=== PATIENT | female | born 1930 | race Caucasian/White ===

== ENCOUNTER 2017-07-15 16:56 | Inpatient (IN) | payer MEDICARE, BC ==
--- NOTE | 2017-07-15 18:04 | ED ---
Lower Extremity Injury HPI - General Chief Complaint: Extremity Injury, Lower Stated Complaint: Left Ankle Swelling Time Seen by Provider: 07/15/17 17:50 Source: patient, Caregiver Mode of arrival: wheelchair Limitations: altered mental status - History of Present Illness Initial Comments: 86 years old female lives at home her caregiver is her [id number] she said she is complaining about ankle pain of the left foot pain though there is no clear trauma or fall, she does have a history of dementia she is very pleasant but obviously forgetful. As well as any recent fall is concerned caregiver said she do not recall any event, devious system is only available from the caregiver her [id number] - Related Data Home Medications Medication Instructions Recorded Confirmed Aspirin EC [Ecotrin Low Dose] 81 mg PO DAILY 07/15/17 07/15/17 Citrical 2 tab PO DAILY 07/15/17 07/15/17 Cranberry Fruit Extract [Cranberry] 500 mg PO DAILY 07/15/17 07/15/17 Fish Oil/Dha/Epa [Fish Oil 1,200 1 cap PO BID 07/15/17 07/15/17 mg Fish Oil] Melatonin 10 mg PO HS 07/15/17 07/15/17 Memantine [Namenda] 10 mg PO BID 07/15/17 07/15/17 Multivitamins, Thera [Multivitamin 2 tab PO DAILY 07/15/17 07/15/17 (formulary)] Sennosides [Senna] 8.6 mg PO DAILY 07/15/17 07/15/17 Sertraline [Zoloft] 150 mg PO DAILY 07/15/17 07/15/17 Allergies Allergy/AdvReac Type Severity Reaction Status Date / Time No Known Allergies Allergy Verified 07/15/17 18:07 Review of Systems ROS Statement: Those systems with pertinent positive or pertinent negative responses have been documented in the HPI. ROS Other: All systems not noted in ROS Statement are negative. Past Medical History Past Medical History: Dementia History of Any Multi-Drug Resistant Organisms: None Reported Past Surgical History: Unable to Obtain Past Psychological History: No Psychological Hx Reported Smoking Status: Former smoker Past Alcohol Use History: None Reported Past Drug Use History: None Reported General Exam - General Exam Comments Initial Comments: General: The patient is awake and alert, in no distress, and does not appear acutely ill. pleasent but has dementia Skin: Skin is warm and dry and no rashes or lesions are noted. Eye: extra-ocular movements are intact; there is normal conjunctiva bilaterally. Ears, nose, mouth and throat: There are moist mucous membranes and no oral lesions. Neck: The neck is supple, there is no tenderness no neck stiffness noticed, no signs of any meningitis. Cardiovascular: There is a regular rate and rhythm. No murmur, rub or gallop is appreciated. Respiratory: To auscultation bilateral, no wheezing no rhonchi no distress respiratory haines noticed Gastrointestinal: Soft, non-distended, non-tender abdomen without masses or organomegaly noted. There is no rebound or guarding present. Bowel sounds are unremarkable. Back: There is no tenderness to palpation in the midline. There is no obvious deformity. Musculoskeletal: Noticed swelling over the medial malleolus, is tender as well she is also tender over the lateral malleolus, no neurovascular compromise noticed range of motion is decreased with the pain she is also tender over the outer lateral part of the foot as well will also tender over the calf area on the affected leg Neurological: CN II-XII intact, Cranial nerves III through XII are intact. There are no obvious motor or sensory deficits. Coordination appears grossly intact. Speech is normal. Psychiatric: Cooperative, appropriate mood & affect, normal judgment. Limitations: altered mental status Course Vital Signs 07/15/17 07/15/17 17:41 19:09 Temperature 98.4 F Pulse Rate 87 58 L Respiratory 18 16 Rate Blood Pressure 157/85 143/91 O2 Sat by Pulse 96 97 Oximetry - Reevaluation(s) Reevaluation #1: I discussed I discussed the x-ray and ultrasound findings with the family informed them that she has a mandibular fracture as well as DVT, she would need to come in for the inpatient care caregiver and daughter in law agreed with that 07/15/17 20:15 Medical Decision Making - Lab Data Result diagrams: 07/15/17 18:16 Lab Results 07/15/17 Range/Units 18:16 WBC 7.7 (3.8-10.6) k/uL RBC 3.62 L (3.80-5.40) m/uL Hgb 10.7 L (11.4-16.0) gm/dL Hct 34.0 (34.0-46.0) % MCV 93.9 (80.0-100.0) fL MCH 29.7 (25.0-35.0) pg MCHC 31.6 (31.0-37.0) g/dL RDW 14.6 (11.5-15.5) % Plt Count 227 (150-450) k/uL Hypochromasia Slight Disposition Clinical Impression: Medial malleolar fracture, Metatarsal fracture, DVT (deep venous thrombosis) Disposition: ADMITTED IP TO THIS [facility] Condition: Good Referrals: Emmanuelle Dhaliwal MD [Primary Care Provider] - 1-2 days
[2017-07-15 18:25] LABS: CHCM 31.1; HDW 2.37; HGB 10.7 gm/dL (11.4-16.0); Hypochromasia Slight; MCH 29.7 pg (25.0-35.0); MCHC 31.6 g/dL (31.0-37.0); MCV 93.9 fL (80.0-100.0); RBC 3.62 m/uL (3.80-5.40); RDW 14.6 % (11.5-15.5); WBC 7.7 k/uL (3.8-10.6)
--- NOTE | 2017-07-15 18:34 | XR ---
EXAMINATION TYPE: XR ankle complete LT, XR foot complete LT DATE OF EXAM: 07/15/2017 COMPARISON: NONE HISTORY: Pain TECHNIQUE: 3 views of the left ankle and left foot are submitted are submitted for evaluation. FINDINGS: There is medial malleolar fracture with minimal displacement noted. Ankle mortise is intact . Distal fibula is intact. There is evidence of soft tissue swelling. There is fracture noted to invo lve the neck of the fifth metatarsal however there appears to be callus formation and this is likely a nonacute fracture however clinical correlation with point tenderness recommended. No additional fra ctures seen. Degenerative changes of the midfoot. IMPRESSION: 1. Medial malleolar fracture with soft tissue swelling about the ankle. 2. Probable nonacute fracture fifth metatarsal.
--- NOTE | 2017-07-15 19:21 | US ---
EXAMINATION TYPE: US venous doppler duplex LE LT DATE OF EXAM: 07/15/2017 7:09 PM COMPARISON: NONE CLINICAL HISTORY: Pain. Left ankle edema SIDE PERFORMED: TECHNIQUE: The lower extremity deep venous system is examined utilizing real time linear array sonog andrés with graded compression, doppler sonography and color-flow sonography. VESSELS IMAGED: External Iliac Vein (EIV) Common Femoral Vein Deep Femoral Vein Greater Saphenous Vein * Femoral Vein Popliteal Vein Small Saphenous Vein * Proximal Calf Veins (* superficial vessels) There is thrombus noted within the popliteal vein with lack of compressibility and augmentation of fl ow. Remaining deep venous structures are patent at this time. IMPRESSION: Positive DVT left popliteal vein
[2017-07-15] MEDS ORDERED: NALOXONE 0.4 MG/ML 1 ML VIAL IV PRN (20:16)
[2017-07-15] MEDS ORDERED: ACETAMINOPHEN TAB 325 MG TAB PO PRN (20:16)
[2017-07-15] MEDS ORDERED: ONDANSETRON 4 MG/2 ML VIAL IVP PRN (20:16)
[2017-07-15] MEDS ORDERED: NON-FORMULARY DRUG (Fish Oil/Dha/Epa [Fish Oil 1,200 Mg Fish Oil] 1 CAP) PO SCH (21:00)
[2017-07-15 21:13] LABS: Calcium 9.4 mg/dL (8.4-10.2); Potassium 4.3 mmol/L (3.5-5.1); Total Bilirubin 0.3 mg/dL (0.2-1.3); Total Protein 7.4 g/dL (6.3-8.2)
[2017-07-15 21:18] LABS: Prothrombin Time 10.4 sec (9.0-12.0)
[2017-07-15 21:24] LABS: Partial Thromboplastin Time 21.1 sec (22.0-30.0)
[2017-07-15 21:33] VITALS: BMI 22.6
[2017-07-15] MEDS ORDERED: HEPARIN SODIUM,PORCINE 10,000 UNIT/ML 1 ML VIAL IV ONE (21:52)
[2017-07-15] MEDS ORDERED: HEPARIN SODIUM,PORCINE 5,000 UNIT/ML 1 ML VIAL IV PRN (21:52)
[2017-07-15] MEDS: MELATONIN 5 MG TABLET PO SCH (21:58)
[2017-07-15] MEDS: MEMANTINE 10 MG TAB PO SCH (21:58)
[2017-07-15] MEDS ORDERED: HEPARIN SODIUM,PORCINE/D5W PMX 25,000 UNIT in DEXTROSE/WATER 1 500ML.BAG IV SCH (22:00)
[2017-07-15 22:17] LABS: Basophils % (A) 0 %; CH 28.5; CHCM 30.2; Eosinophils # (A) 0.2 k/uL (0-0.7); Eosinophils % (A) 3 %; HCT 33.3 % (34.0-46.0); HDW 2.34; HGB 10.3 gm/dL (11.4-16.0); Hypochromasia Moderate; Luc # (Auto) 0.09; Luc % (Auto) 1; Lymphocytes # (A) 2.1 k/uL (1.0-4.8); Lymphocytes % (A) 24 %; MCH 29.2 pg (25.0-35.0); MCHC 30.8 g/dL (31.0-37.0); MCV 94.9 fL (80.0-100.0); Mean Platelet Volume 7.7; Monocytes # (A) 0.5 k/uL (0-1.0); Monocytes % (A) 5 %; Neutrophils # (A) 5.7 k/uL (1.3-7.7); Neutrophils % (A) 66 %; RBC 3.51 m/uL (3.80-5.40); RDW 14.5 % (11.5-15.5); WBC 8.6 k/uL (3.8-10.6); WBC (Perox) 9.47
[2017-07-15 22:31] LABS: INR 1.1 (<1.2); Prothrombin Time 10.7 sec (9.0-12.0)
[2017-07-15] MEDS: HEPARIN SODIUM,PORCINE/D5W PMX 25,000 UNIT in DEXTROSE/WATER 1 500ML.BAG IV SCH (22:35)
[2017-07-15 22:36] LABS: Partial Thromboplastin Time 21.4 sec (22.0-30.0)
[2017-07-15] MEDS: traMADol 50 MG TAB PO PRN (23:23)
[2017-07-16] MEDS: ACETAMINOPHEN IV (For NPO) 1,000 MG in EMPTY BAG 1 BAG IVPB PRN ×2 (03:00→12:39)
[2017-07-16 04:54] LABS: Basophils % (A) 0 %; CH 28.5; CHCM 30.8; Eosinophils # (A) 0.3 k/uL (0-0.7); Eosinophils % (A) 4 %; HCT 29.3 % (34.0-46.0); HDW 2.32; HGB 9.1 gm/dL (11.4-16.0); Hypochromasia Slight; Luc # (Auto) 0.07; Luc % (Auto) 1; Lymphocytes # (A) 1.6 k/uL (1.0-4.8); Lymphocytes % (A) 24 %; MCH 28.8 pg (25.0-35.0); MCHC 30.9 g/dL (31.0-37.0); Mean Platelet Volume 7.9; Monocytes # (A) 0.4 k/uL (0-1.0); Monocytes % (A) 6 %; Neutrophils # (A) 4.3 k/uL (1.3-7.7); Neutrophils % (A) 64 %; RBC 3.15 m/uL (3.80-5.40); RDW 14.6 % (11.5-15.5); WBC 6.7 k/uL (3.8-10.6); WBC (Perox) 7.31
[2017-07-16] MEDS: traMADol 50 MG TAB PO PRN (05:14)
[2017-07-16] MEDS: MEMANTINE 10 MG TAB PO SCH ×2 (08:28→20:40)
[2017-07-16] MEDS: MULTIVITAMINS, THERA 1 EACH TAB PO SCH (08:28)
[2017-07-16] MEDS: SERTRALINE 50 MG TAB PO SCH (08:28)
[2017-07-16] MEDS: ASPIRIN 81 MG PO SCH (08:28)
[2017-07-16] MEDS: SENNOSIDES 8.6 MG TAB PO SCH (08:28)
[2017-07-16] MEDS ORDERED: NON-FORMULARY DRUG (Cranberry Fruit Extract [Cranberry] 500 MG) PO SCH (09:00)
[2017-07-16] MEDS ORDERED: CITRICAL PO SCH (09:00)
--- NOTE | 2017-07-16 09:33 | P.CNOR ---
History of Present Illness - HPI Consult date: 07/16/17 History of present illness: This is an 86-year-old female who is admitted for DVT and left ankle fracture. Patient is poor historian and has a known history of dementia. Patient is unaware of how she hurt her left ankle. There is no family present in the room. Patient appears comfortable and denies any significant pain at rest. Patient had a fever/chills, numbness, weakness or tingling. Review of Systems See HPI. Past Medical History Past Medical History: Dementia History of Any Multi-Drug Resistant Organisms: None Reported Past Surgical History: Unable to Obtain Past Psychological History: No Psychological Hx Reported Smoking Status: Former smoker Past Alcohol Use History: None Reported Past Drug Use History: None Reported Medications and Allergies Home Medications Medication Instructions Recorded Confirmed Type Aspirin EC [Ecotrin Low Dose] 81 mg PO DAILY 07/15/17 07/15/17 History Citrical 2 tab PO DAILY 07/15/17 07/15/17 History Cranberry Fruit Extract [Cranberry] 500 mg PO DAILY 07/15/17 07/15/17 History Fish Oil/Dha/Epa [Fish Oil 1,200 1 cap PO BID 07/15/17 07/15/17 History mg Fish Oil] Melatonin 10 mg PO HS 07/15/17 07/15/17 History Memantine [Namenda] 10 mg PO BID 07/15/17 07/15/17 History Multivitamins, Thera [Multivitamin 2 tab PO DAILY 07/15/17 07/15/17 History (formulary)] Sennosides [Senna] 8.6 mg PO DAILY 07/15/17 07/15/17 History Sertraline [Zoloft] 150 mg PO DAILY 07/15/17 07/15/17 History Allergies Allergy/AdvReac Type Severity Reaction Status Date / Time No Known Allergies Allergy Verified 07/15/17 18:07 Physical Examination Patient is alert. Patient is pleasant, but confused during exam. On inspection left lower extremity is in a splint which is clean, dry and intact. There is tenderness to palpation of the left ankle. There is pain with range of motion of the left lower extremity. Neurovascular status to the left lower extremity is intact. Results X-rays of the left ankle are reviewed showing a nondisplaced fracture of the medial malleolus. X-rays of the left foot are reviewed showing evidence for an old fracture of the fifth metatarsal. - Labs Labs: Abnormal Lab Results - Last 24 Hours (Table) 07/15/17 07/15/17 07/15/17 Range/Units 18:16 20:44 20:44 RBC 3.62 L (3.80-5.40) m/uL Hgb 10.7 L (11.4-16.0) gm/dL Hct (34.0-46.0) % MCHC (31.0-37.0) g/dL APTT 21.1 L (22.0-30.0) sec Chloride 108 H (98-107) mmol/L BUN 29 H (7-17) mg/dL Creatinine 1.39 H (0.52-1.04) mg/dL 07/15/17 07/15/17 07/16/17 Range/Units 22:01 22:01 04:35 RBC 3.51 L 3.15 L (3.80-5.40) m/uL Hgb 10.3 L 9.1 L (11.4-16.0) gm/dL Hct 33.3 L 29.3 L (34.0-46.0) % MCHC 30.8 L 30.9 L (31.0-37.0) g/dL APTT 21.4 L (22.0-30.0) sec Chloride (98-107) mmol/L BUN (7-17) mg/dL Creatinine (0.52-1.04) mg/dL 07/16/17 Range/Units 04:38 RBC (3.80-5.40) m/uL Hgb (11.4-16.0) gm/dL Hct (34.0-46.0) % MCHC (31.0-37.0) g/dL APTT 78.4 H (22.0-30.0) sec Chloride (98-107) mmol/L BUN (7-17) mg/dL Creatinine (0.52-1.04) mg/dL H & H 07/15/17 07/15/17 07/16/17 Range/Units 18:16 22:01 04:35 Hgb 10.7 L 10.3 L 9.1 L (11.4-16.0) gm/dL Hct 34.0 33.3 L 29.3 L (34.0-46.0) % Coagulation 07/15/17 07/15/17 Range/Units 20:44 22:01 INR 1.0 1.1 (<1.2) Result Diagrams: 07/16/17 04:35 07/15/17 20:44 Assessment and Plan (1) DVT (deep venous thrombosis) Current Visit: Yes Status: Acute Code(s): I82.409 - ACUTE EMBOLISM AND THOMBOS UNSP DEEP VN UNSP LOWER EXTREMITY SNOMED Code(s): 604946085 (2) Medial malleolar fracture Current Visit: Yes Status: Acute Code(s): S82.53XA - DISP FX OF MEDIAL MALLEOLUS OF UNSP TIBIA, INIT FOR CLOS FX SNOMED Code(s): 815817238 Plan: #1. Patient is to be non-weightbearing to the left lower extremity with a premium equalizer boot. #2. Continue rest, ice, elevation to the left lower extremity. #3. Will continue to follow the patient closely. No surgical intervention planned at this time.
[2017-07-16 12:31] LABS: INR 1.1 (<1.2); Partial Thromboplastin Time 67.9 sec (22.0-30.0); Prothrombin Time 11.2 sec (9.0-12.0)
--- NOTE | 2017-07-16 15:58 | P.HPIM ---
History of Present Illness H&P Date: 07/16/17 Chief Complaint: Left ankle pain 86 years old female with a known history of dementia lives at home her caregiver is her [id number] she said she is complaining about ankle pain of the left foot pain though there is no clear trauma or fall, she does have a history of dementia she is very pleasant but obviously forgetful. As well as any recent fall is concerned caregiver said she do not recall any event. Review of systems is only available from the caregiver her [id number] Past Medical History Past Medical History: Dementia History of Any Multi-Drug Resistant Organisms: None Reported Past Surgical History: Unable to Obtain Past Psychological History: No Psychological Hx Reported Smoking Status: Former smoker Past Alcohol Use History: None Reported Past Drug Use History: None Reported Medications and Allergies Home Medications Medication Instructions Recorded Confirmed Type Aspirin EC [Ecotrin Low Dose] 81 mg PO DAILY 07/15/17 07/15/17 History Citrical 2 tab PO DAILY 07/15/17 07/15/17 History Cranberry Fruit Extract [Cranberry] 500 mg PO DAILY 07/15/17 07/15/17 History Fish Oil/Dha/Epa [Fish Oil 1,200 1 cap PO BID 07/15/17 07/15/17 History mg Fish Oil] Melatonin 10 mg PO HS 07/15/17 07/15/17 History Memantine [Namenda] 10 mg PO BID 07/15/17 07/15/17 History Multivitamins, Thera [Multivitamin 2 tab PO DAILY 07/15/17 07/15/17 History (formulary)] Sennosides [Senna] 8.6 mg PO DAILY 07/15/17 07/15/17 History Sertraline [Zoloft] 150 mg PO DAILY 07/15/17 07/15/17 History Allergies Allergy/AdvReac Type Severity Reaction Status Date / Time No Known Allergies Allergy Verified 07/15/17 18:07 Physical Exam Vitals: Vital Signs Temp Pulse Pulse Resp BP BP Pulse Ox 07/16/17 09:45 62 07/16/17 08:14 98.3 F 54 L 16 133/72 93 L 07/16/17 01:05 97.4 F L 53 L 16 141/80 94 L 07/15/17 21:15 99.1 F 59 L 16 165/101 96 07/15/17 20:32 59 L 18 164/77 92 L 07/15/17 19:09 58 L 16 143/91 97 07/15/17 17:41 98.4 F 87 18 157/85 96 Intake and Output 07/15/17 07/16/17 07/16/17 22:59 06:59 14:59 Intake Total 128.967 360 Output Total 40 Balance -40 128.967 360 Intake: Intake, IV Titration 128.967 Amount Heparin Sodium,Porcine/ 128.967 D5w Pmx 25,000 unit In Dextrose/Water 1 500ml. bag @ 18 UNITS/KG/HR 19. 59 mls/hr IV .Q24H [facility] Rx #:[id number] Oral 360 Output: Urine 40 Other: # Voids 1 2 Weight 54.431 kg PHYSICAL EXAMINATION: Patient is lying in the bed comfortably, no acute distress, awake alert and not oriented HEENT: Normocephalic. Neck is supple. Pupils reactive. Nostrils clear. Oral cavity is moist. Ears reveal no drainage. Neck reveals no JVD, carotid bruits, or thyromegaly. CHEST EXAMINATION: Trachea is central. Symmetrical expansion. Lung springer clear to auscultation and percussion. CARDIAC: Normal S1, S2 with no gallops. No murmurs ABDOMEN: Soft. Bowel sounds normal. No organomegaly. No abdominal bruits. Extremities: reveal no edema. No clubbing or cyanosis Neurologically awake, alert . Able to move all extremities. Skin: No rash or skin lesions. Psychiatric: Coperative. Nonsuicidal Musculoskeletal: Left ankle mild swelling and tenderness to palpation. Results CBC & Chem 7: 07/16/17 04:35 07/15/17 20:44 Labs: Abnormal Lab Results - Last 24 Hours (Table) 07/15/17 07/15/17 07/15/17 Range/Units 18:16 20:44 20:44 RBC 3.62 L (3.80-5.40) m/uL Hgb 10.7 L (11.4-16.0) gm/dL Hct (34.0-46.0) % MCHC (31.0-37.0) g/dL APTT 21.1 L (22.0-30.0) sec Chloride 108 H (98-107) mmol/L BUN 29 H (7-17) mg/dL Creatinine 1.39 H (0.52-1.04) mg/dL 07/15/17 07/15/17 07/16/17 Range/Units 22:01 22:01 04:35 RBC 3.51 L 3.15 L (3.80-5.40) m/uL Hgb 10.3 L 9.1 L (11.4-16.0) gm/dL Hct 33.3 L 29.3 L (34.0-46.0) % MCHC 30.8 L 30.9 L (31.0-37.0) g/dL APTT 21.4 L (22.0-30.0) sec Chloride (98-107) mmol/L BUN (7-17) mg/dL Creatinine (0.52-1.04) mg/dL 07/16/17 Range/Units 04:38 RBC (3.80-5.40) m/uL Hgb (11.4-16.0) gm/dL Hct (34.0-46.0) % MCHC (31.0-37.0) g/dL APTT 78.4 H (22.0-30.0) sec Chloride (98-107) mmol/L BUN (7-17) mg/dL Creatinine (0.52-1.04) mg/dL Thrombosis Risk Factor Assmnt - Choose All That Apply Each Factor Represents 1 point: Age 41-60 years, Swollen legs (current) Other Risk Factors: Yes Each Risk Factor Represents 2 Points: Age 61-74 years, Patient confined to bed Each Risk Factor Represents 3 Points: Age 75 years or older, History of DVT/PE Other congenital or acquired thrombophilia - If yes, enter type in comment: No Thrombosis Risk Factor Assessment Total Risk Factor Score: 12 Thrombosis Risk Factor Assessment Level: High Risk Assessment and Plan Assessment: Left lower extremity pain due to popliteal vein thrombosis acute Left ankle/medial mallleolar fracture Dementia Normocytic anemia Acute kidney injury Plan: Patient will be continued on IV heparin and possibly changed to oral anticoagulants. Orthopedics recommends no surgical interventions at this time. We'll continue to follow closely.. Follow-up renal function. We will discuss the family regarding further management and discharge planning. Prognosis is guarded Time with Patient: Greater than 30
[2017-07-16] MEDS: MELATONIN 5 MG TABLET PO SCH (20:40)
[2017-07-16] MEDS: HEPARIN SODIUM,PORCINE/D5W PMX 25,000 UNIT in DEXTROSE/WATER 1 500ML.BAG IV SCH (21:35)
[2017-07-17] MEDS: traMADol 50 MG TAB PO PRN ×3 (00:44→14:41)
[2017-07-17 06:56] LABS: Basophils % (A) 0 %; CHCM 30.3; Eosinophils # (A) 0.2 k/uL (0-0.7); Eosinophils % (A) 3 %; HCT 30.7 % (34.0-46.0); HDW 2.31; HGB 9.3 gm/dL (11.4-16.0); Hypochromasia Moderate; Luc # (Auto) 0.09; Luc % (Auto) 1; Lymphocytes # (A) 1.4 k/uL (1.0-4.8); Lymphocytes % (A) 19 %; MCH 29.3 pg (25.0-35.0); MCHC 30.4 g/dL (31.0-37.0); MCV 96.5 fL (80.0-100.0); Mean Platelet Volume 7.1; Monocytes # (A) 0.5 k/uL (0-1.0); Monocytes % (A) 6 %; Neutrophils # (A) 5.1 k/uL (1.3-7.7); Neutrophils % (A) 70 %; RBC 3.18 m/uL (3.80-5.40); RDW 13.4 % (11.5-15.5); WBC 7.3 k/uL (3.8-10.6); WBC (Perox) 7.14
--- NOTE | 2017-07-17 08:36 | P.PN ---
Subjective Progress Note Date: 07/17/17 This is an 86-year-old female who was admitted for DVT and left ankle fracture. Patient has a history of dementia and is a poor historian. Patient does not complain of any pain today. Patient received a premium equalizer boot for the left lower extremity. Objective - Vital Signs Vital signs: Vital Signs Temp 98.5 F 07/17/17 00:37 Pulse 63 07/17/17 00:37 Resp 18 07/17/17 00:37 BP 151/82 07/17/17 00:37 Pulse Ox 93 L 07/17/17 00:37 Intake & Output 07/16/17 07/17/17 07/17/17 18:59 06:59 18:59 Intake Total 608.834 156.98 Balance 608.834 156.98 Intake: Intake, IV Titration 128.834 156.98 Amount Heparin Sodium,Porcine/ 128.834 156.98 D5w Pmx 25,000 unit In Dextrose/Water 1 500ml. bag @ 18 UNITS/KG/HR 19. 59 mls/hr IV .Q24H [facility] Rx #:[id number] Oral 480 Other: Voiding Method Diaper # Voids 1 2 1 - Exam Patient is alert. Patient is confused during exam. On exam patient's left lower extremity is in a boot. Patient is able to wiggle the toes. Patient is sitting at the left lower extremity in flexion without pain or difficulty. Neurovascular status to the left lower extremity is intact. - Labs CBC & Chem 7: 07/17/17 06:27 07/15/17 20:44 Labs: Abnormal Lab Results - Last 24 Hours (Table) 07/16/17 07/17/17 07/17/17 Range/Units 11:38 06:27 06:27 RBC 3.18 L (3.80-5.40) m/uL Hgb 9.3 L (11.4-16.0) gm/dL Hct 30.7 L (34.0-46.0) % MCHC 30.4 L (31.0-37.0) g/dL APTT 67.9 H 52.0 H (22.0-30.0) sec Assessment and Plan (1) DVT (deep venous thrombosis) Current Visit: Yes Status: Acute Code(s): I82.409 - ACUTE EMBOLISM AND THOMBOS UNSP DEEP VN UNSP LOWER EXTREMITY SNOMED Code(s): 428309888 (2) Medial malleolar fracture Current Visit: Yes Status: Acute Code(s): S82.53XA - DISP FX OF MEDIAL MALLEOLUS OF UNSP TIBIA, INIT FOR CLOS FX SNOMED Code(s): 067919073 Plan: #1. Patient is to be non-weightbearing to the left lower extremity with a premium equalizer boot. #2. Continue rest, ice, elevation to the left lower extremity. #3. Neurosurgical intervention planned at this time. Patient may follow up as an outpatient in 1 week.
[2017-07-17] MEDS: SERTRALINE 50 MG TAB PO SCH (08:58)
[2017-07-17] MEDS: SENNOSIDES 8.6 MG TAB PO SCH (08:58)
[2017-07-17] MEDS: MEMANTINE 10 MG TAB PO SCH ×2 (08:59→21:54)
[2017-07-17] MEDS: ASPIRIN 81 MG PO SCH (08:59)
[2017-07-17] MEDS: MULTIVITAMINS, THERA 1 EACH TAB PO SCH (13:25)
[2017-07-17] MEDS ORDERED: Acetaminophen-Codeine 300-30mg TAB PO PRN (18:35)
[2017-07-17] MEDS: MELATONIN 5 MG TABLET PO SCH (21:53)
[2017-07-17] MEDS: APIXABAN 5 MG TAB PO SCH (21:54)
--- NOTE | 2017-07-18 00:13 | P.PN ---
Subjective Progress Note Date: 07/17/17 Principal diagnosis: Left popliteal DVT 86 years old female with a known history of dementia lives at home her caregiver is her [id number] she said she is complaining about ankle pain of the left foot pain though there is no clear trauma or fall, she does have a history of dementia she is very pleasant but obviously forgetful. As well as any recent fall is concerned caregiver said she do not recall any event. Review of systems is only available from the caregiver her [id number]. 07/17/2017 Patient is able to sit in the changed. Patient does have underlying dementia and could not provide any history. Denied any chest pain or short of breath. No fever or chills noted overnight. Complete review of systems could not be obtained from the patient Current medications reviewed. Objective - Vital Signs Vital signs: Vital Signs Temp 98.4 F 07/17/17 20:22 Pulse 61 07/17/17 20:22 Resp 16 07/17/17 20:22 BP 142/74 07/17/17 20:22 Pulse Ox 94 L 07/17/17 15:00 Intake & Output 07/17/17 07/17/17 07/18/17 06:59 18:59 06:59 Intake Total 156.98 Balance 156.98 Intake: Intake, IV Titration 156.98 Amount Heparin Sodium,Porcine/ 156.98 D5w Pmx 25,000 unit In Dextrose/Water 1 500ml. bag @ 18 UNITS/KG/HR 19. 59 mls/hr IV .Q24H [facility] Rx #:[id number] Other: Voiding Method Diaper Diaper Incontinent # Voids 2 2 - Exam Patient is lying in the bed comfortably, no acute distress, awake alert and not oriented HEENT: Normocephalic. Neck is supple. Pupils reactive. Nostrils clear. Oral cavity is moist. Ears reveal no drainage. Neck reveals no JVD, carotid bruits, or thyromegaly. CHEST EXAMINATION: Trachea is central. Symmetrical expansion. Lung springer clear to auscultation and percussion. CARDIAC: Normal S1, S2 with no gallops. No murmurs ABDOMEN: Soft. Bowel sounds normal. No organomegaly. No abdominal bruits. Extremities: reveal no edema. No clubbing or cyanosis Neurologically awake, alert . Able to move all extremities. Skin: No rash or skin lesions. Psychiatric: Coperative. Nonsuicidal Musculoskeletal: Left ankle mild swelling and tenderness to palpation. - Labs CBC & Chem 7: 07/17/17 06:27 07/15/17 20:44 Labs: Abnormal Lab Results - Last 24 Hours (Table) 07/17/17 07/17/17 Range/Units 06:27 06:27 RBC 3.18 L (3.80-5.40) m/uL Hgb 9.3 L (11.4-16.0) gm/dL Hct 30.7 L (34.0-46.0) % MCHC 30.4 L (31.0-37.0) g/dL APTT 52.0 H (22.0-30.0) sec Assessment and Plan Assessment: Left lower extremity pain due to popliteal vein thrombosis acute Left ankle/medial mallleolar fracture Dementia Normocytic anemia Acute kidney injury Plan: Patient as continued on IV heparin and changed to oral anticoagulants upon discussing with patient's [id number] who is the caregiver as well. Complications including bleeding and which can be worsened if the patient falls and hits her head. Caregiver understands the risk and is agreeable to start on oral anticoagulants. . Orthopedics recommends no surgical interventions at this time. We'll continue to follow closely.. Follow-up renal function. We will discuss the family regarding further management and discharge planning. Prognosis is guarded Time with Patient: Greater than 30
[2017-07-18 07:27] VITALS: RESP 16
--- NOTE | 2017-07-18 08:06 | P.PN ---
Subjective Progress Note Date: 07/18/17 This is an 86-year-old female who was admitted for DVT and left ankle fracture. Patient has a history of dementia and is a poor historian. Patient has no new complaints today. Objective - Vital Signs Vital signs: Vital Signs Temp 97.9 F 07/18/17 07:15 Pulse 67 07/18/17 07:15 Resp 16 07/18/17 07:15 BP 154/78 07/18/17 07:15 Pulse Ox 96 07/18/17 07:15 Intake & Output 07/17/17 07/18/17 07/18/17 18:59 06:59 18:59 Intake Total 560 Balance 560 Intake: IV 320 .9 Normal Saline 320 Oral 240 Other: Voiding Method Diaper Incontinent # Voids 2 3 - Exam Patient is alert and appears comfortable. Patient is confused during exam. Boot is removed for exam. Patient's left ankle with mild swelling and tenderness to palpation. Capillary refill is normal at less than 2 seconds. Neurovascular status to the left lower extremity is intact. - Labs CBC & Chem 7: 07/17/17 06:27 07/15/17 20:44 Assessment and Plan (1) DVT (deep venous thrombosis) Current Visit: Yes Status: Acute Code(s): I82.409 - ACUTE EMBOLISM AND THOMBOS UNSP DEEP VN UNSP LOWER EXTREMITY SNOMED Code(s): 298369613 (2) Medial malleolar fracture Current Visit: Yes Status: Acute Code(s): S82.53XA - DISP FX OF MEDIAL MALLEOLUS OF UNSP TIBIA, INIT FOR CLOS FX SNOMED Code(s): 838282378 Plan: #1. Patient is to be non-weightbearing to the left lower extremity with a premium equalizer boot. #2. Continue rest, ice, elevation to the left lower extremity. #3. Neurosurgical intervention planned at this time. Patient may follow up as an outpatient in 1 week.
[2017-07-18] MEDS: MEMANTINE 10 MG TAB PO SCH (08:13)
[2017-07-18] MEDS: APIXABAN 5 MG TAB PO SCH (08:13)
[2017-07-18] MEDS: ASPIRIN 81 MG PO SCH (08:13)
[2017-07-18] MEDS: SENNOSIDES 8.6 MG TAB PO SCH (08:14)
[2017-07-18] MEDS: SERTRALINE 50 MG TAB PO SCH (08:14)
[2017-07-18 08:55] LABS: Basophils % (A) 1 %; CHCM 29.8; Eosinophils # (A) 0.3 k/uL (0-0.7); Eosinophils % (A) 4 %; HCT 31.9 % (34.0-46.0); HDW 2.33; HGB 9.5 gm/dL (11.4-16.0); Hypochromasia Marked; Luc # (Auto) 0.11; Luc % (Auto) 2; Lymphocytes # (A) 1.8 k/uL (1.0-4.8); Lymphocytes % (A) 27 %; MCH 29.1 pg (25.0-35.0); MCHC 29.7 g/dL (31.0-37.0); MCV 97.9 fL (80.0-100.0); Mean Platelet Volume 7.3; Monocytes # (A) 0.5 k/uL (0-1.0); Monocytes % (A) 7 %; Neutrophils % (A) 59 %; RBC 3.26 m/uL (3.80-5.40); RDW 13.5 % (11.5-15.5); WBC 6.7 k/uL (3.8-10.6); WBC (Perox) 7.26
[2017-07-18] MEDS: MULTIVITAMINS, THERA 1 EACH TAB PO SCH (12:29)
[2017-07-18 15:17] VITALS: BP 127/70; PULSE 59; TEMP 98.5
--- NOTE | 2017-07-18 16:37 | P.DS ---
Providers Date of admission: 07/15/17 20:16 Expected date of discharge: 07/18/17 Attending physician: Csae Lima Primary care physician: Emmanuelle Dhaliwal Hospital Course: Discharge diagnosis Left lower extremity pain due to acute popliteal vein thrombosis acute Left ankle/medial mallleolar fracture. Nonweightbearing in other recommends no surgical intervention Dementia Normocytic anemia Acute kidney injury. Likely prerenal Hospital course 86 years old female with a known history of dementia lives at home her caregiver is her [id number] she said she is complaining about ankle pain of the left foot pain though there is no clear trauma or fall, she does have a history of dementia she is very pleasant but obviously forgetful. As well as any recent fall is concerned caregiver said she do not recall any event. Review of systems is only available from the caregiver her [id number]. 07/17/2017 Patient is able to sit in the chair. Patient does have underlying dementia and could not provide any history. awake and alert. Denied any chest pain or short of breath. No fever or chills noted overnight. Patient was continued on IV heparin and changed to oral anticoagulants upon discussing with patient's [id number] who is the caregiver as well. Complications including bleeding and which can be worsened if the patient falls and hits her head. Caregiver understands the risk and is agreeable to start on oral anticoagulants. . Orthopedics recommends no surgical interventions at this time. Patient is being discharged home in stable condition. Nonweightbearing to the left ankle and follow with other clinic. Complete review of systems could not be obtained from the patient Discharge physical examination was done Patient Condition at Discharge: Good Plan - Discharge Summary Discharge Rx Participant: No New Discharge Prescriptions: New Acetaminophen-Codeine 300-30mg [Tylenol w/codeine #3] 1 each PO Q6HR PRN #20 tab PRN Reason: Pain Apixaban [Eliquis] 5 mg PO BID #60 tab Continue Sennosides [Senna] 8.6 mg PO DAILY Multivitamins, Thera [Multivitamin (formulary)] 2 tab PO DAILY Fish Oil/Dha/Epa [Fish Oil 1,200 mg Fish Oil] 1 cap PO BID Cranberry Fruit Extract [Cranberry] 500 mg PO DAILY Sertraline [Zoloft] 150 mg PO DAILY Memantine [Namenda] 10 mg PO BID Melatonin 10 mg PO HS Citrical 2 tab PO DAILY Discontinued Aspirin EC [Ecotrin Low Dose] 81 mg PO DAILY Discharge Medication List Citrical 2 tab PO DAILY 07/15/17 [History] Cranberry Fruit Extract [Cranberry] 500 mg PO DAILY 07/15/17 [History] Fish Oil/Dha/Epa [Fish Oil 1,200 mg Fish Oil] 1 cap PO BID 07/15/17 [History] Melatonin 10 mg PO HS 07/15/17 [History] Memantine [Namenda] 10 mg PO BID 07/15/17 [History] Multivitamins, Thera [Multivitamin (formulary)] 2 tab PO DAILY 07/15/17 [History ] Sennosides [Senna] 8.6 mg PO DAILY 07/15/17 [History] Sertraline [Zoloft] 150 mg PO DAILY 07/15/17 [History] Acetaminophen-Codeine 300-30mg [Tylenol w/codeine #3] 1 each PO Q6HR PRN #20 tab 07/18/17 [Rx] Apixaban [Eliquis] 5 mg PO BID #60 tab 07/18/17 [Rx] Follow up Appointment(s)/Referral(s): Emmanuelle Dhaliwal MD [Primary Care Provider] - 1-2 days Naveed Mckeon DO [Doctor of Osteopathic Medicine] - 1 Week Activity/Diet/Wound Care/Special Instructions: Nonweightbearing to the left lower extremity. Maintain equalizer boot to left lower extremity at all times. Discharge Disposition: TRANSFER TO SNF/ECF
== END 2017-07-18 18:22 | DRG 300 ==
LOC: EC 16:56 → 3SUR 20:16
PROVIDERS: ADMIT Hospitalist; ATTEND Hospitalist
DX: I82.432 Acute embolism and thrombosis of left popliteal vein (principal); N17.9 Acute kidney failure, unspecified; F03.90 Unspecified dementia, unspecified severity, without behavioral disturbance, psychotic disturbance, mood disturbance, and anxiety; D64.9 Anemia, unspecified; S82.52XA Displaced fracture of medial malleolus of left tibia, initial encounter for closed fracture; S92.302A Fracture of unspecified metatarsal bone(s), left foot, initial encounter for closed fracture; Z79.82 Long term (current) use of aspirin; Z79.899 Other long term (current) drug therapy; Z87.891 Personal history of nicotine dependence
CPT/HCPCS: 29515; 36415; 80053; 82607; 84443; 85025; 85027; 85610; 85730; 99285

== ENCOUNTER 2017-11-08 11:58 | Inpatient (IN) | payer MEDICARE, BC ==
[2017-11-08] MEDS ORDERED: SODIUM CHLORIDE 0.9% 1,000 ML IV STA ×2 (12:19→14:21)
--- NOTE | 2017-11-08 12:45 | ED ---
General Adult HPI - General Chief complaint: Altered Mental Status Stated complaint: Syncope Time Seen by Provider: 11/08/17 12:14 Source: patient, RN notes reviewed, old records reviewed Mode of arrival: EMS Limitations: no limitations - History of Present Illness Initial comments: This is a 6-year-old female the ER for evaluation of altered mental status, syncope near syncope versus seizure. Patient has severe dementia unable to give history, per family patient after she woke up and her normal morning after having a normal night had an episode of shaking and unresponsiveness. Shaking was generalized, patient did arouse without loss of consciousness - Related Data Home Medications Medication Instructions Recorded Confirmed Citrical 1 tab PO BID 07/15/17 11/08/17 Cranberry Fruit Extract [Cranberry] 500 mg PO DAILY 07/15/17 11/08/17 Memantine [Namenda] 10 mg PO BID 07/15/17 11/08/17 Multivitamins, Thera [Multivitamin 2 tab PO DAILY 07/15/17 11/08/17 (formulary)] Sertraline [Zoloft] 150 mg PO DAILY 07/15/17 11/08/17 Aspirin 81 mg PO HS 11/08/17 11/08/17 Docusate [Colace] 100 mg PO DAILY 11/08/17 11/08/17 Ferrous Sulfate [Iron] 325 mg PO DAILY 11/08/17 11/08/17 Melatonin 5 mg PO HS 11/08/17 11/08/17 [place]-3 Fatty Acids/Fish Oil [Fish 1 cap PO BID 11/08/17 11/08/17 Oil 1,000 mg Softgel] Allergies Allergy/AdvReac Type Severity Reaction Status Date / Time No Known Allergies Allergy Verified 11/08/17 12:54 Review of Systems ROS Statement: Those systems with pertinent positive or pertinent negative responses have been documented in the HPI. ROS Other: All systems not noted in ROS Statement are negative. Past Medical History Past Medical History: Dementia History of Any Multi-Drug Resistant Organisms: None Reported Past Surgical History: Unable to Obtain Past Psychological History: No Psychological Hx Reported Smoking Status: Former smoker Past Alcohol Use History: None Reported Past Drug Use History: None Reported General Exam Limitations: no limitations General appearance: alert, in no apparent distress Head exam: Present: atraumatic, normocephalic, normal inspection Eye exam: Present: normal appearance, PERRL, EOMI. Absent: scleral icterus, conjunctival injection, periorbital swelling ENT exam: Present: normal exam, mucous membranes moist Neck exam: Present: normal inspection. Absent: tenderness, meningismus, lymphadenopathy Respiratory exam: Present: normal lung sounds bilaterally. Absent: respiratory distress, wheezes, rales, rhonchi, stridor Cardiovascular Exam: Present: regular rate, normal rhythm, normal heart sounds. Absent: systolic murmur, diastolic murmur, rubs, gallop, clicks GI/Abdominal exam: Present: soft, normal bowel sounds. Absent: distended, tenderness, guarding, rebound, rigid Extremities exam: Present: normal inspection, full ROM, normal capillary refill. Absent: tenderness, pedal edema, joint swelling, calf tenderness Back exam: Present: normal inspection Neurological exam: Present: alert, oriented X3, CN II-XII intact Psychiatric exam: Present: normal affect, normal mood Skin exam: Present: warm, dry, intact, normal color. Absent: rash Course Vital Signs 11/08/17 12:06 Temperature 97.8 F Pulse Rate 58 L Respiratory 16 Rate Blood Pressure 176/88 O2 Sat by Pulse 95 Oximetry EKG Findings - EKG Comments: EKG Findings:: EKG shows sinus bradycardia rate of 52, VT 182, QRS 136, QTC 533 Medical Decision Making - Medical Decision Making 86 male to the ED w syncope v seizure will admit for neuro evaluation - Lab Data Result diagrams: 11/08/17 12:22 11/08/17 12:22 Lab Results 11/08/17 11/08/17 11/08/17 Range/Units 12:22 12:22 12:22 WBC 5.0 (3.8-10.6) k/uL RBC 3.78 L (3.80-5.40) m/uL Hgb 10.3 L (11.4-16.0) gm/dL Hct 34.0 (34.0-46.0) % MCV 89.9 (80.0-100.0) fL MCH 27.3 (25.0-35.0) pg MCHC 30.4 L (31.0-37.0) g/dL RDW 16.1 H (11.5-15.5) % Plt Count 251 (150-450) k/uL Neutrophils % 61 % Lymphocytes % 27 % Monocytes % 6 % Eosinophils % 4 % Basophils % 1 % Neutrophils # 3.0 (1.3-7.7) k/uL Lymphocytes # 1.4 (1.0-4.8) k/uL Monocytes # 0.3 (0-1.0) k/uL Eosinophils # 0.2 (0-0.7) k/uL Basophils # 0.0 (0-0.2) k/uL Hypochromasia Slight Anisocytosis Slight PT (9.0-12.0) sec INR (<1.2) APTT (22.0-30.0) sec Sodium 150 H (137-145) mmol/L Potassium 4.1 (3.5-5.1) mmol/L Chloride 112 H (98-107) mmol/L Carbon Dioxide 26 (22-30) mmol/L Anion Gap 12 mmol/L BUN 33 H (7-17) mg/dL Creatinine 1.20 H (0.52-1.04) mg/dL Est GFR (MDRD) Af Amer 52 (>60 ml/min/1.73 sqM) Est GFR (MDRD) Non-Af 43 (>60 ml/min/1.73 sqM) Glucose 90 (74-99) mg/dL Calcium 9.3 (8.4-10.2) mg/dL Phosphorus 4.1 (2.5-4.5) mg/dL Magnesium 2.2 (1.6-2.3) mg/dL Total Bilirubin 0.3 (0.2-1.3) mg/dL AST 30 (14-36) U/L ALT 17 (9-52) U/L Alkaline Phosphatase 135 H (38-126) U/L Total Creatine Kinase 56 (30-135) U/L CK-MB (CK-2) 1.4 (0.0-2.4) ng/mL CK-MB (CK-2) Rel Index 2.5 Total Protein 7.8 (6.3-8.2) g/dL Albumin 4.1 (3.5-5.0) g/dL 11/08/17 Range/Units 12:22 WBC (3.8-10.6) k/uL RBC (3.80-5.40) m/uL Hgb (11.4-16.0) gm/dL Hct (34.0-46.0) % MCV (80.0-100.0) fL MCH (25.0-35.0) pg MCHC (31.0-37.0) g/dL RDW (11.5-15.5) % Plt Count (150-450) k/uL Neutrophils % % Lymphocytes % % Monocytes % % Eosinophils % % Basophils % % Neutrophils # (1.3-7.7) k/uL Lymphocytes # (1.0-4.8) k/uL Monocytes # (0-1.0) k/uL Eosinophils # (0-0.7) k/uL Basophils # (0-0.2) k/uL Hypochromasia Anisocytosis PT 9.9 (9.0-12.0) sec INR 1.0 (<1.2) APTT 20.2 L (22.0-30.0) sec Sodium (137-145) mmol/L Potassium (3.5-5.1) mmol/L Chloride (98-107) mmol/L Carbon Dioxide (22-30) mmol/L Anion Gap mmol/L BUN (7-17) mg/dL Creatinine (0.52-1.04) mg/dL Est GFR (MDRD) Af Amer (>60 ml/min/1.73 sqM) Est GFR (MDRD) Non-Af (>60 ml/min/1.73 sqM) Glucose (74-99) mg/dL Calcium (8.4-10.2) mg/dL Phosphorus (2.5-4.5) mg/dL Magnesium (1.6-2.3) mg/dL Total Bilirubin (0.2-1.3) mg/dL AST (14-36) U/L ALT (9-52) U/L Alkaline Phosphatase (38-126) U/L Total Creatine Kinase (30-135) U/L CK-MB (CK-2) (0.0-2.4) ng/mL CK-MB (CK-2) Rel Index Total Protein (6.3-8.2) g/dL Albumin (3.5-5.0) g/dL - Radiology Data Radiology results: report reviewed (CT brain negative), image reviewed Disposition Clinical Impression: Altered mental status, Dementia, Syncope, Seizure Disposition: [facility] Condition: Good Referrals: Emmanuelle Dhaliwal MD [Primary Care Provider] - 1-2 days
[2017-11-08 12:53] LABS: Prothrombin Time 9.9 sec (9.0-12.0)
[2017-11-08 12:59] LABS: Albumin 4.1 g/dL (3.5-5.0); Calcium 9.3 mg/dL (8.4-10.2); Phosphorus 4.1 mg/dL (2.5-4.5); Potassium 4.1 mmol/L (3.5-5.1); Total Bilirubin 0.3 mg/dL (0.2-1.3); Total Protein 7.8 g/dL (6.3-8.2)
[2017-11-08 13:02] LABS: Anisocytosis Slight; Basophils % (A) 1 %; Eosinophils # (A) 0.2 k/uL (0-0.7); Eosinophils % (A) 4 %; HGB 10.3 gm/dL (11.4-16.0); Hypochromasia Slight; Lymphocytes # (A) 1.4 k/uL (1.0-4.8); Lymphocytes % (A) 27 %; MCH 27.3 pg (25.0-35.0); MCHC 30.4 g/dL (31.0-37.0); MCV 89.9 fL (80.0-100.0); Mean Platelet Volume 7.3; Monocytes # (A) 0.3 k/uL (0-1.0); Monocytes % (A) 6 %; Neutrophils % (A) 61 %; Platelet Count 251 k/uL (150-450); RBC 3.78 m/uL (3.80-5.40); RDW 16.1 % (11.5-15.5)
[2017-11-08 13:08] LABS: Partial Thromboplastin Time 20.2 sec (22.0-30.0)
[2017-11-08 13:23] LABS: Creatine Kinase MB 1.4 ng/mL (0.0-2.4)
--- NOTE | 2017-11-08 13:25 | CT ---
EXAMINATION TYPE: CT brain wo con DATE OF EXAM: 11/08/2017 COMPARISON: NONE INDICATION: New onset seizure today DLP: 820.9 mGycm, Automated exposure control for dose reduction was used. CONTRAST: None CT of the brain is performed utilizing 3 mm thick sections through the posterior fossa and 3 mm thick sections through the remaining calvarium. Study is performed within 24 hours of arrival to the hosp [facility]. No abnormal hyperdensity is present to suggest an acute intracranial hemorrhage. No mass lesion is evident. No acute infarcts are evident. Periventricular white matter hypodensity is present, most likely on th e basis of chronic white matter ischemic changes. Ventricles and sulci are prominent for the patient age. Distal internal carotid artery calcification is noted. Paranasal sinuses and mastoid air cells within the [id number] are clear. IMPRESSIONS: 1. Atrophy with periventricular white matter ischemic changes.
[2017-11-08 15:28] LABS: Appearance,Urine Cloudy (Clear); Bilirubin,Urine Negative (Negative); Blood,Urine Negative (Negative); Color,Urine Colorless; Glucose,Urine (UA) Negative (Negative); Ketones,Urine Negative (Negative); Leukocyte Esterase,Urine Negative (Negative); Protein,Urine Negative (Negative); RBC,Urine <1 /hpf (0-5); Specific Gravity,Urine 1.003 (1.001-1.035); Squamous Epithelial Cell,Urine <1 /hpf (0-4); Urobilinogen,Urine <2.0 mg/dL (<2.0); WBC,Urine 1 /hpf (0-5)
--- NOTE | 2017-11-08 17:52 | P.CNNES ---
History of Present Illness Consult date: 11/08/17 Reason for Consult: Patient with altered mental status and possible seizure. History of Present Illness: This patient is a 86-year-old right-handed white female who is living at home under the care of her children. Patient has a history of severe in advanced dementia and is depending on her family to provide most of her entire care at home. According to the daughter who provided the medical history she was doing fairly well and then yesterday had an episode of what appeared to be a seizure event. Patient apparently fell to the ground and became stiff and had some shaking of her arms and leg. She was frothing at the mouth and did have evidence of urinary incontinence. She did come around following this but she was very much postictal with increased lethargy following this event. According to the daughter the shaking was involving the entire body. She has no previous history of seizures. She does have history of underlying severe dementia for which she is taking Namenda for the past year and a half. Daughter does not feel this is helped as her dementia continues to progress. The patient was brought to the emergency room for further evaluation. She was seen in the ER by Dr. Cantu who found her to be visibly confused. She was sent for a computed tomography scan of the brain which revealed atrophy with periventricular white matter ischemic changes. Ventricles and sulci are prominent for this patient's age. There is no evidence of acute stroke or hemorrhage. She was subsequent admitted to Hospital. Patient has no previous history of seizures. She is oriented to person only. The daughter who was with her at the time of the event is unclear if she may have passed out at the same time her which came first. She has no previous significant cardiac history. As mentioned she is taking Namenda 10 mg twice a day for treatment of her advanced dementia. Her EKG revealed her to be in sinus bradycardia with heart rates in the 50s. Would recommend cardiology consultation for the patient as well. We will obtain routine EEG for further assessment of possible seizure disorder for this patient. Her overall prognosis at this time remains very guarded. Review of Systems Constitutional: Denies chills, Denies fever Eyes: denies blurred vision, denies pain Ears, nose, mouth and throat: Denies headache, Denies sore throat Cardiovascular: Denies chest pain, Denies shortness of breath Respiratory: Denies cough Gastrointestinal: Denies abdominal pain, Denies diarrhea, Denies nausea, Denies vomiting Genitourinary: Denies dysuria, Denies hematuria Musculoskeletal: Denies myalgias Integumentary: Denies pruritus, Denies rash Neurological: Reports change in mentation, Reports confusion, Reports hearing difficulties, Reports memory loss, Reports seizures, Denies numbness, Denies weakness Psychiatric: Reports disorientation, Reports irritability, Reports memory loss, Denies anxiety, Denies depression Endocrine: Denies fatigue, Denies weight change Past Medical History Past Medical History: Dementia, Deep Vein Thrombosis (DVT) History of Any Multi-Drug Resistant Organisms: None Reported Past Surgical History: No Surgical Hx Reported Past Psychological History: No Psychological Hx Reported Smoking Status: Former smoker Past Alcohol Use History: None Reported Past Drug Use History: None Reported Medications and Allergies Home Medications Medication Instructions Recorded Confirmed Type Citrical 1 tab PO BID 07/15/17 11/08/17 History Cranberry Fruit Extract [Cranberry] 500 mg PO DAILY 07/15/17 11/08/17 History Memantine [Namenda] 10 mg PO BID 07/15/17 11/08/17 History Multivitamins, Thera [Multivitamin 2 tab PO DAILY 07/15/17 11/08/17 History (formulary)] Sertraline [Zoloft] 150 mg PO DAILY 07/15/17 11/08/17 History Aspirin 81 mg PO HS 11/08/17 11/08/17 History Docusate [Colace] 100 mg PO DAILY 11/08/17 11/08/17 History Ferrous Sulfate [Iron] 325 mg PO DAILY 11/08/17 11/08/17 History Melatonin 5 mg PO HS 11/08/17 11/08/17 History [place]-3 Fatty Acids/Fish Oil [Fish 1 cap PO BID 11/08/17 11/08/17 History Oil 1,000 mg Softgel] Allergies Allergy/AdvReac Type Severity Reaction Status Date / Time No Known Allergies Allergy Verified 11/08/17 12:54 Physical Examination - Vital Signs Vital Signs: Vital Signs Temp Pulse Pulse Resp BP BP Pulse Ox 11/08/17 15:05 56 L 16 154/73 94 L 11/08/17 14:47 59 L 18 135/89 96 11/08/17 12:06 97.8 F 58 L 16 176/88 95 Intake and Output 11/08/17 11/08/17 11/08/17 06:59 14:59 22:59 Output Total 0 Balance 0 Output: Urine 0 Other: Weight 58.967 kg Patient Weight 11/09/17 06:59 Weight 58.967 kg - Constitutional General appearance: average body habitus - EENT EENT: PERRL, mucous membranes moist - Respiratory Respiratory: lungs clear, normal breath sounds - Cardiovascular Cardiovascular: regular rate, normal S1, normal S2 Extremities: no peripheral edema bilaterally - Gastrointestinal Gastrointestinal: normoactive bowel sounds - Integumentary Integumentary: normal - Neurologic Cranial nerve examination: PERRL, EOMI, VFF, V1/V2/V3 grossly intact, face symmetric, tongue midline, intact gag reflex, intact corneal reflex, normal palatal elevation Speech examination: intact Sensorimotor examination: intact Motor examination - right side: 4/5: biceps, triceps, wrist flexion, wrist extension, hydraulics engineer, hip flexors, knee extensors, dorsiflexion, toe extension (EHL) , plantarflexion Motor examination - left side: 4/5: biceps, triceps, wrist flexion, wrist extension, hydraulics engineer, hip flexors, knee extensors, dorsiflexion, toe extension (EHL) , plantarflexion Detailed sensory examination: intact Reflex and gait examination: intact Reflexes: 1+: ankle, bicep, knee, tricep - Musculoskeletal Musculoskeletal: no pain - Psychiatric Psychiatric: cooperative Results - Laboratory Findings CBC and BMP: 11/08/17 12:22 11/08/17 12:22 Abnormal Lab Findings: Abnormal Labs 11/08/17 11/08/17 11/08/17 12:22 12:22 12:22 RBC 3.78 L Hgb 10.3 L MCHC 30.4 L RDW 16.1 H APTT 20.2 L Sodium 150 H Chloride 112 H BUN 33 H Creatinine 1.20 H Alkaline Phosphatase 135 H Urine Appearance 11/08/17 15:15 RBC Hgb MCHC RDW APTT Sodium Chloride BUN Creatinine Alkaline Phosphatase Urine Appearance Cloudy H Assessment and Plan (1) New onset seizure Current Visit: Yes Status: Acute Code(s): R56.9 - UNSPECIFIED CONVULSIONS SNOMED Code(s): 09354079 (2) Dementia Current Visit: Yes Status: Acute Code(s): F03.90 - UNSPECIFIED DEMENTIA WITHOUT BEHAVIORAL DISTURBANCE SNOMED Code(s): 29607643 (3) Acute encephalopathy Current Visit: Yes Status: Acute Code(s): G93.40 - ENCEPHALOPATHY, UNSPECIFIED SNOMED Code(s): 28771915 (4) Medial malleolar fracture Current Visit: No Status: Acute Code(s): S82.53XA - DISP FX OF MEDIAL MALLEOLUS OF UNSP TIBIA, INIT FOR CLOS FX SNOMED Code(s): 875198604 Plan: This patient is a 86-year-old female who was admitted to hospital after having a possible witnessed seizure at home. She has advanced and severe dementia and is living at home with her daughter. Apparently the daughter witnessed the event in which she fell to the ground and which shaking and then became incontinent of bladder. She had tonic-clonic movements of the extremities. She was postictal following the event which lasted about 2 minutes in duration. Clinical history suggests seizure disorder. She was brought into the emergency room where she was further evaluated today. She underwent a computed tomography scan of the brain results of which are noted above. CT scan revealed atrophy with periventricular white matter ischemic changes. The patient has no previous history of seizures. We will obtain routine EEG for further evaluation. At this time we will hold on any anticonvulsant medication unless she has a second seizure. Case was discussed at length with the patient' s daughter at bedside. All of her questions were answered. She is aware of our recommendations and treatment plan. We will continue close neurological follow-up of this patient during this admission. Time with Patient: Greater than 30
--- NOTE | 2017-11-08 19:18 | HP ---
HISTORY AND PHYSICAL CHIEF COMPLAINT: Syncope and change in mental status. HISTORY OF PRESENT ILLNESS: This 86-year-old woman with a past medical history of multiple medical problems, including dementia, history of DVT being followed by Dr. Emmanuelle Dhaliwal in the outpatient setting apparently had an episode of syncope yesterday. The patient had tonic-clonic type of jerking also which was witnessed by the family and the patient was confused and the patient was taken to [facility] and was admitted for further evaluation and treatment. Patient was found to be hyponatremic. There is no history of any fever, rigors, chills. Patient unable to go to give a coherent history. Most of the history taken from discussion staff and review of the chart at this time. PAST MEDICAL HISTORY: History of dementia, history of DVT. MEDICATIONS PRIOR TO ADMISSION: Include the home medications are: 1. [place]-3 fatty acids p.o. b.i.d. 2. Melatonin 5 mg q.h.s. 3. Colace 100 mg daily. 4. Aspirin 81 mg q.h.s. 5. Iron 320 mg p.o. daily. 6. Citracal 1 tablet p.o. b.i.d. 7. Zoloft 250 mg daily. 8. Multivitamins 1 p.o. daily. 9. Namenda 10 mg b.i.d. 10.Cranberry 500 mcg p.o. daily. ALLERGIES: None. FAMILY HISTORY, SOCIAL HISTORY, REVIEW OF SYSTEMS: Could not be taken because of confusion. PHYSICAL EXAM: Pulse of 59, blood pressure 135/89, respirations 18, temperature 97.8, pulse ox 96% on room air. HEENT: Conjunctivae normal. Oral mucosa dry. NECK: No jugular venous distention. No carotid bruits. No lymph node enlargement. CARDIOVASCULAR: S1, S2 muffled. RESPIRATORY: Breath sounds diminished in the bases. A few scattered rhonchi. No crackles. ABDOMEN: Soft, nontender. No mass palpable. LEGS: No edema. No swelling. NERVOUS SYSTEM: Diffusely weak. A full neurologic exam is not possible. SKIN: No ulcer, rash or bleeding. LYMPHATIC: No lymphadenopathy in neck or axillae. JOINTS: No active deforming arthropathy. LABS: WBC 5, hemoglobin is 10.3. Sodium 150 and chloride 112 and creatinine 1.20. UA noted. ASSESSMENT: 1. Syncope for evaluation of possible new onset seizures. 2. Possible transient ischemic attack. 3. Dehydration. 4. Hyponatremia. 5. Increased creatinine with acute renal failure, possibly prerenal. 6. Anemia of chronic disease. 7. Dementia. 8. History of deep vein thrombosis. 9. Remote history of nicotine dependence. RECOMMENDATIONS AND DISCUSSION: In this 86-year-old woman who presented with multiple complex medical issues, will monitor the patient closely, continue the current medical management and symptomatic treatment and IV fluids. Monitor lytes closely. Monitor potassium closely. Will supplement vitamins, antiplatelet agents. Otherwise, neurology evaluation, neurovascular workup. EEG has been ordered. Guarded prognosis because of multiple complex medical issues. Further recommendations to follow. A copy of dictation will be forwarded to Dr. Emmanuelle Dhaliwal, who is the primary physician. MMALBERTL / OPALN: [id number] /
[2017-11-08] MEDS: D5W WITH KCL 20 MEQ/L 1,000 ML IV SCH (19:27)
[2017-11-08] MEDS: CALCIUM CARB-VIT D 500MG-200UN 1 EACH TAB PO SCH (19:27)
[2017-11-08] MEDS: MEMANTINE 10 MG TAB PO SCH (20:27)
[2017-11-08] MEDS: ASPIRIN 81 MG PO SCH (20:27)
[2017-11-08] MEDS: MELATONIN 5 MG TABLET PO SCH (20:27)
[2017-11-08] MEDS ORDERED: NON-FORMULARY DRUG (Omega-3 Fatty Acids/Fish Oil [Fish Oil 1,000 Mg Softgel] 1 CAP) PO SCH (21:00)
[2017-11-09] MEDS: PANTOPRAZOLE 40 MG TABLET PO SCH (06:19)
[2017-11-09] MEDS: CALCIUM CARB-VIT D 500MG-200UN 1 EACH TAB PO SCH ×2 (06:19→16:46)
[2017-11-09 06:23] LABS: Anisocytosis Slight; Basophils % (A) 1 %; Eosinophils # (A) 0.2 k/uL (0-0.7); Eosinophils % (A) 5 %; HCT 29.9 % (34.0-46.0); Hypochromasia Moderate; Lymphocytes # (A) 1.9 k/uL (1.0-4.8); Lymphocytes % (A) 37 %; MCH 26.6 pg (25.0-35.0); MCHC 29.3 g/dL (31.0-37.0); MCV 90.9 fL (80.0-100.0); Mean Platelet Volume 7.4; Monocytes # (A) 0.4 k/uL (0-1.0); Monocytes % (A) 8 %; Neutrophils # (A) 2.4 k/uL (1.3-7.7); Neutrophils % (A) 48 %; Platelet Count 204 k/uL (150-450); RBC 3.28 m/uL (3.80-5.40); RDW 16.1 % (11.5-15.5)
[2017-11-09 06:28] LABS: HGB 8.7 gm/dL (11.4-16.0)
[2017-11-09 06:40] LABS: Calcium 9.3 mg/dL (8.4-10.2); Potassium 3.8 mmol/L (3.5-5.1)
[2017-11-09] MEDS: SERTRALINE 50 MG TAB PO SCH (08:10)
[2017-11-09] MEDS: D5W WITH KCL 20 MEQ/L 1,000 ML IV SCH ×2 (08:10→22:55)
[2017-11-09] MEDS: MEMANTINE 10 MG TAB PO SCH ×2 (08:10→20:09)
[2017-11-09] MEDS: THIAMINE 100 MG TAB PO SCH (08:10)
[2017-11-09] MEDS: FOLIC ACID 1 MG TAB PO SCH (08:10)
[2017-11-09] MEDS: DOCUSATE 100 MG CAP PO SCH (08:10)
[2017-11-09] MEDS: FERROUS SULFATE 325 MG TAB PO SCH (08:10)
[2017-11-09] MEDS ORDERED: ENOXAPARIN 40 MG/0.4 ML SYRINGE SQ SCH (09:00)
[2017-11-09] MEDS: ENOXAPARIN 30 MG/0.3 ML SYRINGE SQ SCH (09:09)
--- NOTE | 2017-11-09 10:39 | US ---
EXAMINATION TYPE: US carotid duplex BILAT DATE OF EXAM: 11/09/2017 COMPARISON: NONE CLINICAL HISTORY: stroke. Syncope EXAM MEASUREMENTS: RIGHT: Peak Systolic Velocity (PSV) cm/sec ----- Right CCA: 90.0 ----- Right ICA: 69.7 ----- Right ECA: 109.7 ICA/CCA ratio: 0.8 RIGHT: End Diastole cm/sec ----- Right CCA: 14.4 ----- Right ICA: 11.3 ----- Right ECA: 14.4 LEFT: Peak Systolic Velocity (PSV) cm/sec ----- Left CCA: 88.7 ----- Left ICA: 129.1 ----- Left ECA: 103.2 ICA/CCA ratio: 1.5 LEFT: End Diastole cm/sec ----- Left CCA: 19.2 ----- Left ICA: 24.1 ----- Left ECA: 11.1 VERTEBRALS (direction of flow): Right Vertebral: Antegrade Left Vertebral: Antegrade Extreme technical limitations - patient uncooperative and constantly moving. Mild plaque bilateral bi furcations. No evidence of increased velocities as visualized. Left carotid bulb plaquing is evident. There is filling of the acoustic windows on the left compatibl e with turbulent flow. Atheromatous plaquing is also present on the right although does not appear as significant visually has increased velocities suggesting this right side has greater stenosis than t he left. IMPRESSION: 1. 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 2. Technical limitations on this examination. Criteria for Assigning % of Stenosis / Diameter reduction (Estimation based on the indirect measurements of the internal carotid artery velocities (ICA PSV). 1. Normal (no stenosis)=ICA PSV < 125 cm/s: ratio < 2.0: ICA EDV<40 cm/s. 2. Less than 50% stenosis=ICA PSV < 125 cm/s: ratio < 2.0: ICA EDV<40 cm/s. 3. 50 to 69% stenosis=ICA PSV of 125 to 230 cm/s: ration 2.0 ? 4.0: ICA EDV 40-100 cm/s. 4. Greater than 70% stenosis to near occlusion= ICA PSV > 230 cm/s: ratio > 4.0: ICA EDV > 100 cm/s. 5. Near occlusion= ICA PSV velocities may be low or undetectable: variable ratio and ICA EDV. 6. Total occlusion=unable to detect flow.
--- NOTE | 2017-11-09 11:06 | CONS ---
CONSULTATION Mrs. Robins is an 86-year-old female who is seen for cardiac evaluation. This patient's medical records reviewed. The history is mostly obtained from the chart. The patient has a history of severe dementia and history of DVT. The patient was admitted with a history suggestive of seizure disorder. The patient also was found to be hyponatremic. This patient has a past history of stroke. The patient denied any chest pain. HOME MEDICATIONS: Include melatonin, Citracal, Zoloft, and Namenda, cranberry juice. PHYSICAL EXAMINATION: At present reveals 86-year-old female who does not appear to be in any acute distress. Blood pressure is 135/89 mmHg. Oxygen saturation is 95%. HEENT examination is negative. NECK: Supple. There is no increase in jugular venous pressure. Both the carotid pulses are felt. There is no bruit. Chest is symmetrical. Heart the PMI is not felt. First and second heart sounds are normal. Lungs are clear to auscultation and percussion. ABDOMEN: Soft. Extremities, peripheral pulses are 1+. EKG shows normal sinus rhythm with a diffuse T-wave inversions in the anterior precordial leads. An intraventricular conduction delay of left bundle branch block pattern is noted. The patient's troponins are 0.033 and 0.034 and sodium is 134. IMPRESSION: This patient is admitted with a seizure disorder. The patient's EKG shows T-wave inversions, associated with left bundle branch block. This could be secondary to associated seizure disorder. We will repeat the EKG. Cardiac enzymes. Two troponins are almost identical and is not suggestive of acute coronary syndrome. We will do echo and Doppler study. Continue to treat the patient with D5W to correct the hypernatremia. Thank you for the consultation. MMODL / IJN: [id number] /
--- NOTE | 2017-11-09 15:37 | P.PN ---
Subjective Progress Note Date: 11/09/17 This patient is a 86-year-old female being evaluated for recent episode of syncope versus seizure. Patient does have history of severe dementia and is unable to provide accurate medical history. She did have an episode that was witnessed at home via her daughter. She is living at home with 24-hour family care. She apparently collapsed and was unresponsive. She had postictal state with initial confusion and lethargy. She is awaiting EEG for further evaluation. EEG should be completed tomorrow. She was seen by cardiology today for evaluation of EKG findings of left bundle branch block. They're evaluating her elevated troponins and cardiac enzymes as well. The patient otherwise seems to be pleasantly confused. She is not agitated at this time and according to family is near baseline level of function. She does have severe dementia and is currently on Namenda for treatment. Patient is sitting up in bed and is having her meal and does seem to be comfortable. She does not appear to be agitated at this time. According to family members she is having trouble breathing some of her papers. She has not had any further seizure-like activity since admission to hospital. She is being monitored for slight elevated serum sodium level. We will continue close neurological follow-up at this patient during this admission. Objective - Vital Signs Vital signs: Vital Signs Temp 97.4 F L 11/09/17 11:49 Pulse 61 11/09/17 11:49 Resp 18 11/09/17 11:49 BP 145/75 11/09/17 11:49 Pulse Ox 95 11/09/17 08:00 Intake & Output 11/08/17 11/09/17 11/09/17 18:59 06:59 18:59 Intake Total 600 237 Output Total 0 Balance 0 600 237 Weight 58.967 kg 57.5 kg Intake: Intake, IV Titration 600 Amount D5w with KCl 20 Meq/l 1, 600 000 ml @ 75 mls/hr IV . [id number] RENA Rx#:[id number] Oral 237 Output: Urine 0 Other: Voiding Method Diaper Diaper # Voids 1 1 - Exam Physical examination: PHYSICAL EXAMINATION: Patient is resting comfortably in bed. VITAL SIGNS: Blood pressure is [145/75]. Heart rate is [61]. Respiration is [18] . Temperature is [97.4]. HEENT: Head is atraumatic, neck is supple, there were no carotid bruits. CHEST: Lungs are clear to auscultation and percussion. CARDIAC: S1, S2 normal rate and rhythm. There is no murmur. ABDOMEN: Soft and nontender. Bowel sounds are present. EXTREMITIES: There is no pedal edema. Peripheral pulses are present. Neurological examination: Patient's neurological examination is unchanged from yesterday. She has evidence of severe dementia and is oriented to person only. - Labs CBC & Chem 7: 11/09/17 05:38 11/09/17 05:38 Labs: Abnormal Lab Results - Last 24 Hours (Table) 11/08/17 11/09/17 11/09/17 Range/Units 15:15 05:38 05:38 RBC 3.28 L (3.80-5.40) m/uL Hgb 8.7 L D (11.4-16.0) gm/dL Hct 29.9 L (34.0-46.0) % MCHC 29.3 L (31.0-37.0) g/dL RDW 16.1 H (11.5-15.5) % Sodium 151 H (137-145) mmol/L Chloride 116 H (98-107) mmol/L BUN 26 H (7-17) mg/dL Creatinine 1.24 H (0.52-1.04) mg/dL Urine Appearance Cloudy H (Clear) Microbiology - Last 24 Hours (Table) 11/08/17 15:15 Urine Culture - Preliminary Urine,Voided Assessment and Plan (1) New onset seizure Current Visit: Yes Status: Acute Code(s): R56.9 - UNSPECIFIED CONVULSIONS SNOMED Code(s): 45702591 (2) Dementia Current Visit: Yes Status: Acute Code(s): F03.90 - UNSPECIFIED DEMENTIA WITHOUT BEHAVIORAL DISTURBANCE SNOMED Code(s): 10090412 (3) Acute encephalopathy Current Visit: Yes Status: Acute Code(s): G93.40 - ENCEPHALOPATHY, UNSPECIFIED SNOMED Code(s): 57347489 (4) Medial malleolar fracture Current Visit: No Status: Acute Code(s): S82.53XA - DISP FX OF MEDIAL MALLEOLUS OF UNSP TIBIA, INIT FOR CLOS FX SNOMED Code(s): 078348107 Plan: This patient is a 86-year-old female being evaluated for recent episode of syncope versus seizure. She had an event which appears to be a partial seizure. This was witnessed by her family at home. She has a history of severe dementia and is under the care of several family members. The seizure was witnessed and it is unclear as to etiology. She underwent computed tomography scan of the brain which failed to reveal any evidence of acute stroke or hemorrhage. She is scheduled to have EEG tomorrow. Carotid Doppler failed to reveal any significant carotid artery stenosis. She is being seen by cardiology today and will await their further recommendations. We will review her EEG which hopefully will be completed tomorrow. If this is not revealing any epileptiform discharges she would not require any anticonvulsant medication. We will wait to review this tomorrow and give further recommendations.
--- NOTE | 2017-11-09 17:52 | XR ---
EXAMINATION TYPE: XR chest 1V portable DATE OF EXAM: 11/09/2017 COMPARISON: 08/22/2017 HISTORY: Short of breath TECHNIQUE: Single frontal view of the chest is obtained. FINDINGS: Heart is mildly enlarged. Thoracic aorta is atheromatous. There is no gross heart failure. There is no definite pleural effusion. There are chest leads. IMPRESSION: Cardiomegaly. Atheromatous aorta. No heart failure seen. No significant change compared to old exam.
--- NOTE | 2017-11-09 19:40 | PN ---
PROGRESS NOTE DATE OF SERVICE: 11/09/2017 This 86-year-old woman was admitted with syncope and possibly seizure disorder and also hyponatremia. According to the family, the patient is taking about 7 cups of significant water every day. The patient is mildly confused. Today the sodium is improved. The sodium is still found to be elevated 1.5 despite IV fluids. The patient will be closely monitored. indeterminate. PAST MEDICAL HISTORY: Reviewed. REVIEW OF SYSTEMS: Could not be taken. The patient is mildly confused. CURRENT MEDICATIONS: Reviewed and include: 1. Aspirin 81 mg q.h.s. 2. Os-[place] with vitamin D. 3. Colace 100 mg. 4. Lovenox 30. 5. Iron sulfate. 6. Folic acid 1 mg. 7. Melatonin 5 mg daily. 8. Namenda 10 mg b.i.d. 9. Protonix 40 mg b.i.d. 10.IV fluids. 11.Thiamine 100 mg p.o. daily. PHYSICAL EXAM: The patient is alert oriented x1. Pulse 61, blood pressure 145/73, respiration 18, temperature 97.4 in the office moist neck is no jugular venous distention. HEENT: Conjunctivae normal. Oral mucosa moist. NECK: No jugular venous distention. CARDIOVASCULAR: S1, S2. RESPIRATORY: Breath sounds diminished in the bases. A few scattered rhonchi and no crackles. ABDOMEN: Soft, nontender. LEGS: No edema. NERVOUS SYSTEM: Diffusely weak. LAB STUDIES: WBC is 5, hemoglobin is 8.7, sodium is 151. Troponins are noted. Otherwise, CT scan of the brain atrophy with periventricular ischemic changes. ASSESSMENT: 1. Syncope for evaluation with possible new onset seizures. 2. Hypernatremia, rule out dehydration. 3. Possible transient ischemic attack. 4. Increased creatinine with mild acute renal failure, possibly prerenal. 5. Anemia of chronic disease. 6. Dementia. 7. History of deep vein thrombosis. 8. Remote history of nicotine dependence. RECOMMENDATIONS AND DISCUSSION: I recommend to continue current management, continue with symptomatic treatment. Continue with IV fluids at the current rate. Monitor very closely. I would also recommend Nephrology evaluation and followup with Cardiology and Neurology. Prognosis guarded because of multiple complex medical issues, which I discussed with the family at length. Further recommendations to follow. MMODL / IJN: [id number] / [facility]
[2017-11-09] MEDS: ASPIRIN 81 MG PO SCH (20:09)
[2017-11-09] MEDS: MELATONIN 5 MG TABLET PO SCH (20:09)
[2017-11-10 03:31] VITALS: RESP 16
[2017-11-10 06:09] LABS: Glucose,Whole Blood 95 mg/dL (75-99)
[2017-11-10] MEDS: PANTOPRAZOLE 40 MG TABLET PO SCH (06:13)
[2017-11-10] MEDS: CALCIUM CARB-VIT D 500MG-200UN 1 EACH TAB PO SCH ×2 (06:13→17:24)
[2017-11-10 06:29] LABS: Basophils # (A) 0.1 k/uL (0-0.2); Basophils % (A) 1 %; Eosinophils # (A) 0.3 k/uL (0-0.7); Eosinophils % (A) 5 %; HCT 29.4 % (34.0-46.0); HGB 8.6 gm/dL (11.4-16.0); Hypochromasia Moderate; Lymphocytes # (A) 2.1 k/uL (1.0-4.8); Lymphocytes % (A) 36 %; MCH 26.7 pg (25.0-35.0); MCHC 29.4 g/dL (31.0-37.0); MCV 90.9 fL (80.0-100.0); Mean Platelet Volume 7.5; Monocytes # (A) 0.4 k/uL (0-1.0); Monocytes % (A) 6 %; Neutrophils # (A) 2.9 k/uL (1.3-7.7); Neutrophils % (A) 50 %; Platelet Count 195 k/uL (150-450); RBC 3.23 m/uL (3.80-5.40); RDW 15.8 % (11.5-15.5); WBC 5.8 k/uL (3.8-10.6)
[2017-11-10 06:41] LABS: Potassium 4.3 mmol/L (3.5-5.1)
[2017-11-10] MEDS: DOCUSATE 100 MG CAP PO SCH (08:33)
[2017-11-10] MEDS: MEMANTINE 10 MG TAB PO SCH ×2 (08:33→19:46)
[2017-11-10] MEDS: ENOXAPARIN 30 MG/0.3 ML SYRINGE SQ SCH (08:33)
[2017-11-10] MEDS: SERTRALINE 50 MG TAB PO SCH (08:33)
[2017-11-10] MEDS: D5W WITH KCL 20 MEQ/L 1,000 ML IV SCH (11:13)
[2017-11-10] MEDS: FOLIC ACID 1 MG TAB PO SCH (11:52)
[2017-11-10] MEDS: FERROUS SULFATE 325 MG TAB PO SCH (11:52)
[2017-11-10] MEDS: THIAMINE 100 MG TAB PO SCH (11:52)
--- NOTE | 2017-11-10 13:28 | CDI ---
Last Revision, August 2017 Documentation Clarification Form Date: 11/10/2017 1:05:00 PM From: Hailee Rodriguez RN, CCDS Admit Date: 11/08/2017 2:27:00 PM Patient Name: Cleo Robins Visit Number: [id number] Discharge Date: ATTENTION: The Clinical Documentation Specialists (CDI) and [facility] Coding Staff appreciate your assistance in clarifying documentation. Please respond to the clarification below the line at the bottom and electronically sign. The CDI & [facility] Coding staff will review the response and follow-up if needed. Please note: Queries are made part of the Legal Health Record. If you have any questions, please contact the author of this message via ITS. Dr. Ann Gandhi Acute Encephalopathy is documented in your neurology consultation and continue in the ongoing progress notes. History/Risk factors: Advanced Dementia Clinical Indicators: Present with episode of shaking of her arms and legs. She was frothing at the mouth and did have evidence of urinary incontinence. She did come around following this but she was very much postictal with increased lethargy following this event. ER evaluation: found her visibly confused. CT Brain: atrophy with periventricular white matter ischemic changes. No evidence of acute stroke or hemorrhage. Labs: Sodium 150, CR 1.20, 1.24, 1.51 EEG: Pending Treatment: Neuro checks per protocol/orders Monitor Labs IV fluids In your professional opinion, can you please clarify the specific type and cause of the encephalopathy, if known? Acute Encephalopathy due to Seizure (Postical state) Acute Metabolic Encephalopathy Other, please specify cause Unable to determine Please continue to document in your progress notes and discharge summary in order to capture severity of illness and risk of mortality. Include clinical findings that support your diagnosis. Acute encephalopathy due to seizure. MTDD
--- NOTE | 2017-11-10 13:55 | P.PN ---
Subjective Progress Note Date: 11/10/17 Principal diagnosis: Seizures Is is an 86-year-old female who was seen in consultation yesterday by Dr. VC Perdomo. She has a history of severe dementia, history of prior DVT. Most of the history was obtained from the medical record as she is nonverbal. EKG revealed T-wave inversions associated with left bundle branch block pattern, likely secondary to seizure disorder. Troponins 0.025, 0.03, 0.34, troponins not consistent with acute coronary syndrome. An echocardiogram with Doppler study was performed but is yet pending. Patient is hemodynamically stable. Objective - Vital Signs Vital signs: Vital Signs Temp 97 F L 11/10/17 11:31 Pulse 59 L 11/10/17 11:31 Resp 16 11/10/17 11:31 BP 131/71 11/10/17 11:31 Pulse Ox 96 11/10/17 11:31 Intake & Output 11/09/17 11/10/17 11/10/17 18:59 06:59 18:59 Intake Total 693 120 150 Balance 693 120 150 Weight 61 kg Intake: Oral 693 120 150 Other: Voiding Method Diaper Diaper Diaper # Voids 1 2 1 - Exam PHYSICAL EXAMINATION: HEENT: Head is atraumatic, normocephalic. Pupils equal, round. Neck is supple. There is no elevated jugular venous pressure. HEART EXAMINATION: Heart S1, S2 normal. No murmur or gallop heard. CHEST EXAMINATION: Lungs are clear to auscultation and precussion. No chest wall tenderness is noted on palpation or with deep breathing. ABDOMEN: Soft, nontender. Bowel sounds are heard. No organomegaly noted. EXTREMITIES: 1+ peripheral pulses with no evidence of peripheral edema and no calf tenderness noted. NEUROLOGIC [patient is awake, nonverbal. - Labs CBC & Chem 7: 11/10/17 06:04 11/10/17 06:04 Labs: Abnormal Lab Results - Last 24 Hours (Table) 11/10/17 11/10/17 Range/Units 06:04 06:04 RBC 3.23 L (3.80-5.40) m/uL Hgb 8.6 L (11.4-16.0) gm/dL Hct 29.4 L (34.0-46.0) % MCHC 29.4 L (31.0-37.0) g/dL RDW 15.8 H (11.5-15.5) % BUN 28 H (7-17) mg/dL Creatinine 1.51 H (0.52-1.04) mg/dL Microbiology - Last 24 Hours (Table) 11/08/17 15:15 Urine Culture - Final Urine,Voided Assessment and Plan Plan: Assessment and plan #1 seizure disorder #2 mildly abnormal troponins, not consistent with acute coronary syndrome, likely secondary to supply and demand mismatch. EKG shows T-wave inversions associated with left bundle-branch block pattern. We will review the patient's echocardiogram with Doppler study, if normal we'll follow her with you now on an as-needed basis only. DNP note has been reviewed, I agree with a documented findings and plan of care. Patient was seen and examined.
--- NOTE | 2017-11-10 15:29 | CONS ---
CONSULTATION REASON FOR CONSULT: Renal failure. HISTORY OF PRESENT ILLNESS: The patient is an 86-year-old female who was admitted to the hospital on 11/08/2017 with a history of altered mentation. Patient does have significant underlying dementia. She was apparently not at her baseline as per family who had brought her into the ER. She also had significant shaking according to review of the chart. At this time, patient is not able to provide history. Her serum creatinine was noted to be at 1.2 mg/dL on 11/09/2017 and this morning it is at 1.5. Blood pressure has not been low, in fact, it is sometimes on the higher side. Patient has been voiding in a diaper. She is currently on IV fluids at 75 mL an hour. I do not see any nephrotoxic medications on board at this time. Home medications did not include any JEREMY inhibitors or nonsteroidal anti-inflammatory agents. The patient has not received any IV contrast on this admission. PAST MEDICAL HISTORY: Significant for dementia, previous history of DVT. PAST SURGICAL HISTORY: None noted. SOCIAL HISTORY: Patient is a former smoker. No history of drug abuse or alcohol abuse. MEDICATIONS: At home included cranberry, Namenda, multivitamin, Zoloft, Colace, iron, melatonin. ALLERGIES: None. PHYSICAL EXAMINATION: Patient is currently comfortable, awake. She is not in any acute distress. She is smiling. She is confused. Blood pressure is 131/71, heart rate 59 per minute, patient is afebrile. Examination of the heart S1, S2. Examination lungs bilateral breath sounds are heard. Abdomen is soft, nontender. Examination of lower extremities shows no evidence of edema. [employer] exam shows patient is moving all 4 extremities. She is currently confused. LABS: Show sodium 142, potassium 4.3, BUN of 28, serum creatinine 1.51, hemoglobin 8.6 g/dL. UA shows no evidence of blood or protein. Troponin is not elevated. ASSESSMENT: 1. Acute kidney injury, rule out underlying urine retention. No evidence of hypotension. There are no nephrotoxic agents on board. I will continue with the IV fluids for now and we will check an ultrasound of the kidneys. 2. Chronic kidney disease and cancer stage and 3 secondary to nephrosclerosis. Previous creatinine was around 1.3 mg/dL as of January of 2017 and July of 2017. 3. Mild hypernatremia, currently improved with current IV fluids. We will continue the same. 4. Anemia, rule out underlying iron deficiency. 5. New onset seizure, being followed by Neurology. Currently not on any anti-seizure medications. 6. History of deep venous thrombosis, maintained on Lovenox. 7. Underlying dementia, maintained on Namenda. PLAN: Continue IV fluids and check postvoidal residual. Repeat labs in a.m. and check ultrasound of the kidneys. . Thank you for this consultation. Will continue to follow the patient with you during her hospitalization. MMODL / IJN: [id number] /
[2017-11-10] MEDS: DEXTROSE 5%-0.45% NACL 1,000 ML IV SCH (16:12)
--- NOTE | 2017-11-10 19:32 | EEG ---
ELECTROENCEPHALOGRAM REPORT DATE OF EEG: Is 11/10/2017. REFERRING PHYSICIAN: Dr. Lima. CONSULTING/INTERPRETING PHYSICIAN: Dr. Ann Gandhi ELECTROENCEPHALOGRAPHIC EXAMINATION REPORT: INDICATION FOR EXAMINATION: This patient is an 86-year-old female with history of advanced dementia. Patient now admitted with possible new onset seizure. AGE: [age]. EEG FINDINGS: A routine 21 channel awake digital EEG recording was accomplished utilizing the 10-20 international system with bipolar and referential montages. The background activity in the most alert resting state consists of a low to medium amplitude, poorly developed and poorly sustained 5-6 Hz activity over the posterior head region. This posterior rhythm attenuates minimally to eye opening. There is a small amount of low amplitude 18-20 Hz beta activity seen maximally over the anterior head regions. Muscle and movement artifact was observed on a few occasions during the tracing. Hyperventilation was not performed. Photic stimulation at flash frequencies of 2-30 Hz produced a minimal occipital driving response. No epileptiform discharges were seen. IMPRESSION: This EEG gives evidence of a severe widespread diffuse disturbance in cerebral function. The EEG failed to reveal any focal, lateralized, or epileptiform abnormalities. Clinical correlation is recommended. MMODL / IJN: [id number] /
--- NOTE | 2017-11-10 19:45 | ECHOF ---
Referral Reason:cva MEASUREMENTS -------- HEIGHT: 157.5 cm WEIGHT: 60.8 kg BP: 139/77 RVIDd: 3.3 cm (< 3.3) IVSd: 1.3 cm (0.6 - 1.1) LVIDd: 4.6 cm (3.9 - 5.3) LVPWd: 1.3 cm (0.6 - 1.1) IVSs: 1.6 cm LVIDs: 3.6 cm LVPWs: 2.0 cm LA Diam: 3.5 cm (2.7 - 3.8) LAESV Index (A-L): 39.86 ml/m Ao Diam: 3.2 cm (2.0 - 3.7) AV Cusp: 1.9 cm (1.5 - 2.6) MV EXCURSION: 15.488 mm (> 18.000) MV EF SLOPE: 77 mm/s (70 - 150) EPSS: 1.7 cm MV E Jd: 0.57 m/s MV DecT: 250 ms MV A Jd: 0.99 m/s MV E/A Ratio: 0.58 RAP: 5.00 mmHg RVSP: 34.50 mmHg FINDINGS -------- Sinus rhythm. This was a technically adequate study. The left ventricular size is normal. There is mild concentric left ventricular hypertrophy. Overa ll left ventricular systolic function is mild-moderately impaired with, an EF between 40 - 45 %. Se ptal wall motion is delayed, and consistent with conduction delay/bundle branch block. The right ventricle is mildly enlarged. LA is moderately dilated 34-39 ml/m2 The right atrium is normal in size. There is mild to moderate aortic valve sclerosis. There is mild aortic regurgitation. Mild mitral annular calcification present. Mild tricuspid regurgitation present. There is mild pulmonary hypertension. The right ventricular systolic pressure, as measured by Doppler, is 34.50mmHg. Trace/mild (physiologic) pulmonic regurgitation. The aortic root size is normal. IVC Not well visulized. There is no pericardial effusion. CONCLUSIONS -------- 1. Sinus rhythm. 2. This was a technically adequate study. 3. The left ventricular size is normal. 4. There is mild concentric left ventricular hypertrophy. 5. Septal wall motion is delayed, and consistent with conduction delay/bundle branch block. 6. The right ventricle is mildly enlarged. 7. LA is moderately dilated 34-39 ml/m2 8. The right atrium is normal in size. 9. There is mild to moderate aortic valve sclerosis. 10. There is mild aortic regurgitation. 11. Mild mitral annular calcification present. 12. Mild tricuspid regurgitation present. 13. There is mild pulmonary hypertension. 14. The right ventricular systolic pressure, as measured by Doppler, is 34.50mmHg. 15. Trace/mild (physiologic) pulmonic regurgitation. 16. The aortic root size is normal. 17. IVC Not well visulized. 18. There is no pericardial effusion. PERSONNEL RESEARCH SCIENTIST: Taryn Spencer RDCS
[2017-11-10] MEDS: ASPIRIN 81 MG PO SCH (19:46)
[2017-11-10] MEDS: MELATONIN 5 MG TABLET PO SCH (19:46)
--- NOTE | 2017-11-10 19:53 | P.PN ---
Subjective Progress Note Date: 11/10/17 This patient is a 86-year-old female being evaluated for recent episode of syncope versus seizure. Patient does have history of severe dementia and is unable to provide accurate medical history. She did have an episode that was witnessed at home via her daughter. She is living at home with 24-hour family care. She apparently collapsed and was unresponsive. She had postictal state with initial confusion and lethargy. She is awaiting EEG for further evaluation. EEG should be completed today. She was seen by cardiology today for evaluation of EKG findings of left bundle branch block. They're evaluating her elevated troponins and cardiac enzymes as well. The patient otherwise seems to be pleasantly confused. She is not agitated at this time and according to family is near baseline level of function. She does have severe dementia and is currently on Namenda for treatment. Patient is sitting up in bed and is having her meal and does seem to be comfortable. She does not appear to be agitated at this time. She has not had any further seizure-like activity since admission to hospital. Patient was able to complete an EEG today which was reviewed. EEG reveals severe slowing with no evidence of any epileptiform discharges. This severe slowing is secondary to her known history of underlying dementia. She is being monitored for slight elevated serum sodium level. Patient was seen by nephrology today and she is being evaluated for acute kidney injury. She has chronic kidney disease which is stage III. Her serum sodium did come down today. Patient neurologically can be considered for discharge home without use of any anticonvulsant medication given the EEG findings. We will continue close neurological follow-up at this patient during this admission. The EEG findings was discussed today with the patient's son who is at bedside. We will continue close follow-up for the patient. Objective - Vital Signs Vital signs: Vital Signs Temp 96.7 F L 11/10/17 16:00 Pulse 56 L 11/10/17 16:00 Resp 16 11/10/17 16:00 BP 146/74 11/10/17 16:00 Pulse Ox 97 11/10/17 16:00 Intake & Output 11/10/17 11/10/17 11/11/17 06:59 18:59 06:59 Intake Total 120 1425 Balance 120 1425 Weight 61 kg Intake: IV 975 D5w with KCl 20 Meq/l 1, 675 000 ml @ 75 mls/hr IV . [id number] RENA Rx#:[id number] Dextrose 5%-0.45% NaCl 1, 300 000 ml @ 75 mls/hr IV . [id number] RENA Rx#:[id number] Oral 120 450 Other: Voiding Method Diaper Diaper # Voids 2 1 - Exam Physical examination: PHYSICAL EXAMINATION: Patient is resting comfortably in bed. VITAL SIGNS: Blood pressure is [146/74]. Heart rate is [56]. Respiration is [16] . Temperature is [97.0]. HEENT: Head is atraumatic, neck is supple, there were no carotid bruits. CHEST: Lungs are clear to auscultation and percussion. CARDIAC: S1, S2 normal rate and rhythm. There is no murmur. ABDOMEN: Soft and nontender. Bowel sounds are present. EXTREMITIES: There is no pedal edema. Peripheral pulses are present. Neurological examination: Patient's neurological examination is unchanged from yesterday. She has evidence of severe dementia and is oriented to person only. - Labs CBC & Chem 7: 11/10/17 06:04 11/10/17 06:04 Labs: Abnormal Lab Results - Last 24 Hours (Table) 11/10/17 11/10/17 Range/Units 06:04 06:04 RBC 3.23 L (3.80-5.40) m/uL Hgb 8.6 L (11.4-16.0) gm/dL Hct 29.4 L (34.0-46.0) % MCHC 29.4 L (31.0-37.0) g/dL RDW 15.8 H (11.5-15.5) % BUN 28 H (7-17) mg/dL Creatinine 1.51 H (0.52-1.04) mg/dL Microbiology - Last 24 Hours (Table) 11/08/17 15:15 Urine Culture - Final Urine,Voided Assessment and Plan (1) New onset seizure Current Visit: Yes Status: Acute Code(s): R56.9 - UNSPECIFIED CONVULSIONS SNOMED Code(s): 73097834 (2) Dementia Current Visit: Yes Status: Acute Code(s): F03.90 - UNSPECIFIED DEMENTIA WITHOUT BEHAVIORAL DISTURBANCE SNOMED Code(s): 45567900 (3) Acute encephalopathy Current Visit: Yes Status: Acute Code(s): G93.40 - ENCEPHALOPATHY, UNSPECIFIED SNOMED Code(s): 74881536 (4) Medial malleolar fracture Current Visit: No Status: Acute Code(s): S82.53XA - DISP FX OF MEDIAL MALLEOLUS OF UNSP TIBIA, INIT FOR CLOS FX SNOMED Code(s): 213073248 Plan: This patient is a 86-year-old female with a known history of severe advanced dementia. She was admitted with episode of syncope versus seizure. Patient was able to complete a routine EEG today which reveals her to have severe slowing with no epileptiform discharges. We are not recommending any anticonvulsant therapy at this time. She is being treated for acute kidney injury and her serum sodium levels have come down. We discussed the results of the EEG today with the patient and her son who is at bedside. She'll be considered for possible discharge home tomorrow. Her overall prognosis at this time remains guarded.
--- NOTE | 2017-11-11 02:50 | PN ---
PROGRESS NOTE DATE OF SERVICE: 11/10/2017 This 86-year-old woman was admitted with syncope and possible seizure disorder being closely monitored. Multiple consultants are following the patient closely. Multiple evaluations including EEG, 2D echo has been done. Neurology, cardiology following the patient closely. The 2D echo showed ejection fraction 40-45%. No chest pain. No palpitation. EXAM: Alert and oriented x3. Pulse is 58, blood pressure 100/73, respiration 18, temperature 97.7, pulse ox 94% room air. HEENT: Conjunctivae normal. Oral mucosa moist. Cardiovascular systems: S1, S2. Respiration: Breath sounds diminished in the bases. A few scattered rhonchi and crackles. Abdomen is soft, nontender. Legs are no edema, no swelling. Central nervous system: No focal deficits. LAB STUDIES: WBC 5.9, hemoglobin is 8.6, creatinine is 1.5. ASSESSMENT: 1. Syncope possibly new onset seizures. 2. Hypernatremia, possibly dehydration. 3. Possible TIA. 4. Congestive heart failure with chronic systolic dysfunction ejection fraction 40- 45%. 5. Increased creatinine with mild acute renal failure possibly prerenal. 6. Anemia of chronic disease. 7. Dementia. 8. History of deep vein thrombosis. 9. Remote history of nicotine dependence. RECOMMENDATIONS AND DISCUSSION: Recommend to continue current medications, continue symptomatic treatment, management. Sodium is improving. Closely follow with Neurology. EEG is unremarkable. Otherwise, guarded prognosis because of multiple complex medical issues. Further recommendations to follow. Discussed with the family at length. MMODL / IJN: [id number] /
[2017-11-11 06:00] LABS: Basophils % (A) 0 %; Eosinophils # (A) 0.3 k/uL (0-0.7); Eosinophils % (A) 5 %; HCT 26.9 % (34.0-46.0); HGB 8.6 gm/dL (11.4-16.0); Lymphocytes # (A) 1.5 k/uL (1.0-4.8); Lymphocytes % (A) 26 %; MCH 27.8 pg (25.0-35.0); Mean Platelet Volume 7.5; Monocytes # (A) 0.4 k/uL (0-1.0); Monocytes % (A) 7 %; Neutrophils # (A) 3.4 k/uL (1.3-7.7); Neutrophils % (A) 60 %; Platelet Count 194 k/uL (150-450); RDW 15.8 % (11.5-15.5); WBC 5.7 k/uL (3.8-10.6)
[2017-11-11] MEDS: DEXTROSE 5%-0.45% NACL 1,000 ML IV SCH (06:14)
[2017-11-11] MEDS: PANTOPRAZOLE 40 MG TABLET PO SCH (06:15)
[2017-11-11] MEDS: CALCIUM CARB-VIT D 500MG-200UN 1 EACH TAB PO SCH (06:15)
[2017-11-11 06:18] LABS: Calcium 8.7 mg/dL (8.4-10.2); Potassium 4.1 mmol/L (3.5-5.1)
[2017-11-11] MEDS: DOCUSATE 100 MG CAP PO SCH (08:09)
[2017-11-11] MEDS: SERTRALINE 50 MG TAB PO SCH (08:09)
[2017-11-11] MEDS: MEMANTINE 10 MG TAB PO SCH (08:09)
[2017-11-11] MEDS: ENOXAPARIN 30 MG/0.3 ML SYRINGE SQ SCH (08:09)
--- NOTE | 2017-11-11 10:52 | P.PN ---
Subjective Progress Note Date: 11/11/17 Principal diagnosis: Seizures Is is an 86-year-old female who was seen in consultation yesterday by Dr. VC Perdomo. She has a history of severe dementia, history of prior DVT. Most of the history was obtained from the medical record as she is nonverbal. EKG revealed T-wave inversions associated with left bundle branch block pattern, likely secondary to seizure disorder. Troponins 0.025, 0.03, 0.34, troponins not consistent with acute coronary syndrome. An echocardiogram with Doppler study was performed but is yet pending. Patient is hemodynamically stable. 11/11/2017 Patient was seen and examined this morning,blood pressure 176/90 heart rate in the 60s.echocardiogram with Doppler study was performed which revealed an ejection fraction of 40-45%.we'll avoid beta blockers because of the bradycardia , at losartan to the patient's medication regime. Objective - Vital Signs Vital signs: Vital Signs Temp 97.5 F L 11/11/17 08:00 Pulse 61 11/11/17 08:00 Resp 16 11/11/17 08:00 BP 176/94 11/11/17 08:00 Pulse Ox 96 11/11/17 08:00 Intake & Output 11/10/17 11/11/17 11/11/17 18:59 06:59 18:59 Intake Total 1425 360 840 Output Total 800 Balance 1425 -440 840 Weight 62 kg Intake: IV 975 600 D5w with KCl 20 Meq/l 1, 675 000 ml @ 75 mls/hr IV . [id number] RENA Rx#:[id number] Dextrose 5%-0.45% NaCl 1, 300 600 000 ml @ 75 mls/hr IV . [id number] RENA Rx#:[id number] Oral 450 360 240 Output: Urine 400 Post Void Residual 400 Other: Voiding Method Diaper Diaper Diaper Indwelling Catheter # Voids 1 3 1 - Exam PHYSICAL EXAMINATION: HEENT: Head is atraumatic, normocephalic. Pupils equal, round. Neck is supple. There is no elevated jugular venous pressure. HEART EXAMINATION: Heart S1, S2 normal. No murmur or gallop heard. CHEST EXAMINATION: Lungs are clear to auscultation and precussion. No chest wall tenderness is noted on palpation or with deep breathing. ABDOMEN: Soft, nontender. Bowel sounds are heard. No organomegaly noted. EXTREMITIES: 1+ peripheral pulses with no evidence of peripheral edema and no calf tenderness noted. NEUROLOGIC [patient is awake, nonverbal. - Labs CBC & Chem 7: 11/11/17 05:29 11/11/17 05:29 Labs: Abnormal Lab Results - Last 24 Hours (Table) 11/11/17 11/11/17 Range/Units 05:29 05:29 RBC 3.10 L (3.80-5.40) m/uL Hgb 8.6 L (11.4-16.0) gm/dL Hct 26.9 L (34.0-46.0) % RDW 15.8 H (11.5-15.5) % Chloride 109 H (98-107) mmol/L BUN 26 H (7-17) mg/dL Creatinine 1.49 H (0.52-1.04) mg/dL Assessment and Plan Plan: Assessment and plan #1 seizure disorder #2 mildly abnormal troponins, not consistent with acute coronary syndrome, likely secondary to supply and demand mismatch. EKG shows T-wave inversions associated with left bundle-branch block pattern. We will initiate losartan more optimal blood pressure control. LV function 40- 45%.We will avoid a beta margret use because of bradycardia. DNP note has been reviewed, I agree with a documented findings and plan of care. Patient was seen and examined.
[2017-11-11 11:14] VITALS: BP 148/93; PULSE 58; TEMP 97.1
[2017-11-11] MEDS: FERROUS SULFATE 325 MG TAB PO SCH (11:19)
[2017-11-11] MEDS: THIAMINE 100 MG TAB PO SCH (11:19)
[2017-11-11] MEDS: FOLIC ACID 1 MG TAB PO SCH (11:19)
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
--- NOTE | 2017-11-11 23:39 | DS ---
DISCHARGE SUMMARY FINAL DIAGNOSES: 1. Syncope, possibly new onset seizures. 2. Hypernatremia, possibly dehydration. 3. Possible transient ischemic attack. 4. Congestive heart failure with chronic systolic dysfunction ejection fraction 40% to 45%. 5. Increased creatinine with mild acute renal failure, possibly prerenal. 6. Anemia of chronic disease. 7. Dementia. 8. History of deep vein thrombosis. 9. Remote history of nicotine dependence. RECOMMENDATIONS AND DISCUSSION: This 86-year-old woman with multiple medical problems was admitted with hyponatremia. The patient was dehydrated. The patient was given IV fluids. The patient improved significantly. Neurology saw the patient. Cardiology saw the patient. Renal ultrasound showed small kidneys and bilateral renal cyst. On exam, vital signs are stable. Cardiovascular S1, S2. Abdomen is soft. Liver and spleen not enlarged. Nervous system: No focal deficits. DISCHARGE ADVICE AND MEDICATIONS: 1. Diet is cardiac. 2. Activity limited until followup. 3. Follow up with Dr. Emmanuelle Dhaliwal in 2 to 3 days. 4. Follow up with Dr. Dean Gandhi as advised. 5. Follow up with Dr. Bergeron as advised. MEDICATIONS ARE: 1. Norvasc 5 mg p.o. daily. 2. Aspirin 81 mg q.h.s. 3. calcium with d 1 p.o. b.i.d. 4. Citracal 1 p.o. b.i.d. 5. Cranberry 500 mg p.o. daily. 6. Colace 100 mg p.o. daily. 7. Iron 320 mg p.o. daily. 8. Folic acid 1 mg p.o.daily. 9. Melatonin 5 mg q.h.s. 10.Namenda 10 mg p.o. b.i.d. 11.Multivitamins 1 p.o. daily. 12.Fish oil 1 p.o. b.i.d. 13.Protonix 40 mg b.i.d. 14.Zoloft 150 mg p.o. daily. 15.Vitamin B1 100 mg p.o. daily. Once again, the patient is discharged in stable condition with guarded prognosis. MMODL / IJN: [id number] / MTDD
== END 2017-11-11 14:41 | disposition home or self-care (01) | DRG 101 ==
LOC: EC 11:58 → 6SEL 14:27
PROVIDERS: ADMIT Hospitalist; ATTEND Hospitalist
DX: G40.909 Epilepsy, unspecified, not intractable, without status epilepticus (principal); N17.9 Acute kidney failure, unspecified; I24.8 Other forms of acute ischemic heart disease; E87.0 Hyperosmolality and hypernatremia; I13.0 Hypertensive heart and chronic kidney disease with heart failure and stage 1 through stage 4 chronic kidney disease, or unspecified chronic kidney disease; I50.22 Chronic systolic (congestive) heart failure; E87.1 Hypo-osmolality and hyponatremia; G45.9 Transient cerebral ischemic attack, unspecified; D63.8 Anemia in other chronic diseases classified elsewhere; S82.53XA Displaced fracture of medial malleolus of unspecified tibia, initial encounter for closed fracture; N28.1 Cyst of kidney, acquired; E86.0 Dehydration; F03.90 Unspecified dementia, unspecified severity, without behavioral disturbance, psychotic disturbance, mood disturbance, and anxiety; I44.7 Left bundle-branch block, unspecified; N18.3 Chronic kidney disease, stage 3 (moderate); N27.1 Small kidney, bilateral; R32 Unspecified urinary incontinence; Z79.82 Long term (current) use of aspirin; Z79.899 Other long term (current) drug therapy; Z86.718 Personal history of other venous thrombosis and embolism; Z87.891 Personal history of nicotine dependence
CPT/HCPCS: 36415; 70450; 71045; 76770; 80048; 80053; 81001; 82550; 82553; 83735; 84100; 84484; 85025; 85610; 85730; 87086; 93005; 93306; 93880; 95816; 96360; 96361; 99285

== ENCOUNTER 2017-11-19 18:02 | Inpatient (IN) | payer MEDICARE, BC ==
[2017-11-19 19:31] LABS: HCT 27.6 % (34.0-46.0); HGB 8.7 gm/dL (11.4-16.0); Hypochromasia Slight; MCH 27.1 pg (25.0-35.0); MCHC 31.4 g/dL (31.0-37.0); MCV 86.3 fL (80.0-100.0); Mean Platelet Volume 8.1; Platelet Count 242 k/uL (150-450); RDW 15.8 % (11.5-15.5); WBC 13.3 k/uL (3.8-10.6)
[2017-11-19 19:40] LABS: Calcium 9.4 mg/dL (8.4-10.2); Potassium 4.2 mmol/L (3.5-5.1); Total Bilirubin 0.4 mg/dL (0.2-1.3); Total Protein 7.8 g/dL (6.3-8.2)
--- NOTE | 2017-11-19 19:40 | ED ---
Extremity Problem HPI - General Chief complaint: Extremity Problem,Nontraumatic Stated complaint: Swelling the wrist/ high blood pressure Time Seen by Provider: 11/19/17 19:00 Source: patient, family, RN notes reviewed, old records reviewed Mode of arrival: ambulatory Limitations: no limitations - History of Present Illness Initial comments: This is a 86-year-old female who was recently hospitalized with a UTI and seizure who woke up this morning with her right wrist swollen red with increased localized temperature. No trauma is reported no fevers chills or sweats no history of rheumatoid arthritis or gout. No other reported issues at this time MD Complaint: extremity pain, extremity swelling - Related Data Home Medications Medication Instructions Recorded Confirmed Citrical 1 tab PO BID 07/15/17 11/19/17 Cranberry Fruit Extract [Cranberry] 500 mg PO DAILY 07/15/17 11/19/17 Multivitamins, Thera [Multivitamin 2 tab PO DAILY 07/15/17 11/19/17 (formulary)] Sertraline [Zoloft] 150 mg PO DAILY 07/15/17 11/19/17 Aspirin 81 mg PO HS 11/08/17 11/19/17 Docusate [Colace] 100 mg PO DAILY 11/08/17 11/19/17 Ferrous Sulfate [Iron] 325 mg PO DAILY 11/08/17 11/19/17 Melatonin 5 mg PO HS 11/08/17 11/19/17 [place]-3 Fatty Acids/Fish Oil [Fish 1 cap PO BID 11/08/17 11/19/17 Oil 1,000 mg Softgel] Folic Acid 1 mg PO DAILY 11/19/17 11/19/17 Nitrofurantoin Monohyd/M-Cryst 100 mg PO Q12HR 11/19/17 11/19/17 [Macrobid] Thiamine [Vitamin B-1] 100 mg PO DAILY 11/19/17 11/19/17 amLODIPine BESYLATE [Norvasc] 5 mg PO HS 11/19/17 11/19/17 Previous Rx's Medication Instructions Recorded Pantoprazole [Protonix] 40 mg PO AC-BRKFST #30 tablet. 11/11/17 Allergies Allergy/AdvReac Type Severity Reaction Status Date / Time No Known Allergies Allergy Verified 11/19/17 18:48 Review of Systems ROS Statement: Those systems with pertinent positive or pertinent negative responses have been documented in the HPI. ROS Other: All systems not noted in ROS Statement are negative. Past Medical History Past Medical History: Dementia, Deep Vein Thrombosis (DVT) History of Any Multi-Drug Resistant Organisms: None Reported Past Surgical History: No Surgical Hx Reported Past Psychological History: No Psychological Hx Reported Smoking Status: Former smoker Past Alcohol Use History: None Reported Past Drug Use History: None Reported General Exam - General Exam Comments Initial Comments: Is a well-developed well-nourished elderly female in no acute distress Limitations: no limitations General appearance: alert, in no apparent distress Head exam: Present: atraumatic, normocephalic, normal inspection Eye exam: Present: normal appearance, PERRL, EOMI. Absent: scleral icterus, conjunctival injection, periorbital swelling ENT exam: Present: normal exam, mucous membranes moist Neck exam: Present: normal inspection. Absent: tenderness, meningismus, lymphadenopathy Respiratory exam: Present: normal lung sounds bilaterally. Absent: respiratory distress, wheezes, rales, rhonchi, stridor Cardiovascular Exam: Present: regular rate, normal rhythm, normal heart sounds. Absent: systolic murmur, diastolic murmur, rubs, gallop, clicks GI/Abdominal exam: Present: soft, normal bowel sounds. Absent: distended, tenderness, guarding, rebound, rigid Extremities exam: Present: full ROM, tenderness (This is erythema and some tenderness palpation of the right wrist increased localized temperature no step- off or crepitation.), normal capillary refill. Absent: pedal edema, joint swelling, calf tenderness Back exam: Present: normal inspection Neurological exam: Present: alert, altered, CN II-XII intact Psychiatric exam: Present: normal affect, normal mood Skin exam: Present: warm, dry, intact, normal color. Absent: rash Course Vital Signs 11/19/17 11/19/17 11/19/17 18:26 19:15 20:00 Temperature 100.0 F H 97.2 F L 97 F L Pulse Rate 84 80 Respiratory 18 16 Rate Blood Pressure 141/89 140/68 O2 Sat by Pulse 94 L 97 Oximetry 11/19/17 21:01 Temperature 97.2 F L Pulse Rate 81 Respiratory 16 Rate Blood Pressure 124/65 O2 Sat by Pulse 97 Oximetry Medical Decision Making - Medical Decision Making I did discuss findings with patient family patient does demonstrate evidence of infection is the right wrist she will be admitted place an IV antibiotics orthopedic consultation - Lab Data Result diagrams: 11/19/17 19:05 11/19/17 19:05 Lab Results 11/19/17 11/19/17 11/19/17 Range/Units 19:05 19:05 19:05 WBC 13.3 H (3.8-10.6) k/uL RBC 3.20 L (3.80-5.40) m/uL Hgb 8.7 L (11.4-16.0) gm/dL Hct 27.6 L (34.0-46.0) % MCV 86.3 (80.0-100.0) fL MCH 27.1 (25.0-35.0) pg MCHC 31.4 (31.0-37.0) g/dL RDW 15.8 H (11.5-15.5) % Plt Count 242 (150-450) k/uL Hypochromasia Slight Sodium 141 (137-145) mmol/L Potassium 4.2 (3.5-5.1) mmol/L Chloride 102 (98-107) mmol/L Carbon Dioxide 25 (22-30) mmol/L Anion Gap 14 mmol/L BUN 35 H (7-17) mg/dL Creatinine 1.30 H (0.52-1.04) mg/dL Est GFR (CKD-EPI)AfAm 43 (>60 ml/min/1.73 sqM) Est GFR (CKD-EPI)NonAf 38 (>60 ml/min/1.73 sqM) Glucose 119 H (74-99) mg/dL Plasma Lactic Acid Filipe 1.2 (0.7-2.0) mmol/L Uric Acid (3.7-7.4) mg/dL Calcium 9.4 (8.4-10.2) mg/dL Total Bilirubin 0.4 (0.2-1.3) mg/dL AST 21 (14-36) U/L ALT 14 (9-52) U/L Alkaline Phosphatase 114 (38-126) U/L Total Protein 7.8 (6.3-8.2) g/dL Albumin 4.0 (3.5-5.0) g/dL 11/19/17 Range/Units 19:05 WBC (3.8-10.6) k/uL RBC (3.80-5.40) m/uL Hgb (11.4-16.0) gm/dL Hct (34.0-46.0) % MCV (80.0-100.0) fL MCH (25.0-35.0) pg MCHC (31.0-37.0) g/dL RDW (11.5-15.5) % Plt Count (150-450) k/uL Hypochromasia Sodium (137-145) mmol/L Potassium (3.5-5.1) mmol/L Chloride (98-107) mmol/L Carbon Dioxide (22-30) mmol/L Anion Gap mmol/L BUN (7-17) mg/dL Creatinine (0.52-1.04) mg/dL Est GFR (CKD-EPI)AfAm (>60 ml/min/1.73 sqM) Est GFR (CKD-EPI)NonAf (>60 ml/min/1.73 sqM) Glucose (74-99) mg/dL Plasma Lactic Acid Filipe (0.7-2.0) mmol/L Uric Acid 6.3 (3.7-7.4) mg/dL Calcium (8.4-10.2) mg/dL Total Bilirubin (0.2-1.3) mg/dL AST (14-36) U/L ALT (9-52) U/L Alkaline Phosphatase (38-126) U/L Total Protein (6.3-8.2) g/dL Albumin (3.5-5.0) g/dL - Radiology Data Radiology results: report reviewed (X-rays were reviewed no acute findings), image reviewed Disposition Clinical Impression: Cellulitis, Wrist pain, Leukocytosis, Febrile illness, acute Disposition: ADMITTED IP TO THIS [facility] Condition: Stable Referrals: Emmanuelle Dhaliwal MD [Primary Care Provider] - 1-2 days
--- NOTE | 2017-11-19 20:10 | XR ---
EXAMINATION TYPE: XR wrist complete RT DATE OF EXAM: 11/19/2017 COMPARISON: NONE HISTORY: Altered mental status TECHNIQUE: 4 views FINDINGS: There is calcification of the triangular cartilage. There is narrowing of the scaphoid trap ezium joint space with spurring and sclerosis. There is narrowing of first carpometacarpal joint spac e with spurring. I see no fracture nor dislocation. IMPRESSION: Osteoarthritic changes. Chondrocalcinosis. No fracture seen.
[2017-11-19] MEDS ORDERED: PIPERACILLIN-TAZOBACTAM 3.375 GM in DEXTROSE/WATER 1 50ML.BAG IVPB STA (20:18)
[2017-11-19] MEDS ORDERED: KETOROLAC 30 MG/ML 1 ML VIAL IVP ONE (20:24)
[2017-11-19] MEDS ORDERED: ACETAMINOPHEN TAB 325 MG TAB PO PRN (21:57)
[2017-11-19] MEDS ORDERED: NALOXONE 0.4 MG/ML 1 ML VIAL IV PRN (21:57)
[2017-11-19] MEDS: SODIUM CHLORIDE 0.9% 1,000 ML IV SCH (23:10)
[2017-11-20] MEDS: PIPERACILLIN-TAZOBACTAM 3.375 GM in DEXTROSE/WATER 1 50ML.BAG IVPB SCH ×3 (07:37→23:17)
[2017-11-20] MEDS: SERTRALINE 50 MG TAB PO SCH (07:38)
[2017-11-20] MEDS: THIAMINE 100 MG TAB PO SCH (07:38)
[2017-11-20] MEDS: DOCUSATE 100 MG CAP PO SCH (07:38)
[2017-11-20] MEDS: PANTOPRAZOLE 40 MG TABLET PO SCH (07:38)
[2017-11-20] MEDS: MULTIVITAMINS, THERA 1 EACH TAB PO SCH (07:38)
[2017-11-20] MEDS: FOLIC ACID 1 MG TAB PO SCH (07:38)
[2017-11-20] MEDS: FERROUS SULFATE 325 MG TAB PO SCH (07:39)
[2017-11-20] MEDS: SODIUM CHLORIDE 0.9% 1,000 ML IV SCH ×2 (09:37→23:17)
[2017-11-20] MEDS ORDERED: LIDOCAINE 1% INJ 10MG/ML (20 ML MDV) SQ STA (09:52)
--- NOTE | 2017-11-20 10:36 | P.CNOR ---
History of Present Illness - HPI Consult date: 11/20/17 Consult reason: joint pain (Right wrist) History of present illness: This is an 86-year-old female admitted to [facility] on 2017 with increased redness and pain to her right wrist. She was noted to have a low-grade temp an elevated white count emergency department. She is admitted to internal medicine and we're consulted for orthopedic evaluation for septic arthritis of the wrist. Past Medical History Past Medical History: Dementia, Deep Vein Thrombosis (DVT), Seizure Disorder Additional Past Medical History / Comment(s): Seizure in November 08, UTI, Kidney disease History of Any Multi-Drug Resistant Organisms: None Reported Past Surgical History: No Surgical Hx Reported Additional Past Surgical History / Comment(s): Left ankle fracture Past Psychological History: No Psychological Hx Reported Smoking Status: Former smoker Past Alcohol Use History: None Reported Past Drug Use History: None Reported Medications and Allergies Home Medications Medication Instructions Recorded Confirmed Type Citrical 1 tab PO BID 07/15/17 11/19/17 History Cranberry Fruit Extract [Cranberry] 500 mg PO DAILY 07/15/17 11/19/17 History Multivitamins, Thera [Multivitamin 2 tab PO DAILY 07/15/17 11/19/17 History (formulary)] Sertraline [Zoloft] 150 mg PO DAILY 07/15/17 11/19/17 History Aspirin 81 mg PO HS 11/08/17 11/19/17 History Docusate [Colace] 100 mg PO DAILY 11/08/17 11/19/17 History Ferrous Sulfate [Iron] 325 mg PO DAILY 11/08/17 11/19/17 History Melatonin 5 mg PO HS 11/08/17 11/19/17 History [place]-3 Fatty Acids/Fish Oil [Fish 1 cap PO BID 11/08/17 11/19/17 History Oil 1,000 mg Softgel] Pantoprazole [Protonix] 40 mg PO ZAC-BRKFST #30 tablet. 11/11/17 11/19/17 Rx Folic Acid 1 mg PO DAILY 11/19/17 11/19/17 History Nitrofurantoin Monohyd/M-Cryst 100 mg PO Q12HR 11/19/17 11/19/17 History [Macrobid] Thiamine [Vitamin B-1] 100 mg PO DAILY 11/19/17 11/19/17 History amLODIPine BESYLATE [Norvasc] 5 mg PO HS 11/19/17 11/19/17 History Allergies Allergy/AdvReac Type Severity Reaction Status Date / Time No Known Allergies Allergy Verified 11/19/17 18:48 Physical Examination This is a pleasantly confused 86-year-old female in no acute distress. She is alert but disoriented and confused. She is a poor historian. Exam of the right wrist reveals erythema and swelling. I am able to flex and extend the wrist with pain. She has normal finger motion without difficulty. Capillary refills less than 3 seconds. The remainder of her musculoskeletal exam is unremarkable. Results X-rays of the right wrist reveal degenerative changes with no acute fracture. - Labs Labs: Abnormal Lab Results - Last 24 Hours (Table) 11/19/17 11/19/17 Range/Units 19:05 19:05 WBC 13.3 H (3.8-10.6) k/uL RBC 3.20 L (3.80-5.40) m/uL Hgb 8.7 L (11.4-16.0) gm/dL Hct 27.6 L (34.0-46.0) % RDW 15.8 H (11.5-15.5) % BUN 35 H (7-17) mg/dL Creatinine 1.30 H (0.52-1.04) mg/dL Glucose 119 H (74-99) mg/dL H & H 11/19/17 Range/Units 19:05 Hgb 8.7 L (11.4-16.0) gm/dL Hct 27.6 L (34.0-46.0) % Result Diagrams: 11/19/17 19:05 11/19/17 19:05 Assessment and Plan (1) Cellulitis Current Visit: Yes Status: Acute Code(s): L03.90 - CELLULITIS, UNSPECIFIED SNOMED Code(s): 787590652 (2) Febrile illness, acute Current Visit: Yes Status: Acute Code(s): R50.9 - FEVER, UNSPECIFIED SNOMED Code(s): 063805240 (3) Leukocytosis Current Visit: Yes Status: Acute Code(s): D72.829 - ELEVATED WHITE BLOOD CELL COUNT, UNSPECIFIED SNOMED Code(s): 917423106 (4) Wrist pain Current Visit: Yes Status: Acute Code(s): M25.539 - PAIN IN UNSPECIFIED WRIST SNOMED Code(s): 28907329 Plan: The clinical findings are discussed with the patient and nursing staff. Family has consented to wrist aspiration over the phone. The wrist is aspirated using sterile technique. I obtained only 1 mL of fairly clear joint fluid with slight blood-tinged. Fluid is sent for culture and sensitivity. There was not enough fluid to send for cell count. I recommend that she continue on antibiotics. It is also recommended that the patient be evaluated by infectious disease. We will continue to follow.
[2017-11-20 11:19] VITALS: BMI 19.2
[2017-11-20 12:51] LABS: Calcium 8.9 mg/dL (8.4-10.2); Potassium 3.9 mmol/L (3.5-5.1)
[2017-11-20 13:25] LABS: Basophils % (A) 0 %; Eosinophils # (A) 0.2 k/uL (0-0.7); Eosinophils % (A) 2 %; Hypochromasia Slight; Lymphocytes # (A) 1.4 k/uL (1.0-4.8); Lymphocytes % (A) 15 %; MCH 27.1 pg (25.0-35.0); MCHC 30.9 g/dL (31.0-37.0); MCV 87.7 fL (80.0-100.0); Monocytes # (A) 0.6 k/uL (0-1.0); Monocytes % (A) 6 %; Neutrophils # (A) 6.8 k/uL (1.3-7.7); Neutrophils % (A) 75 %; Platelet Count 205 k/uL (150-450); RBC 2.96 m/uL (3.80-5.40); RDW 15.8 % (11.5-15.5); WBC 9.1 k/uL (3.8-10.6)
[2017-11-20] MEDS: ASPIRIN 81 MG PO SCH (20:32)
[2017-11-20] MEDS: MELATONIN 5 MG TABLET PO SCH (20:32)
--- NOTE | 2017-11-20 21:53 | P.HPIM ---
History of Present Illness H&P Date: 11/20/17 Chief Complaint: Right wrist swelling Patient is a 86-year-old female with a known history of dementia, recent admission with syncope and seizures and a prior history of DVT and UTI came to the hospital with complaints of right wrist swelling. Patient is a poor historian and most the history was taken from his daughter at bedside. Patient woke up this morning with her right wrist swollen red with increased localized temperature. No trauma is reported no fevers chills or sweats no history of rheumatoid arthritis or gout. No insect bite. Patient was recently admitted with acute kidney injury and syncope and seizures on admission. Patient had easy at the time did not reveal any epileptiform waves. Neurology recommended no antiepileptic medications. Patient was also hyponatremic at that time which also improved. Patient is on iron supplements for anemia. X-ray of the right wrist showed osteoarthritis changes. Chondrocalcinosis. No fractures seen. Review of Systems Complete review of systems could not be apparent from the patient due to underlying dementia Past Medical History Past Medical History: Dementia, Deep Vein Thrombosis (DVT), Seizure Disorder Additional Past Medical History / Comment(s): Seizure in November 08, UTI, Kidney disease History of Any Multi-Drug Resistant Organisms: None Reported Past Surgical History: No Surgical Hx Reported Additional Past Surgical History / Comment(s): Left ankle fracture Past Psychological History: No Psychological Hx Reported Smoking Status: Former smoker Past Alcohol Use History: None Reported Past Drug Use History: None Reported Medications and Allergies Home Medications Medication Instructions Recorded Confirmed Type Citrical 1 tab PO BID 07/15/17 11/19/17 History Cranberry Fruit Extract [Cranberry] 500 mg PO DAILY 07/15/17 11/19/17 History Multivitamins, Thera [Multivitamin 2 tab PO DAILY 07/15/17 11/19/17 History (formulary)] Sertraline [Zoloft] 150 mg PO DAILY 07/15/17 11/19/17 History Aspirin 81 mg PO HS 11/08/17 11/19/17 History Docusate [Colace] 100 mg PO DAILY 11/08/17 11/19/17 History Ferrous Sulfate [Iron] 325 mg PO DAILY 11/08/17 11/19/17 History Melatonin 5 mg PO HS 11/08/17 11/19/17 History [place]-3 Fatty Acids/Fish Oil [Fish 1 cap PO BID 11/08/17 11/19/17 History Oil 1,000 mg Softgel] Pantoprazole [Protonix] 40 mg PO AC-BRKFST #30 tablet.dr 11/11/17 11/19/17 Rx Folic Acid 1 mg PO DAILY 11/19/17 11/19/17 History Nitrofurantoin Monohyd/M-Cryst 100 mg PO Q12HR 11/19/17 11/19/17 History [Macrobid] Thiamine [Vitamin B-1] 100 mg PO DAILY 11/19/17 11/19/17 History amLODIPine BESYLATE [Norvasc] 5 mg PO HS 11/19/17 11/19/17 History Allergies Allergy/AdvReac Type Severity Reaction Status Date / Time No Known Allergies Allergy Verified 11/19/17 18:48 Physical Exam Vitals: Vital Signs Temp Pulse Pulse Resp BP BP BP 11/20/17 07:48 62 16 11/20/17 07:00 97.4 F L 62 16 130/72 11/20/17 00:00 66 18 11/19/17 23:00 99.3 F 66 18 118/66 11/19/17 22:00 97.2 F L 77 18 121/66 11/19/17 21:01 97.2 F L 81 16 124/65 11/19/17 20:00 97 F L 80 16 140/68 11/19/17 19:15 97.2 F L 11/19/17 18:26 100.0 F H 84 18 141/89 Pulse Ox 11/20/17 07:48 11/20/17 07:00 94 L 11/20/17 00:00 11/19/17 23:00 93 L 11/19/17 22:00 95 11/19/17 21:01 97 11/19/17 20:00 97 11/19/17 19:15 11/19/17 18:26 94 L Intake and Output 11/19/17 11/20/17 11/20/17 22:59 06:59 14:59 Intake Total 50 0 Balance 50 0 Intake: Oral 50 0 Other: # Voids 0 0 Weight 53.977 kg 53.977 kg 53.977 kg PHYSICAL EXAMINATION: Patient is lying in the bed comfortably, no acute distress, awake alert but not oriented HEENT: Normocephalic. Neck is supple. Pupils reactive. Nostrils clear. Oral cavity is moist. Ears reveal no drainage. Neck reveals no JVD, carotid bruits, or thyromegaly. CHEST EXAMINATION: Trachea is central. Symmetrical expansion. Lung springer clear to auscultation and percussion. CARDIAC: Normal S1, S2 with no gallops. No murmurs ABDOMEN: Soft. Bowel sounds normal. No organomegaly. No abdominal bruits. Extremities: reveal no edema. No clubbing or cyanosis Neurologically awake, alert area did not oriented dementia. with well- coordinated movements. No focal deficits noted Skin: No rash or skin lesions. Psychiatric: Cooperative. Could not be assessed completely Musculoskeletal: Right wrist swelling and redness and warm. No other joint swelling or deformity. Normal range of motion. Results CBC & Chem 7: 11/20/17 12:25 11/20/17 12:25 Labs: Abnormal Lab Results - Last 24 Hours (Table) 11/19/17 11/19/17 Range/Units 19:05 19:05 WBC 13.3 H (3.8-10.6) k/uL RBC 3.20 L (3.80-5.40) m/uL Hgb 8.7 L (11.4-16.0) gm/dL Hct 27.6 L (34.0-46.0) % RDW 15.8 H (11.5-15.5) % BUN 35 H (7-17) mg/dL Creatinine 1.30 H (0.52-1.04) mg/dL Glucose 119 H (74-99) mg/dL Thrombosis Risk Factor Assmnt - DVT/VTE Prophylaxis DVT/VTE Prophylaxis: Pharmacologic Prophylaxis ordered - Choose All That Apply Any of the Below Risk Factors Present?: Yes Each Risk Factor Represents 3 Points: Age 75 years or older, History of DVT/PE Thrombosis Risk Factor Assessment Total Risk Factor Score: 6 Thrombosis Risk Factor Assessment Level: High Risk Assessment and Plan Assessment: Right wrist cellulitis. Unlikely septic arthritis. Status post arthrocentesis. Follow-up fluid culture reports Acute kidney injury CK D stage III Normocytic anemia Recent admission with syncope and dehydration Chronic CHF with mildly reduced systolic dysfunction EF 40-45% Dementia History of DVT Remote history of smoking Plan: Patient will be continued on antibiotics in the form of Zosyn. Patient was seen by our to and right wrist arthrocentesis was done and and a 1 mL was able to be aspirated. Fluid culture was sent. Fluid volume is not enough for Cell count and differential. We'll continue the pain medications and follow closely. Follow blood cultures. ID was consulted as well. Continue the home medications and hydration. Further recommendations based on the clinical course. Time with Patient: Greater than 30
[2017-11-21] MEDS: SERTRALINE 50 MG TAB PO SCH (08:06)
[2017-11-21] MEDS: DOCUSATE 100 MG CAP PO SCH (08:06)
[2017-11-21] MEDS: PANTOPRAZOLE 40 MG TABLET PO SCH (08:06)
[2017-11-21] MEDS: PIPERACILLIN-TAZOBACTAM 3.375 GM in DEXTROSE/WATER 1 50ML.BAG IVPB SCH ×2 (08:06→15:21)
--- NOTE | 2017-11-21 08:25 | P.PN ---
Subjective Progress Note Date: 11/21/17 Principal diagnosis: Cellulitis right wrist. This is an 86-year-old female who we are following regarding pain and swelling to her right wrist. The wrist joint was aspirated yesterday obtaining approximately 1 mL of fairly clear joint fluid. So far there is no growth on the culture. No organisms seen on Gram stain. The patient did run a slight temp last night of 100.5. Her blood cell count as of yesterday had returned to normal. She has no new complaints or concerns today. She continues to have slight confusion. Objective - Vital Signs Vital signs: Vital Signs Temp 97.7 F 11/21/17 07:00 Pulse 66 11/21/17 07:00 Resp 18 11/21/17 07:00 BP 127/68 11/21/17 07:00 Pulse Ox 94 L 11/21/17 07:00 Intake & Output 11/20/17 11/21/17 11/21/17 18:59 06:59 18:59 Intake Total 750 950 Balance 750 950 Weight 53.977 kg Intake: Oral 750 950 Other: Voiding Method Incontinent # Voids 1 2 - Exam This is a pleasantly confused 86-year-old female in no acute distress. She is alert and cooperative this morning. Exam of the right wrist reveals that her erythema has improved. Her swelling has improved as well. She has improved motion to the wrist with no obvious pain. There is minimal pain with palpation about the wrist. She has full finger motion without difficulty. Neurovascular status to the upper extremity is intact. - Labs CBC & Chem 7: 11/20/17 12:25 11/20/17 12:25 Labs: Abnormal Lab Results - Last 24 Hours (Table) 11/20/17 11/20/17 Range/Units 12:25 12:25 RBC 2.96 L (3.80-5.40) m/uL Hgb 8.0 L (11.4-16.0) gm/dL Hct 26.0 L (34.0-46.0) % MCHC 30.9 L (31.0-37.0) g/dL RDW 15.8 H (11.5-15.5) % Chloride 108 H (98-107) mmol/L BUN 39 H (7-17) mg/dL Creatinine 1.66 H (0.52-1.04) mg/dL Microbiology - Last 24 Hours (Table) 11/20/17 10:00 Gram Stain - Preliminary Synovial Fluid Body Fluid Culture - Preliminary 11/19/17 19:05 Blood Culture - Preliminary Blood No Growth after 24 hours Assessment and Plan (1) Cellulitis Current Visit: Yes Status: Acute Code(s): L03.90 - CELLULITIS, UNSPECIFIED SNOMED Code(s): 282876684 (2) Febrile illness, acute Current Visit: Yes Status: Acute Code(s): R50.9 - FEVER, UNSPECIFIED SNOMED Code(s): 969265662 (3) Leukocytosis Current Visit: Yes Status: Acute Code(s): D72.829 - ELEVATED WHITE BLOOD CELL COUNT, UNSPECIFIED SNOMED Code(s): 260838221 (4) Wrist pain Current Visit: Yes Status: Acute Code(s): M25.539 - PAIN IN UNSPECIFIED WRIST SNOMED Code(s): 99520470 Plan: The clinical findings are discussed with the patient and nursing staff. With her recent improvement, and current negative cultures of the wrist joint, it is recommended that we hold off on surgical debridement at this time. Consult with infectious diseases pending. We will continue to follow closely. Continue IV antibiotics.
[2017-11-21] MEDS ORDERED: ENOXAPARIN 30 MG/0.3 ML SYRINGE SQ SCH (09:00)
[2017-11-21 09:23] LABS: Basophils % (A) 0 %; Eosinophils # (A) 0.3 k/uL (0-0.7); Eosinophils % (A) 4 %; HCT 24.2 % (34.0-46.0); HGB 7.9 gm/dL (11.4-16.0); Lymphocytes # (A) 1.8 k/uL (1.0-4.8); Lymphocytes % (A) 23 %; MCH 27.9 pg (25.0-35.0); MCHC 32.6 g/dL (31.0-37.0); MCV 85.6 fL (80.0-100.0); Mean Platelet Volume 7.8; Monocytes # (A) 0.4 k/uL (0-1.0); Monocytes % (A) 5 %; Neutrophils # (A) 5.1 k/uL (1.3-7.7); Neutrophils % (A) 65 %; Platelet Count 210 k/uL (150-450); RBC 2.83 m/uL (3.80-5.40); RDW 15.4 % (11.5-15.5); WBC 7.7 k/uL (3.8-10.6)
--- NOTE | 2017-11-21 09:39 | P.CONS ---
History of Present Illness - Reason for Consult Consult date: 11/21/17 - History of Present Illness This is an 86-year-old female patient brought in by her family due to redness swelling to the right wrist. There is known injury. Patient apparently is bedbound at home and family takes care of her. She has significant dementia and is pleasantly confused. Patient presented with temperature max 100.5, WBC 13.3 improved to 9.1, hemoglobin 8.0. BUN 36 and creatinine 1.66. Liver function tests were within normal limits. Uric acid 6.3. Blood is showing no growth at 24 hours. Patient was darted on Zosyn and admitted to the [facility] floor. Patient's been seen by orthopedics and a bedside aspiration was done yesterday that returned 1 mL of fluid that was clear slightly blood-tinged. Culture was sent which is showing rare polymorphic. Wrist swelling and redness is much improved from yesterday. Orthopedics does not plan for more surgical intervention. Patient had a recent hospitalization in November 08 through November 11. She was treated for syncopal episode and possibly new seizure activity, dehydration, and acute kidney injury. Dr. Gandhi did not recommend any anticonvulsant therapy. Patient was not discharged home on antibiotics. Noted the patient has Macrobid on her home medication list. Review of Systems ROS unobtainable: due to mental status All systems: negative Constitutional: Denies chills, Denies fever Eyes: denies blurred vision, denies pain Ears, nose, mouth and throat: Denies headache, Denies sore throat Cardiovascular: Denies chest pain, Denies shortness of breath Respiratory: Denies cough Gastrointestinal: Denies abdominal pain, Denies diarrhea, Denies nausea, Denies vomiting Genitourinary: Denies dysuria, Denies hematuria Musculoskeletal: Denies myalgias Integumentary: Denies pruritus, Denies rash Neurological: Denies numbness, Denies weakness Psychiatric: Denies anxiety, Denies depression Endocrine: Denies fatigue, Denies weight change Past Medical History Past Medical History: Dementia, Deep Vein Thrombosis (DVT), Seizure Disorder Additional Past Medical History / Comment(s): Seizure in November 08, UTI, Kidney disease History of Any Multi-Drug Resistant Organisms: None Reported Past Surgical History: No Surgical Hx Reported Additional Past Surgical History / Comment(s): Left ankle fracture Past Psychological History: No Psychological Hx Reported Smoking Status: Former smoker Past Alcohol Use History: None Reported Past Drug Use History: None Reported Medications and Allergies Home Medications Medication Instructions Recorded Confirmed Type Citrical 1 tab PO BID 07/15/17 11/19/17 History Cranberry Fruit Extract [Cranberry] 500 mg PO DAILY 07/15/17 11/19/17 History Multivitamins, Thera [Multivitamin 2 tab PO DAILY 07/15/17 11/19/17 History (formulary)] Sertraline [Zoloft] 150 mg PO DAILY 07/15/17 11/19/17 History Aspirin 81 mg PO HS 11/08/17 11/19/17 History Docusate [Colace] 100 mg PO DAILY 11/08/17 11/19/17 History Ferrous Sulfate [Iron] 325 mg PO DAILY 11/08/17 11/19/17 History Melatonin 5 mg PO HS 11/08/17 11/19/17 History [place]-3 Fatty Acids/Fish Oil [Fish 1 cap PO BID 11/08/17 11/19/17 History Oil 1,000 mg Softgel] Pantoprazole [Protonix] 40 mg PO AC-BRKFST #30 tablet. 11/11/17 11/19/17 Rx Folic Acid 1 mg PO DAILY 11/19/17 11/19/17 History Nitrofurantoin Monohyd/M-Cryst 100 mg PO Q12HR 11/19/17 11/19/17 History [Macrobid] Thiamine [Vitamin B-1] 100 mg PO DAILY 11/19/17 11/19/17 History amLODIPine BESYLATE [Norvasc] 5 mg PO HS 11/19/17 11/19/17 History Allergies Allergy/AdvReac Type Severity Reaction Status Date / Time No Known Allergies Allergy Verified 11/19/17 18:48 Physical Exam Vitals: Vital Signs Temp Pulse Resp BP Pulse Ox 11/21/17 07:00 97.7 F 66 18 127/68 94 L 11/21/17 01:36 97.7 F 11/20/17 23:00 100.5 F H 66 18 111/63 94 L 11/20/17 15:42 16 11/20/17 15:00 96.8 F L 58 L 16 113/64 93 L Intake and Output 11/20/17 11/21/17 11/21/17 22:59 06:59 14:59 Intake Total 1100 350 Balance 1100 350 Intake: Oral 1100 350 Other: Voiding Method Incontinent Incontinent # Voids 1 2 Weight 53.977 kg Gen: This is an 86-year-old female. She is sitting up in bed and appears to be comfortable. Patient is pleasantly confused. HEENT: Head is atraumatic, normocephalic. Pupils equal, round. Sclerae is anicteric. Mucous members of the mouth are moist. No thrush noted. NECK: Supple. No JVD. No lymphadenopathy. No thyromegaly. LUNGS: Clear to auscultation. No wheezes or rhonchi. No intercostal retractions. HEART: Regular rate and rhythm. No murmur. ABDOMEN: Soft. Bowel sounds are present. No masses. No tenderness. EXTREMITIES: No pedal edema. No calf tenderness. NEUROLOGICAL: Patient is awake, alert and oriented x1. She is pleasantly confused and has difficulty following directions. Results Results: Laboratory Results WBC 7.7 k/uL (3.8-10.6) 11/21/17 09:02 RBC 2.83 m/uL (3.80-5.40) L 11/21/17 09:02 Hgb 7.9 gm/dL (11.4-16.0) L 11/21/17 09:02 Hct 24.2 % (34.0-46.0) L 11/21/17 09:02 MCV 85.6 fL (80.0-100.0) 11/21/17 09:02 MCH 27.9 pg (25.0-35.0) 11/21/17 09:02 MCHC 32.6 g/dL (31.0-37.0) 11/21/17 09:02 RDW 15.4 % (11.5-15.5) 11/21/17 09:02 Plt Count 210 k/uL (150-450) 11/21/17 09:02 Neutrophils % 65 % 11/21/17 09:02 Lymphocytes % 23 % 11/21/17 09:02 Monocytes % 5 % 11/21/17 09:02 Eosinophils % 4 % 11/21/17 09:02 Basophils % 0 % 11/21/17 09:02 Neutrophils # 5.1 k/uL (1.3-7.7) 11/21/17 09:02 Lymphocytes # 1.8 k/uL (1.0-4.8) 11/21/17 09:02 Monocytes # 0.4 k/uL (0-1.0) 11/21/17 09:02 Eosinophils # 0.3 k/uL (0-0.7) 11/21/17 09:02 Basophils # 0.0 k/uL (0-0.2) 11/21/17 09:02 Hypochromasia Slight 11/20/17 12:25 Sodium 142 mmol/L (137-145) 11/20/17 12:25 Potassium 3.9 mmol/L (3.5-5.1) 11/20/17 12:25 Chloride 108 mmol/L (98-107) H 11/20/17 12:25 Carbon Dioxide 24 mmol/L (22-30) 11/20/17 12:25 Anion Gap 10 mmol/L 11/20/17 12:25 BUN 39 mg/dL (7-17) H 11/20/17 12:25 Creatinine 1.66 mg/dL (0.52-1.04) H 11/20/17 12:25 Est GFR (CKD-EPI)AfAm 32 (>60 ml/min/1.73 sqM) 11/20/17 12:25 Est GFR (CKD-EPI)NonAf 28 (>60 ml/min/1.73 sqM) 11/20/17 12:25 Glucose 88 mg/dL (74-99) 11/20/17 12:25 Plasma Lactic Acid Filipe 1.2 mmol/L (0.7-2.0) 11/19/17 19:05 Uric Acid 6.3 mg/dL (3.7-7.4) 11/19/17 19:05 Calcium 8.9 mg/dL (8.4-10.2) 11/20/17 12:25 Total Bilirubin 0.4 mg/dL (0.2-1.3) 11/19/17 19:05 AST 21 U/L (14-36) 11/19/17 19:05 ALT 14 U/L (9-52) 11/19/17 19:05 Alkaline Phosphatase 114 U/L (38-126) 11/19/17 19:05 Total Protein 7.8 g/dL (6.3-8.2) 11/19/17 19:05 Albumin 4.0 g/dL (3.5-5.0) 11/19/17 19:05 CBC & Chem 7: 11/20/17 12:25 11/20/17 12:25 Labs: Abnormal Lab Results - Last 24 Hours (Table) 11/20/17 11/20/17 Range/Units 12:25 12:25 RBC 2.96 L (3.80-5.40) m/uL Hgb 8.0 L (11.4-16.0) gm/dL Hct 26.0 L (34.0-46.0) % MCHC 30.9 L (31.0-37.0) g/dL RDW 15.8 H (11.5-15.5) % Chloride 108 H (98-107) mmol/L BUN 39 H (7-17) mg/dL Creatinine 1.66 H (0.52-1.04) mg/dL Microbiology - Last 24 Hours (Table) 11/20/17 10:00 Gram Stain - Preliminary Synovial Fluid Body Fluid Culture - Preliminary 11/19/17 19:05 Blood Culture - Preliminary Blood No Growth after 24 hours Assessment and Plan Plan: This is an 86-year-old female patient presented with swelling and redness to the right wrist with concern for septic joint along with acute kidney injury with creatinine of 1.6. Aspiration was done and culture is pending. Patient is currently on Zosyn. Continue supportive care. Further recommendations as patient progresses. The above dictated assessment and findings were discussed with Dr. Hamilton. The impression and plan of care have been directed as dictated. Taryn Modi nurse practitioner acting as scribe for Dr. Hamilton.
[2017-11-21 09:44] LABS: Calcium 8.7 mg/dL (8.4-10.2); Potassium 4.3 mmol/L (3.5-5.1)
[2017-11-21] MEDS: FOLIC ACID 1 MG TAB PO SCH (11:36)
[2017-11-21] MEDS: MULTIVITAMINS, THERA 1 EACH TAB PO SCH (11:36)
[2017-11-21] MEDS: SODIUM CHLORIDE 0.9% 1,000 ML IV SCH (11:36)
[2017-11-21] MEDS: THIAMINE 100 MG TAB PO SCH (11:36)
[2017-11-21] MEDS: FERROUS SULFATE 325 MG TAB PO SCH (11:36)
[2017-11-21 12:35] LABS: C Reactive Protein 79.5 mg/L (<10.0); Uric Acid 5.9 mg/dL (3.7-7.4)
--- NOTE | 2017-11-21 16:54 | P.CON ---
Consult Note - . Consult date: 11/21/17 Assessment/Plan:: This is an 86-year-old female patient brought in by her family due to redness swelling to the right wrist. There is known injury. Patient apparently is bedbound at home and family takes care of her. She has significant dementia and is pleasantly confused. Patient presented with temperature max 100.5, WBC 13.3 improved to 9.1, hemoglobin 8.0. BUN 36 and creatinine 1.66. Liver function tests were within normal limits. Uric acid 6.3. Blood is showing no growth at 24 hours. Patient was darted on Zosyn and admitted to the [facility] floor. Patient's been seen by orthopedics and a bedside aspiration was done yesterday that returned 1 mL of fluid that was clear slightly blood-tinged. Culture was sent which is showing rare polymorphic. Wrist swelling and redness is much improved from yesterday. Orthopedics does not plan for more surgical intervention. Patient had a recent hospitalization in November 08 through November 11. She was treated for syncopal episode and possibly new seizure activity, dehydration, and acute kidney injury. Dr. Gandhi did not recommend any anticonvulsant therapy. Patient was not discharged home on antibiotics. Noted the patient has Macrobid on her home medication list. Please see the consult note is dictated by nurse practitioner Taryncalvin Olivasayanna. Very pleasant but highly demented 86-year-old woman under the care of her daughter and son-in-law in the home setting. She had the sudden onset of pain and swelling to her right wrist. She was brought to hospital. In her recent hospitalization at which point in time she was concerns to his seizure. He was cleared by neurology and did not discharge on new medications. She does have a history of some mild chronic renal fever that is not worsened. At this time I believe she has an acute inflammatory arthropathy of the right wrist with either gout or pseudogout. At the time of the aspiration there was not enough fluid for cell count and crystal analysis. Culture that was negative at this point in time. Patient's blood cultures are also negative. She I'm the exam has evidence of free motion of the wrist. She has some tenderness to palpation and some tenderness to some range of motion that is performed by the observer. She herself uses the hand quite freely without complaints of pain. This appears to be a major improvement in the last 24 hours. Because of the marked improvement it is not likely a joint infection which usually would take conservative longer to improve and require more than aspiration to allow its improvement. Current acute gouty flare or acute pseudogout could flare quickly and also responded quite rapidly also. She does have risk factors for gout and pseudogout that include her advanced age, recent hospitalization, and altered kidney function. A couple doses of colchicine him and requested to see for further improve this. We'll discontinue the Zosyn and ablation of some oral cefuroxime and there is some minimal erythema to the hand and the wrist and may have some mild cellulitis which will be treated orally. Does not appear to have a septic arthritis at this point in time. I agree with evaluation, assessment and plan as dictated by nurse practitioner Mrs. Taryn Modi.
[2017-11-21] MEDS: COLCHICINE 0.6 MG TAB PO SCH (17:30)
[2017-11-21] MEDS: MELATONIN 5 MG TABLET PO SCH (21:24)
[2017-11-21] MEDS: CEFUROXIME 250 MG TAB PO SCH (21:24)
[2017-11-21] MEDS: ASPIRIN 81 MG PO SCH (21:24)
[2017-11-21] MEDS ORDERED: ONDANSETRON 4 MG/2 ML VIAL IVP PRN (22:26)
[2017-11-21 23:17] VITALS: RESP 16
--- NOTE | 2017-11-21 23:39 | PN ---
PROGRESS NOTE DATE OF SERVICE: 11/21/2017 This 86-year-old woman was admitted with significant right wrist infection, cellulitis, is on IV antibiotics. After arthrocentesis was done, septic arthritis seemed to be unlikely at this time. No chest pain. No palpitations. No fever. Creatinine is 1.7, hemoglobin 7.9. PAST MEDICAL HISTORY: Reviewed. REVIEW OF SYSTEMS: Could not be taken. The patient is mildly confused. CURRENT MEDICATIONS: Reviewed, include: 1. Tylenol 650 every 6 hours. 2. Aspirin 81 mg. 3. Ceftin 500 mg p.o. b.i.d. 4. Colcrys. 5. Colace. 6. Iron sulfate. 7. Folic acid 1 mg daily. 8. Melatonin. 9. Multivitamins. 10.Narcan. 11.Protonix. 12.Zoloft. 13.Vitamin B1. PHYSICAL EXAM: Patient is alert, oriented x1. Pulse 60, blood pressure 130/81, respirations 18, temperature 97.2, pulse ox 92% on room air. HEENT: Conjunctivae normal. Oral mucosa moist. NECK: No jugular venous distention. No carotid bruits. No lymph node enlargement. CARDIOVASCULAR: S1, S2 muffled. No S3. No S4. RESPIRATORY: Breath sounds diminished in the bases. A few scattered rhonchi. No crackles. ABDOMEN: Soft, nontender. No mass palpable. LEGS: No edema. No swelling. NERVOUS SYSTEM: Higher functions as mentioned earlier. Moves all 4 limbs. No focal motor or sensory deficits. LYMPHATIC: No lymphadenopathy in neck or axillae. SKIN: As mentioned earlier, erythema on the right 5th joint. LABS: WBC 7.2, hemoglobin is 9.9. ASSESSMENT: 1. Right wrist cellulitis with septic arthritis unlikely, status post arthrocentesis. 2. Acute kidney injury. 3. Chronic kidney disease stage 3. 4. Normocytic anemia. 5. Recent admission for syncope, dehydration. 6. Chronic congestive heart failure with chronic systolic dysfunction, ejection fraction 40%-45%. 7. Dementia. 8. History of deep venous thrombosis. 9. Remote history of nicotine dependence. RECOMMENDATIONS AND DISCUSSION: In this 86-year-old woman who presented with multiple complex medical issues, will monitor the patient closely, continue the current medical management, continue symptomatic treatment. Continue the antibiotics. Closely follow with Infectious Disease. Guarded prognosis because of multiple complex medical issues and further recommendations to follow. The patient is followed by Dr. Emmanuelle Dhaliwal in the outpatient setting. MMODL / IJN: [id number] /
[2017-11-22 06:27] VITALS: BP 173/79; PULSE 66; TEMP 97.3
[2017-11-22] MEDS: SODIUM CHLORIDE 0.9% 1,000 ML IV SCH ×2 (06:31→07:43)
[2017-11-22] MEDS: PANTOPRAZOLE 40 MG TABLET PO SCH (07:41)
[2017-11-22] MEDS: DOCUSATE 100 MG CAP PO SCH (07:41)
[2017-11-22] MEDS: SERTRALINE 50 MG TAB PO SCH (07:41)
[2017-11-22] MEDS: CEFUROXIME 250 MG TAB PO SCH (07:42)
[2017-11-22] MEDS: COLCHICINE 0.6 MG TAB PO SCH (07:42)
[2017-11-22] MEDS ORDERED: HEPARIN SODIUM,PORCINE 5,000 UNIT/ML 1 ML VIAL SQ SCH (09:00)
--- NOTE | 2017-11-22 09:06 | P.PN ---
Subjective Progress Note Date: 11/22/17 This is an 86-year-old female who is being followed by orthopedics for swelling and pain in her wrist. Patient has a history of dementia and is a poor historian. Cultures are negative so far after aspiration of right wrist. Patient has a normal white count today and has been afebrile. Patient has no new complaints or concerns today. Objective - Vital Signs Vital signs: Vital Signs Temp 97.3 F L 11/22/17 06:26 Pulse 66 11/22/17 06:26 Resp 16 11/22/17 06:26 BP 173/79 11/22/17 06:26 Pulse Ox 93 L 11/22/17 06:26 Intake & Output 11/21/17 11/22/17 11/22/17 18:59 06:59 18:59 Intake Total 240 Balance 240 Intake: Oral 240 Other: Voiding Method Incontinent Incontinent Incontinent # Voids 2 3 # Bowel Movements 1 # Emeses 1 - Exam On exam patient is alert, but has a history of dementia. Patient is lying comfortably in bed in no acute distress. On exam of the right wrist there is minimal erythema. There is no fluctuance. There is mild swelling to the dorsal aspect of the right wrist. There is some pain with passive range of motion. Patient has full range of motion of the hand without difficulty. Radial pulse 2+. Neurovascular status and circulatory status are intact. - Labs CBC & Chem 7: 11/21/17 09:02 11/21/17 09:02 Labs: Abnormal Lab Results - Last 24 Hours (Table) 11/21/17 11/21/17 11/21/17 Range/Units 09:02 09:02 09:02 RBC 2.83 L (3.80-5.40) m/uL Hgb 7.9 L (11.4-16.0) gm/dL Hct 24.2 L (34.0-46.0) % ESR 94 H (0-20) mm/hr BUN 41 H (7-17) mg/dL Creatinine 1.70 H (0.52-1.04) mg/dL Glucose 101 H (74-99) mg/dL C-Reactive Protein (<10.0) mg/L 11/21/17 Range/Units 09:02 RBC (3.80-5.40) m/uL Hgb (11.4-16.0) gm/dL Hct (34.0-46.0) % ESR (0-20) mm/hr BUN (7-17) mg/dL Creatinine (0.52-1.04) mg/dL Glucose (74-99) mg/dL C-Reactive Protein 79.5 H (<10.0) mg/L Microbiology - Last 24 Hours (Table) 11/19/17 19:05 Blood Culture - Preliminary Blood No Growth after 48 hours 11/20/17 10:00 Gram Stain - Preliminary Synovial Fluid Body Fluid Culture - Preliminary Assessment and Plan (1) Cellulitis Current Visit: Yes Status: Acute Code(s): L03.90 - CELLULITIS, UNSPECIFIED SNOMED Code(s): 904036384 (2) Wrist pain Current Visit: Yes Status: Acute Code(s): M25.539 - PAIN IN UNSPECIFIED WRIST SNOMED Code(s): 54959741 Plan: #1. Continue antibiotics and colchicine per infectious disease and medicine. #2. Continue pain control. #3. No surgical intervention planned. Will continue to follow the patient closely
[2017-11-22 11:04] LABS: Albumin 2.9 g/dL (3.5-5.0); Calcium 8.9 mg/dL (8.4-10.2); Potassium 4.4 mmol/L (3.5-5.1); Total Bilirubin 0.2 mg/dL (0.2-1.3); Total Protein 6.1 g/dL (6.3-8.2)
[2017-11-22] MEDS: FOLIC ACID 1 MG TAB PO SCH (11:46)
[2017-11-22] MEDS: THIAMINE 100 MG TAB PO SCH (11:46)
[2017-11-22] MEDS: FERROUS SULFATE 325 MG TAB PO SCH (11:46)
[2017-11-22] MEDS: MULTIVITAMINS, THERA 1 EACH TAB PO SCH (11:46)
--- NOTE | 2017-11-22 15:54 | DS ---
DISCHARGE SUMMARY DATE OF SERVICE: 11/22/2017. FINAL DIAGNOSES: 1. Right wrist cellulitis with possible acute gouty arthritis, status post arthrocentesis, septic arthritis likely. 2. Acute kidney injury. 3. Chronic kidney disease stage 3. 4. Normocytic anemia. 5. Recent admission for syncope and dehydration. 6. Congestive heart failure with chronic systolic dysfunction. Ejection fraction 40% to 45%. 7. Dementia. 8. History of deep vein thrombosis. 9. Remote history of nicotine dependence. DISCHARGE CONDITION: The patient is being discharged in stable condition with guarded prognosis. TOTAL TIME: 35 minutes. HISTORY OF PRESENT ILLNESS: This 86-year-old woman with a past medical was admitted with right wrist cellulitis and swelling. The patient had an arthrocentesis. Gouty arthritis was suspected. The patient improved significantly. The patient had multiple other complex medical issues as mentioned earlier. Patient is being discharged in stable condition with guarded prognosis. Infectious Disease cleared the patient for discharge. On exam, vitals are stable. Cardiovascular S1, S2 normal. Abdomen soft. Nervous system, no focal deficits. Right wrist minimal swelling and erythema present. DISCHARGE INSTRUCTIONS: 1. Cardiac diet. 2. Activity as tolerated. 3. Follow up with Emmanuelle Dhaliwal in 1 to 2 days. 4. Follow up with Orthopedic surgery, [facility], Infectious Disease as recommended. MEDICATIONS: 1. Tylenol 650 every 6 hours p.r.n. 2. Norvasc 5 mg p.o. at bedtime. 3. Aspirin 81 mg at bedtime. 4. Ceftin 500 mg p.o. b.i.d. for 5 days. 5. Citracal as before. 6. Colchicine 0.6 mg p.o. daily. 7. Cranberry fruit extract 500 mg p.o. daily. 8. Colace 100 mg p.o. daily. 9. Iron 320 mg p.o. daily. 10.Folic acid 1 mg p.o. daily. 11.Melatonin 5 mg at bedtime. 12.Multivitamins 1 p.o. daily. 13.Preston-3 fatty acids 1 p.o. b.i.d. 14.Protonix 40 mg daily. 15.Zoloft 150 mg p.o. daily. 16.Thiamine 100 mg p.o. daily. Once again, the patient is being discharged in stable condition with guarded prognosis. MMODL / IJN: [id number] /
--- NOTE | 2017-11-27 08:01 | CDI ---
Last Revision, August 2017 Documentation Clarification Form Date: 11/27/17 From: Zabrina Mathew Nettie Braga, Mainframe Programmer Analyst between 8:30 am & 5 pm [place] Admit Date: 11/19/2017 9:59:00 PM Patient Name: Cleo Robins Visit Number: [id number] Discharge Date: 11/22/17 ATTENTION: The Clinical Documentation Specialists (CDI) and [facility] Coding Staff appreciate your assistance in clarifying documentation. Please respond to the clarification below the line at the bottom and electronically sign. The CDI & [facility] Coding staff will review the response and follow-up if needed. Please note: Queries are made part of the Legal Health Record. If you have any questions, please contact the author of this message via ITS. Dr. Case Lima Per DS, "right wrist cellulitis with possible acute gouty arthritis, status post arthrocentesis, septic arthritis likely". Per consults and progress notes "septic arthritis unlikely". Arthrocentesis of right wrist revealed "Enterococcus raffinosus - rare". WBC - 13.3, ESR - 94, CRP - 79.5 Received IV Zosyn initially, PO Colchicine. In your professional opinion, can you please clarify? Septic arthritis ruled in Septic arthritis ruled out Other, please specify Unable to determine Please continue to document in your progress notes and discharge summary in order to capture severity of illness and risk of mortality. Include clinical findings that support your diagnosis. Septic arthritis ruled out MTDD
== END 2017-11-22 14:32 | disposition home or self-care (01) | DRG 603 ==
LOC: EC 18:02 → 4MS4W 21:59
PROVIDERS: ADMIT Internal Medicine; ATTEND Internal Medicine
PROC: 0R9N3ZX Drainage of Right Wrist Joint, Percutaneous Approach, Diagnostic (ICD-10-PCS; principal; 2017-11-20)
DX: L03.113 Cellulitis of right upper limb (principal); N17.9 Acute kidney failure, unspecified; I50.22 Chronic systolic (congestive) heart failure; D64.9 Anemia, unspecified; M10.9 Gout, unspecified; N18.3 Chronic kidney disease, stage 3 (moderate); M11.231 Other chondrocalcinosis, right wrist; M19.031 Primary osteoarthritis, right wrist; G40.909 Epilepsy, unspecified, not intractable, without status epilepticus; F03.90 Unspecified dementia, unspecified severity, without behavioral disturbance, psychotic disturbance, mood disturbance, and anxiety; R32 Unspecified urinary incontinence; Z79.82 Long term (current) use of aspirin; Z79.899 Other long term (current) drug therapy; Z86.718 Personal history of other venous thrombosis and embolism; Z87.891 Personal history of nicotine dependence; Z87.440 Personal history of urinary (tract) infections; Z87.81 Personal history of (healed) traumatic fracture; Z74.01 Bed confinement status
CPT/HCPCS: 36415; 80048; 80053; 83605; 84550; 85025; 85027; 85652; 86140; 87040; 87070; 87077; 87186; 87205; 96365; 96366; 96375; 99285

== ENCOUNTER 2017-12-09 13:46 | Inpatient (IN) | payer MEDICARE, BC ==
[2017-12-09 15:05] LABS: Basophils % (A) 0 %; Eosinophils # (A) 0.2 k/uL (0-0.7); Eosinophils % (A) 2 %; HCT 29.8 % (34.0-46.0); Hypochromasia Slight; Lymphocytes # (A) 1.2 k/uL (1.0-4.8); Lymphocytes % (A) 14 %; MCH 26.7 pg (25.0-35.0); MCHC 31.5 g/dL (31.0-37.0); MCV 84.9 fL (80.0-100.0); Mean Platelet Volume 7.2; Monocytes # (A) 0.6 k/uL (0-1.0); Monocytes % (A) 6 %; Neutrophils % (A) 76 %; Platelet Count 330 k/uL (150-450); RBC 3.51 m/uL (3.80-5.40); RDW 15.2 % (11.5-15.5); WBC 9.2 k/uL (3.8-10.6)
[2017-12-09 15:11] LABS: HGB 9.4 gm/dL (11.4-16.0)
[2017-12-09] MEDS ORDERED: ACETAMINOPHEN TAB 500 MG TAB PO STA (15:13)
[2017-12-09 15:16] LABS: Albumin 3.8 g/dL (3.5-5.0); Calcium 9.7 mg/dL (8.4-10.2); Potassium 4.2 mmol/L (3.5-5.1); Total Bilirubin 0.3 mg/dL (0.2-1.3); Total Protein 7.9 g/dL (6.3-8.2); Uric Acid 5.8 mg/dL (3.7-7.4)
--- NOTE | 2017-12-09 15:18 | ED ---
General Adult HPI - General Chief complaint: Skin/Abscess/Foreign Body Stated complaint: CELLULITIS ON RT HAND Time Seen by Provider: 12/09/17 14:11 Source: family, RN notes reviewed Mode of arrival: wheelchair Limitations: no limitations - History of Present Illness Initial comments: Patient is a 87-year-old female presenting to the emergency room today with her daughter with a chief complaint of some swelling and redness to the back of the right hand. Patient does have a history of dementia and majority of history is provided by the daughter at bedside. She states that she was recently admitted approximately a month ago for cellulitis to the back of the right hand was on IV antibiotics discharged home on antibiotic. States his symptoms improved. States that she's been off antibiotic over the last week or so. States that he noticed swelling and redness began again last night. States that she's been using his hand last. Denies any injury or trauma. Patient denies any recent fever, chills, shortness of breath, chest pain, back pain, abdominal pain, nausea or vomiting, numbness or tingling, dysuria or hematuria, constipation or diarrhea, headaches or visual changes, or any other complaints. - Related Data Home Medications Medication Instructions Recorded Confirmed Cranberry Fruit Extract [Cranberry] 500 mg PO DAILY 07/15/17 12/09/17 Multivitamins, Thera [Multivitamin 2 tab PO DAILY 07/15/17 12/09/17 (formulary)] Sertraline [Zoloft] 150 mg PO DAILY 07/15/17 12/09/17 Aspirin 81 mg PO HS 11/08/17 12/09/17 Docusate [Colace] 100 mg PO DAILY 11/08/17 12/09/17 Reagan-3 Fatty Acids/Fish Oil [Fish 1 cap PO BID 11/08/17 12/09/17 Oil 1,000 mg Softgel] Folic Acid 1 mg PO DAILY 11/19/17 12/09/17 Thiamine [Vitamin B-1] 100 mg PO DAILY 11/19/17 12/09/17 amLODIPine BESYLATE [Norvasc] 5 mg PO HS 11/19/17 12/09/17 Calcium Carb/Vitamin D3/Vit K1 1 tab PO BID 12/09/17 12/09/17 [Citracal Soft Chew] Iron 27mg 27 mg PO DAILY 12/09/17 12/09/17 Melatonin 10 mg PO HS 12/09/17 12/09/17 Allergies Allergy/AdvReac Type Severity Reaction Status Date / Time No Known Allergies Allergy Verified 12/09/17 14:12 Review of Systems ROS Statement: Those systems with pertinent positive or pertinent negative responses have been documented in the HPI. ROS Other: All systems not noted in ROS Statement are negative. Past Medical History Past Medical History: Dementia, Deep Vein Thrombosis (DVT), Seizure Disorder Additional Past Medical History / Comment(s): Seizure in November 08, UTI, Kidney disease History of Any Multi-Drug Resistant Organisms: None Reported Past Surgical History: No Surgical Hx Reported Additional Past Surgical History / Comment(s): Left ankle fracture Past Psychological History: No Psychological Hx Reported Smoking Status: Former smoker Past Alcohol Use History: None Reported Past Drug Use History: None Reported General Exam - General Exam Comments Initial Comments: General: The patient is awake and alert, in no distress, and does not appear acutely ill. Neck: The neck is supple, there is no tenderness or JVD. Cardiovascular: There is a regular rate and rhythm. No murmur, rub or gallop is appreciated. Respiratory: Lungs are clear to auscultation, respirations are non-labored, breath sounds are equal. No wheezes, stridor, rales, or rhonchi. Musculoskeletal: Patient shows good range of motion of the right elbow, right wrist, right hand. Patient's sensation is intact. Pulses are equal bilaterally 2+. Neurological: A&O x 3. CN II-XII intact, There are no obvious motor or sensory deficits. Coordination appears grossly intact. Speech is normal. Skin: Increased redness and warmth to the posterior aspect of the right hand. Moderate swelling. Area blanches. Psychiatric: Normal mood and affect. Limitations: no limitations Course Vital Signs 12/09/17 13:52 Temperature 97.4 F L Pulse Rate 87 Respiratory 20 Rate Blood Pressure 143/89 O2 Sat by Pulse 96 Oximetry Medical Decision Making - Medical Decision Making Patient's labs been reviewed. Negative lactic acid. Negative uric acid. Patient's x-ray showing evidence for arthritis. No acute fracture dislocation. Results were discussed with the patient. [facility] vancomycin. We'll have tonsils production orthopedics. - Lab Data Result diagrams: 12/09/17 14:45 12/09/17 14:45 Lab Results 12/09/17 12/09/17 12/09/17 Range/Units 14:45 14:45 14:45 WBC 9.2 (3.8-10.6) k/uL RBC 3.51 L (3.80-5.40) m/uL Hgb 9.4 L D (11.4-16.0) gm/dL Hct 29.8 L (34.0-46.0) % MCV 84.9 (80.0-100.0) fL MCH 26.7 (25.0-35.0) pg MCHC 31.5 (31.0-37.0) g/dL RDW 15.2 (11.5-15.5) % Plt Count 330 (150-450) k/uL Neutrophils % 76 % Lymphocytes % 14 % Monocytes % 6 % Eosinophils % 2 % Basophils % 0 % Neutrophils # 7.0 (1.3-7.7) k/uL Lymphocytes # 1.2 (1.0-4.8) k/uL Monocytes # 0.6 (0-1.0) k/uL Eosinophils # 0.2 (0-0.7) k/uL Basophils # 0.0 (0-0.2) k/uL Hypochromasia Slight Sodium 148 H (137-145) mmol/L Potassium 4.2 (3.5-5.1) mmol/L Chloride 107 (98-107) mmol/L Carbon Dioxide 25 (22-30) mmol/L Anion Gap 16 mmol/L BUN 30 H (7-17) mg/dL Creatinine 1.20 H (0.52-1.04) mg/dL Est GFR (CKD-EPI)AfAm 47 (>60 ml/min/1.73 sqM) Est GFR (CKD-EPI)NonAf 41 (>60 ml/min/1.73 sqM) Glucose 104 H (74-99) mg/dL Plasma Lactic Acid Filipe 1.3 (0.7-2.0) mmol/L Uric Acid 5.8 (3.7-7.4) mg/dL Calcium 9.7 (8.4-10.2) mg/dL Total Bilirubin 0.3 (0.2-1.3) mg/dL AST 25 (14-36) U/L ALT 10 (9-52) U/L Alkaline Phosphatase 103 (38-126) U/L Total Protein 7.9 (6.3-8.2) g/dL Albumin 3.8 (3.5-5.0) g/dL Disposition Clinical Impression: Cellulitis of right hand Disposition: ADMITTED IP TO THIS HOSP Condition: Good Referrals: Emmanuelle Dhaliwal MD [Primary Care Provider] - 1-2 days Time of Disposition: 16:12
--- NOTE | 2017-12-09 15:31 | XR ---
EXAMINATION TYPE: XR wrist limited RT DATE OF EXAM: 12/09/2017 CLINICAL HISTORY: Pain, redness, and swelling of the wrist TECHNIQUE: Frontal and lateral images of the right wrist are obtained. COMPARISON: 11/19/2017 FINDINGS: There is no acute fracture/dislocation evident in the right wrist. There is extensive arth ropathy of the right wrist with [id number] articulation of the first carpometacarpal joint, bony ve rtebra changes, and radial subluxation. Multiple carpal subchondral cysts are noted. Chondrocalcinosi s of the triangular fibrocartilage is seen. Sclerosis at the scaphoid trapezium joint is also again s een. There are no erosive changes. Mild soft tissue swelling is seen throughout the wrist. IMPRESSION: 1. There is no acute fracture or dislocation in the right wrist. 2. Extensive right wrist arthropathy with [id number] articulation of the first carpometacarpal join t and scaphoid trapezial joint. 3. Chondrocalcinosis of the triangular fibrocartilage.
[2017-12-09] MEDS ORDERED: VANCOMYCIN IV PER PHARMACY 1 EACH MISC MISCELLANE PRN (16:10)
[2017-12-09] MEDS ORDERED: VANCOMYCIN 1,000 MG in SODIUM CHLORIDE 0.9% 250 ML IVPB STA (16:10)
[2017-12-09] MEDS ORDERED: SODIUM CHLORIDE 0.9% 1,000 ML IV ONE (16:13)
[2017-12-09] MEDS ORDERED: ACETAMINOPHEN TAB 325 MG TAB PO PRN (16:13)
[2017-12-09] MEDS ORDERED: ONDANSETRON 4 MG/2 ML VIAL IVP PRN (16:13)
[2017-12-09] MEDS ORDERED: NALOXONE 0.4 MG/ML 1 ML VIAL IV PRN (16:13)
--- NOTE | 2017-12-09 16:44 | ED ---
Medical Decision Making - Medical Decision Making Patient 87 year old female who had recent admission to the hospital for cellulitis of the right hand. Patient was discharged home on PO medication. Daughter at bedside states that she had improvement and was doing well until last 2 days of swelling and redness to the back of the right hand returning. Patient will be admitted for failure of outpatient treatment and started on IV dose of vancomycin here in emergency room. Admitted with consult to infectious disease orthopedics. - Lab Data Result diagrams: 12/09/17 14:45 12/09/17 14:45 Lab Results 12/09/17 12/09/17 12/09/17 Range/Units 14:45 14:45 14:45 WBC 9.2 (3.8-10.6) k/uL RBC 3.51 L (3.80-5.40) m/uL Hgb 9.4 L D (11.4-16.0) gm/dL Hct 29.8 L (34.0-46.0) % MCV 84.9 (80.0-100.0) fL MCH 26.7 (25.0-35.0) pg MCHC 31.5 (31.0-37.0) g/dL RDW 15.2 (11.5-15.5) % Plt Count 330 (150-450) k/uL Neutrophils % 76 % Lymphocytes % 14 % Monocytes % 6 % Eosinophils % 2 % Basophils % 0 % Neutrophils # 7.0 (1.3-7.7) k/uL Lymphocytes # 1.2 (1.0-4.8) k/uL Monocytes # 0.6 (0-1.0) k/uL Eosinophils # 0.2 (0-0.7) k/uL Basophils # 0.0 (0-0.2) k/uL Hypochromasia Slight Sodium 148 H (137-145) mmol/L Potassium 4.2 (3.5-5.1) mmol/L Chloride 107 (98-107) mmol/L Carbon Dioxide 25 (22-30) mmol/L Anion Gap 16 mmol/L BUN 30 H (7-17) mg/dL Creatinine 1.20 H (0.52-1.04) mg/dL Est GFR (CKD-EPI)AfAm 47 (>60 ml/min/1.73 sqM) Est GFR (CKD-EPI)NonAf 41 (>60 ml/min/1.73 sqM) Glucose 104 H (74-99) mg/dL Plasma Lactic Acid Filipe 1.3 (0.7-2.0) mmol/L Uric Acid 5.8 (3.7-7.4) mg/dL Calcium 9.7 (8.4-10.2) mg/dL Total Bilirubin 0.3 (0.2-1.3) mg/dL AST 25 (14-36) U/L ALT 10 (9-52) U/L Alkaline Phosphatase 103 (38-126) U/L Total Protein 7.9 (6.3-8.2) g/dL Albumin 3.8 (3.5-5.0) g/dL Disposition Clinical Impression: Cellulitis of right hand Disposition: ADMITTED IP TO THIS HOSP Condition: Good Referrals: Emmanuelle Dhaliwal MD [Primary Care Provider] - 1-2 days
[2017-12-09] MEDS ORDERED: HEPARIN SODIUM,PORCINE 5,000 UNIT/ML 1 ML VIAL SQ SCH (17:00)
[2017-12-09] MEDS: SODIUM CHLORIDE 0.45% 1,000 ML IV SCH (17:26)
[2017-12-09] MEDS: ASPIRIN 81 MG PO SCH (20:29)
[2017-12-09] MEDS: MELATONIN 5 MG TABLET PO SCH (20:29)
[2017-12-09] MEDS: amLODIPine 5 MG TAB PO SCH (20:29)
[2017-12-09] MEDS: CALCIUM CARB-VIT D 500MG-200UN 1 EACH TAB PO SCH (20:29)
[2017-12-09] MEDS ORDERED: NON-FORMULARY DRUG (Omega-3 Fatty Acids/Fish Oil [Fish Oil 1,000 Mg Softgel] 1 CAP) PO SCH (21:00)
--- NOTE | 2017-12-09 22:11 | P.HPIM ---
History of Present Illness H&P Date: 12/09/17 Chief Complaint: Right wrist swelling Patient is a 86-year-old female with a known history of dementia, previous admission with syncope and seizures and a prior history of DVT and UTI came to the hospital with complaints of right wrist swelling worsening for the past 2 days. Patient was discharged from hospital on 11/22/2017 where he presented with similar complaints. Patient was seen by orthopedics and ID at the time. Patient underwent arthrocentesis and fluid cultures showed enterococcus at the time. Patient discharged on oral antibiotics. Patient did improve with antibiotics until 2 days ago he started developing swelling again. Patient is a poor historian and most the history was taken from his daughter at bedside. her right wrist swollen red with increased localized temperature. No trauma is reported no fevers chills or sweats no history of rheumatoid arthritis or gout. No insect bite. Patient is on iron supplements for anemia. X-ray of the right wrist showed extensive arthropathy with [id number] articulation of the metacarpocarpal joint and scaphoid to bezoar joint. Chondrocalcinosis Review of Systems Complete review of systems could not be apparent from the patient due to underlying dementia Past Medical History Past Medical History: Dementia, Deep Vein Thrombosis (DVT), Seizure Disorder Additional Past Medical History / Comment(s): Seizure in November 08, UTI, Kidney disease History of Any Multi-Drug Resistant Organisms: None Reported Past Surgical History: No Surgical Hx Reported Additional Past Surgical History / Comment(s): Left ankle fracture Past Psychological History: No Psychological Hx Reported Smoking Status: Former smoker Past Alcohol Use History: None Reported Past Drug Use History: None Reported - Past Family History Father History Unknown: Yes Family Medical History: Unable to Obtain Mother History Unknown: Yes Family Medical History: Unable to Obtain Medications and Allergies Home Medications Medication Instructions Recorded Confirmed Type Cranberry Fruit Extract [Cranberry] 500 mg PO DAILY 07/15/17 12/09/17 History Multivitamins, Thera [Multivitamin 2 tab PO DAILY 07/15/17 12/09/17 History (formulary)] Sertraline [Zoloft] 150 mg PO DAILY 07/15/17 12/09/17 History Aspirin 81 mg PO HS 11/08/17 12/09/17 History Docusate [Colace] 100 mg PO DAILY 11/08/17 12/09/17 History [place]-3 Fatty Acids/Fish Oil [Fish 1 cap PO BID 11/08/17 12/09/17 History Oil 1,000 mg Softgel] Folic Acid 1 mg PO DAILY 11/19/17 12/09/17 History Thiamine [Vitamin B-1] 100 mg PO DAILY 11/19/17 12/09/17 History amLODIPine BESYLATE [Norvasc] 5 mg PO HS 11/19/17 12/09/17 History Calcium Carb/Vitamin D3/Vit K1 1 tab PO BID 12/09/17 12/09/17 History [Citracal Soft Chew] Iron 27mg 27 mg PO DAILY 12/09/17 12/09/17 History Melatonin 10 mg PO HS 12/09/17 12/09/17 History Allergies Allergy/AdvReac Type Severity Reaction Status Date / Time No Known Allergies Allergy Verified 12/09/17 14:12 Physical Exam Vitals: Vital Signs Temp Pulse Resp BP Pulse Ox 12/09/17 13:52 97.4 F L 87 20 143/89 96 Intake and Output 12/09/17 12/09/17 12/09/17 06:59 14:59 22:59 Other: Weight 54.431 kg Patient is lying in the bed comfortably, no acute distress, awake alert but not oriented HEENT: Normocephalic. Neck is supple. Pupils reactive. Nostrils clear. Oral cavity is moist. Ears reveal no drainage. Neck reveals no JVD, carotid bruits, or thyromegaly. CHEST EXAMINATION: Trachea is central. Symmetrical expansion. Lung springer clear to auscultation and percussion. CARDIAC: Normal S1, S2 with no gallops. No murmurs ABDOMEN: Soft. Bowel sounds normal. No organomegaly. No abdominal bruits. Extremities: reveal no edema. No clubbing or cyanosis Neurologically awake, alert area did not oriented dementia. with well- coordinated movements. No focal deficits noted Skin: No rash or skin lesions. Psychiatric: Cooperative. Could not be assessed completely Musculoskeletal: Right wrist swelling and redness and warm. No other joint swelling or deformity. Decreased range of motion. Results CBC & Chem 7: 12/09/17 14:45 12/09/17 14:45 Labs: Abnormal Lab Results - Last 24 Hours (Table) 12/09/17 12/09/17 Range/Units 14:45 14:45 RBC 3.51 L (3.80-5.40) m/uL Hgb 9.4 L D (11.4-16.0) gm/dL Hct 29.8 L (34.0-46.0) % Sodium 148 H (137-145) mmol/L BUN 30 H (7-17) mg/dL Creatinine 1.20 H (0.52-1.04) mg/dL Glucose 104 H (74-99) mg/dL Thrombosis Risk Factor Assmnt - DVT/VTE Prophylaxis DVT/VTE Prophylaxis: Pharmacologic Prophylaxis ordered Assessment and Plan Assessment: Right wrist cellulitis with possible septic arthritis. Recent sinovial fluid cultures showed enterococcus saffinosus CK D stage III Mild hypernatremia 148 sodium level with dehydration Normocytic anemia History of prior admission with syncope and dehydration Seizure disorder Chronic CHF with mildly reduced systolic dysfunction EF 40-45% Dementia History of DVT Remote history of smoking Plan: Patient will be continued on antibiotics in the form of vancomycin. Orthopedics and ID will be consulted. We'll continue the pain medications and follow closely. Follow blood cultures. Continue the home medications and hydration. Further recommendations based on the clinical course. Time with Patient: Greater than 30
--- NOTE | 2017-12-09 23:19 | P.CONS ---
History of Present Illness - Reason for Consult Consult date: 12/09/17 - Chief Complaint Pain and swelling right wrist - History of Present Illness This is an 86-year-old female patient brought in by her family due to redness swelling to the right wrist. There is known injury. Patient apparently is bedbound at home and family takes care of her. She has significant dementia and is pleasantly confused. This is very similar to the problem that she had last month which point in time she had an aspiration. The original data from the aspiration reveal evidence of a Gram stain that was negative and culture was negative. There was not enough material aspirated for crystal analysis. Apparently sometime after her discharge the culture became positive for enterococcus species and was thought to be contamination. The patient did receive treatment for gout and had a rapid improvement. It is unclear she's remained on gout medication at home is any new acute change that resulted in the sudden increased swelling and erythema to the wrist. Orthopedic consult is in process. Is related the patient is confused and presents no history Review of Systems ROS unobtainable: due to mental status Past Medical History Past Medical History: Dementia, Deep Vein Thrombosis (DVT), Seizure Disorder Additional Past Medical History / Comment(s): Seizure in November 08, UTI, Kidney disease History of Any Multi-Drug Resistant Organisms: None Reported Past Surgical History: No Surgical Hx Reported Additional Past Surgical History / Comment(s): Left ankle fracture Past Anesthesia/Blood Transfusion Reactions: No Reported Reaction Past Psychological History: No Psychological Hx Reported Smoking Status: Former smoker Past Alcohol Use History: None Reported Past Drug Use History: None Reported - Past Family History Father History Unknown: Yes Family Medical History: Unable to Obtain Mother History Unknown: Yes Family Medical History: Unable to Obtain Medications and Allergies Home Medications and Allergies Comment(s): Current Medications Acetaminophen (Tylenol Tab) 650 mg PO Q6HR PRN PRN Reason: Mild Pain or Fever > 100.5 Amlodipine Besylate (Norvasc) 5 mg PO HS [facility] Last Admin: 12/09/17 20:29 Dose: 5 mg Aspirin (Aspirin) 81 mg PO HS [facility] Last Admin: 12/09/17 20:29 Dose: 81 mg Calcium Carbonate (Oscal 500+D) 1 each PO BID [facility] Last Admin: 12/09/17 20:29 Dose: 1 each Docusate Sodium (Colace) 100 mg PO DAILY [facility] Folic Acid (Folic Acid) 1 mg PO DAILY [facility] Heparin Sodium (Porcine) (Heparin) 5,000 unit SQ Q12H [facility] Last Admin: 12/09/17 20:28 Dose: 5,000 unit Sodium Chloride (Saline 0.45%) 1,000 mls @ 50 mls/hr IV .Q20H [facility] Last Admin: 12/09/17 17:26 Dose: 50 mls/hr Vancomycin HCl 1,000 mg/ (Sodium Chloride) 250 mls @ 125 mls/hr IVPB ONCE ONE Stop: 12/10/17 13:59 Melatonin (Melatonin) 10 mg PO [facility] Last Admin: 12/09/17 20:29 Dose: 10 mg Miscellaneous Information (Pharmacy To Dose Iv Vancomycin) 1 each MISCELLANE DIRECTED PRN PRN Reason: Per Protocol Multivitamins (Theragran) 2 each PO DAILY [facility] Naloxone HCl (Narcan) 0.2 mg IV Q2M PRN PRN Reason: Opioid Reversal Cranberry Extract 500 mg PO DAILY [facility] Ondansetron HCl (Zofran) 4 mg IVP Q8HR PRN PRN Reason: Nausea And Vomiting Sertraline HCl (Zoloft) 150 mg PO DAILY [facility] Thiamine HCl (Vitamin B-1) 100 mg PO DAILY [facility] Home Medications Medication Instructions Recorded Confirmed Type Cranberry Fruit Extract [Cranberry] 500 mg PO DAILY 07/15/17 12/09/17 History Multivitamins, Thera [Multivitamin 2 tab PO DAILY 07/15/17 12/09/17 History (formulary)] Sertraline [Zoloft] 150 mg PO DAILY 07/15/17 12/09/17 History Aspirin 81 mg PO HS 11/08/17 12/09/17 History Docusate [Colace] 100 mg PO DAILY 11/08/17 12/09/17 History [place]-3 Fatty Acids/Fish Oil [Fish 1 cap PO BID 11/08/17 12/09/17 History Oil 1,000 mg Softgel] Folic Acid 1 mg PO DAILY 11/19/17 12/09/17 History Thiamine [Vitamin B-1] 100 mg PO DAILY 11/19/17 12/09/17 History amLODIPine BESYLATE [Norvasc] 5 mg PO HS 11/19/17 12/09/17 History Calcium Carb/Vitamin D3/Vit K1 1 tab PO BID 12/09/17 12/09/17 History [Citracal Soft Chew] Iron 27mg 27 mg PO DAILY 12/09/17 12/09/17 History Melatonin 10 mg PO HS 12/09/17 12/09/17 History Allergies Allergy/AdvReac Type Severity Reaction Status Date / Time No Known Allergies Allergy Verified 12/09/17 14:12 Physical Exam Vitals: Vital Signs Temp Pulse Pulse Resp BP BP Pulse Ox 12/09/17 20:30 97.6 F 55 L 22 164/71 97 12/09/17 18:13 97.7 F 66 18 132/89 96 12/09/17 17:00 97.6 F 80 20 132/78 98 12/09/17 13:52 97.4 F L 87 20 143/89 96 Intake and Output 12/09/17 12/09/17 12/09/17 06:59 14:59 22:59 Other: Weight 54.431 kg Gen: This is an 86-year-old female. She is sitting up in bed and appears to be comfortable. Patient is pleasantly confused. HEENT: Head is atraumatic, normocephalic. Pupils equal, round. Sclerae is anicteric. Mucous members of the mouth are moist. No thrush noted. NECK: Supple. No JVD. No lymphadenopathy. No thyromegaly. LUNGS: Clear to auscultation. No wheezes or rhonchi. No intercostal retractions. HEART: Regular rate and rhythm. No murmur. ABDOMEN: Soft. Bowel sounds are present. No masses. No tenderness. EXTREMITIES: The left wrist is normal. The right wrist is evidence of some mild swelling. She does move around quite freely however upon manipulation of the wrist she does complain of pain especially at the thumb and wrist articulation. There are no open lesions. There is no ascending erythema. The NEUROLOGICAL: Patient is awake, alert and oriented x1. She is pleasantly confused and has difficulty following directions. Results CBC & Chem 7: 12/09/17 14:45 12/09/17 14:45 Labs: Abnormal Lab Results - Last 24 Hours (Table) 12/09/17 12/09/17 Range/Units 14:45 14:45 RBC 3.51 L (3.80-5.40) m/uL Hgb 9.4 L D (11.4-16.0) gm/dL Hct 29.8 L (34.0-46.0) % Sodium 148 H (137-145) mmol/L BUN 30 H (7-17) mg/dL Creatinine 1.20 H (0.52-1.04) mg/dL Glucose 104 H (74-99) mg/dL Laboratory Results WBC 9.2 k/uL (3.8-10.6) 12/09/17 14:45 RBC 3.51 m/uL (3.80-5.40) L 12/09/17 14:45 Hgb 9.4 gm/dL (11.4-16.0) L D 12/09/17 14:45 Hct 29.8 % (34.0-46.0) L 12/09/17 14:45 MCV 84.9 fL (80.0-100.0) 12/09/17 14:45 MCH 26.7 pg (25.0-35.0) 12/09/17 14:45 MCHC 31.5 g/dL (31.0-37.0) 12/09/17 14:45 RDW 15.2 % (11.5-15.5) 12/09/17 14:45 Plt Count 330 k/uL (150-450) 12/09/17 14:45 Neutrophils % 76 % 12/09/17 14:45 Lymphocytes % 14 % 12/09/17 14:45 Monocytes % 6 % 12/09/17 14:45 Eosinophils % 2 % 12/09/17 14:45 Basophils % 0 % 12/09/17 14:45 Neutrophils # 7.0 k/uL (1.3-7.7) 12/09/17 14:45 Lymphocytes # 1.2 k/uL (1.0-4.8) 12/09/17 14:45 Monocytes # 0.6 k/uL (0-1.0) 12/09/17 14:45 Eosinophils # 0.2 k/uL (0-0.7) 12/09/17 14:45 Basophils # 0.0 k/uL (0-0.2) 12/09/17 14:45 Hypochromasia Slight 12/09/17 14:45 Sodium 148 mmol/L (137-145) H 12/09/17 14:45 Potassium 4.2 mmol/L (3.5-5.1) 12/09/17 14:45 Chloride 107 mmol/L (98-107) 12/09/17 14:45 Carbon Dioxide 25 mmol/L (22-30) 12/09/17 14:45 Anion Gap 16 mmol/L 12/09/17 14:45 BUN 30 mg/dL (7-17) H 12/09/17 14:45 Creatinine 1.20 mg/dL (0.52-1.04) H 12/09/17 14:45 Est GFR (CKD-EPI)AfAm 47 (>60 ml/min/1.73 sqM) 12/09/17 14:45 Est GFR (CKD-EPI)NonAf 41 (>60 ml/min/1.73 sqM) 12/09/17 14:45 Glucose 104 mg/dL (74-99) H 12/09/17 14:45 Plasma Lactic Acid Filipe 1.3 mmol/L (0.7-2.0) 12/09/17 14:45 Uric Acid 5.8 mg/dL (3.7-7.4) 12/09/17 14:45 Calcium 9.7 mg/dL (8.4-10.2) 12/09/17 14:45 Total Bilirubin 0.3 mg/dL (0.2-1.3) 12/09/17 14:45 AST 25 U/L (14-36) 12/09/17 14:45 ALT 10 U/L (9-52) 12/09/17 14:45 Alkaline Phosphatase 103 U/L (38-126) 12/09/17 14:45 Total Protein 7.9 g/dL (6.3-8.2) 12/09/17 14:45 Albumin 3.8 g/dL (3.5-5.0) 12/09/17 14:45 Assessment and Plan (1) Cellulitis of right hand Narrative/Plan: 87-year-old female who has profound dementia presents to hospital with the family because of recurrence of some pain and swelling erythema to her right wrist. During her last stay the joint was aspirated. Cultures were negative however at the seventh day of cultures a contaminated enterococcus was grown. She now has recurrence of the disease process. The patient does not appear to be in any gout-related medications at the time of her admission. I remain concerned that an underlying inflammatory arthropathy such as gout or pseudogout is responsible for this process. Antibiotic therapy has been initiated with vancomycin the patient has no fever or leukocytosis. She however does have significant anemia and etiology of this is not clear at this point in time. Would limit antibiotic therapy as quickly as possible. Orthopedics has been reconsulted and blood work is requested again to ensure that this is not gout. May need aspiration to prove or disprove gout or pseudogout. Current Visit: Yes Status: Acute Code(s): L03.113 - CELLULITIS OF RIGHT UPPER LIMB SNOMED Code(s): 76823260 (2) Dementia Current Visit: No Status: Acute Code(s): F03.90 - UNSPECIFIED DEMENTIA WITHOUT BEHAVIORAL DISTURBANCE SNOMED Code(s): 00433528 (3) Inflammatory arthropathy Current Visit: Yes Status: Acute Code(s): M19.90 - UNSPECIFIED OSTEOARTHRITIS, UNSPECIFIED SITE SNOMED Code(s): 2688411
[2017-12-10 00:19] LABS: Appearance,Urine Turbid (Clear); Bacteria,Urine Moderate /hpf; Bilirubin,Urine Negative (Negative); Blood,Urine Small (Negative); Color,Urine Light Yellow; Glucose,Urine (UA) Negative (Negative); Ketones,Urine Negative (Negative); Leukocyte Esterase,Urine Large (Negative); Nitrite,Urine Negative (Negative); Protein,Urine 1+ (Negative); RBC,Urine 46 /hpf (0-5); Specific Gravity,Urine 1.013 (1.001-1.035); Urobilinogen,Urine <2.0 mg/dL (<2.0); WBC,Urine >182 /hpf (0-5)
[2017-12-10 07:57] LABS: Basophils % (A) 0 %; Eosinophils # (A) 0.3 k/uL (0-0.7); Eosinophils % (A) 5 %; HCT 26.4 % (34.0-46.0); HGB 8.1 gm/dL (11.4-16.0); Hypochromasia Slight; Lymphocytes # (A) 1.6 k/uL (1.0-4.8); Lymphocytes % (A) 30 %; MCH 26.2 pg (25.0-35.0); MCHC 30.6 g/dL (31.0-37.0); MCV 85.7 fL (80.0-100.0); Mean Platelet Volume 7.1; Monocytes # (A) 0.3 k/uL (0-1.0); Monocytes % (A) 5 %; Neutrophils # (A) 3.2 k/uL (1.3-7.7); Neutrophils % (A) 58 %; Platelet Count 254 k/uL (150-450); RBC 3.08 m/uL (3.80-5.40); WBC 5.6 k/uL (3.8-10.6)
[2017-12-10 08:11] LABS: Albumin 3.1 g/dL (3.5-5.0); Calcium 9.2 mg/dL (8.4-10.2); Potassium 3.9 mmol/L (3.5-5.1); Total Bilirubin 0.2 mg/dL (0.2-1.3); Total Protein 6.4 g/dL (6.3-8.2); Uric Acid 5.5 mg/dL (3.7-7.4)
[2017-12-10] MEDS: DOCUSATE 100 MG CAP PO SCH (09:51)
[2017-12-10] MEDS: CALCIUM CARB-VIT D 500MG-200UN 1 EACH TAB PO SCH ×2 (09:51→21:24)
[2017-12-10] MEDS: FOLIC ACID 1 MG TAB PO SCH (09:51)
[2017-12-10] MEDS: MULTIVITAMINS, THERA 1 EACH TAB PO SCH (09:52)
[2017-12-10] MEDS: HEPARIN SODIUM,PORCINE 5,000 UNIT/ML 1 ML VIAL SQ SCH ×2 (09:52→21:24)
[2017-12-10] MEDS: THIAMINE 100 MG TAB PO SCH (09:54)
[2017-12-10] MEDS: SERTRALINE 50 MG TAB PO SCH (09:54)
[2017-12-10] MEDS: CRANBERRY EXTRACT PO SCH (10:05)
--- NOTE | 2017-12-10 11:03 | P.CNOR ---
History of Present Illness - HPI Consult date: 12/10/17 History of present illness: This is an 87-year-old female admitted for swelling of the right hand. Patient was evaluated for this same problem during an admission on 11/19/2017. At previous admission the right wrist was aspirated and cultures and Gram stain were initially negative, 5 days later the culture was positive for rare enterococcus raffinosus, likely contaminant. Patient showed improvement after treatment with colchicine for suspected gout. Patient has a history of dementia and is a poor historian. There is no family present in the room during the time of exam. Patient is well-appearing and lying comfortably in bed. No known history of injury. Patient is using the right hand freely. Patient's past medical history is significant for kidney disease, seizure disorder, history of DVT and UTI. Patient denies fevers/chills , numbness, weakness, tingling Review of Systems See HPI. Past Medical History Past Medical History: Dementia, Deep Vein Thrombosis (DVT), Seizure Disorder Additional Past Medical History / Comment(s): Seizure in November 08, UTI, Kidney disease History of Any Multi-Drug Resistant Organisms: None Reported Past Surgical History: No Surgical Hx Reported Additional Past Surgical History / Comment(s): Left ankle fracture Past Anesthesia/Blood Transfusion Reactions: No Reported Reaction Past Psychological History: No Psychological Hx Reported Smoking Status: Former smoker Past Alcohol Use History: None Reported Past Drug Use History: None Reported - Past Family History Father History Unknown: Yes Family Medical History: Unable to Obtain Mother History Unknown: Yes Family Medical History: Unable to Obtain Medications and Allergies Home Medications Medication Instructions Recorded Confirmed Type Cranberry Fruit Extract [Cranberry] 500 mg PO DAILY 07/15/17 12/09/17 History Multivitamins, Thera [Multivitamin 2 tab PO DAILY 07/15/17 12/09/17 History (formulary)] Sertraline [Zoloft] 150 mg PO DAILY 07/15/17 12/09/17 History Aspirin 81 mg PO HS 11/08/17 12/09/17 History Docusate [Colace] 100 mg PO DAILY 11/08/17 12/09/17 History [place]-3 Fatty Acids/Fish Oil [Fish 1 cap PO BID 11/08/17 12/09/17 History Oil 1,000 mg Softgel] Folic Acid 1 mg PO DAILY 11/19/17 12/09/17 History Thiamine [Vitamin B-1] 100 mg PO DAILY 11/19/17 12/09/17 History amLODIPine BESYLATE [Norvasc] 5 mg PO HS 11/19/17 12/09/17 History Calcium Carb/Vitamin D3/Vit K1 1 tab PO BID 12/09/17 12/09/17 History [Citracal Soft Chew] Iron 27mg 27 mg PO DAILY 12/09/17 12/09/17 History Melatonin 10 mg PO HS 12/09/17 12/09/17 History Allergies Allergy/AdvReac Type Severity Reaction Status Date / Time No Known Allergies Allergy Verified 12/09/17 14:12 Physical Examination On exam patient is resting comfortably in bed and in no acute distress. Patient is alert but has a history of dementia. Patient uses the right hand freely and without difficulty. There is mild swelling to the dorsal aspect of the right wrist and hand. There is no fluctuance. There is no erythema or ascending lymphangitis. Patient has no pain with passive range of motion of the right wrist. There is generalized tenderness to palpation to the dorsal aspect of the right wrist. Patient has good range of motion of the right hand. Right upper extremity is warm and well-perfused. Capillary refill is normal at less than 2 seconds. Sensation intact. Radial pulse is 2+. Neurovascular status and circulatory status are intact. Results X-rays of the right wrist show severe arthritic changes. - Labs Labs: Abnormal Lab Results - Last 24 Hours (Table) 12/09/17 12/09/17 12/09/17 Range/Units 14:45 14:45 22:42 RBC 3.51 L (3.80-5.40) m/uL Hgb 9.4 L D (11.4-16.0) gm/dL Hct 29.8 L (34.0-46.0) % MCHC (31.0-37.0) g/dL Sodium 148 H (137-145) mmol/L BUN 30 H (7-17) mg/dL Creatinine 1.20 H (0.52-1.04) mg/dL Glucose 104 H (74-99) mg/dL Albumin (3.5-5.0) g/dL Urine Appearance Turbid H (Clear) Urine Protein 1+ H (Negative) Urine Blood Small H (Negative) Ur Leukocyte Esterase Large H (Negative) Urine RBC 46 H (0-5) /hpf Urine WBC >182 H (0-5) /hpf Urine WBC Clumps Few H (None) /hpf Urine Bacteria Moderate H (None) /hpf 12/10/17 12/10/17 Range/Units 07:27 07:27 RBC 3.08 L (3.80-5.40) m/uL Hgb 8.1 L (11.4-16.0) gm/dL Hct 26.4 L (34.0-46.0) % MCHC 30.6 L (31.0-37.0) g/dL Sodium (137-145) mmol/L BUN 25 H (7-17) mg/dL Creatinine 1.21 H (0.52-1.04) mg/dL Glucose (74-99) mg/dL Albumin 3.1 L (3.5-5.0) g/dL Urine Appearance (Clear) Urine Protein (Negative) Urine Blood (Negative) Ur Leukocyte Esterase (Negative) Urine RBC (0-5) /hpf Urine WBC (0-5) /hpf Urine WBC Clumps (None) /hpf Urine Bacteria (None) /hpf H & H 12/09/17 12/10/17 Range/Units 14:45 07:27 Hgb 9.4 L D 8.1 L (11.4-16.0) gm/dL Hct 29.8 L 26.4 L (34.0-46.0) % Result Diagrams: 12/10/17 07:27 12/10/17 07:27 Assessment and Plan (1) Pain in right wrist Current Visit: Yes Status: Acute Code(s): M25.531 - PAIN IN RIGHT WRIST SNOMED Code(s): 60332378 (2) Inflammatory arthropathy Current Visit: Yes Status: Acute Code(s): M19.90 - UNSPECIFIED OSTEOARTHRITIS, UNSPECIFIED SITE SNOMED Code(s): 8163910 (3) Cellulitis of right hand Current Visit: Yes Status: Acute Code(s): L03.113 - CELLULITIS OF RIGHT UPPER LIMB SNOMED Code(s): 68586080 (4) Primary osteoarthritis, right wrist Current Visit: Yes Status: Acute Code(s): M19.031 - PRIMARY OSTEOARTHRITIS, RIGHT WRIST SNOMED Code(s): 864707761 Plan: #1. Patient is afebrile and white blood cell count is within normal limits. There is no pain with passive range of motion of the right wrist. There is no fluctuance or abscess. Low suspicion for septic arthritis. #2. Wrist brace to right upper extremity. #3. Rest, ice, and elevate right upper extremity #4. Continue antibiotics per infectious disease and internal medicine. #5. No surgical intervention planned at this time. We'll continue to follow the patient closely.
[2017-12-10] MEDS ORDERED: VANCOMYCIN 1,000 MG in SODIUM CHLORIDE 0.9% 250 ML IVPB ONE (12:00)
[2017-12-10] MEDS: SODIUM CHLORIDE 0.45% 1,000 ML IV SCH (12:17)
--- NOTE | 2017-12-10 12:30 | CDI ---
Last Revision, August 2017 Documentation Clarification Form Date: 12/10/2017 From: Freda BernalSilvaNIESHA johnson, CCDS Admit Date: 12/09/2017 4:50:00 PM Patient Name: Cleo Robins Visit Number: [id number] Discharge Date: ATTENTION: The Clinical Documentation Specialists (CDI) and [facility] Coding Staff appreciate your assistance in clarifying documentation. Please respond to the clarification below the line at the bottom and electronically sign. The CDI & [facility] Coding staff will review the response and follow-up if needed. Please note: Queries are made part of the Legal Health Record. If you have any questions, please contact the author of this message via ITS. Dr. Keke Nicole: History/Risk Factors: Dementia, Seizure Disorder, DVT, Kidney disease, Former smoker. Clinical Indicators: Recent admission with right wrist swelling, discharged home on antibiotics. Returned with same signs & symptoms. Current BUN/CR/GFR: 30 - 25 / 1.20 - 1.21 / 41 Patients Baseline: BUN/CR/GFR: Unknown or not documented. Treatment: Blood cultures, urine cultures, IV Vancomycin, IV fl 20 & 50, IV Zofran Patients Home Rx: Norvasc, Vit B1, Zoloft, Melatonin, Iron, Colace, Asa In order to capture the severity of condition, please clarify the documented "kidney disease: Acute Renal Failure Acute on Chronic Renal Failure Chronic Renal Failure (with staging) o CKD Stage 1 (GFR > 90) o CKD Stage 2 (GFR 60-89) o CKD Stage 3 (GFR 30-59) o CKD Stage 4 (GFR 15-29) o CKD Stage 5 (GFR <15) Other, please specify Unable to determine Please continue to document in your progress notes and discharge summary in order to capture severity of illness and risk of mortality. Include clinical findings that support your diagnosis. CKD-3 already documented in my H&P. no PERRY Please refer to my note., MTDD
[2017-12-10] MEDS: amLODIPine 5 MG TAB PO SCH (21:24)
[2017-12-10] MEDS: ASPIRIN 81 MG PO SCH (21:24)
[2017-12-10] MEDS: MELATONIN 5 MG TABLET PO SCH (21:24)
--- NOTE | 2017-12-10 21:43 | P.PN ---
Subjective Progress Note Date: 12/10/17 Principal diagnosis: pain right wrist This is an 86-year-old female patient brought in by her family due to redness swelling to the right wrist. There is known injury. Patient apparently is bedbound at home and family takes care of her. She has significant dementia and is pleasantly confused. This is very similar to the problem that she had last month which point in time she had an aspiration. The original data from the aspiration reveal evidence of a Gram stain that was negative and culture was negative. There was not enough material aspirated for crystal analysis. Apparently sometime after her discharge the culture became positive for enterococcus species and was thought to be contamination. The patient did receive treatment for gout and had a rapid improvement. It is unclear she's remained on gout medication at home is any new acute change that resulted in the sudden increased swelling and erythema to the wrist. Orthopedic consult is in process. Is related the patient is confused and presents no history 12/10/2017 the patient remains very confused. Wrist remains tender upon manipulation but she does move around quite freely. There is no notation of any fevers or chills. Has been seen by orthopedics with no plans for intervention. Objective - Vital Signs Vital signs: Vital Signs Temp 98.2 F 12/10/17 10:29 Pulse 59 L 12/10/17 21:23 Resp 18 12/10/17 15:00 BP 121/64 12/10/17 21:23 Pulse Ox 94 L 12/10/17 15:00 Intake & Output 12/10/17 12/10/17 12/11/17 06:59 18:59 06:59 Intake Total 350 Balance 350 Weight 59 kg Intake: Intake, IV Titration 150 Amount Sodium Chloride 0.45% 1, 150 000 ml @ 50 mls/hr IV . Q20H [facility] Rx#:[id number] Oral 200 Other: Voiding Method Bedside Commode Bedside Commode Bedside Commode # Voids 1 1 - Exam Gen: This is an 86-year-old female. She is sitting up in bed and appears to be comfortable. Patient is pleasantly confused. HEENT: Head is atraumatic, normocephalic. Pupils equal, round. Sclerae is anicteric. Mucous members of the mouth are moist. No thrush noted. NECK: Supple. No JVD. No lymphadenopathy. No thyromegaly. LUNGS: Clear to auscultation. No wheezes or rhonchi. No intercostal retractions. HEART: Regular rate and rhythm. No murmur. ABDOMEN: Soft. Bowel sounds are present. No masses. No tenderness. EXTREMITIES: The left wrist is normal. The right wrist is evidence of some mild swelling. She does move around quite freely however upon manipulation of the wrist she does complain of pain especially at the thumb and wrist articulation. There are no open lesions. There is no ascending erythema. NEUROLOGICAL: Patient is awake, alert and oriented x1. She is pleasantly confused and has difficulty following directions. - Labs CBC & Chem 7: 12/10/17 07:27 12/10/17 07:27 Labs: Abnormal Lab Results - Last 24 Hours (Table) 12/09/17 12/10/17 12/10/17 Range/Units 22:42 07:27 07:27 RBC 3.08 L (3.80-5.40) m/uL Hgb 8.1 L (11.4-16.0) gm/dL Hct 26.4 L (34.0-46.0) % MCHC 30.6 L (31.0-37.0) g/dL BUN 25 H (7-17) mg/dL Creatinine 1.21 H (0.52-1.04) mg/dL Albumin 3.1 L (3.5-5.0) g/dL Urine Appearance Turbid H (Clear) Urine Protein 1+ H (Negative) Urine Blood Small H (Negative) Ur Leukocyte Esterase Large H (Negative) Urine RBC 46 H (0-5) /hpf Urine WBC >182 H (0-5) /hpf Urine WBC Clumps Few H (None) /hpf Urine Bacteria Moderate H (None) /hpf Microbiology - Last 24 Hours (Table) 12/09/17 14:45 Blood Culture - Preliminary Blood No Growth after 24 hours 12/09/17 22:42 Urine Culture - Preliminary Urine,Voided Laboratory Results WBC 5.6 k/uL (3.8-10.6) 12/10/17 07:27 RBC 3.08 m/uL (3.80-5.40) L 12/10/17 07:27 Hgb 8.1 gm/dL (11.4-16.0) L 12/10/17 07:27 Hct 26.4 % (34.0-46.0) L 12/10/17 07: MCV 85.7 fL (80.0-100.0) 12/10/17 07: MCH 26.2 pg (25.0-35.0) 12/10/17 07: MCHC 30.6 g/dL (31.0-37.0) L 12/10/17 07: RDW 15.0 % (11.5-15.5) 12/10/17 07: Plt Count 254 k/uL (150-450) 12/10/17 07: Neutrophils % 58 % 12/10/17 07: Lymphocytes % 30 % 12/10/17 07: Monocytes % 5 % 12/10/17 07: Eosinophils % 5 % 12/10/17 07: Basophils % 0 % 12/10/17 07:27 Neutrophils # 3.2 k/uL (1.3-7.7) 12/10/17 07: Lymphocytes # 1.6 k/uL (1.0-4.8) 12/10/17 07: Monocytes # 0.3 k/uL (0-1.0) 12/10/17 07: Eosinophils # 0.3 k/uL (0-0.7) 12/10/17 07:27 Basophils # 0.0 k/uL (0-0.2) 12/10/17 07:27 Hypochromasia Slight 12/10/17 07:27 Sodium 142 mmol/L (137-145) 12/10/17 07:27 Potassium 3.9 mmol/L (3.5-5.1) 12/10/17 07: Chloride 107 mmol/L (98-107) 12/10/17 07:27 Carbon Dioxide 24 mmol/L (22-30) 12/10/17 07:27 Anion Gap 11 mmol/L 12/10/17 07:27 BUN 25 mg/dL (7-17) H 12/10/17 07:27 Creatinine 1.21 mg/dL (0.52-1.04) H 12/10/17 07:27 Est GFR (CKD-EPI)AfAm 47 (>60 ml/min/1.73 sqM) 12/10/17 07:27 Est GFR (CKD-EPI)NonAf 41 (>60 ml/min/1.73 sqM) 12/10/17 07:27 Glucose 85 mg/dL (74-99) 12/10/17 07:27 Plasma Lactic Acid Filipe 1.3 mmol/L (0.7-2.0) 12/09/17 14:45 Uric Acid 5.5 mg/dL (3.7-7.4) 12/10/17 07: Calcium 9.2 mg/dL (8.4-10.2) 12/10/17 07:27 Total Bilirubin 0.2 mg/dL (0.2-1.3) 12/10/17 07:27 AST 20 U/L (14-36) 12/10/17 07:27 ALT 15 U/L (9-52) 12/10/17 07:27 Alkaline Phosphatase 89 U/L (38-126) 12/10/17 07:27 Total Protein 6.4 g/dL (6.3-8.2) 12/10/17 07:27 Albumin 3.1 g/dL (3.5-5.0) L 12/10/17 07:27 Urine Color Light Yellow 12/09/17 22:42 Urine Appearance Turbid (Clear) H 12/09/17 22:42 Urine pH 6.0 (5.0-8.0) 12/09/17 22:42 Ur Specific [place] 1.013 (1.001-1.035) 12/09/17 22:42 Urine Protein 1+ (Negative) H 12/09/17 22:42 Urine Glucose (UA) Negative (Negative) 12/09/17 22:42 Urine Ketones Negative (Negative) 12/09/17 22:42 Urine Blood Small (Negative) H 12/09/17 22:42 Urine Nitrite Negative (Negative) 12/09/17 22:42 Urine Bilirubin Negative (Negative) 12/09/17 22:42 Urine Urobilinogen <2.0 mg/dL (<2.0) 12/09/17 22:42 Ur Leukocyte Esterase Large (Negative) H 12/09/17 22:42 Urine RBC 46 /hpf (0-5) H 12/09/17 22:42 Urine WBC >182 /hpf (0-5) H 12/09/17 22:42 Urine WBC Clumps Few /hpf (None) H 12/09/17 22:42 Urine Bacteria Moderate /hpf (None) H 12/09/17 22:42 Microbiology 12/09/17 14:45 Blood Blood Culture - Preliminary No Growth after 24 hours 12/09/17 22:42 Urine,Voided Urine Culture - Preliminary Assessment and Plan (1) Cellulitis of right hand Narrative/Plan: 87-year-old female who has profound dementia presents to hospital with the family because of recurrence of some pain and swelling erythema to her right wrist. During her last stay the joint was aspirated. Cultures were negative however at the seventh day of cultures a contaminated enterococcus was grown. She now has recurrence of the disease process. The patient does not appear to be in any gout-related medications at the time of her admission. I remain concerned that an underlying inflammatory arthropathy such as gout or pseudogout is responsible for this process. Antibiotic therapy has been initiated with vancomycin the patient has no fever or leukocytosis. She however does have significant anemia and etiology of this is not clear at this point in time. Would limit antibiotic therapy as quickly as possible. Orthopedics has been reconsulted and blood work is requested again to ensure that this is not gout. May need aspiration to prove or disprove gout or pseudogout. 12/10/2017 patient is similar to yesterday however this seems to be some slight improvements to the wrist area. Cultures are negative. She's been seen by orthopedics and agreed that there is no significant deep infection at this time. The prior culture of enterococcus is likely contamination. It is more likely than not that this is an inflammatory arthropathy and responding to current treatments. I believe she would do well to maintain on therapy for gout and pseudogout, with long-term prophylaxis with allopurinol if possible. Current Visit: Yes Status: Acute Code(s): L03.113 - CELLULITIS OF RIGHT UPPER LIMB SNOMED Code(s): 64478760 (2) Dementia Current Visit: No Status: Acute Code(s): F03.90 - UNSPECIFIED DEMENTIA WITHOUT BEHAVIORAL DISTURBANCE SNOMED Code(s): 17923467 (3) Inflammatory arthropathy Current Visit: Yes Status: Acute Code(s): M19.90 - UNSPECIFIED OSTEOARTHRITIS, UNSPECIFIED SITE SNOMED Code(s): 5511427
[2017-12-10] MEDS: predniSONE 10 MG TAB PO SCH (23:49)
--- NOTE | 2017-12-11 00:50 | P.PN ---
Subjective Progress Note Date: 12/10/17 Principal diagnosis: Right wrist inflammatory arthropathy Patient is a 86-year-old female with a known history of dementia, previous admission with syncope and seizures and a prior history of DVT and UTI came to the hospital with complaints of right wrist swelling worsening for the past 2 days. Patient was discharged from hospital on 11/22/2017 where he presented with similar complaints. Patient was seen by orthopedics and ID at the time. Patient underwent arthrocentesis and fluid cultures showed enterococcus at the time. Patient discharged on oral antibiotics. Patient did improve with antibiotics until 2 days ago he started developing swelling again. Patient is a poor historian and most the history was taken from his daughter at bedside. her right wrist swollen red with increased localized temperature. No trauma is reported no fevers chills or sweats no history of rheumatoid arthritis or gout. No insect bite. Patient is on iron supplements for anemia. X-ray of the right wrist showed extensive arthropathy with [id number] articulation of the metacarpocarpal joint and scaphoid to bezoar joint. Chondrocalcinosis. 12/10/2017 Patient is still having right ear swelling but otherwise patient denied any worsening pain with passive motion. Right wrist splint was placed. No leukocytosis. No fever no chills. Patient was seen by although and does not think any septic arthritis. Appreciate ID and other medical recommendations. Patient most likely has intermittent arthropathy possibly pseudogout. We'll start the patient on prednisone 30 mg daily daily with gradual tapering in 5-7 days. Uric acid was not elevated. No need for other senses at this time as per orthopedics. Review of systems could not be obtained from the patient due to underlying dementia Active Medications Generic Name Dose Route Start Last Admin Trade Name Freq PRN Reason Stop Dose Admin Acetaminophen 650 mg 12/09/17 16:13 Tylenol Tab PO Q6HR PRN Mild Pain or Fever > 100.5 Amlodipine Besylate 5 mg 12/09/17 21:00 12/10/17 21:24 Norvasc PO 5 mg HS RENA Administration Aspirin 81 mg 12/09/17 21:00 12/10/17 21:24 Aspirin PO 81 mg HS RENA Administration Calcium Carbonate 1 each 12/09/17 21:00 12/10/17 21:24 Oscal 500+D PO 1 each BID RENA Administration Docusate Sodium 100 mg 12/10/17 09:00 12/10/17 09:51 Colace PO 100 mg DAILY RENA Administration Folic Acid 1 mg 12/10/17 09:00 12/10/17 09:51 Folic Acid PO 1 mg DAILY RENA Administration Heparin Sodium (Porcine) 5,000 unit 12/10/17 09:00 12/10/17 21:24 Heparin SQ 5,000 unit Q12HR RENA Administration Sodium Chloride 1,000 mls @ 50 mls/hr 12/09/17 17:00 12/10/17 12:17 Saline 0.45% IV 50 mls/hr .Q20H RENA Administration Melatonin 10 mg 12/09/17 21:00 12/10/17 21:24 Melatonin PO 10 mg HS RENA Administration Miscellaneous Information 1 each 12/09/17 16:10 Pharmacy To Dose Iv Vancomycin MISCELLANE DIRECTED PRN Per Protocol Multivitamins 2 each 12/10/17 09:00 12/10/17 09:52 Theragran PO 2 each DAILY RENA Administration Naloxone HCl 0.2 mg 12/09/17 16:13 Narcan IV Q2M PRN Opioid Reversal Cranberry Extract 500 mg 12/10/17 09:00 12/10/17 10:05 PO Not Given DAILY RENA Ondansetron HCl 4 mg 12/09/17 16:13 12/10/17 11:06 Zofran IVP 4 mg Q8HR PRN Administration Nausea And Vomiting Prednisone 30 mg 12/10/17 22:00 12/10/17 23:49 PO 30 mg DAILY RENA Administration Sertraline HCl 150 mg 12/10/17 09:00 12/10/17 09:54 Zoloft PO 150 mg DAILY RENA Administration Thiamine HCl 100 mg 12/10/17 09:00 12/10/17 09:54 Vitamin B-1 PO 100 mg DAILY RENA Administration Objective - Vital Signs Vital signs: Vital Signs Temp 98.2 F 12/10/17 10:29 Pulse 59 L 12/10/17 21:23 Resp 18 12/10/17 15:00 BP 121/64 12/10/17 21:23 Pulse Ox 94 L 12/10/17 15:00 Intake & Output 12/10/17 12/10/17 12/11/17 06:59 18:59 06:59 Intake Total 350 Balance 350 Weight 59 kg Intake: Intake, IV Titration 150 Amount Sodium Chloride 0.45% 1, 150 000 ml @ 50 mls/hr IV . Q20H [facility] Rx#:[id number] Oral 200 Other: Voiding Method Bedside Commode Bedside Commode Bedside Commode # Voids 1 1 - Exam Patient is lying in the bed comfortably, no acute distress, awake alert but not oriented HEENT: Normocephalic. Neck is supple. Pupils reactive. Nostrils clear. Oral cavity is moist. Ears reveal no drainage. Neck reveals no JVD, carotid bruits, or thyromegaly. CHEST EXAMINATION: Trachea is central. Symmetrical expansion. Lung springer clear to auscultation and percussion. CARDIAC: Normal S1, S2 with no gallops. No murmurs ABDOMEN: Soft. Bowel sounds normal. No organomegaly. No abdominal bruits. Extremities: reveal no edema. No clubbing or cyanosis Neurologically awake, alert area did not oriented dementia. with well- coordinated movements. No focal deficits noted Skin: No rash or skin lesions. Psychiatric: Cooperative. Could not be assessed completely Musculoskeletal: Right wrist swelling and redness and warm. No other joint swelling or deformity. Decreased range of motion. Splint in place - Labs CBC & Chem 7: 12/10/17 07:27 12/10/17 07:27 Labs: Abnormal Lab Results - Last 24 Hours (Table) 12/09/17 12/10/17 12/10/17 Range/Units 22:42 07:27 07:27 RBC 3.08 L (3.80-5.40) m/uL Hgb 8.1 L (11.4-16.0) gm/dL Hct 26.4 L (34.0-46.0) % MCHC 30.6 L (31.0-37.0) g/dL BUN 25 H (7-17) mg/dL Creatinine 1.21 H (0.52-1.04) mg/dL Albumin 3.1 L (3.5-5.0) g/dL Urine Appearance Turbid H (Clear) Urine Protein 1+ H (Negative) Urine Blood Small H (Negative) Ur Leukocyte Esterase Large H (Negative) Urine RBC 46 H (0-5) /hpf Urine WBC >182 H (0-5) /hpf Urine WBC Clumps Few H (None) /hpf Urine Bacteria Moderate H (None) /hpf Microbiology - Last 24 Hours (Table) 12/09/17 14:45 Blood Culture - Preliminary Blood No Growth after 24 hours 12/09/17 22:42 Urine Culture - Preliminary Urine,Voided Assessment and Plan Assessment: Right wrist swelling possible inflammatory arthropathy and cellulitis . Unlikely septic arthritis. Recent sinovial fluid cultures showed enterococcus saffinosus disease contaminant. CK D stage III baseline creatinine around 1.2 Mild hypernatremia 148 sodium level with dehydration Normocytic anemia History of prior admission with syncope and dehydration Seizure disorder Chronic CHF with mildly reduced systolic dysfunction EF 40-45% Dementia History of DVT Remote history of smoking Plan: Patient will be started on prednisone 30 mg daily for gout/pseudogout arthritis. Patient does have chronic kidney disease. Patient will be continued on antibiotics in the form of vancomycin. Orthopedics and ID is following. We'll continue the pain medications and follow closely. Follow blood cultures. Continue the home medications and hydration. Further recommendations based on the clinical course. Time with Patient: Greater than 30
[2017-12-11 07:34] LABS: Calcium 9.9 mg/dL (8.4-10.2); Potassium 4.9 mmol/L (3.5-5.1)
[2017-12-11 07:40] LABS: Vancomycin,Random 16.7 ug/mL
[2017-12-11] MEDS: FOLIC ACID 1 MG TAB PO SCH (08:55)
[2017-12-11] MEDS: DOCUSATE 100 MG CAP PO SCH (08:55)
[2017-12-11] MEDS: CALCIUM CARB-VIT D 500MG-200UN 1 EACH TAB PO SCH (08:55)
[2017-12-11] MEDS: HEPARIN SODIUM,PORCINE 5,000 UNIT/ML 1 ML VIAL SQ SCH (08:55)
[2017-12-11] MEDS: SERTRALINE 50 MG TAB PO SCH (08:56)
[2017-12-11] MEDS: MULTIVITAMINS, THERA 1 EACH TAB PO SCH (08:56)
[2017-12-11] MEDS: predniSONE 10 MG TAB PO SCH (08:56)
[2017-12-11] MEDS: CRANBERRY EXTRACT PO SCH (08:57)
[2017-12-11] MEDS: THIAMINE 100 MG TAB PO SCH (08:57)
[2017-12-11] MEDS: SODIUM CHLORIDE 0.45% 1,000 ML IV SCH (11:51)
[2017-12-11] MEDS ORDERED: SODIUM CHLORIDE 0.45% 1,000 ML IV SCH (13:30)
[2017-12-11 15:44] VITALS: BP 159/88; PULSE 56; RESP 18; TEMP 97.4
[2017-12-11] MEDS ORDERED: VANCOMYCIN 1,000 MG in SODIUM CHLORIDE 0.9% 250 ML IVPB ONE (16:00)
--- NOTE | 2017-12-11 16:10 | P.PN ---
Subjective Progress Note Date: 12/11/17 This is an 87-year-old female who is admitted for right hand and wrist swelling. Patient received her thumb spica brace yesterday and is tolerating the brace well. Patient is pleasantly confused and is sitting comfortably in bed this morning. Patient remains afebrile and well-appearing. There still appears to be some pain to the right wrist and hand this morning, but patient uses the right hand without difficulty. Patient denies any new complaints today. Objective - Vital Signs Vital signs: Vital Signs Temp 98.4 F 12/11/17 07:00 Pulse 61 12/11/17 07:00 Resp 20 12/11/17 07:00 BP 142/76 12/11/17 07:00 Pulse Ox 92 L 12/11/17 07:00 Intake & Output 12/10/17 12/11/17 12/11/17 18:59 06:59 18:59 Intake Total 650 Balance 650 Weight 59 kg 60 kg Intake: IV 450 Sodium Chloride 0.45% 1, 450 000 ml @ 50 mls/hr IV . Q20H [facility] Rx#:[id number] Oral 200 Other: Voiding Method Bedside Commode Bedside Commode Bedside Commode # Voids 1 2 - Exam On exam patient is alert, but confused due to a history of dementia. Patient is lying comfortably in bed in no acute distress. Thumb spica brace fits comfortably. Brace is removed for exam. There is mild swelling and minimal erythema to the dorsal aspect of the right wrist and in the area of the first CMC joint which has slightly improved from yesterday's exam. Patient has no pain with passive range of motion of the right wrist. There is tenderness to palpation to the dorsal aspect of the right wrist and hand. Sensation intact. Capillary refill is normal at less than 2 seconds. There is no fluctuance, streaking up the arm, or lymphadenopathy noted on exam. Neurovascular status and circulatory status are intact. - Labs CBC & Chem 7: 12/10/17 07:27 12/11/17 06:47 Labs: Abnormal Lab Results - Last 24 Hours (Table) 12/11/17 Range/Units 06:47 Sodium 146 H (137-145) mmol/L Chloride 109 H (98-107) mmol/L BUN 26 H (7-17) mg/dL Creatinine 1.30 H (0.52-1.04) mg/dL Glucose 112 H (74-99) mg/dL Microbiology - Last 24 Hours (Table) 12/09/17 14:45 Blood Culture - Preliminary Blood No Growth after 24 hours 12/09/17 22:42 Urine Culture - Preliminary Urine,Voided Assessment and Plan (1) Pain in right wrist Current Visit: Yes Status: Acute Code(s): M25.531 - PAIN IN RIGHT WRIST SNOMED Code(s): 25397364 (2) Inflammatory arthropathy Current Visit: Yes Status: Acute Code(s): M19.90 - UNSPECIFIED OSTEOARTHRITIS, UNSPECIFIED SITE SNOMED Code(s): 3180184 (3) Cellulitis of right hand Current Visit: Yes Status: Acute Code(s): L03.113 - CELLULITIS OF RIGHT UPPER LIMB SNOMED Code(s): 24467956 (4) Primary osteoarthritis, right wrist Current Visit: Yes Status: Acute Code(s): M19.031 - PRIMARY OSTEOARTHRITIS, RIGHT WRIST SNOMED Code(s): 639092792 Plan: #1. Patient continues to be afebrile. There is no pain with passive range of motion of the right wrist. There is no fluctuance or abscess. Low suspicion for septic arthritis. #2. Continue wrist brace to right upper extremity. #3. Rest, ice, and elevate right upper extremity #4. Continue antibiotics per infectious disease and internal medicine. #5. No surgical intervention planned at this time. We'll continue to follow the patient closely.
--- NOTE | 2017-12-11 22:55 | P.PN ---
Subjective Progress Note Date: 12/11/17 Principal diagnosis: pain right wrist This is an 86-year-old female patient brought in by her family due to redness swelling to the right wrist. There is known injury. Patient apparently is bedbound at home and family takes care of her. She has significant dementia and is pleasantly confused. This is very similar to the problem that she had last month which point in time she had an aspiration. The original data from the aspiration reveal evidence of a Gram stain that was negative and culture was negative. There was not enough material aspirated for crystal analysis. Apparently sometime after her discharge the culture became positive for enterococcus species and was thought to be contamination. The patient did receive treatment for gout and had a rapid improvement. It is unclear she's remained on gout medication at home is any new acute change that resulted in the sudden increased swelling and erythema to the wrist. Orthopedic consult is in process. Is related the patient is confused and presents no history 12/10/2017 the patient remains very confused. Wrist remains tender upon manipulation but she does move around quite freely. There is no notation of any fevers or chills. Has been seen by orthopedics with no plans for intervention. 12/11/2017 patient is more comfortable this morning and is less agitated. She has the wrist splint on and seems to be comfortable. No fever or chills are noted. Objective - Vital Signs Vital signs: Vital Signs Temp 97.4 F L 12/11/17 15:00 Pulse 56 L 12/11/17 15:00 Resp 18 12/11/17 15:00 BP 159/88 12/11/17 15:00 Pulse Ox 94 L 12/11/17 15:00 Intake & Output 12/11/17 12/11/17 12/12/17 06:59 18:59 06:59 Intake Total 650 650 Balance 650 650 Weight 60 kg Intake: IV 450 400 Sodium Chloride 0.45% 1, 450 400 000 ml @ 50 mls/hr IV . Q20H [facility] Rx#:[id number] Oral 200 250 Other: Voiding Method Bedside Commode Diaper # Voids 2 2 - Exam Gen: This is an 86-year-old female. She is sitting up in bed and appears to be comfortable. Patient is pleasantly confused. HEENT: Head is atraumatic, normocephalic. Pupils equal, round. Sclerae is anicteric. Mucous members of the mouth are moist. No thrush noted. NECK: Supple. No JVD. No lymphadenopathy. No thyromegaly. LUNGS: Clear to auscultation. No wheezes or rhonchi. No intercostal retractions. HEART: Regular rate and rhythm. No murmur. ABDOMEN: Soft. Bowel sounds are present. No masses. No tenderness. EXTREMITIES: The left wrist is normal. The right wrist is evidence of some mild swelling. Splint is in place. When removed still has some minimal discomfort to the right wrist on range of motion but no fluctuance is seen. There are no open lesions. There is no ascending erythema. NEUROLOGICAL: Patient is awake, alert and oriented x1. She is pleasantly confused and has difficulty following directions. - Labs CBC & Chem 7: 12/10/17 07:27 12/11/17 06:47 Labs: Abnormal Lab Results - Last 24 Hours (Table) 12/11/17 Range/Units 06:47 Sodium 146 H (137-145) mmol/L Chloride 109 H (98-107) mmol/L BUN 26 H (7-17) mg/dL Creatinine 1.30 H (0.52-1.04) mg/dL Glucose 112 H (74-99) mg/dL Microbiology - Last 24 Hours (Table) 12/09/17 14:45 Blood Culture - Preliminary Blood No Growth after 48 hours 12/09/17 22:42 Urine Culture - Preliminary Urine,Voided Gram Neg Bacilli Laboratory Results WBC 5.6 k/uL (3.8-10.6) 12/10/17 07:27 RBC 3.08 m/uL (3.80-5.40) L 12/10/17 07:27 Hgb 8.1 gm/dL (11.4-16.0) L 12/10/17 07:27 Hct 26.4 % (34.0-46.0) L 12/10/17 07:27 MCV 85.7 fL (80.0-100.0) 12/10/17 07:27 MCH 26.2 pg (25.0-35.0) 12/10/17 07: MCHC 30.6 g/dL (31.0-37.0) L 12/10/17 07:27 RDW 15.0 % (11.5-15.5) 12/10/17 07:27 Plt Count 254 k/uL (150-450) 12/10/17 07:27 Neutrophils % 58 % 12/10/17 07:27 Lymphocytes % 30 % 12/10/17 07:27 Monocytes % 5 % 12/10/17 07:27 Eosinophils % 5 % 12/10/17 07:27 Basophils % 0 % 12/10/17 07:27 Neutrophils # 3.2 k/uL (1.3-7.7) 12/10/17 07:27 Lymphocytes # 1.6 k/uL (1.0-4.8) 12/10/17 07:27 Monocytes # 0.3 k/uL (0-1.0) 12/10/17 07:27 Eosinophils # 0.3 k/uL (0-0.7) 12/10/17 07:27 Basophils # 0.0 k/uL (0-0.2) 12/10/17 07:27 Hypochromasia Slight 12/10/17 07:27 Sodium 146 mmol/L (137-145) H 12/11/17 06:47 Potassium 4.9 mmol/L (3.5-5.1) 12/11/17 06:47 Chloride 109 mmol/L (98-107) H 12/11/17 06:47 Carbon Dioxide 26 mmol/L (22-30) 12/11/17 06:47 Anion Gap 11 mmol/L 12/11/17 06:47 BUN 26 mg/dL (7-17) H 12/11/17 06:47 Creatinine 1.30 mg/dL (0.52-1.04) H 12/11/17 06:47 Est GFR (CKD-EPI)AfAm 43 (>60 ml/min/1.73 sqM) 12/11/17 06:47 Est GFR (CKD-EPI)NonAf 37 (>60 ml/min/1.73 sqM) 12/11/17 06:47 Glucose 112 mg/dL (74-99) H 12/11/17 06:47 Plasma Lactic Acid F[place] 1.3 mmol/L (0.7-2.0) 12/09/17 14:45 Uric Acid 5.5 mg/dL (3.7-7.4) 12/10/17 07:27 Calcium 9.9 mg/dL (8.4-10.2) 12/11/17 06:47 Total Bilirubin 0.2 mg/dL (0.2-1.3) 12/10/17 07:27 AST 20 U/L (14-36) 12/10/17 07:27 ALT 15 U/L (9-52) 12/10/17 07:27 Alkaline Phosphatase 89 U/L (38-126) 12/10/17 07:27 Total Protein 6.4 g/dL (6.3-8.2) 12/10/17 07:27 Albumin 3.1 g/dL (3.5-5.0) L 12/10/17 07:27 Urine Color Light Yellow 12/09/17 22:42 Urine Appearance Turbid (Clear) H 12/09/17 22:42 Urine pH 6.0 (5.0-8.0) 12/09/17 22:42 Ur Specific [place] 1.013 (1.001-1.035) 12/09/17 22:42 Urine Protein 1+ (Negative) H 12/09/17 22:42 Urine Glucose (UA) Negative (Negative) 12/09/17 22:42 Urine Ketones Negative (Negative) 12/09/17 22:42 Urine Blood Small (Negative) H 12/09/17 22:42 Urine Nitrite Negative (Negative) 12/09/17 22:42 Urine Bilirubin Negative (Negative) 12/09/17 22:42 Urine Urobilinogen <2.0 mg/dL (<2.0) 04 22:42 Ur Leukocyte Esterase Large (Negative) H 12/09/17 22:42 Urine RBC 46 /hpf (0-5) H 12/09/17 22:42 Urine WBC >182 /hpf (0-5) H 12/09/17 22:42 Urine WBC Clumps Few /hpf (None) H 12/09/17 22:42 Urine Bacteria Moderate /hpf (None) H 12/09/17 22:42 Random Vancomycin 16.7 ug/mL 12/11/17 06:47 Microbiology 12/09/17 14:45 Blood Blood Culture - Preliminary No Growth after 48 hours 12/09/17 22:42 Urine,Voided Urine Culture - Preliminary Gram Neg Bacilli Assessment and Plan (1) Cellulitis of right hand Narrative/Plan: 87-year-old female who has profound dementia presents to hospital with the family because of recurrence of some pain and swelling erythema to her right wrist. During her last stay the joint was aspirated. Cultures were negative however at the seventh day of cultures a contaminated enterococcus was grown. She now has recurrence of the disease process. The patient does not appear to be in any gout-related medications at the time of her admission. I remain concerned that an underlying inflammatory arthropathy such as gout or pseudogout is responsible for this process. Antibiotic therapy has been initiated with vancomycin the patient has no fever or leukocytosis. She however does have significant anemia and etiology of this is not clear at this point in time. Would limit antibiotic therapy as quickly as possible. Orthopedics has been reconsulted and blood work is requested again to ensure that this is not gout. May need aspiration to prove or disprove gout or pseudogout. 12/10/2017 patient is similar to yesterday however this seems to be some slight improvements to the wrist area. Cultures are negative. She's been seen by orthopedics and agreed that there is no significant deep infection at this time. The prior culture of enterococcus is likely contamination. It is more likely than not that this is an inflammatory arthropathy and responding to current treatments. I believe she would do well to maintain on therapy for gout and pseudogout, with long-term prophylaxis with allopurinol if possible. 12/11/2017 patient is more comfortable today. Seems to be responding well to current treatment of inflammatory arthropathy, possible gout or pseudogout. Will be discharged home today on a steroid taper and colchicine if she tolerates. It would then be well for to transition to chronic allopurinol therapy to prevent recurrence. No evidence of any infection of the wrist. Does not need antibiotic therapy at discharge. She does have evidence of a abnormal urinalysis but is asymptomatic and does not appear to need antibiotics therapy Status: Acute Code(s): L03.113 - CELLULITIS OF RIGHT UPPER LIMB SNOMED Code( s): 89777654 (2) Dementia Status: Acute Code(s): F03.90 - UNSPECIFIED DEMENTIA WITHOUT BEHAVIORAL DISTURBANCE SNOMED Code(s): 98860766 (3) Inflammatory arthropathy Status: Acute Code(s): M19.90 - UNSPECIFIED OSTEOARTHRITIS, UNSPECIFIED SITE SNOMED Code(s): 2003226
--- NOTE | 2017-12-12 01:33 | P.DS ---
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 Gout/pseudogout . Unlikely septic arthritis. Recent sinovial fluid cultures showed enterococcus saffinosus likely contaminant. CK D stage III baseline creatinine around 1.2 Mild hypernatremia 148 sodium level with dehydration Normocytic anemia History of prior admission with syncope and dehydration Seizure disorder Chronic CHF with mildly reduced systolic dysfunction EF 40-45% Dementia History of DVT Remote history of smoking Hospital course Patient is a 86-year-old female with a known history of dementia, previous admission with syncope and seizures and a prior history of DVT and UTI came to the hospital with complaints of right wrist swelling worsening for the past 2 days. Patient was discharged from hospital on 11/22/2017 where he presented with similar complaints. Patient was seen by orthopedics and ID at the time. Patient underwent arthrocentesis and fluid cultures showed enterococcus at the time. Patient discharged on oral antibiotics. Patient did improve with antibiotics until 2 days ago he started developing swelling again. Patient is a poor historian and most the history was taken from his daughter at bedside. her right wrist swollen red with increased localized temperature. No trauma is reported no fevers chills or sweats no history of rheumatoid arthritis or gout. No insect bite. Patient is on iron supplements for anemia. X-ray of the right wrist showed extensive arthropathy with [id number] articulation of the metacarpocarpal joint and scaphoid to bezoar joint. Chondrocalcinosis. 12/10/2017 Patient is still having right ear swelling but otherwise patient denied any worsening pain with passive motion. Right wrist splint was placed. No leukocytosis. No fever no chills. Patient was seen by although and does not think any septic arthritis. Appreciate ID and other medical recommendations. Patient most likely has intermittent arthropathy possibly pseudogout. We'll start the patient on prednisone 30 mg daily daily with gradual tapering in 5-7 days. Uric acid was not elevated. No need for other senses at this time as per orthopedics. 12/11/2017 Right ear swelling is much improved and responded well with prednisone. Continue with Current dose and patient was also given Colace and when necessary for early gout symptoms. No need for antibiotics as for ID recommendations. Patient is being discharged home today. Discharge physical examination Patient is lying in the bed comfortably, no acute distress, awake alert but not oriented HEENT: Normocephalic. Neck is supple. Pupils reactive. Nostrils clear. Oral cavity is moist. Ears reveal no drainage. Neck reveals no JVD, carotid bruits, or thyromegaly. CHEST EXAMINATION: Trachea is central. Symmetrical expansion. Lung springer clear to auscultation and percussion. CARDIAC: Normal S1, S2 with no gallops. No murmurs ABDOMEN: Soft. Bowel sounds normal. No organomegaly. No abdominal bruits. Extremities: reveal no edema. No clubbing or cyanosis Neurologically awake, alert area did not oriented dementia. with well- coordinated movements. No focal deficits noted Skin: No rash or skin lesions. Psychiatric: Cooperative. Could not be assessed completely Musculoskeletal: Right wrist swelling and redness resolved. No other joint swelling or deformity. Decreased range of motion. Splint in place Vital Signs - 24 hr 12/11/17 12/11/17 12/11/17 07:00 10:06 15:00 Temperature 98.4 F 97.4 F L Pulse Rate [ 61 56 L Pulse Oximetery ] Respiratory 20 20 18 Rate Blood Pressure 142/76 159/88 [Left Arm] O2 Sat by Pulse 92 L 94 L Oximetry Patient Condition at Discharge: Good Plan - Discharge Summary Discharge Rx Participant: Yes New Discharge Prescriptions: New RX: predniSONE See Taper PO DAILY #12 tab RX: Colchicine 0.6 mg PO BID PRN #20 tablet PRN Reason: Severe Pain Continue RX: Multivitamins, Thera [Multivitamin (formulary)] 2 tab PO DAILY RX: Cranberry Fruit Extract [Cranberry] 500 mg PO DAILY RX: Sertraline [Zoloft] 150 mg PO DAILY RX: [place]-3 Fatty Acids/Fish Oil [Fish Oil 1,000 mg Softgel] 1 cap PO BID RX: Docusate [Colace] 100 mg PO DAILY RX: Aspirin 81 mg PO HS RX: amLODIPine BESYLATE [Norvasc] 5 mg PO HS RX: Folic Acid 1 mg PO DAILY RX: Thiamine [Vitamin B-1] 100 mg PO DAILY RX: Calcium Carb/Vitamin D3/Vit K1 [Citracal Soft Chew] 1 tab PO BID Iron 27mg 27 mg PO DAILY RX: Melatonin 10 mg PO HS Discharge Medication List RX: Cranberry Fruit Extract [Cranberry] 500 mg PO DAILY 07/15/17 [History] RX: Multivitamins, Thera [Multivitamin (formulary)] 2 tab PO DAILY 07/15/17 [ History] RX: Sertraline [Zoloft] 150 mg PO DAILY 07/15/17 [History] RX: Aspirin 81 mg PO HS 11/08/17 [History] RX: Docusate [Colace] 100 mg PO DAILY 11/08/17 [History] RX: [place]-3 Fatty Acids/Fish Oil [Fish Oil 1,000 mg Softgel] 1 cap PO BID [History] RX: Folic Acid 1 mg PO DAILY 11/19/17 [History] RX: Thiamine [Vitamin B-1] 100 mg PO DAILY 11/19/17 [History] RX: amLODIPine BESYLATE [Norvasc] 5 mg PO HS 11/19/17 [History] Iron 27mg 27 mg PO DAILY 12/09/17 [History] RX: Calcium Carb/Vitamin D3/Vit K1 [Citracal Soft Chew] 1 tab PO BID 12/09/17 [ History] RX: Melatonin 10 mg PO HS 12/09/17 [History] RX: Colchicine 0.6 mg PO BID PRN #20 tablet 12/11/17 [Rx] RX: predniSONE See Taper PO DAILY #12 tab 12/11/17 [Rx] Follow up Appointment(s)/Referral(s): Emmanuelle Dhaliwal MD [Primary Care Provider] - 12/15/17 3:00 pm Ravin Boles MD [STAFF PHYSICIAN] - 12/19/17 9:30 am Patient Instructions/Handouts: Prednisone (By mouth), Colchicine (By mouth), Cellulitis (DC), Osteoarthritis (DC) Discharge Disposition: HOME SELF-CARE
== END 2017-12-11 18:25 | disposition home or self-care (01) | DRG 554 ==
LOC: EC 13:46 → 5MS5E 16:50
PROVIDERS: ADMIT Internal Medicine; ATTEND Internal Medicine
DX: M19.031 Primary osteoarthritis, right wrist (principal); E87.0 Hyperosmolality and hypernatremia; D64.9 Anemia, unspecified; I50.22 Chronic systolic (congestive) heart failure; L03.113 Cellulitis of right upper limb; E86.0 Dehydration; N18.3 Chronic kidney disease, stage 3 (moderate); G40.909 Epilepsy, unspecified, not intractable, without status epilepticus; M11.20 Other chondrocalcinosis, unspecified site; M10.9 Gout, unspecified; H93.8X9 Other specified disorders of ear, unspecified ear; F03.90 Unspecified dementia, unspecified severity, without behavioral disturbance, psychotic disturbance, mood disturbance, and anxiety; Z86.718 Personal history of other venous thrombosis and embolism; Z87.891 Personal history of nicotine dependence; Z79.899 Other long term (current) drug therapy; Z79.82 Long term (current) use of aspirin; Z87.440 Personal history of urinary (tract) infections; Z74.01 Bed confinement status
CPT/HCPCS: 36415; 80048; 80053; 80202; 81001; 83605; 84550; 85025; 87040; 87077; 87086; 87186; 96365; 99284

== ENCOUNTER 2017-12-21 12:24 | Inpatient (IN) | payer MEDICARE, BC ==
[2017-12-21 12:41] LABS: Glucose,Whole Blood 91 mg/dL (75-99)
[2017-12-21] MEDS ORDERED: SODIUM CHLORIDE 0.9% 1,000 ML IV STA (12:42)
--- NOTE | 2017-12-21 12:48 | ED ---
General Adult HPI - General Chief complaint: Syncope Stated complaint: SEIZURE Time Seen by Provider: 12/21/17 12:30 Source: patient, EMS, RN notes reviewed Mode of arrival: EMS Limitations: altered mental status - History of Present Illness Initial comments: Patient is a pleasant 87-year-old female presenting to the emergency department following a reported syncopal event. Patient has advanced dementia and is a very poor historian. Patient is unable to offer any significant history. Patient reportedly had a similar episode less than one year ago. Patient reportedly was on the toilet and became unresponsive for around 30 seconds. - Related Data Home Medications Medication Instructions Recorded Confirmed Cranberry Fruit Extract [Cranberry] 500 mg PO DAILY 07/15/17 12/09/17 Multivitamins, Thera [Multivitamin 2 tab PO DAILY 07/15/17 12/09/17 (formulary)] Sertraline [Zoloft] 150 mg PO DAILY 07/15/17 12/09/17 Aspirin 81 mg PO HS 11/08/17 12/09/17 Docusate [Colace] 100 mg PO DAILY 11/08/17 12/09/17 [place]-3 Fatty Acids/Fish Oil [Fish 1 cap PO BID 11/08/17 12/09/17 Oil 1,000 mg Softgel] Folic Acid 1 mg PO DAILY 11/19/17 12/09/17 Thiamine [Vitamin B-1] 100 mg PO DAILY 11/19/17 12/09/17 amLODIPine BESYLATE [Norvasc] 5 mg PO HS 11/19/17 12/09/17 Calcium Carb/Vitamin D3/Vit K1 1 tab PO BID 12/09/17 12/09/17 [Citracal Soft Chew] Iron 27mg 27 mg PO DAILY 12/09/17 12/09/17 Melatonin 10 mg PO HS 12/09/17 12/09/17 Previous Rx's Medication Instructions Recorded Colchicine 0.6 mg PO BID PRN #20 tablet 12/11/17 predniSONE See Taper PO DAILY #12 tab 12/11/17 Allergies Allergy/AdvReac Type Severity Reaction Status Date / Time No Known Allergies Allergy Verified 12/21/17 12:44 Review of Systems ROS Statement: Those systems with pertinent positive or pertinent negative responses have been documented in the HPI. ROS Other: All systems not noted in ROS Statement are negative. Limitations: ROS unobtainable due to patients medical condition Past Medical History Past Medical History: Dementia, Deep Vein Thrombosis (DVT), Seizure Disorder Additional Past Medical History / Comment(s): Seizure in November 08, UTI, Kidney disease History of Any Multi-Drug Resistant Organisms: None Reported Past Surgical History: No Surgical Hx Reported Additional Past Surgical History / Comment(s): Left ankle fracture Past Anesthesia/Blood Transfusion Reactions: No Reported Reaction Past Psychological History: No Psychological Hx Reported Smoking Status: Former smoker Past Alcohol Use History: None Reported Past Drug Use History: None Reported - Past Family History Father History Unknown: Yes Family Medical History: Unable to Obtain Mother History Unknown: Yes Family Medical History: Unable to Obtain General Exam Limitations: altered mental status (Advanced dementia, does not follow commands) General appearance: alert, in no apparent distress Head exam: Present: atraumatic Eye exam: Present: normal appearance, PERRL, EOMI ENT exam: Present: normal oropharynx Neck exam: Present: normal inspection. Absent: tenderness Respiratory exam: Present: normal lung sounds bilaterally Cardiovascular Exam: Present: regular rate, normal rhythm GI/Abdominal exam: Present: soft. Absent: tenderness Extremities exam: Present: normal inspection, full ROM. Absent: tenderness Neurological exam: Present: alert, altered, other (Limited exam. No gross deficits) Psychiatric exam: Present: normal affect, normal mood Skin exam: Present: normal color Course Vital Signs 12/21/17 12/21/17 12/21/17 12:30 12:34 14:04 Temperature 97.8 F Pulse Rate 59 L 56 L Pulse Rate [ 60 Bilateral Heel Cutter ] Respiratory 18 18 Rate Blood Pressure 177/77 O2 Sat by Pulse 96 96 Oximetry EKG Findings - EKG Comments: EKG Findings:: Normal sinus rhythm 60. WI 176. QRS 144. QT 486. QTc 46. Left axis. Left bundle branch block. Nonspecific ST-T. Medical Decision Making - Medical Decision Making Patient reevaluated and resting comfortably in bed. Family updated on results. Family does describe seizure activity lasting 20-30 seconds of generalized tonic-clonic activity followed by postictal state. Patient did have a similar episode around 1 month ago and was not started on anticonvulsants at that time. Case was discussed in detail with Dr. Nicole, who will admit for Emmanuelle Sena. - Lab Data Result diagrams: 12/21/17 12:57 12/21/17 12:57 Lab Results 12/21/17 12/21/17 12/21/17 Range/Units 12:39 12:57 12:57 WBC 9.3 (3.8-10.6) k/uL RBC 3.87 (3.80-5.40) m/uL Hgb 10.2 L (11.4-16.0) gm/dL Hct 32.7 L (34.0-46.0) % MCV 84.5 (80.0-100.0) fL MCH 26.3 (25.0-35.0) pg MCHC 31.1 (31.0-37.0) g/dL RDW 15.9 H (11.5-15.5) % Plt Count 242 (150-450) k/uL Neutrophils % 76 % Lymphocytes % 16 % Monocytes % 4 % Eosinophils % 3 % Basophils % 0 % Neutrophils # 7.1 (1.3-7.7) k/uL Lymphocytes # 1.5 (1.0-4.8) k/uL Monocytes # 0.4 (0-1.0) k/uL Eosinophils # 0.2 (0-0.7) k/uL Basophils # 0.0 (0-0.2) k/uL Hypochromasia Slight PT (9.0-12.0) sec INR (<1.2) APTT (22.0-30.0) sec Sodium (137-145) mmol/L Potassium (3.5-5.1) mmol/L Chloride (98-107) mmol/L Carbon Dioxide (22-30) mmol/L Anion Gap mmol/L BUN (7-17) mg/dL Creatinine (0.52-1.04) mg/dL Est GFR (CKD-EPI)AfAm (>60 ml/min/1.73 sqM) Est GFR (CKD-EPI)NonAf (>60 ml/min/1.73 sqM) Glucose (74-99) mg/dL POC Glucose (mg/dL) 91 (75-99) mg/dL POC Glu Digital Sales Manager ID Sharyn Jernigan Calcium (8.4-10.2) mg/dL Total Bilirubin (0.2-1.3) mg/dL AST (14-36) U/L ALT (9-52) U/L Alkaline Phosphatase (38-126) U/L Total Creatine Kinase 46 (30-135) U/L CK-MB (CK-2) 1.8 (0.0-2.4) ng/mL CK-MB (CK-2) Rel Index 3.9 Troponin I <0.012 (0.000-0.034) ng/mL Total Protein (6.3-8.2) g/dL Albumin (3.5-5.0) g/dL Urine Color Urine Appearance (Clear) Urine pH (5.0-8.0) Ur Specific [place] (1.001-1.035) Urine Protein (Negative) Urine Glucose (UA) (Negative) Urine Ketones (Negative) Urine Blood (Negative) Urine Nitrite (Negative) Urine Bilirubin (Negative) Urine Urobilinogen (<2.0) mg/dL Ur Leukocyte Esterase (Negative) Urine RBC (0-5) /hpf Urine WBC (0-5) /hpf Urine WBC Clumps (None) /hpf Urine Bacteria (None) /hpf 12/21/17 12/21/17 12/21/17 Range/Units 12:57 12:57 12:57 WBC (3.8-10.6) k/uL RBC (3.80-5.40) m/uL Hgb (11.4-16.0) gm/dL Hct (34.0-46.0) % MCV (80.0-100.0) fL MCH (25.0-35.0) pg MCHC (31.0-37.0) g/dL RDW (11.5-15.5) % Plt Count (150-450) k/uL Neutrophils % % Lymphocytes % % Monocytes % % Eosinophils % % Basophils % % Neutrophils # (1.3-7.7) k/uL Lymphocytes # (1.0-4.8) k/uL Monocytes # (0-1.0) k/uL Eosinophils # (0-0.7) k/uL Basophils # (0-0.2) k/uL Hypochromasia PT 10.1 (9.0-12.0) sec INR 1.0 (<1.2) APTT 20.1 L (22.0-30.0) sec Sodium 149 H (137-145) mmol/L Potassium 4.2 (3.5-5.1) mmol/L Chloride 110 H (98-107) mmol/L Carbon Dioxide 23 (22-30) mmol/L Anion Gap 16 mmol/L BUN 27 H (7-17) mg/dL Creatinine 1.20 H (0.52-1.04) mg/dL Est GFR (CKD-EPI)AfAm 47 (>60 ml/min/1.73 sqM) Est GFR (CKD-EPI)NonAf 41 (>60 ml/min/1.73 sqM) Glucose 87 (74-99) mg/dL POC Glucose (mg/dL) (75-99) mg/dL POC Glu Digital Sales Manager ID Calcium 9.8 (8.4-10.2) mg/dL Total Bilirubin 0.2 (0.2-1.3) mg/dL AST 27 (14-36) U/L ALT 14 (9-52) U/L Alkaline Phosphatase 97 (38-126) U/L Total Creatine Kinase (30-135) U/L CK-MB (CK-2) (0.0-2.4) ng/mL CK-MB (CK-2) Rel Index Troponin I (0.000-0.034) ng/mL Total Protein 7.7 (6.3-8.2) g/dL Albumin 4.0 (3.5-5.0) g/dL Urine Color Colorless Urine Appearance Clear (Clear) Urine pH 6.5 (5.0-8.0) Ur Specific [place] 1.005 (1.001-1.035) Urine Protein Negative (Negative) Urine Glucose (UA) Negative (Negative) Urine Ketones Negative (Negative) Urine Blood Negative (Negative) Urine Nitrite Negative (Negative) Urine Bilirubin Negative (Negative) Urine Urobilinogen <2.0 (<2.0) mg/dL Ur Leukocyte Esterase Large H (Negative) Urine RBC <1 (0-5) /hpf Urine WBC 43 H (0-5) /hpf Urine WBC Clumps Moderate H (None) /hpf Urine Bacteria Rare H (None) /hpf - Radiology Data Radiology results: report reviewed (Computed tomography scan of the brain shows no acute intercranial abnormality. Atrophy. Chronic white matter changes.), image reviewed (Chest x-ray shows cardiomegaly, tortuous aorta. Atelectasis versus infiltrate.) Disposition Clinical Impression: Seizure Disposition: ADMITTED IP TO THIS [facility] Referrals: Emmanuelle Dhaliwal MD [Primary Care Provider] - 1-2 days Decision Time: 14:44
[2017-12-21] MEDS ORDERED: ONDANSETRON 4 MG/2 ML VIAL IVP STA (13:15)
[2017-12-21 13:18] LABS: Basophils % (A) 0 %; Eosinophils # (A) 0.2 k/uL (0-0.7); Eosinophils % (A) 3 %; HCT 32.7 % (34.0-46.0); HGB 10.2 gm/dL (11.4-16.0); Hypochromasia Slight; Lymphocytes # (A) 1.5 k/uL (1.0-4.8); Lymphocytes % (A) 16 %; MCH 26.3 pg (25.0-35.0); MCHC 31.1 g/dL (31.0-37.0); MCV 84.5 fL (80.0-100.0); Mean Platelet Volume 7.4; Monocytes # (A) 0.4 k/uL (0-1.0); Monocytes % (A) 4 %; Neutrophils # (A) 7.1 k/uL (1.3-7.7); Neutrophils % (A) 76 %; Platelet Count 242 k/uL (150-450); RBC 3.87 m/uL (3.80-5.40); RDW 15.9 % (11.5-15.5); WBC 9.3 k/uL (3.8-10.6)
[2017-12-21 13:27] LABS: Appearance,Urine Clear (Clear); Bacteria,Urine Rare /hpf; Bilirubin,Urine Negative (Negative); Blood,Urine Negative (Negative); Color,Urine Colorless; Glucose,Urine (UA) Negative (Negative); Ketones,Urine Negative (Negative); Leukocyte Esterase,Urine Large (Negative); Nitrite,Urine Negative (Negative); PH, Urine 6.5 (5.0-8.0); Protein,Urine Negative (Negative); RBC,Urine <1 /hpf (0-5); Specific Gravity,Urine 1.005 (1.001-1.035); Urobilinogen,Urine <2.0 mg/dL (<2.0); WBC,Urine 43 /hpf (0-5)
[2017-12-21 13:30] LABS: Calcium 9.8 mg/dL (8.4-10.2); Potassium 4.2 mmol/L (3.5-5.1); Total Bilirubin 0.2 mg/dL (0.2-1.3); Total Protein 7.7 g/dL (6.3-8.2)
--- NOTE | 2017-12-21 13:39 | CT ---
EXAMINATION TYPE: CT brain wo con DATE OF EXAM: 12/21/2017 COMPARISON: Previous study dated 11/08/2017 HISTORY: Seizure CT DLP: 965 mGycm Automated exposure control for dose reduction was used. FINDINGS: There are moderate changes of sulcal prominence and ventriculomegaly compatible with atrophy. There i s diffuse periventricular white matter lucency compatible with white matter ischemic change. There is no acute focal lesion, mass effect or midline shift identified. I do not see evidence of intracrania l blood. Visualized portions of the paranasal sinuses and mastoids are clear. The bony calvarium is intact. IMPRESSION: 1. NO ACUTE INTRACRANIAL ABNORMALITY. 2. ATROPHIC CHANGE. 3. CHRONIC WHITE MATTER ISCHEMIC CHANGE.
[2017-12-21 13:40] LABS: Creatine Kinase 46 U/L (30-135)
[2017-12-21 13:42] LABS: Prothrombin Time 10.1 sec (9.0-12.0)
[2017-12-21 13:48] LABS: Partial Thromboplastin Time 20.1 sec (22.0-30.0)
[2017-12-21 13:53] LABS: Creatine Kinase MB 1.8 ng/mL (0.0-2.4); Troponin I <0.012 ng/mL (0.000-0.034)
--- NOTE | 2017-12-21 14:13 | XR ---
EXAMINATION TYPE: XR chest 2V DATE OF EXAM: 12/21/2017 COMPARISON: 3 views HISTORY: 87-year-old female with syncope TECHNIQUE: AP and lateral views FINDINGS: The heart is moderately enlarged. Ectatic/tortuous thoracic aorta. Diffuse interstitial prominence. P atchy posterior basilar density is present on the lateral view. No consolidation or pleural effusion. IMPRESSION: 1. Continued cardiomegaly. 2. Ectatic/tortuous thoracic aorta. 3. Patchy posterior basilar atelectasis versus infiltrate.
[2017-12-21] MEDS ORDERED: levETIRAcetam IV 500 MG in SODIUM CHLORIDE 0.9% 100 ML IVPB STA (14:44)
[2017-12-21] MEDS ORDERED: LORazepam 2 MG/ML INJ IV PRN (14:45)
[2017-12-21] MEDS ORDERED: NALOXONE 0.4 MG/ML 1 ML VIAL IV PRN (14:45)
[2017-12-21] MEDS ORDERED: SODIUM CHLORIDE 0.9% 1,000 ML IV SCH (14:45)
[2017-12-21] MEDS ORDERED: cefTRIAXone IN SWFI 1,000 MG/10 ML SYRINGE IVP STA (14:49)
[2017-12-21 15:49] VITALS: BMI 20.4
[2017-12-21] MEDS ORDERED: NON-FORMULARY DRUG (Omega-3 Fatty Acids/Fish Oil [Fish Oil 1,000 Mg Softgel] 1 CAP) PO SCH (21:00)
[2017-12-21] MEDS: MELATONIN 5 MG TABLET PO SCH (21:22)
[2017-12-21] MEDS: amLODIPine 5 MG TAB PO SCH (21:22)
[2017-12-21] MEDS: ASPIRIN 81 MG PO SCH (21:22)
[2017-12-21] MEDS: CALCIUM CARB-VIT D 250MG-125UN 1 EACH TAB PO SCH (21:22)
--- NOTE | 2017-12-21 23:55 | P.HPIM ---
History of Present Illness H&P Date: 12/21/17 Chief Complaint: Seizures Patient is a 86-year-old female with a known history of dementia, previous admission with syncope and seizures and a prior history of DVT and UTI came to the hospital with complaints of seizure activity at home as per her daughter at bedside.Patient is a poor historian and most the history was taken from his daughter. Apparently patient has been having shaking movements of the hands and stiffness noted at home. Patient was also having lipsmacking and was staring at the time with eyes wide open. Lasted for about a minute and patient slept of that. Otherwise patient does not have any fever or chills at home. No nausea vomiting or abdominal pain. Patient has been drinking plenty of water as per daughter. No complaints of chest pain or shortness of breath. Patient was discharged from hospital on 12/11/2017 where he presented with right wrist gout/pseudogout arthritis, improved with prednisone.. Patient was previously admitted to the hospital with similar complaints and was seen by neurology at the time. Patient is not on any antiepileptic drugs. Patient was found have urinary tract infection and dehydration with elevated sodium level. Previous urine cultures done on 12/09/2017 showed Pseudomonas. Review of Systems Constitutional: Patient denies any fever or chills . No generalized weakness or weight loss. Abdomen: Patient denied nausea vomiting and diarrhea and abdominal pain. Cardiovascular: Patient denies any chest pain or short of breath no palpitations. Respiratory: patient denied any cough is from production. No shortness of breath Neurologic: Patient denied any numbness or tingling headache. Musculoskeletal: Patient denies any complaints of joint swelling or deformity. Complete review of systems could not be apparent from the patient Past Medical History Past Medical History: Dementia, Deep Vein Thrombosis (DVT), Seizure Disorder Additional Past Medical History / Comment(s): Seizure in November 08, UTI, Kidney disease History of Any Multi-Drug Resistant Organisms: None Reported Past Surgical History: No Surgical Hx Reported Additional Past Surgical History / Comment(s): Left ankle fracture Past Anesthesia/Blood Transfusion Reactions: No Reported Reaction Past Psychological History: No Psychological Hx Reported Additional Psychological History / Comment(s): per daughter in law pt had dx of bipolar/anxiety in past Smoking Status: Former smoker Past Alcohol Use History: None Reported Additional Past Alcohol Use History / Comment(s): started smoking in her 20's and [id number] Past Drug Use History: None Reported - Past Family History Father History Unknown: Yes Family Medical History: Unable to Obtain Mother History Unknown: Yes Family Medical History: Unable to Obtain Medications and Allergies Home Medications Medication Instructions Recorded Confirmed Type Cranberry Fruit Extract [Cranberry] 500 mg PO DAILY 07/15/17 12/21/17 History Multivitamins, Thera [Multivitamin 2 tab PO DAILY 07/15/17 12/21/17 History (formulary)] Sertraline [Zoloft] 150 mg PO QAM 07/15/17 12/21/17 History Aspirin 81 mg PO HS 11/08/17 12/21/17 History Docusate [Colace] 100 mg PO QAM 11/08/17 12/21/17 History [place]-3 Fatty Acids/Fish Oil [Fish 1 cap PO BID 11/08/17 12/21/17 History Oil 1,000 mg Softgel] Folic Acid 1 mg PO QAM 11/19/17 12/21/17 History Thiamine [Vitamin B-1] 100 mg PO QAM 11/19/17 12/21/17 History amLODIPine BESYLATE [Norvasc] 5 mg PO HS 11/19/17 12/21/17 History Iron 27mg 27 mg PO DAILY 12/09/17 12/21/17 History Melatonin 10 mg PO 12/09/17 12/21/17 History Calcium Carb/Vitamin D3/Vit K1 1 tab PO BID 12/21/17 12/21/17 History [Citracal Soft Chew] Allergies Allergy/AdvReac Type Severity Reaction Status Date / Time No Known Allergies Allergy Verified 12/21/17 15:21 Physical Exam Vitals: Vital Signs Temp Pulse Pulse Resp BP Pulse Ox 12/21/17 15:20 98.0 F 58 L 18 146/55 96 12/21/17 14:04 56 L 18 96 12/21/17 12:34 97.8 F 59 L 18 177/77 96 12/21/17 12:30 60 Intake and Output 12/21/17 12/21/17 12/21/17 06:59 14:59 22:59 Other: Weight 54.431 kg 53.977 kg PHYSICAL EXAMINATION: Patient is lying in the bed comfortably, no acute distress, awake alert and oriented 1.. HEENT: Normocephalic. Neck is supple. Pupils reactive. Nostrils clear. Ears reveal no drainage. Neck reveals no JVD, carotid bruits, or thyromegaly. CHEST EXAMINATION: Trachea is central. Symmetrical expansion. Lung springer clear to auscultation and percussion. CARDIAC: Normal S1, S2 with no gallops. No murmurs ABDOMEN: Soft. Bowel sounds normal. No organomegaly. No abdominal bruits. Extremities: reveal no edema. No clubbing or cyanosis Neurologically awake, alert, oriented x1 with well-coordinated movements. No focal deficits noted Skin: No rash or skin lesions. Psychiatric: Coperative. Could not be assessed completely Musculoskeletal: No joint swelling or deformity. Normal range of motion. Results CBC & Chem 7: 12/21/17 12:57 12/21/17 12:57 Labs: Abnormal Lab Results - Last 24 Hours (Table) 12/21/17 12/21/17 12/21/17 Range/Units 12:57 12:57 12:57 Hgb 10.2 L (11.4-16.0) gm/dL Hct 32.7 L (34.0-46.0) % RDW 15.9 H (11.5-15.5) % APTT 20.1 L (22.0-30.0) sec Sodium 149 H (137-145) mmol/L Chloride 110 H (98-107) mmol/L BUN 27 H (7-17) mg/dL Creatinine 1.20 H (0.52-1.04) mg/dL Ur Leukocyte Esterase (Negative) Urine WBC (0-5) /hpf Urine WBC Clumps (None) /hpf Urine Bacteria (None) /hpf 12/21/17 Range/Units 12:57 Hgb (11.4-16.0) gm/dL Hct (34.0-46.0) % RDW (11.5-15.5) % APTT (22.0-30.0) sec Sodium (137-145) mmol/L Chloride (98-107) mmol/L BUN (7-17) mg/dL Creatinine (0.52-1.04) mg/dL Ur Leukocyte Esterase Large H (Negative) Urine WBC 43 H (0-5) /hpf Urine WBC Clumps Moderate H (None) /hpf Urine Bacteria Rare H (None) /hpf Thrombosis Risk Factor Assmnt - DVT/VTE Prophylaxis DVT/VTE Prophylaxis: Pharmacologic Prophylaxis ordered - Choose All That Apply Other Risk Factors: Yes Each Risk Factor Represents 3 Points: Age 75 years or older Thrombosis Risk Factor Assessment Total Risk Factor Score: 3 Thrombosis Risk Factor Assessment Level: Moderate Risk Assessment and Plan Assessment: Generalized shaking movement of the hands and brief staring episodes. Possible seizures. Acute urinary tract infection with recent urine cultures showing Pseudomonas Hypernatremia due to volume depletion and poor oral intake Recent history of acute Gout/pseudogout arthritis, resolved now CK D stage III baseline creatinine around 1.2 Normocytic anemia History of prior admission with syncope and dehydration Chronic CHF with mildly reduced systolic dysfunction EF 40-45% Dementia History of DVT Remote history of smoking DVT prophylaxis Plan Patient will be continued on seizure precautions and neurology consulted. Patient was given a dose of Keppra while in the ER Patient will be started on D5 water at 75 mL per hour and monitor sodium level. We will change antibiotics to meropenem and ID consult. Follow-up repeat urine cultures. Continue with home medications. Discussed with her daughter at bedside in detail. Time with Patient: Greater than 30
[2017-12-22] MEDS: DEXTROSE 5% IN WATER 1,000 ML IV SCH ×4 (03:17→19:20)
[2017-12-22 07:54] LABS: Basophils % (A) 0 %; Eosinophils # (A) 0.2 k/uL (0-0.7); Eosinophils % (A) 2 %; HCT 29.7 % (34.0-46.0); Hypochromasia Moderate; Lymphocytes # (A) 1.6 k/uL (1.0-4.8); Lymphocytes % (A) 25 %; MCH 25.9 pg (25.0-35.0); MCHC 30.4 g/dL (31.0-37.0); MCV 85.3 fL (80.0-100.0); Mean Platelet Volume 7.2; Monocytes # (A) 0.4 k/uL (0-1.0); Monocytes % (A) 7 %; Neutrophils # (A) 4.1 k/uL (1.3-7.7); Neutrophils % (A) 65 %; Platelet Count 221 k/uL (150-450); RBC 3.48 m/uL (3.80-5.40); WBC 6.3 k/uL (3.8-10.6)
[2017-12-22 08:06] LABS: Calcium 9.5 mg/dL (8.4-10.2); Potassium 4.1 mmol/L (3.5-5.1)
[2017-12-22] MEDS ORDERED: MEROPENEM 1 GM in SODIUM CHLORIDE 0.9% 100 ML IVPB SCH (09:00)
[2017-12-22] MEDS ORDERED: cefTRIAXone IN SWFI 1,000 MG/10 ML SYRINGE IVP SCH (09:00)
[2017-12-22] MEDS ORDERED: NON-FORMULARY DRUG (Cranberry Fruit Extract [Cranberry] 500 MG) PO SCH (09:00)
[2017-12-22] MEDS: ENOXAPARIN 30 MG/0.3 ML SYRINGE SQ SCH (10:30)
[2017-12-22] MEDS: DOCUSATE 100 MG CAP PO SCH (10:31)
[2017-12-22] MEDS: CALCIUM CARB-VIT D 250MG-125UN 1 EACH TAB PO SCH ×2 (10:31→21:06)
[2017-12-22] MEDS: FOLIC ACID 1 MG TAB PO SCH (10:31)
[2017-12-22] MEDS: MULTIVITAMINS, THERA 1 EACH TAB PO SCH (12:24)
[2017-12-22] MEDS: LEVOFLOXACIN 750 MG TAB PO SCH (12:24)
[2017-12-22] MEDS: SERTRALINE 100 MG TAB PO SCH (12:25)
--- NOTE | 2017-12-22 18:23 | P.PN ---
Subjective Progress Note Date: 12/22/17 Progress note being dictated for Dr. Renee. Interval history:Patient is a 86-year-old female with a known history of dementia, previous admission with syncope and seizures and a prior history of DVT and UTI came to the hospital with complaints of seizure activity at home as per her daughter at bedside.Patient is a poor historian and most the history was taken from his daughter. Apparently patient has been having shaking movements of the hands and stiffness noted at home. Patient was also having lipsmacking and was staring at the time with eyes wide open. Lasted for about a minute and patient slept of that. Otherwise patient does not have any fever or chills at home. No nausea vomiting or abdominal pain. Patient has been drinking plenty of water as per daughter. No complaints of chest pain or shortness of breath. Patient was discharged from hospital on 12/11/2017 where he presented with right wrist gout/pseudogout arthritis, improved with prednisone.. Patient was previously admitted to the hospital with similar complaints and was seen by neurology at the time. Patient is not on any antiepileptic drugs. Patient was found have urinary tract infection and dehydration with elevated sodium level. Previous urine cultures done on 12/09/2017 showed Pseudomonas. 12/22/2017. Neurology consult in place with recommendations pending. Confused, responds with"ok" to every question. Seizure precautions maintained. No further seizure activity reported. Yesterday placed on D5W for hypernatremia. Sodium, chloride, renal function worsening. UA reporting elevated urine WBC, large leukocyte esterase, culture pending. Objective - Vital Signs Vital signs: Vital Signs Temp 98.6 F 12/22/17 15:10 Pulse 69 12/22/17 15:10 Resp 18 12/22/17 15:10 BP 128/86 12/22/17 15:10 Pulse Ox 96 12/22/17 15:10 Intake & Output 12/21/17 12/22/17 12/22/17 18:59 06:59 18:59 Intake Total 300 700 Balance 300 700 Weight 53.977 kg Intake: Intake, IV Titration 300 700 Amount Dextrose 5% in Water 1, 300 600 000 ml @ 75 mls/hr IV . [id number] RENA Rx#:[id number] Meropenem 1 gm In Sodium 100 Chloride 0.9% 100 ml @ 200 mls/hr IVPB Q12HR RENA Rx#:[id number] Other: # Voids 2 3 - Exam Patient is lying in the bed comfortably, no acute distress, awake alert and oriented 1.. HEENT: Normocephalic. Neck is supple. Pupils reactive. Nostrils clear. Neck reveals no JVD, carotid bruits, or thyromegaly. CHEST EXAMINATION: Trachea is central. Symmetrical expansion. Lung springer clear to auscultation and percussion. CARDIAC: Normal S1, S2 with no gallops. No murmurs ABDOMEN: Soft. Bowel sounds normal. No organomegaly. No abdominal bruits. Extremities: reveal no edema. No clubbing or cyanosis Neurologically awake, alert, oriented x1 with well-coordinated movements. No focal deficits noted Skin: No rash or skin lesions. Psychiatric: Coperative. Could not be assessed completely Musculoskeletal: No joint swelling or deformity. Normal range of motion. - Labs CBC & Chem 7: 12/22/17 07:07 12/22/17 07:07 Labs: Abnormal Lab Results - Last 24 Hours (Table) 12/22/17 12/22/17 Range/Units 07:07 07:07 RBC 3.48 L (3.80-5.40) m/uL Hgb 9.0 L (11.4-16.0) gm/dL Hct 29.7 L (34.0-46.0) % MCHC 30.4 L (31.0-37.0) g/dL RDW 16.0 H (11.5-15.5) % Sodium 154 H (137-145) mmol/L Chloride 116 H (98-107) mmol/L BUN 22 H (7-17) mg/dL Creatinine 1.33 H (0.52-1.04) mg/dL Microbiology - Last 24 Hours (Table) 12/21/17 12:57 Urine Culture - Preliminary Urine,Voided Assessment and Plan Assessment: Generalized shaking movement of the hands and brief staring episodes. Possible seizures. Acute metabolic encephalopathy, possibly related to post seizure. Family reports increase in confusion. Acute urinary tract infection with recent urine cultures showing Pseudomonas Hypernatremia due to volume depletion and poor oral intake Recent history of acute Gout/pseudogout arthritis, resolved now Acute on CK D stage III baseline creatinine around 1.2 Normocytic anemia History of prior admission with syncope and dehydration Chronic CHF with mildly reduced systolic dysfunction EF 40-45% Dementia History of DVT Remote history of smoking DVT prophylaxis Hyperchloridemia Plan: Continue current medication regime ,monitoring and symptomatic treatment. Maintain seizure precautions. Anticonvulsant/ recommendations as per neurology. Maintain D5W IV fluids as ordered. Nephrology consulted for worsening renal function, hypernatremia. Urine culture pending. Antibiotics as per ID. The impression and plan of care has been dictated as directed. : I performed a history and examination of this patient, discussed the same with the dictator. I agree with the dictator's note ,documented as a scribe. Any additional findings or plans will be noted.
[2017-12-22] MEDS ORDERED: LORazepam 2 MG/ML INJ IV STA (19:26)
[2017-12-22] MEDS: amLODIPine 5 MG TAB PO SCH (21:06)
[2017-12-22] MEDS: MELATONIN 5 MG TABLET PO SCH (21:06)
[2017-12-22] MEDS: ASPIRIN 81 MG PO SCH (21:06)
[2017-12-22] MEDS: OXcarbazepine 300 MG TAB PO SCH (21:06)
--- NOTE | 2017-12-22 22:46 | P.CONS ---
History of Present Illness - Reason for Consult Consult date: 12/23/17 - Chief Complaint Altered mental status - History of Present Illness 87-year-old female was brought into hospital for further alteration of her mental status. The patient is known to the service from her 2 recent hospitalizations with significant pain and swelling and erythema to her right wrist. The patient was given ulceration of her mental status and likely had a seizure which was witnessed. She's been loaded with Keppra is being followed by neurology. She is with her dinner tray in lockstitch front maker with the encouragement of her family is eating a bit, but not as well as usual. With her profound dementia is not able to relate to any new symptoms. The family is pleased that she has this awake alert and interactive. In the also relates that with the recent brace steroid therapy and allopurinol she's had complete resolution of her pain swelling and erythema to her wrist. Review of Systems ROS unobtainable: due to mental status Past Medical History Past Medical History: Dementia, Deep Vein Thrombosis (DVT), Seizure Disorder Additional Past Medical History / Comment(s): Seizure in November 08, UTI, Kidney disease History of Any Multi-Drug Resistant Organisms: None Reported Past Surgical History: No Surgical Hx Reported Additional Past Surgical History / Comment(s): Left ankle fracture Past Anesthesia/Blood Transfusion Reactions: No Reported Reaction Past Psychological History: No Psychological Hx Reported Additional Psychological History / Comment(s): per daughter in law pt had dx of bipolar/anxiety in past Smoking Status: Former smoker Past Alcohol Use History: None Reported Additional Past Alcohol Use History / Comment(s): started smoking in her 20's and [id number] Past Drug Use History: None Reported - Past Family History Father History Unknown: Yes Family Medical History: Unable to Obtain Mother History Unknown: Yes Family Medical History: Unable to Obtain Medications and Allergies Home Medications and Allergies Comment(s): Current Medications Amlodipine Besylate (Norvasc) 5 mg PO HS [facility] Last Admin: 12/22/17 21:06 Dose: 5 mg Aspirin (Aspirin) 81 mg PO HS [facility] Last Admin: 12/22/17 21:06 Dose: 81 mg Calcium Carbonate (Oscal 250+D) 1 each PO BID [facility] Last Admin: 12/22/17 21:06 Dose: 1 each Docusate Sodium (Colace) 100 mg PO QAM [facility] Last Admin: 12/22/17 10:31 Dose: 100 mg Enoxaparin Sodium (Lovenox) 30 mg SQ DAILY [facility] Last Admin: 12/22/17 10:30 Dose: 30 mg Folic Acid (Folic Acid) [facility] [place] Admin: 12/22/17 10:31 Dose: 1 mg Levofloxacin (Levaquin) 750 mg PO DAILY@1200 [facility] Last Admin: 12/22/17 12:24 Dose: 750 mg Lorazepam (Ativan) 0.5 mg IV Q6HR PRN PRN Reason: Anxiety Lorazepam (Ativan) 1 mg IV ONCE ONE Stop: 12/23/17 06:01 Melatonin (Melatonin) 10 mg PO [facility] Last Admin: 12/22/17 21:06 Dose: 10 mg Multivitamins (Theragran) 2 each PO DAILY@1200 [facility] Last Admin: 12/22/17 12:24 Dose: 2 each Naloxone HCl (Narcan) 0.2 mg IV Q2M PRN PRN Reason: Opioid Reversal Oxcarbazepine (Trileptal) 300 mg PO BID [facility] Last Admin: 12/22/17 21:06 Dose: 300 mg Sertraline HCl (Zoloft) [facility] [place] Admin: 12/22/17 12:25 Dose: 150 mg Home Medications Medication Instructions Recorded Confirmed Type Cranberry Fruit Extract [Cranberry] 500 mg PO DAILY 07/15/17 12/21/17 History Multivitamins, Thera [Multivitamin 2 tab PO DAILY 07/15/17 12/21/17 History (formulary)] Sertraline [Zoloft] 150 mg PO [facility] 07/15/17 12/21/17 History Aspirin 81 mg PO 11/08/17 12/21/17 History Docusate [Colace] 100 mg PO [facility] 11/08/17 12/21/17 History [place]-3 Fatty Acids/Fish Oil [Fish 1 cap PO BID 11/08/17 12/21/17 History Oil 1,000 mg Softgel] Folic Acid 1 mg PO QAM 11/19/17 12/21/17 History Thiamine [Vitamin B-1] 100 mg PO QAM 11/19/17 12/21/17 History amLODIPine BESYLATE [Norvasc] 5 mg PO 11/19/17 12/21/17 History Iron 27mg 27 mg PO DAILY 12/09/17 12/21/17 History Melatonin 10 mg PO HS 12/09/17 12/21/17 History Calcium Carb/Vitamin D3/Vit K1 1 tab PO BID 12/21/17 12/21/17 History [Citracal Soft Chew] Allergies Allergy/AdvReac Type Severity Reaction Status Date / Time No Known Allergies Allergy Verified 12/21/17 15:21 Physical Exam Vitals: Vital Signs Temp Pulse Resp BP Pulse Ox 12/22/17 15:10 98.6 F 69 18 128/86 96 12/22/17 07:47 98.0 F 62 18 144/82 95 Intake and Output 12/22/17 12/22/17 12/22/17 06:59 14:59 22:59 Intake Total 300 700 200 Balance 300 700 200 Intake: Intake, IV Titration 300 700 Amount Dextrose 5% in Water 1, 300 600 000 ml @ 100 mls/hr IV . Q10H [facility] Rx#:[id number] Meropenem 1 gm In Sodium 100 Chloride 0.9% 100 ml @ 200 mls/hr IVPB Q12HR RE[facility] Rx#:[id number] Oral 200 Other: Voiding Method Diaper Incontinent # Voids 3 1 Gen: This is an 86-year-old female. She is sitting up in bed and appears to be comfortable. Patient is pleasantly confused. HEENT: Head is atraumatic, normocephalic. Pupils equal, round. Sclerae is anicteric. Mucous members of the mouth are moist. No thrush noted. NECK: Supple. No JVD. No lymphadenopathy. No thyromegaly. LUNGS: Clear to auscultation. No wheezes or rhonchi. No intercostal retractions. HEART: Regular rate and rhythm. No murmur. ABDOMEN: Soft. Bowel sounds are present. No masses. No tenderness. EXTREMITIES: The left wrist is normal. The right wrist has resolution of erythema and tenderness and swelling. She does move around quite freely There are no open lesions. There is no ascending erythema. NEUROLOGICAL: Patient is awake, alert and oriented x1. She is pleasantly confused and has difficulty following directions. Results CBC & Chem 7: 12/22/17 07:07 12/22/17 19:19 Labs: Abnormal Lab Results - Last 24 Hours (Table) 12/22/17 12/22/17 Range/Units 07:07 07:07 RBC 3.48 L (3.80-5.40) m/uL Hgb 9.0 L (11.4-16.0) gm/dL Hct 29.7 L (34.0-46.0) % MCHC 30.4 L (31.0-37.0) g/dL RDW 16.0 H (11.5-15.5) % Sodium 154 H (137-145) mmol/L Chloride 116 H (98-107) mmol/L BUN 22 H (7-17) mg/dL Creatinine 1.33 H (0.52-1.04) mg/dL Microbiology - Last 24 Hours (Table) 12/21/17 12:57 Urine Culture - Preliminary Urine,Voided Laboratory Results WBC 6.3 k/uL (3.8-10.6) 12/22/17 07:07 RBC 3.48 m/uL (3.80-5.40) L 12/22/17 07:07 Hgb 9.0 gm/dL (11.4-16.0) L 12/22/17 07:07 Hct 29.7 % (34.0-46.0) L 12/22/17 07:07 MCV 85.3 fL (80.0-100.0) 12/22/17 07:07 MCH 25.9 pg (25.0-35.0) 12/22/17 07:07 MCHC 30.4 g/dL (31.0-37.0) L 12/22/17 07:07 RDW 16.0 % (11.5-15.5) H 12/22/17 07:07 Plt Count 221 k/uL (150-450) 12/22/17 07:07 Neutrophils % 65 % 12/22/17 07:07 Lymphocytes % 25 % 12/22/17 07:07 Monocytes % 7 % 12/22/17 07:07 Eosinophils % 2 % 12/22/17 07:07 Basophils % 0 % 12/22/17 07:07 Neutrophils # 4.1 k/uL (1.3-7.7) 12/22/17 07:07 Lymphocytes # 1.6 k/uL (1.0-4.8) 12/22/17 07:07 Monocytes # 0.4 k/uL (0-1.0) 12/22/17 07:07 Eosinophils # 0.2 k/uL (0-0.7) 12/22/17 07:07 Basophils # 0.0 k/uL (0-0.2) 12/22/17 07:07 Hypochromasia Moderate 12/22/17 07:07 PT 10.1 sec (9.0-12.0) 12/21/17 12:57 INR 1.0 (<1.2) 12/21/17 12:57 APTT 20.1 sec (22.0-30.0) L 12/21/17 12:57 Sodium 143 mmol/L (137-145) 12/22/17 19:19 Potassium 4.1 mmol/L (3.5-5.1) 12/22/17 07:07 Chloride 116 mmol/L (98-107) H 12/22/17 07:07 Carbon Dioxide 24 mmol/L (22-30) 12/22/17 07:07 Anion Gap 14 mmol/L 12/22/17 07:07 BUN 22 mg/dL (7-17) H 12/22/17 07:07 Creatinine 1.33 mg/dL (0.52-1.04) H 12/22/17 07:07 Est GFR (CKD-EPI)AfAm 42 (>60 ml/min/1.73 sqM) 12/22/17 07:07 Est GFR (CKD-EPI)NonAf 36 (>60 ml/min/1.73 sqM) 12/22/17 07:07 Glucose 91 mg/dL (74-99) 12/22/17 07:07 POC Glucose (mg/dL) 91 mg/dL (75-99) 12/21/17 12:39 POC Glu Carpenter Assistant Installer ID Sharyn Jernigan 12/21/17 12:39 Calcium 9.5 mg/dL (8.4-10.2) 12/22/17 07:07 Total Bilirubin 0.2 mg/dL (0.2-1.3) 12/21/17 12:57 AST 27 U/L (14-36) 12/21/17 12:57 ALT 14 U/L (9-52) 12/21/17 12:57 Alkaline Phosphatase 97 U/L (38-126) 12/21/17 12:57 Total Creatine Kinase 46 U/L (30-135) 12/21/17 12:57 CK-MB (CK-2) 1.8 ng/mL (0.0-2.4) 12/21/17 12:57 CK-MB (CK-2) Rel Index 3.9 12/21/17 12:57 Troponin I <0.012 ng/mL (0.000-0.034) 12/21/17 12:57 Total Protein 7.7 g/dL (6.3-8.2) 12/21/17 12:57 Albumin 4.0 g/dL (3.5-5.0) 12/21/17 12:57 Urine Color Colorless 12/21/17 12:57 Urine Appearance Clear (Clear) 12/21/17 12:57 Urine pH 6.5 (5.0-8.0) 12/21/17 12:57 Ur Specific [place] 1.005 (1.001-1.035) 12/21/17 12:57 Urine Protein Negative (Negative) 12/21/17 12:57 Urine Glucose (UA) Negative (Negative) 12/21/17 12:57 Urine Ketones Negative (Negative) 12/21/17 12:57 Urine Blood Negative (Negative) 12/21/17 12:57 Urine Nitrite Negative (Negative) 12/21/17 12:57 Urine Bilirubin Negative (Negative) 12/21/17 12:57 Urine Urobilinogen <2.0 mg/dL (<2.0) 12/21/17 12:57 Ur Leukocyte Esterase Large (Negative) H 12/21/17 12:57 Urine RBC <1 /hpf (0-5) 12/21/17 12:57 Urine WBC 43 /hpf (0-5) H 12/21/17 12:57 Urine WBC Clumps Moderate /hpf (None) H 12/21/17 12:57 Urine Bacteria Rare /hpf (None) H 12/21/17 12:57 Microbiology 12/21/17 12:57 Urine,Voided Urine Culture - Preliminary Assessment and Plan (1) Seizure Current Visit: Yes Status: Acute Code(s): R56.9 - UNSPECIFIED CONVULSIONS SNOMED Code(s): 01554134 (2) Altered mental status Narrative/Plan: 87 show female presents to Hospital from her care environment with alteration of her mental status. Upon arrival did have evidence of a seizure and has now been treated with Keppra for venous. Neurology consult in progress. She has a history of a recent urinary tract infection with Pseudomonas and is currently being treated with Zosyn. The patient without significant fevers or chills. She appears to be comfortable but does have chronic incontinence. She has been treated for pseudomonas urinary tract infection from earlier this month. Currently antibiotic therapy with levofloxacin has been added and will continue given her history, we'll try to limit anabolic therapy as quickly as possible. Seems doing well from her history of gout or pseudogout of the right wrist. She's had an excellent clinical response to recent treatment which was of steroids and allopurinol and ideally allopurinol can be continued to prevent further bouts to the right wrist which are very painful. Current Visit: No Status: Acute Code(s): R41.82 - ALTERED MENTAL STATUS, UNSPECIFIED SNOMED Code(s): 965239241 (3) Dementia Current Visit: No Status: Acute Code(s): F03.90 - UNSPECIFIED DEMENTIA WITHOUT BEHAVIORAL DISTURBANCE SNOMED Code(s): 69812514
[2017-12-23 00:08] LABS: Glucose,Whole Blood 117 mg/dL (75-99)
--- NOTE | 2017-12-23 00:57 | XR ---
EXAMINATION TYPE: XR chest 1V portable DATE OF EXAM: 12/23/2017 COMPARISON: 12/21/2017 HISTORY: Hypoxemia TECHNIQUE: Single frontal view of the chest is obtained. FINDINGS: Heart is enlarged. Thoracic aorta is atheromatous. There is minimal pulmonary congestion. There is coarsening of interstitial markings. I see no pulmonary consolidation. Bony thorax appears i ntact. IMPRESSION: Cardiomegaly and mild pulmonary fibrosis. No gross heart failure. No change compared to recent exam. Aneurysmal thoracic aorta.
[2017-12-23] MEDS ORDERED: LORazepam 2 MG/ML INJ IV ONE (06:00)
[2017-12-23 08:04] LABS: Calcium 9.3 mg/dL (8.4-10.2); Magnesium 1.9 mg/dL (1.6-2.3); Potassium 3.8 mmol/L (3.5-5.1)
--- NOTE | 2017-12-23 08:46 | MR ---
EXAMINATION TYPE: MR brain wo con DATE OF EXAM: 12/23/2017 8:39 AM COMPARISON: NONE HISTORY: CVA FINDINGS: Multiplanar MultiSpin echo imaging of the brain was performed. Examination is somewhat limited by pat ient positioning. The ventricles, basal cisterns and sulci overlying the cerebral convexities are at least moderately e nlarged. There is evidence of moderate confluence periventricular white matter ischemic demyelination. Remote deep white matter insults are also noted. No acute edema is seen on diffusion weighted imaging. There is no evidence for midline shift or mass effect. Acute intracranial hemorrhage or extra-axial collection is not evident. The paranasal sinuses and mastoid air cells are well-aerated. IMPRESSION: Age-related atrophic and chronic small vessel ischemic change. No acute intracranial process at this time.
[2017-12-23] MEDS: CALCIUM CARB-VIT D 250MG-125UN 1 EACH TAB PO SCH (08:53)
[2017-12-23] MEDS: FOLIC ACID 1 MG TAB PO SCH (08:54)
[2017-12-23] MEDS: DOCUSATE 100 MG CAP PO SCH (08:54)
[2017-12-23] MEDS: OXcarbazepine 300 MG TAB PO SCH (08:54)
[2017-12-23] MEDS: SERTRALINE 100 MG TAB PO SCH (08:55)
[2017-12-23] MEDS: ENOXAPARIN 30 MG/0.3 ML SYRINGE SQ SCH (09:00)
--- NOTE | 2017-12-23 09:41 | CONS ---
CONSULTATION DATE OF CONSULTATION: 12/22/2017. CHIEF COMPLAINT: Altered mental status. HISTORY OF PRESENT ILLNESS: Mrs. Robins is a pleasant 87-year-old female, who is being evaluated today on 12/22/2017 by the neurology service per the request of Dr. Nicole for altered mental status. The patient was brought into [facility] Emergency Room after she had a witnessed seizure at home. Since then, she has been quite confused according to the family. The seizure was described as a generalized tonic colonic seizure, lasting approximately 2 minutes. She did have a similar episode several months ago and was admitted to the hospital but she was not started on any antiepileptic medications because that was her first event. A CT scan of the brain was done on this admission which showed generalized atrophy and small-vessel ischemic changes. Her CBC showed anemia with a hemoglobin of 9.0 and hematocrit 29%. Her INR and cardiac enzymes were negative. Her urinalysis showed 43 WBCs with large leukocyte esterase. Her comprehensive metabolic profile showed hypernatremia at 154 and renal insufficiency with a BUN of 22 and creatinine of 1.33. According to the family, the patient has a history of chronic renal insufficiency. At the time of my evaluation, the patient is sitting in her bed and appears to be in no acute distress. She appears to be having receptive aphasia. She does move all 4 extremities with no difficulties. PAST MEDICAL HISTORY: Advanced dementia, deep venous thrombosis, previous seizures, chronic renal insufficiency. SOCIAL HISTORY: The patient is a former smoker. She denies any alcohol or drug use. FAMILY HISTORY: Noncontributory. HOME MEDICATIONS: Reviewed in the chart. ALLERGIES: No known drug allergies. REVIEW OF SYSTEMS: Unable to obtain due to receptive aphasia. PHYSICAL EXAM: Vital signs show a temperature of 98.6, pulse 69, respirations 18, blood pressure 128/86. GENERAL APPEARANCE: The patient is a well-developed, elderly female who appears to be in no acute distress. HEENT: Normocephalic, atraumatic, no facial asymmetry is seen. NECK: Supple with no masses felt. CARDIOVASCULAR: Regular rate and rhythm. ABDOMEN: Nontender nondistended. EXTREMITIES: Showed no edema or clubbing. NEUROLOGIC EXAM: The patient is awake. Speech is normal. Language testing showed reduced comprehension and naming. Repetition and fluency is intact. She does move all 4 extremities with no obvious lateralizing weakness. Sensory exam was difficult to assess due to her aphasia. No obvious facial asymmetry is seen on cranial nerve testing. No seizure-like activity is seen. IMPRESSION: 1. Altered mental status. 2. Transcortical sensory aphasia. 3. Possible stroke. 4. Seizures. 5. Hypernatremia. 6. Urinary tract infection. 7. Anemia. RECOMMENDATIONS: The patient's neurological examination is consistent with a transcortical sensory aphasia as she has difficulty with naming and salon receptionist/comprehension. A stroke needs to be ruled out. Her CT scan of the brain showed no acute findings. I will order an MRI of the brain without contrast. I will pre-treat her with Ativan. She did have a witnessed seizure and this is her second event. I had a lengthy discussion with the family regarding treatment options. Given her findings of hypernatremia, I will start her on Trileptal 300 mg b.i.d. This may be increased later to 600 mg b.i.d. An EEG will be ordered. Continue neuro checks. I do recommend antibiotic therapy for her urinary tract infection. I would consider antibiotics that do not lower seizure thresholds. I will continue to follow with you. Further recommendations to follow. Thank you for allowing me to participate in the care of your patient. If you have any questions, please feel free to contact me. TAMIA / IJN: [id number] /
[2017-12-23] MEDS: LEVOFLOXACIN 750 MG TAB PO SCH (12:58)
[2017-12-23] MEDS: MULTIVITAMINS, THERA 1 EACH TAB PO SCH (13:00)
[2017-12-23] MEDS: SODIUM CHLORIDE 0.45% 1,000 ML IV SCH (16:13)
--- NOTE | 2017-12-23 16:50 | P.NPCON ---
History of Present Illness - Reason for Consult acute renal failure, hypernatremia - History of Present Illness Reason for consultation: Acute kidney injury and hypernatremia History of present illness: Patient is a 87-year-old female seen in renal consultation for acute kidney injury and hypernatremia. Her creatinine was 1.1 admission and is up to 1.39 today. Patient does have chronic kidney disease stage III with baseline creatinine in the range of 1.2-1.4. Patient presented to the hospital with generalized shaking with concern for seizure. Her sodium was 149 and went up to 154. She was started on D5 W and sodium did come down to 143. The fluids were subsequently discontinued and sodium this morning was 144. Patient has history of dementia and is not a very reliable historian. She was also recently diagnosed with a urinary tract infection with urine culture positive for Pseudomonas as of 12/09/2017. She did undergo a CT and an MRI of the brain which revealed no acute abnormalities. Hemodynamically she stable. Oral intake is poor. No history of diabetes. No proteinuria noted on urinalysis. Vital signs are stable. General: The patient appeared well nourished and normally developed. HEENT: Head exam is unremarkable. Neck is without jugular venous distension. LUNGS: Lungs are clear to auscultation and percussion. Breath sounds decreased. HEART: Rate and Rhythm are regular. First and second heart sounds normal. No murmurs, rubs or gallops. ABDOMEN: Abdominal exam reveals normal bowel sounds. Non-tender and non- distended. No evidence of peritonitis. EXTREMITITES: No clubbing, cyanosis, or edema. Past Medical History Past Medical History: Dementia, Deep Vein Thrombosis (DVT), Seizure Disorder Additional Past Medical History / Comment(s): Seizure in November 08, UTI, Kidney disease History of Any Multi-Drug Resistant Organisms: None Reported Past Surgical History: No Surgical Hx Reported Additional Past Surgical History / Comment(s): Left ankle fracture Past Anesthesia/Blood Transfusion Reactions: No Reported Reaction Past Psychological History: No Psychological Hx Reported Additional Psychological History / Comment(s): per daughter in law pt had dx of bipolar/anxiety in past Smoking Status: Former smoker Past Alcohol Use History: None Reported Additional Past Alcohol Use History / Comment(s): started smoking in her 20's and [id number] Past Drug Use History: None Reported - Past Family History Father History Unknown: Yes Family Medical History: Unable to Obtain Mother History Unknown: Yes Family Medical History: Unable to Obtain Medications and Allergies Home Medications Medication Instructions Recorded Confirmed Type Cranberry Fruit Extract [Cranberry] 500 mg PO DAILY 07/15/17 12/21/17 History Multivitamins, Thera [Multivitamin 2 tab PO DAILY 07/15/17 12/21/17 History (formulary)] Sertraline [Zoloft] 150 mg PO QAM 07/15/17 12/21/17 History Aspirin 81 mg PO HS 11/08/17 12/21/17 History Docusate [Colace] 100 mg PO QAM 11/08/17 12/21/17 History Padroni-3 Fatty Acids/Fish Oil [Fish 1 cap PO BID 11/08/17 12/21/17 History Oil 1,000 mg Softgel] Folic Acid 1 mg PO QAM 11/19/17 12/21/17 History Thiamine [Vitamin B-1] 100 mg PO QAM 11/19/17 12/21/17 History amLODIPine BESYLATE [Norvasc] 5 mg PO HS 11/19/17 12/21/17 History Iron 27mg 27 mg PO DAILY 12/09/17 12/21/17 History Melatonin 10 mg PO 12/09/17 12/21/17 History Calcium Carb/Vitamin D3/Vit K1 1 tab PO BID 12/21/17 12/21/17 History [Citracal Soft Chew] Allergies Allergy/AdvReac Type Severity Reaction Status Date / Time No Known Allergies Allergy Verified 12/21/17 15:21 Physical Exam Vitals: Vital Signs Temp Pulse Pulse Resp BP Pulse Ox 12/23/17 16:17 60 59 L 16 12/23/17 15:00 96.8 F L 59 L 16 163/73 90 L 12/23/17 09:55 56 L 16 12/23/17 07:10 98.1 F 56 L 16 134/77 12/23/17 00:37 144/74 12/23/17 00:26 20 94 L 12/23/17 00:15 70 20 188/92 87 L 12/22/17 21:00 97.6 F 56 L 18 123/72 95 Intake and Output 12/23/17 12/23/17 12/23/17 06:59 14:59 22:59 Intake Total 275 360 Balance 275 360 Intake: IV 275 Dextrose 5% in Water 1, 275 000 ml @ 100 mls/hr IV . Q10H RENA Rx#:[id number] Intake, IV Titration 300 Amount Dextrose 5% in Water 1, 300 000 ml @ 100 mls/hr IV . Q10H RENA Rx#:[id number] Oral 60 Other: Voiding Method Bedside Commode Bedside Commode Diaper Diaper # Voids 1 2 2 # Emeses 1 1 Weight 53.977 kg Results - Lab Results Most recent lab results Calcium 9.3 mg/dL (8.4-10.2) 12/23/17 07:21 Magnesium 1.9 mg/dL (1.6-2.3) 12/23/17 07:21 12/22/17 07:07 12/23/17 07:21 Assessment and Plan Plan: Assessment: #1. Chronic kidney disease stage III with baseline creatinine in the range of 1.2-1.4. GFR near baseline. #2. Hypernatremia secondary to free water deficit from lack of oral water intake. Improved. #3. Altered mental status with concern for stroke. CT and MRI of the brain revealed no acute process. EEG done today. Neurology following. #4. UTI. Culture was positive for Pseudomonas as of 12/09/2017. Cultures from this admission are pending. Infectious disease following. Maintained on Levaquin. #5. Hypertension with chronic kidney disease. Plan: Start half normal saline to be run at 75 mL an hour. Encourage oral intake. Follow-up EEG results. Avoid nephrotoxic agents and hypotensive episodes. Follow-up cultures. Repeat electrolytes in the morning. Thank you for the consultation. I will continue to follow the patient with you during her hospital stay.
--- NOTE | 2017-12-23 17:27 | P.PN ---
Subjective Progress Note Date: 12/23/17 Progress note being dictated for Dr. Renee. Interval history:Patient is a 86-year-old female with a known history of dementia, previous admission with syncope and seizures and a prior history of DVT and UTI came to the hospital with complaints of seizure activity at home as per her daughter at bedside.Patient is a poor historian and most the history was taken from his daughter. Apparently patient has been having shaking movements of the hands and stiffness noted at home. Patient was also having lipsmacking and was staring at the time with eyes wide open. Lasted for about a minute and patient slept of that. Otherwise patient does not have any fever or chills at home. No nausea vomiting or abdominal pain. Patient has been drinking plenty of water as per daughter. No complaints of chest pain or shortness of breath. Patient was discharged from hospital on 12/11/2017 where he presented with right wrist gout/pseudogout arthritis, improved with prednisone.. Patient was previously admitted to the hospital with similar complaints and was seen by neurology at the time. Patient is not on any antiepileptic drugs. Patient was found have urinary tract infection and dehydration with elevated sodium level. Previous urine cultures done on 12/09/2017 showed Pseudomonas. 12/22/2017. Neurology consult in place with recommendations pending. Confused, responds with"ok" to every question. Seizure precautions maintained. No further seizure activity reported. Yesterday placed on D5W for hypernatremia. Sodium, chloride, renal function worsening. UA reporting elevated urine WBC, large leukocyte esterase, culture pending. 12/23/2017. Evaluated by urology with recommendations noted, Trileptal initiated. Completed brain MRI this morning reporting no acute intracranial process. Scheduled for EEG this afternoon. Yesterday hypernatremia, IV fluids changed to D5W, significant improvement with sodium now WNL, chloride down to 108. Diet intake poor, Creatinine 1.39. Objective - Vital Signs Vital signs: Vital Signs Temp 96.8 F L 12/23/17 15:00 Pulse 60 12/23/17 16:17 Resp 16 12/23/17 16:17 BP 163/73 12/23/17 15:00 Pulse Ox 90 L 12/23/17 15:00 Intake & Output 12/22/17 12/23/17 12/23/17 18:59 06:59 18:59 Intake Total 700 475 360 Balance 700 475 360 Weight 53.977 kg Intake: IV 275 Dextrose 5% in Water 1, 275 000 ml @ 100 mls/hr IV . Q10H RENA Rx#:[id number] Intake, IV Titration 700 300 Amount Dextrose 5% in Water 1, 600 300 000 ml @ 100 mls/hr IV . Q10H RENA Rx#:[id number] Meropenem 1 gm In Sodium 100 Chloride 0.9% 100 ml @ 200 mls/hr IVPB Q12HR RENA Rx#:[id number] Oral 200 60 Other: Voiding Method Diaper Bedside Commode Incontinent Diaper # Voids 3 1 2 # Emeses 1 1 - Exam Patient is lying in the bed comfortably, no acute distress, awake alert and oriented 1,. HEENT: Normocephalic. Neck is supple. Pupils reactive. Nostrils clear. Neck reveals no JVD, carotid bruits, or thyromegaly. CHEST EXAMINATION: Trachea is central. Symmetrical expansion. Lung springer clear to auscultation and percussion. CARDIAC: Normal S1, S2 with no gallops. No murmurs ABDOMEN: Soft. Bowel sounds normal. No organomegaly. No abdominal bruits. Extremities: reveal no edema. No clubbing or cyanosis Neurologically awake, alert, oriented x1 with well-coordinated movements. No focal deficits noted Skin: No rash or skin lesions. Psychiatric: Coperative. Could not be assessed completely Musculoskeletal: No joint swelling or deformity. Normal range of motion. - Labs CBC & Chem 7: 12/22/17 07:07 12/23/17 07:21 Labs: Abnormal Lab Results - Last 24 Hours (Table) 12/23/17 12/23/17 Range/Units 00:07 07:21 Chloride 108 H (98-107) mmol/L BUN 19 H (7-17) mg/dL Creatinine 1.39 H (0.52-1.04) mg/dL POC Glucose (mg/dL) 117 H (75-99) mg/dL Assessment and Plan Assessment: Generalized shaking movement of the hands and brief staring episodes. Possible seizures. Acute metabolic encephalopathy, possibly related to post seizure. Family reports increase in confusion. Acute urinary tract infection with recent urine cultures showing Pseudomonas Hypernatremia due to volume depletion and poor oral intake, improved Recent history of acute Gout/pseudogout arthritis, resolved now Acute on CK D stage III baseline creatinine around 1.2 Normocytic anemia History of prior admission with syncope and dehydration Chronic CHF with mildly reduced systolic dysfunction EF 40-45% Dementia History of DVT Remote history of smoking DVT prophylaxis Hyperchloridemia, improving Plan: Continue current medication regime ,monitoring and symptomatic treatment. Maintain seizure precautions. IV fluids changed to half-normal saline. Urine culture pending. Antibiotics as per ID. close monitoring of renal function, electrolytes with repeat labs ordered for a.m. The impression and plan of care has been dictated as directed. : I performed a history and examination of this patient, discussed the same with the dictator. I agree with the dictator's note ,documented as a scribe. Any additional findings or plans will be noted.
--- NOTE | 2017-12-23 19:08 | EEG ---
ELECTROENCEPHALOGRAM REPORT DATE OF SERVICE: 12/23/2017. REASON FOR TESTING: Altered mental status and seizure. DESCRIPTION OF THE PROCEDURE: This EEG was performed using a 21 channel digital electroencephalograph, following international 10-20 system. CURRENT ANTIEPILEPTIC MEDICATIONS: Trileptal. DESCRIPTION OF THE RECORDING: From the beginning of the tracing, and with patient's eyes closed, the background rhythm was mostly consisting of PhosLo 6-7 Hz theta frequency in the posterior occipital leads. No obvious asymmetry is seen. Photic stimulation was performed with no driving response seen. No pathological waves were elicited. Hyperventilation was not performed. The patient does reach stage II of sleep during the tracing and occasional sleep spindles are seen. No epileptiform discharges were seen. Her EKG lead showed a regular rate and rhythm. INTERPRETATION: This asleep and awake EEG is abnormal due to presence of generalized slowing of the background rhythm, mostly in the theta range. This is consistent with mild encephalopathy. No epileptiform discharges were seen. The absence of epileptiform discharges does not rule out the diagnosis of epilepsy, therefore clinical correlation is recommended. MMALBERTL / IJN: [id number] /
[2017-12-23] MEDS ORDERED: OXcarbazepine 300 MG TAB ONE (21:00)
[2017-12-23] MEDS ORDERED: CALCIUM CARB-VIT D 250MG-125UN 1 EACH TAB ONE (21:00)
[2017-12-23] MEDS ORDERED: amLODIPine 5 MG TAB ONE (21:00)
[2017-12-23] MEDS ORDERED: ASPIRIN 81 MG ONE (21:00)
[2017-12-23] MEDS ORDERED: MELATONIN 5 MG TABLET ONE (21:00)
--- NOTE | 2017-12-23 23:01 | P.PN ---
Subjective Progress Note Date: 12/23/17 Principal diagnosis: seizure 87-year-old female was brought into hospital for further alteration of her mental status. The patient is known to the service from her 2 recent hospitalizations with significant pain and swelling and erythema to her right wrist. The patient was given ulceration of her mental status and likely had a seizure which was witnessed. She's been loaded with Keppra is being followed by neurology. She is with her dinner tray in lockstitch front maker with the encouragement of her family is eating a bit, but not as well as usual. With her profound dementia is not able to relate to any new symptoms. The family is pleased that she has this awake alert and interactive. In the also relates that with the recent brace steroid therapy and allopurinol she's had complete resolution of her pain swelling and erythema to her wrist. On 12/23/2017 feels somewhat better. No new symptoms Objective - Vital Signs Vital signs: Vital Signs Temp 97.5 F L 12/23/17 20:30 Pulse 59 L 12/23/17 20:30 Resp 18 12/23/17 20:30 BP 138/69 12/23/17 20:30 Pulse Ox 93 L 12/23/17 20:30 Intake & Output 12/23/17 12/23/17 12/24/17 06:59 18:59 06:59 Intake Total 475 460 Balance 475 460 Weight 53.977 kg Intake: IV 275 Dextrose 5% in Water 1, 275 000 ml @ 100 mls/hr IV . Q10H RENA Rx#:[id number] Intake, IV Titration 300 Amount Dextrose 5% in Water 1, 300 000 ml @ 100 mls/hr IV . Q10H RENA Rx#:[id number] Oral 200 160 Other: Voiding Method Diaper Bedside Commode Diaper Incontinent Diaper Incontinent # Voids 1 1 1 # Emeses 1 1 - Exam Gen: This is an 86-year-old female. She is sitting up in bed and appears to be comfortable. Patient is pleasantly confused. HEENT: Head is atraumatic, normocephalic. Pupils equal, round. Sclerae is anicteric. Mucous members of the mouth are moist. No thrush noted. NECK: Supple. No JVD. No lymphadenopathy. No thyromegaly. LUNGS: Clear to auscultation. No wheezes or rhonchi. No intercostal retractions. HEART: Regular rate and rhythm. No murmur. ABDOMEN: Soft. Bowel sounds are present. No masses. No tenderness. EXTREMITIES: The left wrist is normal. The right wrist has resolution of erythema and tenderness and swelling. She does move around quite freely There are no open lesions. There is no ascending erythema. NEUROLOGICAL: Patient is awake, alert and oriented x1. She is pleasantly confused and has difficulty following directions. - Labs CBC & Chem 7: 12/22/17 07:07 12/23/17 07:21 Labs: Abnormal Lab Results - Last 24 Hours (Table) 12/23/17 12/23/17 Range/Units 00:07 07:21 Chloride 108 H (98-107) mmol/L BUN 19 H (7-17) mg/dL Creatinine 1.39 H (0.52-1.04) mg/dL POC Glucose (mg/dL) 117 H (75-99) mg/dL Microbiology - Last 24 Hours (Table) 12/21/17 12:57 Urine Culture - Final Urine,Voided Pseudomonas fluorescens/putida Laboratory Results WBC 6.3 k/uL (3.8-10.6) 12/22/17 07:07 RBC 3.48 m/uL (3.80-5.40) L 12/22/17 07:07 Hgb 9.0 gm/dL (11.4-16.0) L 12/22/17 07:07 Hct 29.7 % (34.0-46.0) L 12/22/17 07:07 MCV 85.3 fL (80.0-100.0) 12/22/17 07:07 MCH 25.9 pg (25.0-35.0) 12/22/17 07:07 MCHC 30.4 g/dL (31.0-37.0) L 12/22/17 07:07 RDW 16.0 % (11.5-15.5) H 12/22/17 07:07 Plt Count 221 k/uL (150-450) 12/22/17 07:07 Neutrophils % 65 % 12/22/17 07:07 Lymphocytes % 25 % 12/22/17 07:07 Monocytes % 7 % 12/22/17 07:07 Eosinophils % 2 % 12/22/17 07:07 Basophils % 0 % 12/22/17 07:07 Neutrophils # 4.1 k/uL (1.3-7.7) 12/22/17 07:07 Lymphocytes # 1.6 k/uL (1.0-4.8) 12/22/17 07:07 Monocytes # 0.4 k/uL (0-1.0) 12/22/17 07:07 Eosinophils # 0.2 k/uL (0-0.7) 12/22/17 07:07 Basophils # 0.0 k/uL (0-0.2) 12/22/17 07:07 Hypochromasia Moderate 12/22/17 07:07 PT 10.1 sec (9.0-12.0) 12/21/17 12:57 INR 1.0 (<1.2) 12/21/17 12:57 APTT 20.1 sec (22.0-30.0) L 12/21/17 12:57 Sodium 144 mmol/L (137-145) 12/23/17 07:21 Potassium 3.8 mmol/L (3.5-5.1) 12/23/17 07:21 Chloride 108 mmol/L (98-107) H 12/23/17 07:21 Carbon Dioxide 24 mmol/L (22-30) 12/23/17 07:21 Anion Gap 12 mmol/L 12/23/17 07:21 BUN 19 mg/dL (7-17) H 12/23/17 07:21 Creatinine 1.39 mg/dL (0.52-1.04) H 12/23/17 07:21 Est GFR (CKD-EPI)AfAm 40 (>60 ml/min/1.73 sqM) 12/23/17 07:21 Est GFR (CKD-EPI)NonAf 34 (>60 ml/min/1.73 sqM) 12/23/17 07:21 Glucose 88 mg/dL (74-99) 12/23/17 07:21 POC Glucose (mg/dL) 117 mg/dL (75-99) H 12/23/17 00:07 POC Glu Research Analyst ID Marcia Correa 12/23/17 00:07 Calcium 9.3 mg/dL (8.4-10.2) 12/23/17 07:21 Magnesium 1.9 mg/dL (1.6-2.3) 12/23/17 07:21 Total Bilirubin 0.2 mg/dL (0.2-1.3) 12/21/17 12:57 AST 27 U/L (14-36) 12/21/17 12:57 ALT 14 U/L (9-52) 12/21/17 12:57 Alkaline Phosphatase 97 U/L (38-126) 12/21/17 12:57 Total Creatine Kinase 46 U/L (30-135) 12/21/17 12:57 CK-MB (CK-2) 1.8 ng/mL (0.0-2.4) 12/21/17 12:57 CK-MB (CK-2) Rel Index 3.9 12/21/17 12:57 Troponin I <0.012 ng/mL (0.000-0.034) 12/21/17 12:57 Total Protein 7.7 g/dL (6.3-8.2) 12/21/17 12:57 Albumin 4.0 g/dL (3.5-5.0) 12/21/17 12:57 Urine Color Colorless 12/21/17 12:57 Urine Appearance Clear (Clear) 12/21/17 12:57 Urine pH 6.5 (5.0-8.0) 12/21/17 12:57 Ur Specific [place] 1.005 (1.001-1.035) 12/21/17 12:57 Urine Protein Negative (Negative) 12/21/17 12:57 Urine Glucose (UA) Negative (Negative) 12/21/17 12:57 Urine Ketones Negative (Negative) 12/21/17 12:57 Urine Blood Negative (Negative) 12/21/17 12:57 Urine Nitrite Negative (Negative) 12/21/17 12:57 Urine Bilirubin Negative (Negative) 12/21/17 12:57 Urine Urobilinogen <2.0 mg/dL (<2.0) 12/21/17 12:57 Ur Leukocyte Esterase Large (Negative) H 12/21/17 12:57 Urine RBC <1 /hpf (0-5) 12/21/17 12:57 Urine WBC 43 /hpf (0-5) H 12/21/17 12:57 Urine WBC Clumps Moderate /hpf (None) H 12/21/17 12:57 Urine Bacteria Rare /hpf (None) H 12/21/17 12:57 Microbiology 12/21/17 12:57 Urine,Voided Urine Culture - Final Pseudomonas fluorescens/putida Assessment and Plan (1) Seizure Current Visit: Yes Status: Acute Code(s): R56.9 - UNSPECIFIED CONVULSIONS SNOMED Code(s): 57732107 (2) Altered mental status Narrative/Plan: 87 show female presents to Hospital from her care environment with alteration of her mental status. Upon arrival did have evidence of a seizure and has now been treated with Keppra for venous. Neurology consult in progress. She has a history of a recent urinary tract infection with Pseudomonas and is currently being treated with Zosyn. The patient without significant fevers or chills. She appears to be comfortable but does have chronic incontinence. She has been treated for pseudomonas urinary tract infection from earlier this month. Currently antibiotic therapy with levofloxacin has been added and will continue given her history, we'll try to limit antibiotic therapy as quickly as possible. Seems doing well from her history of gout or pseudogout of the right wrist. She's had an excellent clinical response to recent treatment which was of steroids and allopurinol and ideally allopurinol can be continued to prevent further bouts to the right wrist which are very painful. At this time seems to be comfortable. No further seizures and is being followed by neurology. If she improves we'll be able to transition antibiotic therapy to ciprofloxacin to complete the course of treatment for urinary tract infection. Current Visit: No Status: Acute Code(s): R41.82 - ALTERED MENTAL STATUS, UNSPECIFIED SNOMED Code(s): 638166688 (3) Dementia Current Visit: No Status: Acute Code(s): F03.90 - UNSPECIFIED DEMENTIA WITHOUT BEHAVIORAL DISTURBANCE SNOMED Code(s): 05673544
[2017-12-24 08:29] LABS: Calcium 9.2 mg/dL (8.4-10.2); Magnesium 1.9 mg/dL (1.6-2.3); Potassium 4.1 mmol/L (3.5-5.1)
[2017-12-24] MEDS: CALCIUM CARB-VIT D 250MG-125UN 1 EACH TAB PO SCH ×3 (09:48→20:46)
[2017-12-24] MEDS: OXcarbazepine 300 MG TAB PO SCH ×3 (09:48→20:46)
[2017-12-24] MEDS: ENOXAPARIN 30 MG/0.3 ML SYRINGE SQ SCH (09:49)
[2017-12-24] MEDS: FOLIC ACID 1 MG TAB PO SCH (09:49)
[2017-12-24] MEDS: DOCUSATE 100 MG CAP PO SCH (09:49)
[2017-12-24] MEDS: SERTRALINE 100 MG TAB PO SCH (09:50)
[2017-12-24] MEDS: amLODIPine 5 MG TAB PO SCH ×2 (10:19→20:46)
[2017-12-24] MEDS: ASPIRIN 81 MG PO SCH ×2 (10:19→20:47)
[2017-12-24] MEDS: MELATONIN 5 MG TABLET PO SCH ×2 (10:20→20:46)
--- NOTE | 2017-12-24 10:45 | P.PN ---
Subjective Patient is seen in follow-up for acute kidney injury on chronic kidney disease. Patient has chronic kidney disease stage III with baseline creatinine in the range of 1.2-1.4. Creatinine is stable at 1.42 today. Sodium level is 145. Patient is not a reliable historian due to dementia. Oral intake has been fair. No vomiting or diarrhea. MRI of the brain was negative for any acute process. EEG revealed mild encephalopathy. Vital signs are stable. General: The patient appeared well nourished and normally developed. HEENT: Head exam is unremarkable. Neck is without jugular venous distension. LUNGS: Lungs are clear to auscultation and percussion. Breath sounds decreased. HEART: Rate and Rhythm are regular. First and second heart sounds normal. No murmurs, rubs or gallops. ABDOMEN: Abdominal exam reveals normal bowel sounds. Non-tender and non- distended. No evidence of peritonitis. EXTREMITITES: No clubbing, cyanosis, or edema. Objective - Vital Signs Vital signs: Vital Signs Temp 97.6 F 12/24/17 07:00 Pulse 54 L 12/24/17 07:00 Resp 16 12/24/17 07:00 BP 139/74 12/24/17 07:00 Pulse Ox 95 12/24/17 07:00 Intake & Output 12/23/17 12/24/17 12/24/17 18:59 06:59 18:59 Intake Total 460 Balance 460 Weight 53.977 kg 53.977 kg Intake: Intake, IV Titration 300 Amount Dextrose 5% in Water 1, 300 000 ml @ 100 mls/hr IV . Q10H [facility] Rx#:[id number] Oral 160 Other: Voiding Method Bedside Commode Diaper Diaper Incontinent # Voids 1 2 # Emeses 1 - Labs CBC & Chem 7: 12/22/17 07:07 12/24/17 07:19 Labs: Abnormal Lab Results - Last 24 Hours (Table) 12/24/17 Range/Units 07:19 BUN 22 H (7-17) mg/dL Creatinine 1.42 H (0.52-1.04) mg/dL Microbiology - Last 24 Hours (Table) 12/21/17 12:57 Urine Culture - Final Urine,Voided Pseudomonas fluorescens/putida Assessment and Plan Plan: Assessment: #1. Chronic kidney disease stage III with baseline creatinine in the range of 1.2-1.4. GFR near baseline. #2. Hypernatremia secondary to free water deficit from lack of oral water intake. Sodium level is stable at 145 today. #3. Altered mental status with concern for stroke. CT and MRI of the brain revealed no acute process. EEG done today. Neurology following. #4. UTI. Culture was positive for Pseudomonas as of 12/09/2017. Urine culture this admission again positive for Pseudomonas. Maintained on Levaquin. #5. Hypertension with chronic kidney disease. Controlled. Plan: Maintain half normal saline to be run at 75 mL an hour. Encouraged oral intake, including free water. Avoid nephrotoxic agents and hypotensive episodes. Repeat electrolytes in the morning.
[2017-12-24] MEDS: MULTIVITAMINS, THERA 1 EACH TAB PO SCH (12:12)
--- NOTE | 2017-12-24 16:02 | P.PN ---
Subjective Progress Note Date: 12/24/17 Principal diagnosis: Altered mental status Neurology is following an 87-year-old female for altered mental status. Patient was brought to the emergency room where she had a witnessed seizure at home prior to arrival. Since onset of seizure, patient was confused. Seizure activity was described as generalized tonic-clonic seizure, lasting approximately 2 minutes. Similar episode occurred several months ago where patient was admitted to hospital but not started on any antiepileptic medications because of initial event with no prior events. CT of the brain was done on that admission showing generalized atrophy and chronic small vessel ischemic changes. CBC showed anemia with hemoglobin of 9, hematocrit of 29% INR cardiac enzymes were negative. Urinalysis showed elevated wbc's with large leukocyte esterase. CMP showed hypernatremia, renal insufficiency. Patient has a history of chronic renal insufficiency. Trileptal level is pending. Patient was started on Trileptal 300 mg twice a day. Nursing reports that the patient is improving. Seizure activity has not been observed by staff or nursing since last evaluation/rounding by neurology. Patient's MRI noted chronic small vessel ischemic disease. EEG reported mild encephalopathy. On contact, the patient is alert, resting in bed in no acute distress. Objective - Vital Signs Vital signs: Vital Signs Temp 97.7 F 12/24/17 14:58 Pulse 56 L 12/24/17 14:58 Resp 16 12/24/17 14:58 BP 136/70 12/24/17 14:58 Pulse Ox 98 12/24/17 14:58 Intake & Output 12/23/17 12/24/17 12/24/17 18:59 06:59 18:59 Intake Total 460 100 Balance 460 100 Weight 53.977 kg 53.977 kg Intake: Intake, IV Titration 300 Amount Dextrose 5% in Water 1, 300 000 ml @ 100 mls/hr IV . Q10H [facility] Rx#:[id number] Oral 160 100 Other: Voiding Method Bedside Commode Diaper Diaper Diaper Incontinent # Voids 1 2 2 # Emeses 1 - Exam Gen. appearance: Alert, in no apparent distress Head: Atraumatic normocephalic, normal inspection Eyes: Well appearance, PERRL, EOMI. absent: Scleral icterus, conjunctival injection, nystagmus, periorbital swelling. Ear nose and throat: Normal exam, mucous membranes moist Neck: Normal inspection. Absent tenderness, lymphadenopathy Respiratory: No increased work of breathing. Cardiovascular: Regular rate, normal rhythm GIabdominal: Normal bowel sounds, non distended, no tenderness, no guarding, no rebound, no rigidity. Extremities: All range of motion, normal capillary refill, no tenderness, pedal edema, joint swelling, calf tenderness Neurological: Patient is awake. Speech is normal. Language is still showing reduced comprehension and naming. Repetition and fluency is intact. Patient does still move all 4 extremities with no unilateral lateralizing weakness. Sensation appears to be equal in all 4 extremities. No obvious facial asymmetry seen in cranial nerve testing. No seizure-like activity observed during physical exam or interaction Psychological: Mood and affect appropriate setting - Labs CBC & Chem 7: 12/22/17 07:07 12/24/17 07:19 Labs: Abnormal Lab Results - Last 24 Hours (Table) 12/24/17 Range/Units 07:19 BUN 22 H (7-17) mg/dL Creatinine 1.42 H (0.52-1.04) mg/dL Microbiology - Last 24 Hours (Table) 12/21/17 12:57 Urine Culture - Final Urine,Voided Pseudomonas fluorescens/putida Assessment and Plan (1) Seizure Current Visit: Yes Status: Acute Code(s): R56.9 - UNSPECIFIED CONVULSIONS SNOMED Code(s): 11867338 (2) Acute encephalopathy Current Visit: No Status: Acute Code(s): G93.40 - ENCEPHALOPATHY, UNSPECIFIED SNOMED Code(s): 07003101 (3) Altered mental status Current Visit: No Status: Acute Code(s): R41.82 - ALTERED MENTAL STATUS, UNSPECIFIED SNOMED Code(s): 921245064 Plan: 1. Altered mental status Likely secondary to infectious process as noted #4. 2. Seizure Continue Trileptal 300 mg twice a day. Trileptal level pending. If patient's Trileptal level is within therapeutic window, maintained current dose and frequency. A she has remained seizure-free since medication initiation. Patient will need to be considered continued on medication in the outpatient setting. 3. Chronic small vessel ischemic disease MRI of the brain notes chronic small vessel ischemic disease. Continue 81 mg aspirin per existing regimen. 4. Encephalopathy, secondary to infectious process Continue to treat underlying infectious process. Patient's mentation is improving although not back to baseline 5. Transcortical sensory aphasia Status: Neurology will continue to follow on an as-needed basis. If patient is discharged, notify patient to follow up with our office within 14 days. Patient will need further ongoing outpatient management for seizure. I discussed the patients history, physical exam, diagnostic testing, lab work and imaging with Dr Albrecht prior to implementing the plan above. He agrees with the plan as implemented prior to implementation.
[2017-12-24 17:26] LABS: Iron Saturation 13.97 (12.00-45.00)
[2017-12-24] MEDS: SODIUM CHLORIDE 0.45% 1,000 ML IV SCH ×2 (18:21→20:57)
--- NOTE | 2017-12-24 19:25 | P.PN ---
Subjective Progress Note Date: 12/24/17 Progress note being dictated for Dr. Lima Interval history:Patient is a 86-year-old female with a known history of dementia, previous admission with syncope and seizures and a prior history of DVT and UTI came to the hospital with complaints of seizure activity at home as per her daughter at bedside.Patient is a poor historian and most the history was taken from his daughter. Apparently patient has been having shaking movements of the hands and stiffness noted at home. Patient was also having lipsmacking and was staring at the time with eyes wide open. Lasted for about a minute and patient slept of that. Otherwise patient does not have any fever or chills at home. No nausea vomiting or abdominal pain. Patient has been drinking plenty of water as per daughter. No complaints of chest pain or shortness of breath. Patient was discharged from hospital on 12/11/2017 where he presented with right wrist gout/pseudogout arthritis, improved with prednisone.. Patient was previously admitted to the hospital with similar complaints and was seen by neurology at the time. Patient is not on any antiepileptic drugs. Patient was found have urinary tract infection and dehydration with elevated sodium level. Previous urine cultures done on 12/09/2017 showed Pseudomonas. 12/22/2017. Neurology consult in place with recommendations pending. Confused, responds with"ok" to every question. Seizure precautions maintained. No further seizure activity reported. Yesterday placed on D5W for hypernatremia. Sodium, chloride, renal function worsening. UA reporting elevated urine WBC, large leukocyte esterase, culture pending. 12/23/2017. Evaluated by urology with recommendations noted, Trileptal initiated. Completed brain MRI this morning reporting no acute intracranial process. Scheduled for EEG this afternoon. Yesterday hypernatremia, IV fluids changed to D5W, significant improvement with sodium now WNL, chloride down to 108. Diet intake poor, Creatinine 1.39. 12/24/2017 no further seizure activity reported per staff, maintained on Trileptal. Ruling out possible CVA, Brain MRI reported no acute process , EEG reported mild encephalopathy, creatinine currently 1.42. Prior urine culture positive for Pseudomonas on 12/09/2017; current urine culture now reporting positive for Pseudomonas. Maintained on IV antibiotics as per infectious disease. Objective - Vital Signs Vital signs: Vital Signs Temp 97.6 F 04/18/18 07:00 Pulse 54 L 12/24/17 07:00 Resp 16 12/24/17 07:00 BP 139/74 12/24/17 07:00 Pulse Ox 95 12/24/17 07:00 Intake & Output 12/23/17 12/24/17 12/24/17 18:59 06:59 18:59 Intake Total 460 Balance 460 Weight 53.977 kg 53.977 kg Intake: Intake, IV Titration 300 Amount Dextrose 5% in Water 1, 300 000 ml @ 100 mls/hr IV . Q10H [facility] Rx#:[id number] Oral 160 Other: Voiding Method Bedside Commode Diaper Diaper Incontinent # Voids 1 2 # Emeses 1 - Exam Patient is lying in the bed comfortably, no acute distress, awake alert and oriented 1,. HEENT: Normocephalic. Neck is supple. Pupils reactive. Oral mucosa moist Neck reveals no JVD, carotid bruits, or thyromegaly. CHEST EXAMINATION: Trachea is central. Symmetrical expansion. Lung springer clear to auscultation and percussion. CARDIAC: Normal S1, S2 with no gallops. No murmurs ABDOMEN: Soft. Bowel sounds normal. No organomegaly. No abdominal bruits. Extremities: reveal no edema. No clubbing or cyanosis Neurologically awake, alert, oriented x1 with well-coordinated movements. No focal deficits noted Skin: No rash or skin lesions. Psychiatric: Coperative. Could not be assessed completely Musculoskeletal: No joint swelling or deformity. Normal range of motion. - Labs CBC & Chem 7: 12/22/17 07:07 12/24/17 07:19 Labs: Abnormal Lab Results - Last 24 Hours (Table) 12/24/17 Range/Units 07:19 BUN 22 H (7-17) mg/dL Creatinine 1.42 H (0.52-1.04) mg/dL Microbiology - Last 24 Hours (Table) 12/21/17 12:57 Urine Culture - Final Urine,Voided Pseudomonas fluorescens/putida Assessment and Plan Assessment: Generalized shaking movement of the hands and brief staring episodes. Possible seizures. MRI, CT reported no acute process Acute metabolic encephalopathy, possibly related to post seizure. Acute urinary tract infection with Pseudomonas, recent urine cultures of 2017 showing Pseudomonas Hypernatremia due to volume depletion and poor oral intake, improved Recent history of acute Gout/pseudogout arthritis, resolved now Acute on CK D stage III baseline creatinine around 1.2 Normocytic anemia, of chronic disease secondary to CKD History of prior admission with syncope and dehydration Chronic CHF with mildly reduced systolic dysfunction EF 40-45% Dementia History of DVT Remote history of smoking DVT prophylaxis Hyperchloridemia, improving Plan: Continue current medication regime ,monitoring and symptomatic treatment. Maintain seizure precautions. Continue IV fluids of half-normal saline. Antibiotics as per ID. close monitoring of renal function, electrolytes with repeat labs ordered for a.m. The impression and plan of care has been dictated as directed. : I performed a history and examination of this patient, discussed the same with the dictator. I agree with the dictator's note ,documented as a scribe. Any additional findings or plans will be noted.
--- NOTE | 2017-12-24 22:30 | P.PN ---
Subjective Progress Note Date: 12/24/17 Principal diagnosis: seizure 87-year-old female was brought into hospital for further alteration of her mental status. The patient is known to the service from her 2 recent hospitalizations with significant pain and swelling and erythema to her right wrist. The patient was given ulceration of her mental status and likely had a seizure which was witnessed. She's been loaded with Keppra is being followed by neurology. 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 With her profound dementia is not able to relate to any new symptoms. The family is pleased that she has this awake alert and interactive. In the also relates that with the recent brace steroid therapy and allopurinol she's had complete resolution of her pain swelling and erythema to her wrist. On 12/23/2017 feels somewhat better. No new symptoms 12/24/2017 reveals the patient to be more comfortable. She is manipulating her busy blanket, her daughter who is present relates that she's eaten well today. Objective - Vital Signs Vital signs: Vital Signs Temp 98.2 F 12/24/17 20:30 Pulse 61 12/24/17 20:30 Resp 18 12/24/17 20:30 BP 128/83 12/24/17 20:30 Pulse Ox 94 L 12/24/17 20:30 Intake & Output 12/24/17 12/24/17 12/25/17 06:59 18:59 06:59 Intake Total 100 Balance 100 Weight 53.977 kg Intake: Oral 100 Other: Voiding Method Diaper Diaper Incontinent # Voids 2 2 1 - Exam Gen: This is an 86-year-old female. She is sitting up in bed and appears to be comfortable. Patient is pleasantly confused. HEENT: Head is atraumatic, normocephalic. Pupils equal, round. Sclerae is anicteric. Mucous members of the mouth are moist. No thrush noted. NECK: Supple. No JVD. No lymphadenopathy. No thyromegaly. LUNGS: Clear to auscultation. No wheezes or rhonchi. No intercostal retractions. HEART: Regular rate and rhythm. No murmur. ABDOMEN: Soft. Bowel sounds are present. No masses. No tenderness. EXTREMITIES: The left wrist is normal. The right wrist has resolution of erythema and tenderness and swelling. She does move around quite freely There are no open lesions. There is no ascending erythema. NEUROLOGICAL: Patient is awake, alert and oriented x1. She is pleasantly confused and has difficulty following directions. - Labs CBC & Chem 7: 12/22/17 07:07 12/24/17 07:19 Labs: Abnormal Lab Results - Last 24 Hours (Table) 12/24/17 Range/Units 07:19 BUN 22 H (7-17) mg/dL Creatinine 1.42 H (0.52-1.04) mg/dL Microbiology - Last 24 Hours (Table) 12/21/17 12:57 Urine Culture - Final Urine,Voided Pseudomonas fluorescens/putida Laboratory Results WBC 6.3 k/uL (3.8-10.6) 12/22/17 07:07 RBC 3.48 m/uL (3.80-5.40) L 12/22/17 07:07 Hgb 9.0 gm/dL (11.4-16.0) L 12/22/17 07:07 Hct 29.7 % (34.0-46.0) L 12/22/17 07:07 MCV 85.3 fL (80.0-100.0) 12/22/17 07:07 MCH 25.9 pg (25.0-35.0) 12/22/17 07:07 MCHC 30.4 g/dL (31.0-37.0) L 12/22/17 07:07 RDW 16.0 % (11.5-15.5) H 12/22/17 07:07 Plt Count 221 k/uL (150-450) 12/22/17 07:07 Neutrophils % 65 % 12/22/17 07:07 Lymphocytes % 25 % 12/22/17 07:07 Monocytes % 7 % 12/22/17 07:07 Eosinophils % 2 % 12/22/17 07:07 Basophils % 0 % 12/22/17 07:07 Neutrophils # 4.1 k/uL (1.3-7.7) 12/22/17 07:07 Lymphocytes # 1.6 k/uL (1.0-4.8) 12/22/17 07:07 Monocytes # 0.4 k/uL (0-1.0) 12/22/17 07:07 Eosinophils # 0.2 k/uL (0-0.7) 12/22/17 07:07 Basophils # 0.0 k/uL (0-0.2) 12/22/17 07:07 Hypochromasia Moderate 12/22/17 07:07 PT 10.1 sec (9.0-12.0) 12/21/17 12:57 INR 1.0 (<1.2) 12/21/17 12:57 APTT 20.1 sec (22.0-30.0) L 12/21/17 12:57 Sodium 145 mmol/L (137-145) 12/24/17 07:19 Potassium 4.1 mmol/L (3.5-5.1) 12/24/17 07:19 Chloride 107 mmol/L (98-107) 12/24/17 07:19 Carbon Dioxide 23 mmol/L (22-30) 12/24/17 07:19 Anion Gap 15 mmol/L 12/24/17 07:19 BUN 22 mg/dL (7-17) H 12/24/17 07:19 Creatinine 1.42 mg/dL (0.52-1.04) H 12/24/17 07:19 Est GFR (CKD-EPI)AfAm 39 (>60 ml/min/1.73 sqM) 12/24/17 07:19 Est GFR (CKD-EPI)NonAf 34 (>60 ml/min/1.73 sqM) 12/24/17 07:19 Glucose 86 mg/dL (74-99) 12/24/17 07:19 POC Glucose (mg/dL) 117 mg/dL (75-99) H 12/23/17 00:07 POC Glu Sap Administrator ID Marcia Correa 12/23/17 00:07 Calcium 9.2 mg/dL (8.4-10.2) 12/24/17 07:19 Magnesium 1.9 mg/dL (1.6-2.3) 12/24/17 07:19 Total Bilirubin 0.2 mg/dL (0.2-1.3) 12/21/17 12:57 AST 27 U/L (14-36) 12/21/17 12:57 ALT 14 U/L (9-52) 12/21/17 12:57 Alkaline Phosphatase 97 U/L (38-126) 12/21/17 12:57 Total Creatine Kinase 46 U/L (30-135) 12/21/17 12:57 CK-MB (CK-2) 1.8 ng/mL (0.0-2.4) 12/21/17 12:57 CK-MB (CK-2) Rel Index 3.9 12/21/17 12:57 Troponin I <0.012 ng/mL (0.000-0.034) 12/21/17 12:57 Total Protein 7.7 g/dL (6.3-8.2) 12/21/17 12:57 Albumin 4.0 g/dL (3.5-5.0) 12/21/17 12:57 Urine Color Colorless 12/21/17 12:57 Urine Appearance Clear (Clear) 12/21/17 12:57 Urine pH 6.5 (5.0-8.0) 12/21/17 12:57 Ur Specific Balm 1.005 (1.001-1.035) 12/21/17 12:57 Urine Protein Negative (Negative) 12/21/17 12:57 Urine Glucose (UA) Negative (Negative) 12/21/17 12:57 Urine Ketones Negative (Negative) 12/21/17 12:57 Urine Blood Negative (Negative) 12/21/17 12:57 Urine Nitrite Negative (Negative) 12/21/17 12:57 Urine Bilirubin Negative (Negative) 12/21/17 12:57 Urine Urobilinogen <2.0 mg/dL (<2.0) 12/21/17 12:57 Ur Leukocyte Esterase Large (Negative) H 12/21/17 12:57 Urine RBC <1 /hpf (0-5) 12/21/17 12:57 Urine WBC 43 /hpf (0-5) H 12/21/17 12:57 Urine WBC Clumps Moderate /hpf (None) H 12/21/17 12:57 Urine Bacteria Rare /hpf (None) H 12/21/17 12:57 Microbiology 12/21/17 12:57 Urine,Voided Urine Culture - Final Pseudomonas fluorescens/putida Assessment and Plan (1) Seizure Current Visit: Yes Status: Acute Code(s): R56.9 - UNSPECIFIED CONVULSIONS SNOMED Code(s): 24969963 (2) Altered mental status Narrative/Plan: 87 show female presents to Hospital from her care environment with alteration of her mental status. Upon arrival did have evidence of a seizure and has now been treated with Keppra for venous. Neurology consult in progress. She has a history of a recent urinary tract infection with Pseudomonas and is currently being treated with Zosyn. The patient without significant fevers or chills. She appears to be comfortable but does have chronic incontinence. She has been treated for pseudomonas urinary tract infection from earlier this month. Currently antibiotic therapy with levofloxacin has been added and will continue given her history, we'll try to limit antibiotic therapy as quickly as possible. Seems doing well from her history of gout or pseudogout of the right wrist. She's had an excellent clinical response to recent treatment which was of steroids and allopurinol and ideally allopurinol can be continued to prevent further bouts to the right wrist which are very painful. At this time seems to be comfortable. No further seizures and is being followed by neurology. If she improves we'll be able to transition antibiotic therapy to ciprofloxacin to complete the course of treatment for urinary tract infection. 12/24/2017 he shouldn't seems to be near her baseline mental status. Is being followed by nephrology to improve her renal function. Has noted urinary tract infection with pseudomonas and will complete her course of treatment with ciprofloxacin when she is ready for discharge. Current Visit: No Status: Acute Code(s): R41.82 - ALTERED MENTAL STATUS, UNSPECIFIED SNOMED Code(s): 151830319 (3) Dementia Current Visit: No Status: Acute Code(s): F03.90 - UNSPECIFIED DEMENTIA WITHOUT BEHAVIORAL DISTURBANCE SNOMED Code(s): 55908650
[2017-12-25 07:48] LABS: Calcium 8.8 mg/dL (8.4-10.2); Potassium 3.9 mmol/L (3.5-5.1)
[2017-12-25] MEDS: SERTRALINE 100 MG TAB PO SCH (08:19)
[2017-12-25] MEDS: FOLIC ACID 1 MG TAB PO SCH (08:19)
[2017-12-25] MEDS: OXcarbazepine 300 MG TAB PO SCH ×2 (08:19→20:49)
[2017-12-25] MEDS: DOCUSATE 100 MG CAP PO SCH (08:19)
[2017-12-25] MEDS: CALCIUM CARB-VIT D 250MG-125UN 1 EACH TAB PO SCH ×2 (08:20→20:49)
[2017-12-25] MEDS: SODIUM CHLORIDE 0.45% 1,000 ML IV SCH (08:20)
[2017-12-25] MEDS: ENOXAPARIN 30 MG/0.3 ML SYRINGE SQ SCH (08:20)
--- NOTE | 2017-12-25 10:11 | P.PN ---
Subjective Patient is seen in follow-up for acute kidney injury on chronic kidney disease. Patient has chronic kidney disease stage III with baseline creatinine in the range of 1.2-1.4. Creatinine is 1.31 today. Sodium level is 143. Patient is not a reliable historian due to dementia. Oral intake has been fair. No vomiting or diarrhea. MRI of the brain was negative for any acute process. EEG revealed mild encephalopathy. Hemodynamically stable. Vital signs are stable. General: The patient appeared well nourished and normally developed. HEENT: Head exam is unremarkable. Neck is without jugular venous distension. LUNGS: Lungs are clear to auscultation and percussion. Breath sounds decreased. HEART: Rate and Rhythm are regular. First and second heart sounds normal. No murmurs, rubs or gallops. ABDOMEN: Abdominal exam reveals normal bowel sounds. Non-tender and non- distended. No evidence of peritonitis. EXTREMITITES: No clubbing, cyanosis, or edema. Objective - Vital Signs Vital signs: Vital Signs Temp 98.1 F 12/25/17 07:12 Pulse 59 L 12/25/17 07:12 Resp 18 12/25/17 07:12 BP 142/72 12/25/17 07:12 Pulse Ox 93 L 12/25/17 07:12 Intake & Output 12/24/17 12/25/17 12/25/17 18:59 06:59 18:59 Intake Total 100 Balance 100 Weight 53.977 kg Intake: Oral 100 Other: Voiding Method Diaper Diaper # Voids 2 2 - Labs CBC & Chem 7: 12/22/17 07:07 12/25/17 06:58 Labs: Abnormal Lab Results - Last 24 Hours (Table) 12/24/17 12/25/17 Range/Units 07:19 06:58 Chloride 108 H (98-107) mmol/L BUN 23 H (7-17) mg/dL Creatinine 1.31 H (0.52-1.04) mg/dL Iron 44 L (50-170) ug/dL Assessment and Plan Plan: Assessment: #1. Chronic kidney disease stage III with baseline creatinine in the range of 1.2-1.4. GFR near baseline. #2. Hypernatremia secondary to free water deficit from lack of oral water intake. Sodium level is down to 143 today. #3. Altered mental status with concern for stroke. CT and MRI of the brain revealed no acute process. Neurology following. #4. UTI. Culture was positive for Pseudomonas as of 12/09/2017. Urine culture this admission again positive for Pseudomonas. Maintained on Levaquin. #5. Hypertension with chronic kidney disease. Controlled. #6. Anemia. Iron deficiency noted. Plan: Maintain half normal saline to be run at 75 mL an hour. Encouraged oral intake, including free water. Avoid nephrotoxic agents and hypotensive episodes. Repeat electrolytes in the morning. Ferrlecit 125 mg IV daily for 3 days. First dose today.
[2017-12-25] MEDS ORDERED: LEVOFLOXACIN 750 MG TAB PO SCH (12:00)
[2017-12-25] MEDS: SODIUM FERRIC GLUCONAT-SUCROSE 125 MG in SODIUM CHLORIDE 0.9% 100 ML IVPB SCH (12:28)
[2017-12-25] MEDS: MULTIVITAMINS, THERA 1 EACH TAB PO SCH (14:20)
[2017-12-25] MEDS: ONDANSETRON 4 MG/2 ML VIAL IVP PRN (15:02)
--- NOTE | 2017-12-25 19:01 | P.PN ---
Subjective Progress Note Date: 12/25/17 Progress note being dictated for Dr. Lima Interval history:Patient is a 86-year-old female with a known history of dementia, previous admission with syncope and seizures and a prior history of DVT and UTI came to the hospital with complaints of seizure activity at home as per her daughter at bedside.Patient is a poor historian and most the history was taken from his daughter. Apparently patient has been having shaking movements of the hands and stiffness noted at home. Patient was also having lipsmacking and was staring at the time with eyes wide open. Lasted for about a minute and patient slept of that. Otherwise patient does not have any fever or chills at home. No nausea vomiting or abdominal pain. Patient has been drinking plenty of water as per daughter. No complaints of chest pain or shortness of breath. Patient was discharged from hospital on 12/11/2017 where he presented with right wrist gout/pseudogout arthritis, improved with prednisone.. Patient was previously admitted to the hospital with similar complaints and was seen by neurology at the time. Patient is not on any antiepileptic drugs. Patient was found have urinary tract infection and dehydration with elevated sodium level. Previous urine cultures done on 12/09/2017 showed Pseudomonas. 12/22/2017. Neurology consult in place with recommendations pending. Confused, responds with"ok" to every question. Seizure precautions maintained. No further seizure activity reported. Yesterday placed on D5W for hypernatremia. Sodium, chloride, renal function worsening. UA reporting elevated urine WBC, large leukocyte esterase, culture pending. 12/23/2017. Evaluated by urology with recommendations noted, Trileptal initiated. Completed brain MRI this morning reporting no acute intracranial process. Scheduled for EEG this afternoon. Yesterday hypernatremia, IV fluids changed to D5W, significant improvement with sodium now WNL, chloride down to 108. Diet intake poor, Creatinine 1.39. 12/24/2017 no further seizure activity reported per staff, maintained on Trileptal. Ruling out possible CVA, Brain MRI reported no acute process , EEG reported mild encephalopathy, creatinine currently 1.42. Prior urine culture positive for Pseudomonas on 12/09/2017; current urine culture now reporting positive for Pseudomonas. Maintained on IV antibiotics as per infectious disease. 12/25/2017. Diet intake slowly improving. No nausea, no vomiting. Renal function continues to improve, down to 1.31. Maintained on IV fluids of half normal saline ,Sodium 143. No further seizure activity reported. Receiving IV Ferrlecit. Continues on Levaquin for acute UTI with pseudomonas. Objective - Vital Signs Vital signs: Vital Signs Temp 98.1 F 12/25/17 07:12 Pulse 63 12/25/17 16:05 Resp 18 12/25/17 16:05 BP 161/89 12/25/17 16:05 Pulse Ox 96 12/25/17 16:05 Intake & Output 12/24/17 12/25/17 12/25/17 18:59 06:59 18:59 Intake Total 100 3000 Balance 100 3000 Weight 53.977 kg Intake: Intake, IV Titration 700 Amount Sodium Chloride 0.45% 1, 600 000 ml @ 75 mls/hr IV . [id number] [facility] Rx#:[id number] Sodium Ferric Gluconat- 100 Sucrose 125 mg In Sodium Chloride 0.9% 100 ml @ 100 mls/hr IVPB DAILY RE[facility] Rx#:[id number] Oral 100 2300 Other: Voiding Method Diaper Diaper Diaper # Voids 2 2 1 # Emeses 1 - Exam Patient is lying in the bed comfortably, no acute distress, awake alert and oriented 1,. HEENT: Normocephalic. Neck is supple. Pupils reactive. Oral mucosa moist Neck reveals no JVD, carotid bruits, or thyromegaly. CHEST EXAMINATION: Bilateral bases diminished, Lung springer clear to auscultation. CARDIAC: Normal S1, S2 with no gallops. No murmurs ABDOMEN: Soft. Bowel sounds normal. No organomegaly. No abdominal bruits. Extremities: reveal no edema. No clubbing or cyanosis Neurologically awake, alert, oriented x1 with well-coordinated movements. No focal deficits noted Skin: No rash or skin lesions. Psychiatric: Coperative. Could not be assessed completely Musculoskeletal: No joint swelling or deformity. Normal range of motion. - Labs CBC & Chem 7: 12/22/17 07:07 12/25/17 06:58 Labs: Abnormal Lab Results - Last 24 Hours (Table) 12/24/17 12/25/17 Range/Units 07:19 06:58 Chloride 108 H (98-107) mmol/L BUN 23 H (7-17) mg/dL Creatinine 1.31 H (0.52-1.04) mg/dL Iron 44 L (50-170) ug/dL Assessment and Plan Assessment: Generalized shaking movement of the hands and brief staring episodes. Possible seizures. MRI, CT reported no acute process Acute metabolic encephalopathy, possibly related to post seizure. Acute urinary tract infection with Pseudomonas, recent urine cultures of 2017 showing Pseudomonas Hypernatremia due to volume depletion and poor oral intake, improved Recent history of acute Gout/pseudogout arthritis, resolved now Acute on CK D stage III baseline creatinine around 1.2 Normocytic anemia, of chronic disease secondary to CKD History of prior admission with syncope and dehydration Chronic CHF with mildly reduced systolic dysfunction EF 40-45% Dementia History of DVT Remote history of smoking DVT prophylaxis Hyperchloridemia, improving Plan: Continue current medication regime ,monitoring and symptomatic treatment. Maintain seizure precautions. Continue IV fluids of half-normal saline. Antibiotics as per ID. close monitoring of renal function, electrolytes with repeat labs ordered for a.m. discharge planning in progress for tomorrow. The impression and plan of care has been dictated as directed. : I performed a history and examination of this patient, discussed the same with the dictator. I agree with the dictator's note ,documented as a scribe. Any additional findings or plans will be noted.
[2017-12-25] MEDS: ASPIRIN 81 MG PO SCH (20:49)
[2017-12-25] MEDS: MELATONIN 5 MG TABLET PO SCH (20:49)
[2017-12-25] MEDS: amLODIPine 5 MG TAB PO SCH (20:49)
--- NOTE | 2017-12-25 23:13 | P.PN ---
Subjective Progress Note Date: 12/25/17 Principal diagnosis: seizure 87-year-old female was brought into hospital for further alteration of her mental status. The patient is known to the service from her 2 recent hospitalizations with significant pain and swelling and erythema to her right wrist. The patient was given ulceration of her mental status and likely had a seizure which was witnessed. She's been loaded with Keppra is being followed by neurology. She is with her dinner tray in front end alignment specialist with the encouragement of her family is eating a bit, but not as well as usual. With her profound dementia is not able to relate to any new symptoms. The family is pleased that she has this awake alert and interactive. In the also relates that with the recent brace steroid therapy and allopurinol she's had complete resolution of her pain swelling and erythema to her wrist. On 12/23/2017 feels somewhat better. No new symptoms 12/24/2017 reveals the patient to be more comfortable. She is manipulating her busy blanket, her daughter who is present relates that she's eaten well today. 12/25/2017 patient remains comfortable. No acute no difficulties or complaints. Objective - Vital Signs Vital signs: Vital Signs Temp 98.1 F 12/25/17 07:12 Pulse 63 12/25/17 16:05 Resp 18 12/25/17 16:05 BP 161/89 12/25/17 16:05 Pulse Ox 96 12/25/17 16:05 Intake & Output 12/25/17 12/25/17 12/26/17 06:59 18:59 06:59 Intake Total 3000 Balance 3000 Intake: Intake, IV Titration 700 Amount Sodium Chloride 0.45% 1, 600 000 ml @ 75 mls/hr IV . [id number] [facility] Rx#:[id number] Sodium Ferric Gluconat- 100 Sucrose 125 mg In Sodium Chloride 0.9% 100 ml @ 100 mls/hr IVPB DAILY [facility] Rx#:[id number] Oral 2300 Other: Voiding Method Diaper Diaper # Voids 2 1 # Emeses 1 - Exam Gen: This is an 86-year-old female. She is sitting up in bed and appears to be comfortable. Patient is pleasantly confused. HEENT: Head is atraumatic, normocephalic. Pupils equal, round. Sclerae is anicteric. Mucous members of the mouth are moist. No thrush noted. NECK: Supple. No JVD. No lymphadenopathy. No thyromegaly. LUNGS: Clear to auscultation. No wheezes or rhonchi. No intercostal retractions. HEART: Regular rate and rhythm. No murmur. ABDOMEN: Soft. Bowel sounds are present. No masses. No tenderness. EXTREMITIES: The left wrist is normal. The right wrist has resolution of erythema and tenderness and swelling. She does move around quite freely There are no open lesions. There is no ascending erythema. NEUROLOGICAL: Patient is awake, alert and oriented x1. She is pleasantly confused and has difficulty following directions. - Labs CBC & Chem 7: 12/22/17 07:07 12/25/17 06:58 Labs: Abnormal Lab Results - Last 24 Hours (Table) 12/24/17 12/25/17 Range/Units 07:19 06:58 Chloride 108 H (98-107) mmol/L BUN 23 H (7-17) mg/dL Creatinine 1.31 H (0.52-1.04) mg/dL Iron 44 L (50-170) ug/dL Laboratory Results WBC 6.3 k/uL (3.8-10.6) 12/22/17 07:07 RBC 3.48 m/uL (3.80-5.40) L 12/22/17 07:07 Hgb 9.0 gm/dL (11.4-16.0) L 12/22/17 07:07 Hct 29.7 % (34.0-46.0) L 12/22/17 07:07 MCV 85.3 fL (80.0-100.0) 12/22/17 07:07 MCH 25.9 pg (25.0-35.0) 12/22/17 07:07 MCHC 30.4 g/dL (31.0-37.0) L 12/22/17 07:07 RDW 16.0 % (11.5-15.5) H 12/22/17 07:07 Plt Count 221 k/uL (150-450) 12/22/17 07:07 Neutrophils % 65 % 12/22/17 07:07 Lymphocytes % 25 % 12/22/17 07:07 Monocytes % 7 % 12/22/17 07:07 Eosinophils % 2 % 12/22/17 07:07 Basophils % 0 % 12/22/17 07:07 Neutrophils # 4.1 k/uL (1.3-7.7) 12/22/17 07:07 Lymphocytes # 1.6 k/uL (1.0-4.8) 12/22/17 07:07 Monocytes # 0.4 k/uL (0-1.0) 12/22/17 07:07 Eosinophils # 0.2 k/uL (0-0.7) 12/22/17 07:07 Basophils # 0.0 k/uL (0-0.2) 12/22/17 07:07 Hypochromasia Moderate 12/22/17 07:07 PT 10.1 sec (9.0-12.0) 12/21/17 12:57 INR 1.0 (<1.2) 12/21/17 12:57 APTT 20.1 sec (22.0-30.0) L 12/21/17 12:57 Sodium 143 mmol/L (137-145) 12/25/17 06:58 Potassium 3.9 mmol/L (3.5-5.1) 12/25/17 06:58 Chloride 108 mmol/L (98-107) H 12/25/17 06:58 Carbon Dioxide 24 mmol/L (22-30) 12/25/17 06:58 Anion Gap 11 mmol/L 12/25/17 06:58 BUN 23 mg/dL (7-17) H 12/25/17 06:58 Creatinine 1.31 mg/dL (0.52-1.04) H 12/25/17 06:58 Est GFR (CKD-EPI)AfAm 43 (>60 ml/min/1.73 sqM) 12/25/17 06:58 Est GFR (CKD-EPI)NonAf 37 (>60 ml/min/1.73 sqM) 12/25/17 06:58 Glucose 87 mg/dL (74-99) 12/25/17 06:58 POC Glucose (mg/dL) 117 mg/dL (75-99) H 12/23/17 00:07 POC Glu Head Of Sales Promotion ID Marcia Correa 12/23/17 00:07 Calcium 8.8 mg/dL (8.4-10.2) 12/25/17 06:58 Magnesium 1.9 mg/dL (1.6-2.3) 12/24/17 07:19 Iron 44 ug/dL (50-170) L 12/24/17 07:19 TIBC 315 ug/dL (228-460) 12/24/17 07:19 Iron Saturation 13.97 (12.00-45.00) 12/24/17 07:19 Ferritin 46.6 ng/mL (10.0-291.0) 12/24/17 07:19 Total Bilirubin 0.2 mg/dL (0.2-1.3) 12/21/17 12:57 AST 27 U/L (14-36) 12/21/17 12:57 ALT 14 U/L (9-52) 12/21/17 12:57 Alkaline Phosphatase 97 U/L (38-126) 12/21/17 12:57 Total Creatine Kinase 46 U/L (30-135) 12/21/17 12:57 CK-MB (CK-2) 1.8 ng/mL (0.0-2.4) 12/21/17 12:57 CK-MB (CK-2) Rel Index 3.9 12/21/17 12:57 Troponin I <0.012 ng/mL (0.000-0.034) 12/21/17 12:57 Total Protein 7.7 g/dL (6.3-8.2) 12/21/17 12:57 Albumin 4.0 g/dL (3.5-5.0) 12/21/17 12:57 Urine Color Colorless 12/21/17 12:57 Urine Appearance Clear (Clear) 12/21/17 12:57 Urine pH 6.5 (5.0-8.0) 12/21/17 12:57 Ur Specific Hatley 1.005 (1.001-1.035) 12/21/17 12:57 Urine Protein Negative (Negative) 12/21/17 12:57 Urine Glucose (UA) Negative (Negative) 12/21/17 12:57 Urine Ketones Negative (Negative) 12/21/17 12:57 Urine Blood Negative (Negative) 12/21/17 12:57 Urine Nitrite Negative (Negative) 12/21/17 12:57 Urine Bilirubin Negative (Negative) 12/21/17 12:57 Urine Urobilinogen <2.0 mg/dL (<2.0) 12/21/17 12:57 Ur Leukocyte Esterase Large (Negative) H 12/21/17 12:57 Urine RBC <1 /hpf (0-5) 12/21/17 12:57 Urine WBC 43 /hpf (0-5) H 12/21/17 12:57 Urine WBC Clumps Moderate /hpf (None) H 12/21/17 12:57 Urine Bacteria Rare /hpf (None) H 12/21/17 12:57 Oxcarbazepine 10.5 ug/mL (10-35) 12/24/17 07:19 Microbiology 12/21/17 12:57 Urine,Voided Urine Culture - Final Pseudomonas fluorescens/putida Assessment and Plan (1) Seizure Current Visit: Yes Status: Acute Code(s): R56.9 - UNSPECIFIED CONVULSIONS SNOMED Code(s): 17066587 (2) Altered mental status Narrative/Plan: 87 show female presents to Hospital from her care environment with alteration of her mental status. Upon arrival did have evidence of a seizure and has now been treated with Keppra for venous. Neurology consult in progress. She has a history of a recent urinary tract infection with Pseudomonas and is currently being treated with Zosyn. The patient without significant fevers or chills. She appears to be comfortable but does have chronic incontinence. She has been treated for pseudomonas urinary tract infection from earlier this month. Currently antibiotic therapy with levofloxacin has been added and will continue given her history, we'll try to limit antibiotic therapy as quickly as possible. Seems doing well from her history of gout or pseudogout of the right wrist. She's had an excellent clinical response to recent treatment which was of steroids and allopurinol and ideally allopurinol can be continued to prevent further bouts to the right wrist which are very painful. At this time seems to be comfortable. No further seizures and is being followed by neurology. If she improves we'll be able to transition antibiotic therapy to ciprofloxacin to complete the course of treatment for urinary tract infection. 12/24/2017 he shouldn't seems to be near her baseline mental status. Is being followed by nephrology to improve her renal function. Has noted urinary tract infection with pseudomonas and will complete her course of treatment with ciprofloxacin when she is ready for discharge. 12/25/2017 patient has had further improvement and appears to be at her baseline mental status. Nephrology is following and renal function tests slowly improve. She is pseudomonas urinary tract infection and antibiotic therapy is sent to the pharmacy to complete her treatment course with ciprofloxacin orally. She will be discharged to home setting. Current Visit: No Status: Acute Code(s): R41.82 - ALTERED MENTAL STATUS, UNSPECIFIED SNOMED Code(s): 834976698 (3) Dementia Current Visit: No Status: Acute Code(s): F03.90 - UNSPECIFIED DEMENTIA WITHOUT BEHAVIORAL DISTURBANCE SNOMED Code(s): 79408613
[2017-12-26] MEDS: ONDANSETRON 4 MG/2 ML VIAL IVP PRN ×2 (00:20→08:46)
[2017-12-26 00:41] VITALS: RESP 16
[2017-12-26] MEDS: SODIUM CHLORIDE 0.45% 1,000 ML IV SCH ×2 (05:22→11:21)
[2017-12-26 08:03] VITALS: PULSE 64
[2017-12-26] MEDS: CALCIUM CARB-VIT D 250MG-125UN 1 EACH TAB PO SCH (08:51)
[2017-12-26] MEDS: FOLIC ACID 1 MG TAB PO SCH (08:51)
[2017-12-26] MEDS: OXcarbazepine 300 MG TAB PO SCH (08:51)
[2017-12-26] MEDS: DOCUSATE 100 MG CAP PO SCH (08:51)
[2017-12-26] MEDS: SERTRALINE 100 MG TAB PO SCH (08:51)
[2017-12-26] MEDS: ENOXAPARIN 30 MG/0.3 ML SYRINGE SQ SCH (08:52)
[2017-12-26] MEDS: SODIUM FERRIC GLUCONAT-SUCROSE 125 MG in SODIUM CHLORIDE 0.9% 100 ML IVPB SCH (11:21)
[2017-12-26] MEDS ORDERED: MULTIVITAMINS, THERA 1 EACH TAB PO SCH (12:00)
[2017-12-26] MEDS ORDERED: DEXTROSE 5% IN WATER 1,000 ML IV SCH (12:15)
--- NOTE | 2017-12-26 13:49 | P.PN ---
Subjective Patient is seen in follow-up for acute kidney injury on chronic kidney disease. Patient has chronic kidney disease stage III with baseline creatinine in the range of 1.2-1.4. Creatinine is down to 1.23 today. Sodium level is 150 today. Patient is not a reliable historian due to dementia. Oral intake has been fair. No vomiting or diarrhea. MRI of the brain was negative for any acute process. EEG revealed mild encephalopathy. Hemodynamically stable. Vital signs are stable. General: The patient appeared well nourished and normally developed. HEENT: Head exam is unremarkable. Neck is without jugular venous distension. LUNGS: Lungs are clear to auscultation and percussion. Breath sounds decreased. HEART: Rate and Rhythm are regular. First and second heart sounds normal. No murmurs, rubs or gallops. ABDOMEN: Abdominal exam reveals normal bowel sounds. Non-tender and non- distended. No evidence of peritonitis. EXTREMITITES: No clubbing, cyanosis, or edema. Objective - Vital Signs Vital signs: Vital Signs Temp 99.0 F 12/26/17 07:00 Pulse 64 12/26/17 07:00 Resp 16 12/26/17 07:00 BP 143/75 12/26/17 07:00 Pulse Ox 93 L 12/26/17 07:00 Intake & Output 12/25/17 12/26/17 12/26/17 18:59 06:59 18:59 Intake Total 3000 1320 Balance 3000 1320 Weight 53.977 kg Intake: Intake, IV Titration 700 900 Amount Sodium Chloride 0.45% 1, 600 900 000 ml @ 75 mls/hr IV . [id number] [facility] Rx#:[id number] Sodium Ferric Gluconat- 100 Sucrose 125 mg In Sodium Chloride 0.9% 100 ml @ 100 mls/hr IVPB DAILY [facility] Rx#:[id number] Oral 2300 420 Other: Voiding Method Diaper Diaper # Voids 1 1 1 # Emeses 1 - Labs CBC & Chem 7: 12/22/17 07:07 12/26/17 07:46 Labs: Abnormal Lab Results - Last 24 Hours (Table) 12/26/17 Range/Units 07:46 Sodium 150 H (137-145) mmol/L Chloride 114 H (98-107) mmol/L BUN 19 H (7-17) mg/dL Creatinine 1.23 H (0.52-1.04) mg/dL Assessment and Plan Plan: Assessment: #1. Chronic kidney disease stage III with baseline creatinine in the range of 1.2-1.4. GFR near baseline. #2. Hypernatremia secondary to free water deficit from lack of oral water intake. Sodium level is up to 150 today. #3. Altered mental status with concern for stroke. CT and MRI of the brain revealed no acute process. Neurology following. #4. UTI. Culture was positive for Pseudomonas as of 12/09/2017. Urine culture this admission again positive for Pseudomonas. Maintained on Levaquin. #5. Hypertension with chronic kidney disease. Controlled. #6. Anemia. Iron deficiency noted. Plan: Continue D5W at 75 cc/hr for another 2 hours. Recheck sodium at 4 PM today - if coming down then she can be discharged. Encouraged oral intake, including free water. Avoid nephrotoxic agents and hypotensive episodes. Repeat electrolytes in the morning. Ferrlecit 125 mg IV daily for 3 days. Second dose today. She will need to follow-up as an outpatient in the next 2 weeks.
[2017-12-26 16:03] LABS: Potassium 4.2 mmol/L (3.5-5.1)
[2017-12-26 16:08] VITALS: BP 120/64; TEMP 98
--- NOTE | 2017-12-26 19:59 | DS ---
DISCHARGE SUMMARY FINAL DIAGNOSES: 1. Generalized shaking movements and brief staring episodes, possibly seizure. 2. Acute metabolic encephalopathy related to seizure. 3. Urinary tract infection with pseudomonas. 4. Hypernatremia. 5. Chronic kidney disease, stage III. 6. Normocytic anemia. 7. Dementia. 8. History of deep venous thrombosis. DISCHARGE DISPOSITION: The patient will be discharged in stable condition with guarded prognosis. HISTORY OF PRESENT ILLNESS: This 87-year-old woman with a past medical history of multiple medical problems was admitted with seizure disorder, treated symptomatically. Patient also had UTI. Antibiotics were given. The patient and family would like to return home at this time. The sodium is 150, creatinine improved to 1.23. The patient will be discharged in stable condition with guarded prognosis with the following advice and medications. 1. Diet is cardiac. 2. Activity limited until followup. 3. Follow up with Dr. Emmanuelle Dhaliwal in 2-3 days. 4. Follow up with Dr. Albrecht as advised. 5. Follow up with Nephrology is advised. 6. Home care is being arranged. 7. Norvasc 5 mg at bedtime. 8. Aspirin 81 mg at bedtime. 9. Calcium with vitamin D 1 p.o. b.i.d. 10.Cipro 500 mg p.o. b.i.d. for 5 days. 11.Cranberry 500 mg p.o. daily. 12.Colace 100 mg each morning. 13.Folic acid 1 mg each morning. 14.Iron 27 mg p.o. daily. 15.Melatonin 10 mg at bedtime. 16.Multivitamins 1 p.o. daily. 17.Fish oil 1 p.o. b.i.d. 18.Trileptal 300 mg p.o. b.i.d. 19.Zoloft 150 mg each morning. 20.Vitamin B1 100 mg each morning. MMODL / IJN: [id number] /
--- NOTE | 2017-12-27 07:42 | P.PN ---
Subjective Progress Note Date: 12/26/17 Principal diagnosis: seizure 87-year-old female was brought into hospital for further alteration of her mental status. The patient is known to the service from her 2 recent hospitalizations with significant pain and swelling and erythema to her right wrist. The patient was given ulceration of her mental status and likely had a seizure which was witnessed. She's been loaded with Keppra is being followed by neurology. She is with her dinner tray in javascript front end developer with the encouragement of her family is eating a bit, but not as well as usual. With her profound dementia is not able to relate to any new symptoms. The family is pleased that she has this awake alert and interactive. In the also relates that with the recent brace steroid therapy and allopurinol she's had complete resolution of her pain swelling and erythema to her wrist. On 12/23/2017 feels somewhat better. No new symptoms 12/24/2017 reveals the patient to be more comfortable. She is manipulating her busy blanket, her daughter who is present relates that she's eaten well today. 12/25/2017 patient remains comfortable. No acute no difficulties or complaints. 12/26 patient comfortable, pleasant and confused without complaints Objective - Vital Signs Vital signs: Vital Signs Temp 98 F 12/26/17 15:30 Pulse 64 12/26/17 15:56 Resp 16 12/26/17 15:56 BP 120/64 12/26/17 15:30 Pulse Ox 92 L 12/26/17 15:30 Intake & Output 12/26/17 12/27/17 12/27/17 18:59 06:59 18:59 Intake Total 3240 Balance 3240 Weight 53.977 kg Intake: Intake, IV Titration 600 Amount Sodium Chloride 0.45% 1, 600 000 ml @ 75 mls/hr IV . [id number] [facility] Rx#:[id number] Oral 2640 Other: Voiding Method Diaper # Voids 4 - Exam Gen: This is an 86-year-old female. She is sitting up in bed and appears to be comfortable. Patient is pleasantly confused. HEENT: Head is atraumatic, normocephalic. Pupils equal, round. Sclerae is anicteric. Mucous members of the mouth are moist. No thrush noted. NECK: Supple. No JVD. No lymphadenopathy. No thyromegaly. LUNGS: Clear to auscultation. No wheezes or rhonchi. No intercostal retractions. HEART: Regular rate and rhythm. No murmur. ABDOMEN: Soft. Bowel sounds are present. No masses. No tenderness. EXTREMITIES: The left wrist is normal. The right wrist has resolution of erythema and tenderness and swelling. She does move around quite freely There are no open lesions. There is no ascending erythema. NEUROLOGICAL: Patient is awake, alert and oriented x1. She is pleasantly confused and has difficulty following directions. - Labs CBC & Chem 7: 12/22/17 07:07 12/26/17 15:31 Labs: Abnormal Lab Results - Last 24 Hours (Table) 12/26/17 12/26/17 Range/Units 07:46 15:31 Sodium 150 H 148 H (137-145) mmol/L Chloride 114 H 109 H (98-107) mmol/L BUN 19 H (7-17) mg/dL Creatinine 1.23 H (0.52-1.04) mg/dL Laboratory Results WBC 6.3 k/uL (3.8-10.6) 12/22/17 07:07 RBC 3.48 m/uL (3.80-5.40) L 12/22/17 07:07 Hgb 9.0 gm/dL (11.4-16.0) L 12/22/17 07:07 Hct 29.7 % (34.0-46.0) L 12/22/17 07:07 MCV 85.3 fL (80.0-100.0) 12/22/17 07:07 MCH 25.9 pg (25.0-35.0) 12/22/17 07:07 MCHC 30.4 g/dL (31.0-37.0) L 12/22/17 07:07 RDW 16.0 % (11.5-15.5) H 12/22/17 07:07 Plt Count 221 k/uL (150-450) 12/22/17 07:07 Neutrophils % 65 % 12/22/17 07:07 Lymphocytes % 25 % 12/22/17 07:07 Monocytes % 7 % 12/22/17 07:07 Eosinophils % 2 % 12/22/17 07:07 Basophils % 0 % 12/22/17 07:07 Neutrophils # 4.1 k/uL (1.3-7.7) 12/22/17 07:07 Lymphocytes # 1.6 k/uL (1.0-4.8) 12/22/17 07:07 Monocytes # 0.4 k/uL (0-1.0) 12/22/17 07:07 Eosinophils # 0.2 k/uL (0-0.7) 12/22/17 07:07 Basophils # 0.0 k/uL (0-0.2) 12/22/17 07:07 Hypochromasia Moderate 12/22/17 07:07 PT 10.1 sec (9.0-12.0) 12/21/17 12:57 INR 1.0 (<1.2) 12/21/17 12:57 APTT 20.1 sec (22.0-30.0) L 12/21/17 12:57 Sodium 148 mmol/L (137-145) H 12/26/17 15:31 Potassium 4.2 mmol/L (3.5-5.1) 12/26/17 15:31 Chloride 109 mmol/L (98-107) H 12/26/17 15:31 Carbon Dioxide 25 mmol/L (22-30) 12/26/17 15:31 Anion Gap 14 mmol/L 12/26/17 15:31 BUN 19 mg/dL (7-17) H 12/26/17 07:46 Creatinine 1.23 mg/dL (0.52-1.04) H 12/26/17 07:46 Est GFR (CKD-EPI)AfAm 46 (>60 ml/min/1.73 sqM) 12/26/17 07:46 Est GFR (CKD-EPI)NonAf 40 (>60 ml/min/1.73 sqM) 12/26/17 07:46 Glucose 84 mg/dL (74-99) 12/26/17 07:46 POC Glucose (mg/dL) 117 mg/dL (75-99) H 12/23/17 00:07 POC Glu Tablet Making Machine Operator Helper ID Marcia Correa 12/23/17 00:07 Calcium 9.0 mg/dL (8.4-10.2) 12/26/17 07:46 Magnesium 1.9 mg/dL (1.6-2.3) 12/24/17 07:19 Iron 44 ug/dL (50-170) L 12/24/17 07:19 TIBC 315 ug/dL (228-460) 12/24/17 07:19 Iron Saturation 13.97 (12.00-45.00) 12/24/17 07:19 Ferritin 46.6 ng/mL (10.0-291.0) 12/24/17 07:19 Total Bilirubin 0.2 mg/dL (0.2-1.3) 12/21/17 12:57 AST 27 U/L (14-36) 12/21/17 12:57 ALT 14 U/L (9-52) 12/21/17 12:57 Alkaline Phosphatase 97 U/L (38-126) 12/21/17 12:57 Total Creatine Kinase 46 U/L (30-135) 12/21/17 12:57 CK-MB (CK-2) 1.8 ng/mL (0.0-2.4) 12/21/17 12:57 CK-MB (CK-2) Rel Index 3.9 12/21/17 12:57 Troponin I <0.012 ng/mL (0.000-0.034) 12/21/17 12:57 Total Protein 7.7 g/dL (6.3-8.2) 12/21/17 12:57 Albumin 4.0 g/dL (3.5-5.0) 12/21/17 12:57 Urine Color Colorless 12/21/17 12:57 Urine Appearance Clear (Clear) 12/21/17 12:57 Urine pH 6.5 (5.0-8.0) 12/21/17 12:57 Ur Specific [place] 1.005 (1.001-1.035) 12/21/17 12:57 Urine Protein Negative (Negative) 12/21/17 12:57 Urine Glucose (UA) Negative (Negative) 12/21/17 12:57 Urine Ketones Negative (Negative) 12/21/17 12:57 Urine Blood Negative (Negative) 12/21/17 12:57 Urine Nitrite Negative (Negative) 12/21/17 12:57 Urine Bilirubin Negative (Negative) 12/21/17 12:57 Urine Urobilinogen <2.0 mg/dL (<2.0) 12/21/17 12:57 Ur Leukocyte Esterase Large (Negative) H 12/21/17 12:57 Urine RBC <1 /hpf (0-5) 12/21/17 12:57 Urine WBC 43 /hpf (0-5) H 12/21/17 12:57 Urine WBC Clumps Moderate /hpf (None) H 12/21/17 12:57 Urine Bacteria Rare /hpf (None) H 12/21/17 12:57 Oxcarbazepine 10.5 ug/mL (10-35) 12/24/17 07:19 Microbiology 12/21/17 12:57 Urine,Voided Urine Culture - Final Pseudomonas fluorescens/putida Assessment and Plan (1) Seizure Status: Acute Code(s): R56.9 - UNSPECIFIED CONVULSIONS SNOMED Code(s): 14623663 (2) Altered mental status Narrative/Plan: 87 show female presents to Hospital from her care environment with alteration of her mental status. Upon arrival did have evidence of a seizure and has now been treated with Keppra for venous. Neurology consult in progress. She has a history of a recent urinary tract infection with Pseudomonas and is currently being treated with Zosyn. The patient without significant fevers or chills. She appears to be comfortable but does have chronic incontinence. She has been treated for pseudomonas urinary tract infection from earlier this month. Currently antibiotic therapy with levofloxacin has been added and will continue given her history, we'll try to limit antibiotic therapy as quickly as possible. Seems doing well from her history of gout or pseudogout of the right wrist. She's had an excellent clinical response to recent treatment which was of steroids and allopurinol and ideally allopurinol can be continued to prevent further bouts to the right wrist which are very painful. At this time seems to be comfortable. No further seizures and is being followed by neurology. If she improves we'll be able to transition antibiotic therapy to ciprofloxacin to complete the course of treatment for urinary tract infection. 12/24/2017 he shouldn't seems to be near her baseline mental status. Is being followed by nephrology to improve her renal function. Has noted urinary tract infection with pseudomonas and will complete her course of treatment with ciprofloxacin when she is ready for discharge. 12/25/2017 patient has had further improvement and appears to be at her baseline mental status. Nephrology is following and renal function tests slowly improve. She is pseudomonas urinary tract infection and antibiotic therapy is sent to the pharmacy to complete her treatment course with ciprofloxacin orally. She will be discharged to home setting. 12/26/2017 patient has further improvement and willbe discharged to home setting , will complete a 7 day course of Cipro for the pseudomonas UTI Status: Acute Code(s): R41.82 - ALTERED MENTAL STATUS, UNSPECIFIED SNOMED Code(s): 866482710 (3) Dementia Status: Acute Code(s): F03.90 - UNSPECIFIED DEMENTIA WITHOUT BEHAVIORAL DISTURBANCE SNOMED Code(s): 96707771
== END 2017-12-26 18:35 | disposition home or self-care (01) | DRG 641 ==
LOC: EC 12:24 → 5MS5E 14:45 → OBSVTOIN 12-22 16:57
PROVIDERS: ADMIT Internal Medicine; ATTEND Internal Medicine
DX: E87.0 Hyperosmolality and hypernatremia (principal); N17.9 Acute kidney failure, unspecified; G40.409 Other generalized epilepsy and epileptic syndromes, not intractable, without status epilepticus; I13.0 Hypertensive heart and chronic kidney disease with heart failure and stage 1 through stage 4 chronic kidney disease, or unspecified chronic kidney disease; I50.22 Chronic systolic (congestive) heart failure; N39.0 Urinary tract infection, site not specified; B96.5 Pseudomonas (aeruginosa) (mallei) (pseudomallei) as the cause of diseases classified elsewhere; D63.8 Anemia in other chronic diseases classified elsewhere; E86.0 Dehydration; E61.1 Iron deficiency; F03.90 Unspecified dementia, unspecified severity, without behavioral disturbance, psychotic disturbance, mood disturbance, and anxiety; F80.2 Mixed receptive-expressive language disorder; M10.9 Gout, unspecified; M19.031 Primary osteoarthritis, right wrist; N18.3 Chronic kidney disease, stage 3 (moderate); Z79.82 Long term (current) use of aspirin; Z79.899 Other long term (current) drug therapy; Z86.718 Personal history of other venous thrombosis and embolism; Z87.891 Personal history of nicotine dependence
CPT/HCPCS: 36415; 70450; 70551; 71045; 71046; 80048; 80051; 80053; 80183; 81001; 82550; 82553; 82728; 83540; 83550; 83735; 84295; 84484; 85025; 85610; 85730; 87077; 87086; 87186; 93005; 95819; 96361; 96374; 96375; 99285

== ENCOUNTER 2018-01-01 12:25 | Inpatient (IN) | payer MEDICARE, BC ==
[2018-01-01] MEDS ORDERED: SODIUM CHLORIDE 0.9% 500 ML IV ONE ×2 (12:58→14:32)
--- NOTE | 2018-01-01 13:03 | ED ---
General Adult HPI - General Chief complaint: Recheck/Abnormal Lab/Rx Stated complaint: LETHARGIC, VOMITING Time Seen by Provider: 01/01/18 12:50 Source: family, RN notes reviewed, old records reviewed, Caregiver Mode of arrival: wheelchair Limitations: altered mental status, physical limitation - History of Present Illness Initial comments: This is a 87-year-old female who is brought in by her daughter for evaluation for patient. Patient was just recently released to the hospital after being diagnosed with a seizure disorder for which she started Trileptal she's had episodes since yesterday of nausea with dry heaves but now has had nausea and vomiting. Also slurred speech confusion as to what to do with eating utensils and how to swallow or drink. She has had decreased oral intake since at least yesterday. No reports of trauma no reports of fevers chills sweats dysuria. The patient is a decrease in bowel movements since her discharge from the hospital. Patient also had some episodes of grunting the other day 2 days ago. 12 episodes lasting about 30 seconds each he seemed to occur when she was sitting up's side of the bed. - Related Data Home Medications Medication Instructions Recorded Confirmed Cranberry Fruit Extract [Cranberry] 500 mg PO DAILY 07/15/17 01/01/18 Multivitamins, Thera [Multivitamin 2 tab PO DAILY 07/15/17 01/01/18 (formulary)] Sertraline [Zoloft] 150 mg PO QAM 07/15/17 01/01/18 Aspirin 81 mg PO HS 11/08/17 01/01/18 Docusate [Colace] 100 mg PO QAM 11/08/17 01/01/18 Upper Tract-3 Fatty Acids/Fish Oil [Fish 1 cap PO BID 11/08/17 01/01/18 Oil 1,000 mg Softgel] Folic Acid 1 mg PO QAM 11/19/17 01/01/18 Thiamine [Vitamin B-1] 100 mg PO QAM 11/19/17 01/01/18 amLODIPine BESYLATE [Norvasc] 5 mg PO HS 11/19/17 01/01/18 Iron 27mg 27 mg PO DAILY 12/09/17 01/01/18 Melatonin 10 mg PO HS 12/09/17 01/01/18 Calcium Carb/Vitamin D3/Vit K1 1 tab PO BID 12/21/17 01/01/18 [Citracal Soft Chew] Previous Rx's Medication Instructions Recorded OXcarbazepine [Trileptal] 300 mg PO BID #60 tab 12/26/17 Allergies Allergy/AdvReac Type Severity Reaction Status Date / Time No Known Allergies Allergy Verified 01/01/18 13:04 Review of Systems ROS Statement: Those systems with pertinent positive or pertinent negative responses have been documented in the HPI. ROS Other: All systems not noted in ROS Statement are negative. Past Medical History Past Medical History: Dementia, Deep Vein Thrombosis (DVT), Seizure Disorder Additional Past Medical History / Comment(s): Seizure in November 08, UTI, Kidney disease History of Any Multi-Drug Resistant Organisms: None Reported Past Surgical History: No Surgical Hx Reported Additional Past Surgical History / Comment(s): Left ankle fracture Past Anesthesia/Blood Transfusion Reactions: No Reported Reaction Past Psychological History: No Psychological Hx Reported Smoking Status: Former smoker Past Alcohol Use History: None Reported Past Drug Use History: None Reported - Past Family History Father History Unknown: Yes Family Medical History: Unable to Obtain Mother History Unknown: Yes Family Medical History: Unable to Obtain General Exam - General Exam Comments Initial Comments: This is a well-developed well-nourished awake alert confused appearing female Limitations: altered mental status, physical limitation General appearance: alert Head exam: Present: atraumatic, normocephalic, normal inspection Eye exam: Present: normal appearance, PERRL, EOMI. Absent: scleral icterus, conjunctival injection, periorbital swelling ENT exam: Present: mucous membranes dry Neck exam: Present: normal inspection. Absent: tenderness, meningismus, lymphadenopathy Respiratory exam: Present: normal lung sounds bilaterally. Absent: respiratory distress, wheezes, rales, rhonchi, stridor Cardiovascular Exam: Present: regular rate, normal rhythm, normal heart sounds. Absent: systolic murmur, diastolic murmur, rubs, gallop, clicks GI/Abdominal exam: Present: soft, normal bowel sounds. Absent: distended, tenderness, guarding, rebound, rigid Extremities exam: Present: normal inspection, full ROM, normal capillary refill. Absent: tenderness, pedal edema, joint swelling, calf tenderness Back exam: Present: normal inspection Neurological exam: Present: alert, CN II-XII intact. Absent: motor sensory deficit Psychiatric exam: Present: normal mood, flat affect Skin exam: Present: warm, dry, intact, normal color. Absent: rash Course Vital Signs 01/01/18 01/01/18 01/01/18 12:29 14:33 15:04 Temperature 98.7 F Pulse Rate 62 59 L 59 L Respiratory 18 18 18 Rate Blood Pressure 136/84 191/90 177/84 O2 Sat by Pulse 94 L 100 97 Oximetry 01/01/18 15:46 Temperature Pulse Rate 68 Respiratory 18 Rate Blood Pressure 174/90 O2 Sat by Pulse 97 Oximetry EKG Findings - EKG Results: EKG: interpreted by ERMGrisel (Sinus bradycardia rate of 57 GA interval 176 QRS duration 1:30 QT since QTC 496/42 with bundle-branch block pattern) Medical Decision Making - Medical Decision Making I did discuss findings with the patient and family members. As well as Dr. Lima. Patient will be admitted evidence of dehydration renal insufficiency constipation dementia failure to thrive. CAT scan of the abdomen and pelvis has been ordered. - Lab Data Result diagrams: 01/01/18 12:55 01/01/18 12:55 Lab Results 01/01/18 01/01/18 01/01/18 Range/Units 12:55 12:55 12:55 WBC 6.2 (3.8-10.6) k/uL RBC 4.09 (3.80-5.40) m/uL Hgb 10.8 L (11.4-16.0) gm/dL Hct 34.7 (34.0-46.0) % MCV 84.9 (80.0-100.0) fL MCH 26.5 (25.0-35.0) pg MCHC 31.3 (31.0-37.0) g/dL RDW 16.2 H (11.5-15.5) % Plt Count 226 (150-450) k/uL Neutrophils % 66 % Lymphocytes % 23 % Monocytes % 5 % Eosinophils % 4 % Basophils % 1 % Neutrophils # 4.1 (1.3-7.7) k/uL Lymphocytes # 1.4 (1.0-4.8) k/uL Monocytes # 0.3 (0-1.0) k/uL Eosinophils # 0.3 (0-0.7) k/uL Basophils # 0.0 (0-0.2) k/uL Hypochromasia Slight Anisocytosis Slight PT (9.0-12.0) sec INR (<1.2) APTT (22.0-30.0) sec Sodium 149 H (137-145) mmol/L Potassium 4.3 (3.5-5.1) mmol/L Chloride 108 H (98-107) mmol/L Carbon Dioxide 28 (22-30) mmol/L Anion Gap 13 mmol/L BUN 27 H (7-17) mg/dL Creatinine 1.26 H (0.52-1.04) mg/dL Est GFR (CKD-EPI)AfAm 45 (>60 ml/min/1.73 sqM) Est GFR (CKD-EPI)NonAf 39 (>60 ml/min/1.73 sqM) Glucose 88 (74-99) mg/dL Calcium 9.7 (8.4-10.2) mg/dL Magnesium 2.1 (1.6-2.3) mg/dL Total Bilirubin 0.3 (0.2-1.3) mg/dL AST 27 (14-36) U/L ALT 13 (9-52) U/L Alkaline Phosphatase 101 (38-126) U/L Total Creatine Kinase 35 (30-135) U/L CK-MB (CK-2) 1.4 (0.0-2.4) ng/mL CK-MB (CK-2) Rel Index 4.0 Troponin I 0.023 (0.000-0.034) ng/mL Total Protein 7.3 (6.3-8.2) g/dL Albumin 4.0 (3.5-5.0) g/dL Urine Color Urine Appearance (Clear) Urine pH (5.0-8.0) Ur Specific [place] (1.001-1.035) Urine Protein (Negative) Urine Glucose (UA) (Negative) Urine Ketones (Negative) Urine Blood (Negative) Urine Nitrite (Negative) Urine Bilirubin (Negative) Urine Urobilinogen (<2.0) mg/dL Ur Leukocyte Esterase (Negative) 01/01/18 01/01/18 Range/Units 12:55 14:20 WBC (3.8-10.6) k/uL RBC (3.80-5.40) m/uL Hgb (11.4-16.0) gm/dL Hct (34.0-46.0) % MCV (80.0-100.0) fL MCH (25.0-35.0) pg MCHC (31.0-37.0) g/dL RDW (11.5-15.5) % Plt Count (150-450) k/uL Neutrophils % % Lymphocytes % % Monocytes % % Eosinophils % % Basophils % % Neutrophils # (1.3-7.7) k/uL Lymphocytes # (1.0-4.8) k/uL Monocytes # (0-1.0) k/uL Eosinophils # (0-0.7) k/uL Basophils # (0-0.2) k/uL Hypochromasia Anisocytosis PT 10.1 (9.0-12.0) sec INR 1.0 (<1.2) APTT 21.5 L (22.0-30.0) sec Sodium (137-145) mmol/L Potassium (3.5-5.1) mmol/L Chloride (98-107) mmol/L Carbon Dioxide (22-30) mmol/L Anion Gap mmol/L BUN (7-17) mg/dL Creatinine (0.52-1.04) mg/dL Est GFR (CKD-EPI)AfAm (>60 ml/min/1.73 sqM) Est GFR (CKD-EPI)NonAf (>60 ml/min/1.73 sqM) Glucose (74-99) mg/dL Calcium (8.4-10.2) mg/dL Magnesium (1.6-2.3) mg/dL Total Bilirubin (0.2-1.3) mg/dL AST (14-36) U/L ALT (9-52) U/L Alkaline Phosphatase (38-126) U/L Total Creatine Kinase (30-135) U/L CK-MB (CK-2) (0.0-2.4) ng/mL CK-MB (CK-2) Rel Index Troponin I (0.000-0.034) ng/mL Total Protein (6.3-8.2) g/dL Albumin (3.5-5.0) g/dL Urine Color Light Yellow Urine Appearance Clear (Clear) Urine pH 7.0 (5.0-8.0) Ur Specific [place] 1.005 (1.001-1.035) Urine Protein Negative (Negative) Urine Glucose (UA) Negative (Negative) Urine Ketones Negative (Negative) Urine Blood Negative (Negative) Urine Nitrite Negative (Negative) Urine Bilirubin Negative (Negative) Urine Urobilinogen <2.0 (<2.0) mg/dL Ur Leukocyte Esterase Negative (Negative) - Radiology Data Radiology results: report reviewed (I did review the imaging and reports no acute findings. Atrophy is noted on CAT scan.), image reviewed Disposition Clinical Impression: Failure to thrive, Dehydration, Renal insufficiency syndrome, Dementia, Constipation Disposition: ADMITTED IP TO THIS HOSP Condition: Stable Referrals: Emmanuelle Dhaliwal MD [Primary Care Provider] - 1-2 days
[2018-01-01] MEDS: SODIUM CHLORIDE 0.9% 1,000 ML IV ONE ×2 (13:14→17:50)
[2018-01-01 13:20] LABS: Anisocytosis Slight; Basophils % (A) 1 %; Eosinophils # (A) 0.3 k/uL (0-0.7); Eosinophils % (A) 4 %; HCT 34.7 % (34.0-46.0); HGB 10.8 gm/dL (11.4-16.0); Hypochromasia Slight; Lymphocytes # (A) 1.4 k/uL (1.0-4.8); Lymphocytes % (A) 23 %; MCH 26.5 pg (25.0-35.0); MCHC 31.3 g/dL (31.0-37.0); MCV 84.9 fL (80.0-100.0); Mean Platelet Volume 7.7; Monocytes # (A) 0.3 k/uL (0-1.0); Monocytes % (A) 5 %; Neutrophils # (A) 4.1 k/uL (1.3-7.7); Neutrophils % (A) 66 %; Platelet Count 226 k/uL (150-450); RBC 4.09 m/uL (3.80-5.40); RDW 16.2 % (11.5-15.5); WBC 6.2 k/uL (3.8-10.6)
[2018-01-01 13:36] LABS: Calcium 9.7 mg/dL (8.4-10.2); Magnesium 2.1 mg/dL (1.6-2.3); Potassium 4.3 mmol/L (3.5-5.1); Total Bilirubin 0.3 mg/dL (0.2-1.3); Total Protein 7.3 g/dL (6.3-8.2)
--- NOTE | 2018-01-01 13:41 | XR ---
EXAMINATION TYPE: XR chest 2V DATE OF EXAM: 01/01/2018 COMPARISON: 12/23/2017 INDICATION: Altered mental status previous abnormal chest TECHNIQUE: Frontal and lateral views of the chest are obtained. FINDINGS: The heart size is enlarged. The aortic arch appears prominent.. The pulmonary vasculature is normal. No suspicious focal consolidations are evident.. IMPRESSION: 1. No acute pulmonary process. 2. Cardiomegaly
[2018-01-01 13:44] LABS: Partial Thromboplastin Time 21.5 sec (22.0-30.0); Prothrombin Time 10.1 sec (9.0-12.0)
[2018-01-01 13:52] LABS: Creatine Kinase MB 1.4 ng/mL (0.0-2.4); Troponin I 0.023 ng/mL (0.000-0.034)
--- NOTE | 2018-01-01 13:55 | CT ---
EXAMINATION TYPE: CT brain wo con DATE OF EXAM: 01/01/2018 COMPARISON: 12/21/2017 INDICATION: Altered mental status DLP: 1177 mGycm, Automated exposure control for dose reduction was used. CONTRAST: None CT of the brain is performed utilizing 3 mm thick sections through the posterior fossa and 3 mm thick sections through the remaining calvarium. Study is performed within 24 hours of arrival to the hosp ital. No abnormal hyperdensity is present to suggest an acute intracranial hemorrhage. No mass lesion is evident. No acute infarcts are evident. Periventricular white matter hypodensity is present, likely chronic wh ite matter ischemic changes. Ventricles and sulci are very prominent for the patient age. Paranasal sinuses and mastoid air cells within the [id number] are clear. IMPRESSIONS: 1. Atrophy with periventricular white matter ischemic type changes
--- NOTE | 2018-01-01 14:00 | XR ---
EXAMINATION TYPE: XR abdomen 1V DATE OF EXAM: 01/01/2018 1:54 PM CLINICAL HISTORY: Abdominal pain TECHNIQUE: Single supine KUB image of the abdomen is obtained. COMPARISON: None. FINDINGS: The flanks are incompletely imaged due to patient body habitus. Scattered gas is seen in no n-distended small bowel loops. Gas and fecal material is seen in non-distended colon. There is no abn ormal calcification appreciated. There are moderate to severe degenerative changes of the visualized lumbosacral spine with a levoscoliotic curvature. Overall there is a moderate amount retained coloni c stool. Evaluation is suboptimal for pneumoperitoneum. IMPRESSION: Moderate amount retained colonic stool and an overall nonobstructive bowel gas pattern.
[2018-01-01 14:44] LABS: Appearance,Urine Clear (Clear); Bilirubin,Urine Negative (Negative); Blood,Urine Negative (Negative); Color,Urine Light Yellow; Glucose,Urine (UA) Negative (Negative); Ketones,Urine Negative (Negative); Leukocyte Esterase,Urine Negative (Negative); Nitrite,Urine Negative (Negative); Protein,Urine Negative (Negative); Specific Gravity,Urine 1.005 (1.001-1.035); Urobilinogen,Urine <2.0 mg/dL (<2.0)
[2018-01-01] MEDS ORDERED: ONDANSETRON 4 MG/2 ML VIAL IVP STA (15:41)
[2018-01-01] MEDS ORDERED: ACETAMINOPHEN TAB 325 MG TAB PO PRN (16:14)
[2018-01-01] MEDS ORDERED: NALOXONE 0.4 MG/ML 1 ML VIAL IV PRN (16:14)
[2018-01-01] MEDS ORDERED: ONDANSETRON 4 MG/2 ML VIAL IVP PRN (16:14)
[2018-01-01] MEDS ORDERED: IOPAMIDOL-300 CONTRAST 30 ML VIAL (ORAL USE) PO PRN (16:19)
--- NOTE | 2018-01-01 17:07 | HP ---
HISTORY AND PHYSICAL DATE OF SERVICE: 01/01/2018 CHIEF COMPLAINT: Change in mental status. HISTORY OF PRESENT ILLNESS: This 87-year-old woman with a past medical history of multiple medical problems is being followed by Dr. Emmanuelle Dhaliwal in the outpatient setting. She was recently admitted with generalized shaking movements and possibly seizures. The patient also had metabolic encephalopathy secondary to seizures. The patient went home, and subsequently the patient was having nausea. She vomited and she was also found to be constipated. The patient became confused. She was dehydrated. Her p.o. intake was low. The patient was taken to [facility] and is being admitted for further evaluation and treatment. Creatinine is 1.66. The baseline creatinine is around 1.23. Sodium was 149. Currently patient is confused and unable to give a coherent history. Most of the history is taken my discussion with the ER physician, review of the chart and discussion with the family at the bedside. PAST MEDICAL HISTORY: 1. History of dementia. 2. DVT. 3. Seizure disorder. HOME MEDICATIONS: 1. Norvasc 5 mg p.o. at bedtime. 2. Vitamin B1 100 mg p.o. each morning. 3. Zoloft 150 mg each morning. 4. Fish oil 1 p.o. b.i.d. 5. Trileptal 300 mg p.o. b.i.d. 6. Multivitamins 1 p.o. daily. 7. Melatonin 10 mg at bedtime. 8. Iron 27 mg p.o. daily. 9. Folic acid 1 mg each morning. 10.Colace 100 mg each morning. 11.Cranberry 500 mg daily. 12.Citracal 1 tablet p.o. b.i.d. 13.Aspirin 81 mg at bedtime. ALLERGIES: NONE. Family history, social history, review of systems could not be taken at length because of the change in mental status. Previous history of smoking per chart. PHYSICAL EXAMINATION: Patient is conscious, confused. Pulse is 59, blood pressure 191/90, respiration 18, temperature 98.7, pulse ox 100% on room air. HEENT: Conjunctivae normal. Oral mucosa dry. NECK: No jugular venous distention. No carotid bruit. No lymph node enlargement. CARDIOVASCULAR SYSTEM: S1, S2 muffled. RESPIRATORY SYSTEM: Breath sounds diminished at the bases. A few scattered rhonchi. No crackles. ABDOMEN: Soft, nontender. No mass palpable. LEGS: No edema. No swelling. NERVOUS SYSTEM: Diffusely weak. LABS AND INVESTIGATIONS: WBC 6.2, hemoglobin 10.8. Sodium 149. ASSESSMENT: 1. Change in mental status and dehydration, hyponatremia. 2. Chronic kidney disease, stage III. 3. Constipation. 4. History of recent seizure disorder. 5. History of urinary tract infection with pseudomonas. 6. Hyponatremia. 7. Dementia. 8. History of deep venous thrombosis. 9. FULL CODE. RECOMMENDATIONS AND DISCUSSION: In this 87-year-old woman who was admitted multiple medical issues, at this time I recommend continuing current medications, continuing symptomatic treatment. I would recommend gentle hydration. Otherwise, a CT scan of the brain was done which showed atrophy and periventricular changes. I would also recommend a CT scan of the abdomen and pelvis. The prognosis is guarded because of the multiple complex medical issues. I would also recommend lactulose. Home medications will be continued. A copy of this dictation is being forwarded to Dr. Emmanuelle Dhaliwal, who is the primary physician. MMODL / IJN: [id number] /
[2018-01-01 17:19] LABS: Glucose,Whole Blood 94 mg/dL (75-99)
[2018-01-01] MEDS: SODIUM CHLORIDE 0.9% 1,000 ML IV SCH (18:49)
--- NOTE | 2018-01-01 18:58 | CT ---
EXAMINATION TYPE: CT abdomen pelvis wo con DATE OF EXAM: 01/01/2018 COMPARISON: NONE HISTORY: Nausea and vomiting. CT DLP: 963 mGycm Automated exposure control for dose reduction was used. TECHNIQUE: Helical acquisition of images was performed from the lung bases through the pelvis. FINDINGS: Lung bases show infiltrate and atelectasis in both lower lobes. There is no pleural effusion. Heart i s moderately enlarged. There is no pericardial effusion. Liver shows no focal defect. Bile ducts are not dilated. Gallbladder appears normal. Spleen appears n ormal. There is no evidence of a pancreatic mass. Abdominal aorta is atheromatous. There is 3 cm aneu rysm of the lower abdominal aorta. Lower thoracic aorta measures 3 cm. There are multiple bilateral renal cortical cysts. There is no hydronephrosis. Renal cysts measure up to 3 cm. There is no retroperitoneal adenopathy. I see no intestinal wall thickening. There are no d ilated loops. There is oral contrast down to the rectum. There is no sign of appendicitis. There is a moderate thoracolumbar levoscoliosis. Urinary bladder is large. There is no free fluid in the pelvis . Urinary bladder measures 11 cm. IMPRESSION: ATHEROSCLEROTIC VASCULAR DISEASE. 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 RENAL CORTICAL CYSTS. NO RENAL OBSTRUCTION. NO EVIDENCE OF A BOWEL OBSTRUCTION. BILATERAL LOWER LOBE PULMONARY INFILTRATES AND ATELECTASIS. MODERATE CARDIOMEGALY.
[2018-01-01 20:25] LABS: Glucose,Whole Blood 77 mg/dL (75-99)
[2018-01-01] MEDS ORDERED: NON-FORMULARY DRUG (Omega-3 Fatty Acids/Fish Oil [Fish Oil 1,000 Mg Softgel] 1 CAP) PO SCH (21:00)
[2018-01-01] MEDS: OXcarbazepine 300 MG TAB PO SCH (22:01)
[2018-01-01] MEDS: PANTOPRAZOLE 40 MG/10 ML VIAL IVP SCH (22:01)
[2018-01-01] MEDS: ASPIRIN 81 MG PO SCH (22:01)
[2018-01-01] MEDS: MELATONIN 5 MG TABLET PO SCH (22:01)
[2018-01-01] MEDS: HEPARIN SODIUM,PORCINE 5,000 UNIT/ML 1 ML VIAL SQ SCH (22:01)
[2018-01-01] MEDS: amLODIPine 5 MG TAB PO SCH (22:02)
[2018-01-01] MEDS: CALCIUM CARB-VIT D 500MG-200UN 1 EACH TAB PO SCH (22:02)
--- NOTE | 2018-01-02 00:37 | P.CNNES ---
History of Present Illness Consult date: 01/01/18 Reason for Consult: Patient with altered mental status. History of Present Illness: This patient is a 87-year-old female brought into the hospital for further evaluation of altered mental status and seizure disorder. Patient was recently admitted to hospital and was diagnosed as having seizure disorder. She was started on Trileptal for seizure prophylaxis. She had been taking 300 mg twice a day. Patient apparently has been having symptoms of severe nausea vomiting as well as dehydration. She is also been noted to have some grunting episodes about 2 days ago. Exact etiology is unclear. Question still raises suspicion for possible breakthrough seizures. She will undergo routine EEG tomorrow for further evaluation. She is currently on Trileptal and a level will be drawn for her tomorrow morning. Patient is a very poor historian. She has history of underlying dementia. Her symptoms are consistent with some degree of dehydration and failure to thrive. She is able to follow only simple questions. She did undergo routine computed tomography scan of the brain today which revealed atrophy and periventricular white matter ischemic changes. No evidence of acute stroke or hemorrhage. Patient underwent MRI of the brain recently on 12/23/2017. This MRI reveals age-related atrophy and chronic small vessel ischemic changes. No acute intracranial process was noted. Patient is resting comfortably. She is unable to give a detailed history. She is a very poor historian. We will have her continue on Trileptal and we'll check a Trileptal level tomorrow. Her overall prognosis at this time remains very guarded. Review of Systems Constitutional: Denies chills, Denies fever Eyes: denies blurred vision, denies pain Ears, nose, mouth and throat: Denies headache, Denies sore throat Cardiovascular: Denies chest pain, Denies shortness of breath Respiratory: Denies cough Gastrointestinal: Denies abdominal pain, Denies diarrhea, Denies nausea, Denies vomiting Genitourinary: Denies dysuria, Denies hematuria Musculoskeletal: Denies myalgias Integumentary: Denies pruritus, Denies rash Neurological: Reports aphasia, Reports change in mentation, Reports change in speech, Reports confusion, Reports convulsions, Reports memory loss, Reports seizures, Reports tremors, Denies numbness, Denies weakness Psychiatric: Reports difficulty concentrating, Reports memory loss, Reports mood swings, Denies anxiety, Denies depression Endocrine: Denies fatigue, Denies weight change Past Medical History Past Medical History: Dementia, Deep Vein Thrombosis (DVT), Seizure Disorder Additional Past Medical History / Comment(s): Seizure in November 08, UTI, Kidney disease History of Any Multi-Drug Resistant Organisms: None Reported Past Surgical History: No Surgical Hx Reported Additional Past Surgical History / Comment(s): Left ankle fracture Past Anesthesia/Blood Transfusion Reactions: No Reported Reaction Past Psychological History: No Psychological Hx Reported Smoking Status: Former smoker Past Alcohol Use History: None Reported Past Drug Use History: None Reported - Past Family History Father History Unknown: Yes Family Medical History: Unable to Obtain Mother History Unknown: Yes Family Medical History: Unable to Obtain Medications and Allergies Home Medications Medication Instructions Recorded Confirmed Type Cranberry Fruit Extract [Cranberry] 500 mg PO DAILY 07/15/17 01/01/18 History Multivitamins, Thera [Multivitamin 2 tab PO DAILY 07/15/17 01/01/18 History (formulary)] Sertraline [Zoloft] 150 mg PO QAM 07/15/17 01/01/18 History Aspirin 81 mg PO HS 11/08/17 01/01/18 History Docusate [Colace] 100 mg PO QAM 11/08/17 01/01/18 History Weldon-3 Fatty Acids/Fish Oil [Fish 1 cap PO BID 11/08/17 01/01/18 History Oil 1,000 mg Softgel] Folic Acid 1 mg PO QAM 11/19/17 01/01/18 History Thiamine [Vitamin B-1] 100 mg PO QAM 11/19/17 01/01/18 History amLODIPine BESYLATE [Norvasc] 5 mg PO HS 11/19/17 01/01/18 History Iron 27mg 27 mg PO DAILY 12/09/17 01/01/18 History Melatonin 10 mg PO HS 12/09/17 01/01/18 History Calcium Carb/Vitamin D3/Vit K1 1 tab PO BID 12/21/17 01/01/18 History [Citracal Soft Chew] OXcarbazepine [Trileptal] 300 mg PO BID #60 tab 12/26/17 01/01/18 Rx Allergies Allergy/AdvReac Type Severity Reaction Status Date / Time No Known Allergies Allergy Verified 01/01/18 13:04 Physical Examination - Vital Signs Vital Signs: Vital Signs Temp Pulse Resp BP Pulse Ox 01/01/18 16:27 64 18 149/80 96 01/01/18 15:46 68 18 174/90 97 01/01/18 15:04 59 L 18 177/84 97 01/01/18 14:33 59 L 18 191/90 100 01/01/18 12:29 98.7 F 62 18 136/84 94 L Intake and Output 01/01/18 01/01/18 01/01/18 06:59 14:59 22:59 Other: Weight 52.163 kg - Constitutional General appearance: average body habitus, cooperative - EENT EENT: PERRL, mucous membranes moist - Respiratory Respiratory: lungs clear, normal breath sounds - Cardiovascular Cardiovascular: regular rate, normal S1, normal S2 Extremities: no peripheral edema bilaterally - Gastrointestinal Gastrointestinal: normoactive bowel sounds - Integumentary Integumentary: normal - Neurologic Cranial nerve examination: PERRL, EOMI, face symmetric, intact, intact gag reflex, intact corneal reflex, normal palatal elevation Speech examination: intact Sensorimotor examination: intact Motor examination - right side: 4/5: biceps, triceps, wrist flexion, wrist extension, tank farm gauger, hip flexors, knee extensors, dorsiflexion, toe extension (EHL) , plantarflexion Motor examination - left side: 4/5: biceps, triceps, wrist flexion, wrist extension, tank farm gauger, hip flexors, knee extensors, dorsiflexion, toe extension (EHL) , plantarflexion Detailed sensory examination: intact Reflex and gait examination: intact Reflexes: 1+: ankle, bicep, knee, tricep - Musculoskeletal Musculoskeletal: no pain - Psychiatric Psychiatric: mood/affect appropriate, cooperative Results - Laboratory Findings CBC and BMP: 01/01/18 12:55 01/01/18 12:55 Abnormal Lab Findings: Abnormal Labs 01/01/18 01/01/18 01/01/18 12:55 12:55 12:55 Hgb 10.8 L RDW 16.2 H APTT 21.5 L Sodium 149 H Chloride 108 H BUN 27 H Creatinine 1.26 H Assessment and Plan (1) Dementia Current Visit: Yes Status: Acute Code(s): F03.90 - UNSPECIFIED DEMENTIA WITHOUT BEHAVIORAL DISTURBANCE SNOMED Code(s): 44382400 (2) Acute encephalopathy Current Visit: No Status: Acute Code(s): G93.40 - ENCEPHALOPATHY, UNSPECIFIED SNOMED Code(s): 70671806 Plan: This patient is a 87-year-old female with history of dementia and altered mental status. Patient was admitted with symptoms of increasing confusion and possible worsening dementia. She underwent a computed tomography scan of the brain which failed to reveal any acute changes. She is recently diagnosed as having seizure disorder and has been taking Trileptal 300 mg twice a day. We will check a Trileptal blood level for the patient tomorrow. Patient will undergo routine EEG tomorrow for further evaluation as well. Her overall prognosis at this time remains very guarded. We will give further recommendations pending her studies. She is a very poor historian secondary to her underlying dementia. Will await further assessment from PTOT for the patient. Her overall prognosis at this time remains very guarded. Time with Patient: Greater than 30
[2018-01-02] MEDS: SODIUM CHLORIDE 0.9% 1,000 ML IV SCH ×2 (05:43→09:49)
[2018-01-02 07:15] LABS: Glucose,Whole Blood 81 mg/dL (75-99)
[2018-01-02] MEDS: CALCIUM CARB-VIT D 500MG-200UN 1 EACH TAB PO SCH ×2 (08:02→21:50)
[2018-01-02] MEDS: HEPARIN SODIUM,PORCINE 5,000 UNIT/ML 1 ML VIAL SQ SCH ×2 (08:03→21:50)
[2018-01-02] MEDS: DOCUSATE 100 MG CAP PO SCH (08:03)
[2018-01-02] MEDS: OXcarbazepine 300 MG TAB PO SCH ×2 (08:03→21:50)
[2018-01-02] MEDS: PANTOPRAZOLE 40 MG/10 ML VIAL IVP SCH (08:03)
[2018-01-02] MEDS: SERTRALINE 100 MG TAB PO SCH (08:04)
[2018-01-02 08:08] LABS: Calcium 9.2 mg/dL (8.4-10.2)
[2018-01-02 08:15] LABS: Anisocytosis Slight; Basophils % (A) 1 %; Eosinophils # (A) 0.3 k/uL (0-0.7); Eosinophils % (A) 6 %; HCT 30.2 % (34.0-46.0); Hypochromasia Moderate; Lymphocytes # (A) 1.7 k/uL (1.0-4.8); Lymphocytes % (A) 37 %; MCHC 30.4 g/dL (31.0-37.0); MCV 85.7 fL (80.0-100.0); Mean Platelet Volume 7.4; Monocytes # (A) 0.3 k/uL (0-1.0); Monocytes % (A) 6 %; Neutrophils # (A) 2.2 k/uL (1.3-7.7); Neutrophils % (A) 48 %; Platelet Count 189 k/uL (150-450); RBC 3.52 m/uL (3.80-5.40); RDW 16.2 % (11.5-15.5); WBC 4.7 k/uL (3.8-10.6)
[2018-01-02 08:17] LABS: HGB 9.2 gm/dL (11.4-16.0)
[2018-01-02] MEDS ORDERED: NON-FORMULARY DRUG (Cranberry Fruit Extract [Cranberry] 500 MG) PO SCH (09:00)
[2018-01-02] MEDS ORDERED: SODIUM CHLORIDE 0.45% 1,000 ML IV SCH ×2 (10:45→20:30)
[2018-01-02 11:13] VITALS: BMI 20.3
[2018-01-02 11:17] LABS: Glucose,Whole Blood 85 mg/dL (75-99)
[2018-01-02] MEDS: FERROUS SULFATE 325 MG TAB PO SCH (11:48)
[2018-01-02] MEDS: MULTIVITAMINS, THERA 1 EACH TAB PO SCH (11:48)
[2018-01-02] MEDS: THIAMINE 100 MG TAB PO SCH (11:48)
[2018-01-02] MEDS: FOLIC ACID 1 MG TAB PO SCH (11:49)
[2018-01-02 16:38] LABS: Glucose,Whole Blood 83 mg/dL (75-99)
[2018-01-02] MEDS: PANTOPRAZOLE 40 MG TABLET PO SCH (16:44)
[2018-01-02 20:13] LABS: Glucose,Whole Blood 95 mg/dL (75-99)
[2018-01-02] MEDS: amLODIPine 5 MG TAB PO SCH (21:50)
[2018-01-02] MEDS: MELATONIN 5 MG TABLET PO SCH (21:50)
[2018-01-02] MEDS: ASPIRIN 81 MG PO SCH (21:50)
--- NOTE | 2018-01-02 22:50 | PN ---
PROGRESS NOTE DATE OF SERVICE: 01/02/2018 This 87-year-old woman, being followed by Dr. Emmanuelle Dhaliwal in the outpatient setting, was admitted with change in mental status. Recently patient had possible seizures. Currently patient has dehydration, hypernatremia. Diminished p.o. intake was suspected. No chest pain. No palpitation. On exam, patient is patient is confused. Pulse 56, blood pressure 143/70, respiration 16, temperature 98.2, pulse ox 96% on room air. HEENT: Conjunctivae normal. NECK: No jugular venous distention. CARDIOVASCULAR SYSTEM: S1, S2 muffled. RESPIRATORY SYSTEM: Breath sounds diminished at the bases. A few scattered rhonchi. No crackles. ABDOMEN: Soft, non-tender. LEGS: No edema. No swelling. NERVOUS SYSTEM: Mild diffuse weakness. LABS: Sodium 149, creatinine 1.21. ASSESSMENT: 1. Change in mental status with dehydration and hypernatremia. 2. Possible metabolic encephalopathy. 3. Chronic kidney disease, stage III. 4. Constipation. 5. History of recent seizure disorder. 6. History of urinary tract infection with pseudomonas. 7. Hypernatremia. 8. Dementia. 9. History of deep vein thrombosis. 10.FULL CODE. RECOMMENDATIONS AND DISCUSSION: I recommend to continue current medication, continue symptomatic treatment. Otherwise, change the fluid to half-normal saline at 75 mL/hour. Will continue to monitor the electrolyte and creatinine. PT/OT evaluation has been ordered. Neurology also has been consulted. Further recommendations to follow. MMODL / IJN: [id number] /
--- NOTE | 2018-01-03 00:32 | P.PN ---
Subjective Progress Note Date: 01/02/18 This patient is a 87-year-old female who is being evaluated for altered mental status and confusion. She has history of underlying seizure disorder. She is currently on Trileptal. Her Trileptal blood level is pending today. She underwent routine EEG which was reviewed and fails to reveal any active seizure focus. Patient continues to have evidence of underlying confusion and disorientation. We will continue to monitor progress closely during this admission. Her overall prognosis remains guarded. Objective - Vital Signs Vital signs: Vital Signs Temp 97.8 F 01/02/18 20:15 Pulse 55 L 01/02/18 20:15 Resp 18 01/02/18 20:15 BP 137/76 01/02/18 20:15 Pulse Ox 93 L 01/02/18 20:15 Intake & Output 01/02/18 01/02/18 01/03/18 06:59 18:59 06:59 Intake Total 350 2060 Balance 350 2060 Weight 52.163 kg Intake: Intake, IV Titration 350 1000 Amount Sodium Chloride 0.45% 1, 300 000 ml @ 100 mls/hr IV . Q10H RENA Rx#:[id number] Sodium Chloride 0.9% 1, 350 700 000 ml @ 100 mls/hr IV . Q10H RENA Rx#:[id number] Oral 1060 Other: Voiding Method Toilet Diaper Diaper Incontinent Incontinent # Voids 1 3 - Exam Physical examination: PHYSICAL EXAMINATION: Patient is resting comfortably in bed. VITAL SIGNS: Blood pressure is [137/76]. Heart rate is [55]. Respiration is [18] . Temperature is [97.8]. HEENT: Head is atraumatic, neck is supple, there were no carotid bruits. CHEST: Lungs are clear to auscultation and percussion. CARDIAC: S1, S2 normal rate and rhythm. There is no murmur. ABDOMEN: Soft and nontender. Bowel sounds are present. EXTREMITIES: There is no pedal edema. Peripheral pulses are present. Neurological examination: Patient's neurological examination is unchanged from yesterday. - Labs CBC & Chem 7: 01/02/18 07:38 01/02/18 07:38 Labs: Abnormal Lab Results - Last 24 Hours (Table) 01/02/18 01/02/18 Range/Units 07:38 07:38 RBC 3.52 L (3.80-5.40) m/uL Hgb 9.2 L D (11.4-16.0) gm/dL Hct 30.2 L (34.0-46.0) % MCHC 30.4 L (31.0-37.0) g/dL RDW 16.2 H (11.5-15.5) % Sodium 149 H (137-145) mmol/L Chloride 111 H (98-107) mmol/L BUN 19 H (7-17) mg/dL Creatinine 1.21 H (0.52-1.04) mg/dL Assessment and Plan (1) Dementia Current Visit: Yes Status: Acute Code(s): F03.90 - UNSPECIFIED DEMENTIA WITHOUT BEHAVIORAL DISTURBANCE SNOMED Code(s): 02210071 (2) Acute encephalopathy Current Visit: No Status: Acute Code(s): G93.40 - ENCEPHALOPATHY, UNSPECIFIED SNOMED Code(s): 09977521 Plan: This patient is a 87-year-old female with history of dementia and altered mental status. Patient was admitted with symptoms of increasing confusion and possible worsening dementia. She underwent a computed tomography scan of the brain which failed to reveal any acute changes. She is recently diagnosed as having seizure disorder and has been taking Trileptal 300 mg twice a day. We will check a Trileptal blood level for the patient tomorrow. Patient will undergo routine EEG today for further evaluation as well. Her overall prognosis at this time remains very guarded. EEG was reviewed today and reveals diffuse slowing. No epileptic seizure focus was detected. Her Trileptal blood level is still pending today. We will give further recommendations pending her studies. She is a very poor historian secondary to her underlying dementia. Will await further assessment from PTOT for the patient. Her overall prognosis at this time remains very guarded.
[2018-01-03 07:23] LABS: Glucose,Whole Blood 93 mg/dL (75-99)
[2018-01-03 07:52] LABS: Basophils % (A) 1 %; Eosinophils # (A) 0.4 k/uL (0-0.7); Eosinophils % (A) 7 %; HCT 28.1 % (34.0-46.0); HGB 8.8 gm/dL (11.4-16.0); Hypochromasia Slight; Lymphocytes # (A) 1.7 k/uL (1.0-4.8); Lymphocytes % (A) 33 %; MCH 26.7 pg (25.0-35.0); MCHC 31.4 g/dL (31.0-37.0); MCV 85.1 fL (80.0-100.0); Monocytes # (A) 0.4 k/uL (0-1.0); Monocytes % (A) 7 %; Neutrophils # (A) 2.7 k/uL (1.3-7.7); Neutrophils % (A) 51 %; Platelet Count 203 k/uL (150-450); WBC 5.3 k/uL (3.8-10.6)
[2018-01-03 08:02] LABS: Calcium 8.9 mg/dL (8.4-10.2); Potassium 3.9 mmol/L (3.5-5.1)
[2018-01-03] MEDS: CALCIUM CARB-VIT D 500MG-200UN 1 EACH TAB PO SCH ×2 (08:14→23:47)
[2018-01-03] MEDS: SERTRALINE 100 MG TAB PO SCH (08:14)
[2018-01-03] MEDS: PANTOPRAZOLE 40 MG TABLET PO SCH ×2 (08:15→16:52)
[2018-01-03] MEDS: HEPARIN SODIUM,PORCINE 5,000 UNIT/ML 1 ML VIAL SQ SCH ×2 (08:15→23:47)
[2018-01-03] MEDS: DOCUSATE 100 MG CAP PO SCH (08:15)
[2018-01-03] MEDS: OXcarbazepine 300 MG TAB PO SCH ×2 (08:15→23:48)
--- NOTE | 2018-01-03 10:12 | P.PN ---
Subjective 87-year-old woman with advanced dementia is admitted with worsening mental status changes and possible seizures. Patient is on prophylaxis for seizures. Neurology is following the patient. I'm unable to get any kind of history from the patient although patient appears clinically stable unable to swallow because of which will obtain speech therapy -swallow evaluation. Patient's hyponatremia improved patient will be switched to D5 half-normal saline Objective - Vital Signs Vital signs: Vital Signs Temp 98.1 F 01/03/18 07:30 Pulse 55 L 01/03/18 07:30 Resp 18 01/03/18 07:30 BP 141/66 01/03/18 07:30 Pulse Ox 93 L 01/03/18 07:48 Intake & Output 01/02/18 01/03/18 01/03/18 18:59 06:59 18:59 Intake Total 2060 350 Balance 2060 350 Weight 52.163 kg Intake: Intake, IV Titration 1000 350 Amount Sodium Chloride 0.45% 1, 300 350 000 ml @ 100 mls/hr IV . Q10H RENA Rx#:[id number] Sodium Chloride 0.9% 1, 700 000 ml @ 100 mls/hr IV . Q10H RENA Rx#:[id number] Oral 1060 Other: Voiding Method Diaper Diaper Incontinent Incontinent # Voids 3 3 - Exam PHYSICAL EXAMINATION: GENERAL: The patient is alert and oriented x0, not in any acute distress. Well developed, well nourished. HEENT: Pupils are round and equally reacting to light. EOMI. No scleral icterus. No conjunctival pallor. Normocephalic, atraumatic. No pharyngeal erythema. No thyromegaly. CARDIOVASCULAR: S1 and S2 present. No murmurs, rubs, or gallops. PULMONARY: Chest is clear to auscultation, no wheezing or crackles. ABDOMEN: Soft, nontender, nondistended, normoactive bowel sounds. No palpable organomegaly. MUSCULOSKELETAL: No joint swelling or deformity. EXTREMITIES: No cyanosis, clubbing, or pedal edema. NEUROLOGICAL: Unable to evaluate, moving all 4 limbs SKIN: No rashes. - Labs CBC & Chem 7: 01/03/18 07:03 01/03/18 07:03 Labs: Abnormal Lab Results - Last 24 Hours (Table) 01/03/18 01/03/18 Range/Units 07:03 07:03 RBC 3.30 L (3.80-5.40) m/uL Hgb 8.8 L (11.4-16.0) gm/dL Hct 28.1 L (34.0-46.0) % RDW 16.0 H (11.5-15.5) % Chloride 109 H (98-107) mmol/L BUN 18 H (7-17) mg/dL Creatinine 1.19 H (0.52-1.04) mg/dL Assessment and Plan Plan: Metabolic encephalopathy secondary to dehydration and hyponatremia which improved -Seizure disorder with recent seizures -Possible advancing dementia either senile or vascular dementia -Hypertension -Hyperlipidemia -Depression. For above-mentioned chronic gouty problems patient will be resumed and continued on appropriate home medications. Speech therapy evaluation depending on speech therapy evaluation will discuss with the family regarding available options. Family is requesting to take her home when she is medically stable
[2018-01-03 11:55] LABS: Glucose,Whole Blood 80 mg/dL (75-99)
[2018-01-03] MEDS: FOLIC ACID 1 MG TAB PO SCH (12:19)
[2018-01-03] MEDS: THIAMINE 100 MG TAB PO SCH (12:19)
[2018-01-03] MEDS: FERROUS SULFATE 325 MG TAB PO SCH (12:19)
[2018-01-03] MEDS: SODIUM CHLORIDE 0.45% 1,000 ML IV SCH ×2 (12:19→23:49)
[2018-01-03] MEDS: MULTIVITAMINS, THERA 1 EACH TAB PO SCH (12:19)
--- NOTE | 2018-01-03 17:06 | P.PN ---
Subjective Progress Note Date: 01/03/18 This patient is a 87-year-old female who is being evaluated for altered mental status and confusion. She has history of underlying seizure disorder. She is currently on Trileptal. Her Trileptal blood level is pending today. She underwent routine EEG which was reviewed and fails to reveal any active seizure focus. Patient continues to have evidence of underlying confusion and disorientation. We will continue to monitor progress closely during this admission. According to the nursing staff family has been concerned that the current anticonvulsant medication Trileptal has changed her appetite. Currently she has had some weight loss recently. We will wait to get her anticonvulsant blood level back from the laboratory on her actual Trileptal serum level. Based on her level we can consider either reducing her dose of Trileptal or to consider an alternative anticonvulsant medication. We'll continue close neurological follow-up with the patient. Her overall prognosis remains guarded. Objective - Vital Signs Vital signs: Vital Signs Temp 98.1 F 01/03/18 07:30 Pulse 55 L 01/03/18 08:00 Resp 18 01/03/18 08:00 BP 141/66 01/03/18 07:30 Pulse Ox 93 L 01/03/18 07:48 Intake & Output 01/02/18 01/03/18 01/03/18 18:59 06:59 18:59 Intake Total 206 350 Balance 2060 350 Weight 52.163 kg Intake: Intake, IV Titration 1000 350 Amount Sodium Chloride 0.45% 1, 300 350 000 ml @ 100 mls/hr IV . Q10H RENA Rx#:[id number] Sodium Chloride 0.9% 1, 700 000 ml @ 100 mls/hr IV . Q10H RENA Rx#:[id number] Oral 1060 Other: Voiding Method Diaper Diaper Diaper Incontinent Incontinent Incontinent # Voids 3 3 2 - Exam Physical examination: PHYSICAL EXAMINATION: Patient is resting comfortably in bed. VITAL SIGNS: Blood pressure is [141/65]. Heart rate is [55]. Respiration is [18] . Temperature is [98.1]. HEENT: Head is atraumatic, neck is supple, there were no carotid bruits. CHEST: Lungs are clear to auscultation and percussion. CARDIAC: S1, S2 normal rate and rhythm. There is no murmur. ABDOMEN: Soft and nontender. Bowel sounds are present. EXTREMITIES: There is no pedal edema. Peripheral pulses are present. Neurological examination: Patient's neurological examination is unchanged from yesterday. - Labs CBC & Chem 7: 01/03/18 07:03 01/03/18 07:03 Labs: Abnormal Lab Results - Last 24 Hours (Table) 01/03/18 01/03/18 Range/Units 07:03 07:03 RBC 3.30 L (3.80-5.40) m/uL Hgb 8.8 L (11.4-16.0) gm/dL Hct 28.1 L (34.0-46.0) % RDW 16.0 H (11.5-15.5) % Chloride 109 H (98-107) mmol/L BUN 18 H (7-17) mg/dL Creatinine 1.19 H (0.52-1.04) mg/dL Assessment and Plan (1) Dementia Current Visit: Yes Status: Acute Code(s): F03.90 - UNSPECIFIED DEMENTIA WITHOUT BEHAVIORAL DISTURBANCE SNOMED Code(s): 46349142 (2) Acute encephalopathy Current Visit: No Status: Acute Code(s): G93.40 - ENCEPHALOPATHY, UNSPECIFIED SNOMED Code(s): 92869395 Plan: This patient is a 87-year-old female with history of dementia and altered mental status. Patient was admitted with symptoms of increasing confusion and possible worsening dementia. She underwent a computed tomography scan of the brain which failed to reveal any acute changes. She is recently diagnosed as having seizure disorder and has been taking Trileptal 300 mg twice a day. We will check a Trileptal blood level for the patient which is still pending today. Her overall prognosis at this time remains very guarded. EEG was reviewed today and reveals diffuse slowing. No epileptic seizure focus was detected. Her Trileptal blood level is still pending today. Once her Trileptal blood level is available we will consider adjusting the dose if necessary. Family has been concerned that the Trileptal is been causing her some weight loss. We may consider reduction of the Trileptal dose pending her blood results. Otherwise she may be considered for an alternative anticonvulsant medication. We will give further recommendations pending her studies. She is a very poor historian secondary to her underlying dementia. Will await further assessment from PT/OT for the patient. Her overall prognosis at this time remains very guarded.
[2018-01-03 17:08] LABS: Glucose,Whole Blood 94 mg/dL (75-99)
[2018-01-03 20:58] LABS: Glucose,Whole Blood 124 mg/dL (75-99)
[2018-01-03] MEDS: amLODIPine 5 MG TAB PO SCH (23:47)
[2018-01-03] MEDS: ASPIRIN 81 MG PO SCH (23:47)
[2018-01-03] MEDS: MELATONIN 5 MG TABLET PO SCH (23:47)
[2018-01-04 07:14] LABS: Glucose,Whole Blood 90 mg/dL (75-99)
[2018-01-04 07:32] LABS: Basophils % (A) 0 %; Eosinophils # (A) 0.4 k/uL (0-0.7); Eosinophils % (A) 7 %; HCT 29.6 % (34.0-46.0); HGB 9.4 gm/dL (11.4-16.0); Lymphocytes # (A) 1.7 k/uL (1.0-4.8); Lymphocytes % (A) 34 %; MCH 26.8 pg (25.0-35.0); MCHC 31.7 g/dL (31.0-37.0); MCV 84.8 fL (80.0-100.0); Mean Platelet Volume 7.2; Monocytes # (A) 0.3 k/uL (0-1.0); Monocytes % (A) 6 %; Neutrophils # (A) 2.5 k/uL (1.3-7.7); Neutrophils % (A) 51 %; Platelet Count 201 k/uL (150-450); RBC 3.49 m/uL (3.80-5.40); RDW 15.9 % (11.5-15.5); WBC 4.9 k/uL (3.8-10.6)
[2018-01-04 07:56] LABS: Calcium 8.9 mg/dL (8.4-10.2); Potassium 3.8 mmol/L (3.5-5.1)
[2018-01-04] MEDS: HEPARIN SODIUM,PORCINE 5,000 UNIT/ML 1 ML VIAL SQ SCH ×3 (08:16→22:20)
[2018-01-04] MEDS: SERTRALINE 100 MG TAB PO SCH (08:16)
[2018-01-04] MEDS: PANTOPRAZOLE 40 MG TABLET PO SCH ×2 (08:17→18:12)
[2018-01-04] MEDS: DOCUSATE 100 MG CAP PO SCH (08:17)
[2018-01-04] MEDS: OXcarbazepine 300 MG TAB PO SCH ×3 (08:17→22:20)
[2018-01-04] MEDS: CALCIUM CARB-VIT D 500MG-200UN 1 EACH TAB PO SCH ×3 (08:17→22:20)
--- NOTE | 2018-01-04 11:07 | P.PN ---
Subjective 87-year-old woman with advanced dementia is admitted with worsening mental status changes and possible seizures. Patient is on prophylaxis for seizures. Neurology is following the patient. I'm unable to get any kind of history from the patient although patient appears clinically stable unable to swallow because of which will obtain speech therapy -swallow evaluation. Patient's hyponatremia improved patient will be switched to D5 half-normal saline 01/04/2018 No overnight events Objective - Vital Signs Vital signs: Vital Signs Temp 97.4 F L 01/04/18 07:20 Pulse 51 L 01/04/18 08:00 Resp 20 01/04/18 08:00 BP 147/72 01/04/18 07:20 Pulse Ox 95 01/04/18 07:20 Intake & Output 01/03/18 01/04/18 01/04/18 18:59 06:59 18:59 Intake Total 5 Balance 5 Weight 52.163 kg Intake: Oral 5 Other: Voiding Method Diaper Diaper Diaper Incontinent Incontinent Incontinent # Voids 1 3 - Exam PHYSICAL EXAMINATION: GENERAL: The patient is alert and oriented x0, not in any acute distress. Well developed, well nourished. HEENT: Pupils are round and equally reacting to light. EOMI. No scleral icterus. No conjunctival pallor. Normocephalic, atraumatic. No pharyngeal erythema. No thyromegaly. CARDIOVASCULAR: S1 and S2 present. No murmurs, rubs, or gallops. PULMONARY: Chest is clear to auscultation, no wheezing or crackles. ABDOMEN: Soft, nontender, nondistended, normoactive bowel sounds. No palpable organomegaly. MUSCULOSKELETAL: No joint swelling or deformity. EXTREMITIES: No cyanosis, clubbing, or pedal edema. NEUROLOGICAL: Unable to evaluate, moving all 4 limbs SKIN: No rashes. - Labs CBC & Chem 7: 01/04/18 07:07 01/04/18 07:07 Labs: Abnormal Lab Results - Last 24 Hours (Table) 01/03/18 01/04/18 01/04/18 Range/Units 20:56 07:07 07:07 RBC 3.49 L (3.80-5.40) m/uL Hgb 9.4 L (11.4-16.0) gm/dL Hct 29.6 L (34.0-46.0) % RDW 15.9 H (11.5-15.5) % Chloride 110 H (98-107) mmol/L Creatinine 1.18 H (0.52-1.04) mg/dL POC Glucose (mg/dL) 124 H (75-99) mg/dL Assessment and Plan Plan: Metabolic encephalopathy secondary to dehydration and hypernatremia which improved -Seizure disorder with recent seizures -Possible advancing dementia either senile or vascular dementia -Hypertension -Hyperlipidemia -Depression. For above-mentioned chronic gouty problems patient will be resumed and continued on appropriate home medications. Speech therapy evaluation depending on speech therapy evaluation will discuss with the family regarding available options. Family is requesting to take her home when she is medically stable
[2018-01-04 11:30] LABS: Glucose,Whole Blood 88 mg/dL (75-99)
[2018-01-04] MEDS: THIAMINE 100 MG TAB PO SCH (11:43)
[2018-01-04] MEDS: FOLIC ACID 1 MG TAB PO SCH (11:43)
[2018-01-04] MEDS: FERROUS SULFATE 325 MG TAB PO SCH (11:43)
[2018-01-04] MEDS: MULTIVITAMINS, THERA 1 EACH TAB PO SCH (11:43)
[2018-01-04] MEDS: SODIUM CHLORIDE 0.45% 1,000 ML IV SCH (13:09)
[2018-01-04 17:27] LABS: Glucose,Whole Blood 98 mg/dL (75-99)
--- NOTE | 2018-01-04 19:09 | P.PN ---
Subjective Progress Note Date: 01/04/18 This patient is a 87-year-old female who is being evaluated for altered mental status and confusion. She has history of underlying seizure disorder. She is currently on Trileptal. Her Trileptal blood level is pending today. She underwent routine EEG which was reviewed and fails to reveal any active seizure focus. Patient continues to have evidence of underlying confusion and disorientation. We will continue to monitor progress closely during this admission. According to the nursing staff family has been concerned that the current anticonvulsant medication Trileptal has changed her appetite. Currently she has had some weight loss recently. We will wait to get her anticonvulsant blood level back from the laboratory on her actual Trileptal serum level. Based on her level we can consider either reducing her dose of Trileptal or to consider an alternative anticonvulsant medication. We have recommended speech pathology to see this patient tomorrow as well. We will continue close neurological follow-up with the patient. Her overall prognosis remains guarded. Objective - Vital Signs Vital signs: Vital Signs Temp 97.4 F L 01/04/18 07:20 Pulse 51 L 01/04/18 08:00 Resp 20 01/04/18 08:00 BP 147/72 01/04/18 07:20 Pulse Ox 95 01/04/18 07:20 Intake & Output 01/03/18 01/04/18 01/04/18 18:59 06:59 18:59 Intake Total 5 Balance 5 Weight 52.163 kg Intake: Oral 5 Other: Voiding Method Diaper Diaper Diaper Incontinent Incontinent Incontinent # Voids 1 3 - Exam Physical examination: PHYSICAL EXAMINATION: Patient is resting comfortably in bed. VITAL SIGNS: Blood pressure is [147/72]. Heart rate is [51]. Respiration is [18] . Temperature is [97.4]. HEENT: Head is atraumatic, neck is supple, there were no carotid bruits. CHEST: Lungs are clear to auscultation and percussion. CARDIAC: S1, S2 normal rate and rhythm. There is no murmur. ABDOMEN: Soft and nontender. Bowel sounds are present. EXTREMITIES: There is no pedal edema. Peripheral pulses are present. Neurological examination: Patient's neurological examination is unchanged from yesterday. Patient remains confused secondary to her underlying history of dementia. She does follow some simple commands. - Labs CBC & Chem 7: 01/04/18 07:07 01/04/18 07:07 Labs: Abnormal Lab Results - Last 24 Hours (Table) 01/03/18 01/04/18 01/04/18 Range/Units 20:56 07:07 07:07 RBC 3.49 L (3.80-5.40) m/uL Hgb 9.4 L (11.4-16.0) gm/dL Hct 29.6 L (34.0-46.0) % RDW 15.9 H (11.5-15.5) % Chloride 110 H (98-107) mmol/L Creatinine 1.18 H (0.52-1.04) mg/dL POC Glucose (mg/dL) 124 H (75-99) mg/dL Assessment and Plan (1) Dementia Current Visit: Yes Status: Acute Code(s): F03.90 - UNSPECIFIED DEMENTIA WITHOUT BEHAVIORAL DISTURBANCE SNOMED Code(s): 21800007 (2) Acute encephalopathy Current Visit: No Status: Acute Code(s): G93.40 - ENCEPHALOPATHY, UNSPECIFIED SNOMED Code(s): 51303170 Plan: This patient is a 87-year-old female with history of dementia and altered mental status. Patient was admitted with symptoms of increasing confusion and possible worsening dementia. She underwent a computed tomography scan of the brain which failed to reveal any acute changes. She is recently diagnosed as having seizure disorder and has been taking Trileptal 300 mg twice a day. We will check a Trileptal blood level for the patient which is still pending today. Her overall prognosis at this time remains very guarded. EEG was reviewed today and reveals diffuse slowing. No epileptic seizure focus was detected. Her Trileptal blood level is still pending today. Once her Trileptal blood level is available we will consider adjusting the dose if necessary. Family has been concerned that the Trileptal is been causing her some weight loss. We may consider reduction of the Trileptal dose pending her blood results. Otherwise she may be considered for an alternative anticonvulsant medication. It is also possible that her lack of appetite and weight loss may be related to her worsening dementia. We will give further recommendations pending her studies. She is a very poor historian secondary to her underlying dementia. Will await further assessment from PT/OT for the patient. Her overall prognosis at this time remains very guarded.
[2018-01-04 20:07] LABS: Glucose,Whole Blood 93 mg/dL (75-99)
[2018-01-04] MEDS: amLODIPine 5 MG TAB PO SCH (22:18)
[2018-01-04] MEDS: MELATONIN 5 MG TABLET PO SCH (22:18)
[2018-01-04] MEDS: ASPIRIN 81 MG PO SCH (22:18)
--- NOTE | 2018-01-04 23:13 | EEG ---
ELECTROENCEPHALOGRAM REPORT DATE OF EE01/02/2018. REFERRING PHYSICIAN: Dr. Lima. ELECTROENCEPHALOGRAPHIC EXAMINATION REPORT: INDICATION FOR EXAMINATION: This patient is a 87-year-old female being evaluated for dementia and altered mental status. AGE: [age]. EEG FINDINGS: A routine 21 channel awake digital EEG recording was accomplished utilizing the 10-20 international system with bipolar and referential montages. The background activity in the most alert resting state consists of a low to medium amplitude, poorly developed and poorly sustained 5-6 Hz activity over the posterior head regions. This posterior rhythm attenuates to eye opening. There is a small amount of low amplitude 18-20 Hz beta activity seen maximally over the anterior head regions. Muscle and movement artifact was observed on a few occasions during the tracing. Hyperventilation was not performed. Photic stimulation at flash frequencies of 2-30 Hz produced a minimal occipital driving response. No epileptiform discharges were seen. IMPRESSION: This EEG is moderately abnormal in a diffuse fashion due to slowing of the EEG background. The EEG failed to reveal any focal, lateralized, or epileptiform abnormalities. Clinical correlation is recommended. MMODL / IJN: [id number] /
[2018-01-05] MEDS: SODIUM CHLORIDE 0.45% 1,000 ML IV SCH ×2 (02:21→14:39)
[2018-01-05] MEDS: HEPARIN SODIUM,PORCINE 5,000 UNIT/ML 1 ML VIAL SQ SCH ×2 (09:33→19:59)
[2018-01-05 09:35] LABS: Anisocytosis Slight; Basophils % (A) 0 %; Eosinophils # (A) 0.4 k/uL (0-0.7); Eosinophils % (A) 7 %; HCT 30.5 % (34.0-46.0); HGB 9.2 gm/dL (11.4-16.0); Hypochromasia Slight; Lymphocytes # (A) 1.6 k/uL (1.0-4.8); Lymphocytes % (A) 29 %; MCH 25.7 pg (25.0-35.0); MCHC 30.2 g/dL (31.0-37.0); MCV 85.2 fL (80.0-100.0); Mean Platelet Volume 7.6; Monocytes # (A) 0.3 k/uL (0-1.0); Monocytes % (A) 5 %; Neutrophils # (A) 3.2 k/uL (1.3-7.7); Neutrophils % (A) 58 %; Platelet Count 218 k/uL (150-450); RBC 3.58 m/uL (3.80-5.40); RDW 16.4 % (11.5-15.5); WBC 5.4 k/uL (3.8-10.6)
[2018-01-05 09:55] LABS: Calcium 8.8 mg/dL (8.4-10.2); Potassium 4.3 mmol/L (3.5-5.1)
[2018-01-05] MEDS: DOCUSATE 100 MG CAP PO SCH (12:12)
[2018-01-05] MEDS: CALCIUM CARB-VIT D 500MG-200UN 1 EACH TAB PO SCH ×2 (12:12→19:59)
[2018-01-05] MEDS: PANTOPRAZOLE 40 MG TABLET PO SCH ×2 (12:12→17:04)
[2018-01-05] MEDS: MULTIVITAMINS, THERA 1 EACH TAB PO SCH (12:13)
[2018-01-05] MEDS: FOLIC ACID 1 MG TAB PO SCH (12:13)
[2018-01-05] MEDS: FERROUS SULFATE 325 MG TAB PO SCH (12:13)
[2018-01-05] MEDS: THIAMINE 100 MG TAB PO SCH (12:13)
[2018-01-05] MEDS: SERTRALINE 100 MG TAB PO SCH ×2 (12:13→19:17)
[2018-01-05] MEDS: OXcarbazepine 300 MG TAB PO SCH ×2 (14:38→20:00)
--- NOTE | 2018-01-05 17:21 | P.PN ---
Subjective 87-year-old woman with advanced dementia is admitted with worsening mental status changes and possible seizures. Patient is on prophylaxis for seizures. Neurology is following the patient. I'm unable to get any kind of history from the patient although patient appears clinically stable unable to swallow because of which will obtain speech therapy -swallow evaluation. Patient's hyponatremia improved patient will be switched to D5 half-normal saline 01/04/2018 No overnight events 01/05/2018 Dosing and overnight events I had extensive discussion with the son regarding her CODE STATUS patient is DO NOT RESUSCITATE now after discussion with the her son who is a medical power of divorce attorney did also discuss with him regarding the options of PEG tube placement which is not appropriate and futile care and discuss that the most appropriate care for her is palliative care and hospice. Patient's son will think about those options patient remains confused alert oriented times almost 0 with advanced dementia Objective - Vital Signs Vital signs: Vital Signs Temp 97.5 F L 01/05/18 15:16 Pulse 53 L 01/05/18 15:16 Resp 16 01/05/18 15:16 BP 127/75 01/05/18 15:16 Pulse Ox 93 L 01/05/18 15:16 Intake & Output 01/04/18 01/05/18 01/05/18 18:59 06:59 18:59 Intake Total 755 300 Balance 755 300 Intake: Intake, IV Titration 750 300 Amount Sodium Chloride 0.45% 1, 750 300 000 ml @ 75 mls/hr IV . [id number] [facility] Rx#:[id number] Oral 5 Other: Voiding Method Diaper Diaper Diaper Incontinent Incontinent Incontinent # Voids 1 3 1 # Bowel Movements 0 # Emeses 1 - Exam PHYSICAL EXAMINATION: GENERAL: The patient is alert and oriented x0, not in any acute distress. Well developed, well nourished. HEENT: Pupils are round and equally reacting to light. EOMI. No scleral icterus. No conjunctival pallor. Normocephalic, atraumatic. No pharyngeal erythema. No thyromegaly. CARDIOVASCULAR: S1 and S2 present. No murmurs, rubs, or gallops. PULMONARY: Chest is clear to auscultation, no wheezing or crackles. ABDOMEN: Soft, nontender, nondistended, normoactive bowel sounds. No palpable organomegaly. MUSCULOSKELETAL: No joint swelling or deformity. EXTREMITIES: No cyanosis, clubbing, or pedal edema. NEUROLOGICAL: Unable to evaluate, moving all 4 limbs SKIN: No rashes. - Labs CBC & Chem 7: 01/05/18 08:40 01/05/18 08:40 Labs: Abnormal Lab Results - Last 24 Hours (Table) 01/05/18 01/05/18 Range/Units 08:40 08:40 RBC 3.58 L (3.80-5.40) m/uL Hgb 9.2 L (11.4-16.0) gm/dL Hct 30.5 L (34.0-46.0) % MCHC 30.2 L (31.0-37.0) g/dL RDW 16.4 H (11.5-15.5) % Chloride 110 H (98-107) mmol/L BUN 18 H (7-17) mg/dL Creatinine 1.22 H (0.52-1.04) mg/dL Assessment and Plan Plan: Metabolic encephalopathy secondary to dehydration and hypernatremia which improved -Seizure disorder with recent seizures, patient is on Trileptal didn't receive any of her medications -Dysphagia: Due to advancing dementia speech therapy evaluated the patient. -Possible advancing dementia etiology is not clear may be vascular are also was dementia. Patient is DO NOT RESUSCITATE at this point of time. -Hypertension -Hyperlipidemia -Depression.
[2018-01-05] MEDS: amLODIPine 5 MG TAB PO SCH (19:19)
[2018-01-05] MEDS: ASPIRIN 81 MG PO SCH (19:59)
[2018-01-05] MEDS: MELATONIN 5 MG TABLET PO SCH (20:00)
[2018-01-05 21:57] VITALS: TEMP 97.9
--- NOTE | 2018-01-06 00:10 | P.PN ---
Subjective Progress Note Date: 01/05/18 This patient is a 87-year-old female who is being evaluated for altered mental status and confusion. She has history of underlying seizure disorder. She is currently on Trileptal. Her Trileptal blood level was obtained and is coming back therapeutic at 15.5. She underwent routine EEG which was reviewed and fails to reveal any active seizure focus. Patient continues to have evidence of underlying confusion and disorientation. The patient likely has worsening underlying dementia. She is resting comfortably and is in no acute distress at this time. We will continue to monitor progress closely during this admission. According to the nursing staff family has been concerned that the current anticonvulsant medication Trileptal has changed her appetite. Currently she has had some weight loss recently. We will wait to get her anticonvulsant blood level back from the laboratory on her actual Trileptal serum level. Her Trileptal level did come back in the therapeutic range at 15.5. It is unlikely that this is causing any of her anorexia and weight loss. This is more likely secondary to worsening underlying dementia. Primary admitting staff did discuss with the patient's son and her CODE STATUS. She has made DO NOT RESUSCITATE today. Possibility of performing PEG tube was also entertained with the family. We are waiting to see if the family would like to move on to comfort care measures or possible hospice consultation given this patient's poor prognosis. We will continue close neurological follow-up with the patient. Her overall prognosis remains guarded. Objective - Vital Signs Vital signs: Vital Signs Temp 97.5 F L 01/05/18 15:16 Pulse 66 01/05/18 19:19 Resp 16 01/05/18 15:16 BP 126/74 01/05/18 19:19 Pulse Ox 93 L 01/05/18 15:16 Intake & Output 01/05/18 01/05/18 01/06/18 06:59 18:59 06:59 Intake Total 300 Balance 300 Intake: Intake, IV Titration 300 Amount Sodium Chloride 0.45% 1, 300 000 ml @ 75 mls/hr IV . [id number] [facility] Rx#:[id number] Other: Voiding Method Diaper Diaper Incontinent Incontinent # Voids 3 1 # Emeses 1 - Exam Physical examination: PHYSICAL EXAMINATION: Patient is resting comfortably in bed. VITAL SIGNS: Blood pressure is [127/75]. Heart rate is [53]. Respiration is [16] . Temperature is [97.5]. HEENT: Head is atraumatic, neck is supple, there were no carotid bruits. CHEST: Lungs are clear to auscultation and percussion. CARDIAC: S1, S2 normal rate and rhythm. There is no murmur. ABDOMEN: Soft and nontender. Bowel sounds are present. EXTREMITIES: There is no pedal edema. Peripheral pulses are present. Neurological examination: Patient's neurological examination is unchanged from yesterday. Patient remains confused secondary to her underlying history of dementia. She does follow some simple commands. - Labs CBC & Chem 7: 01/05/18 08:40 01/05/18 08:40 Labs: Abnormal Lab Results - Last 24 Hours (Table) 01/05/18 01/05/18 Range/Units 08:40 08:40 RBC 3.58 L (3.80-5.40) m/uL Hgb 9.2 L (11.4-16.0) gm/dL Hct 30.5 L (34.0-46.0) % MCHC 30.2 L (31.0-37.0) g/dL RDW 16.4 H (11.5-15.5) % Chloride 110 H (98-107) mmol/L BUN 18 H (7-17) mg/dL Creatinine 1.22 H (0.52-1.04) mg/dL Assessment and Plan (1) Dementia Current Visit: Yes Status: Acute Code(s): F03.90 - UNSPECIFIED DEMENTIA WITHOUT BEHAVIORAL DISTURBANCE SNOMED Code(s): 41126496 (2) Acute encephalopathy Current Visit: No Status: Acute Code(s): G93.40 - ENCEPHALOPATHY, UNSPECIFIED SNOMED Code(s): 40874979 Plan: This patient is a 87-year-old female with history of dementia and altered mental status. Patient was admitted with symptoms of increasing confusion and possible worsening dementia. She underwent a computed tomography scan of the brain which failed to reveal any acute changes. She is recently diagnosed as having seizure disorder and has been taking Trileptal 300 mg twice a day. We will check a Trileptal blood level for the patient which is still pending today. Her overall prognosis at this time remains very guarded. EEG was reviewed today and reveals diffuse slowing. No epileptic seizure focus was detected. Her Trileptal blood level did come back therapeutic at 15.5. Family has been concerned that the Trileptal is been causing her some weight loss. We may consider reduction of the Trileptal dose pending her blood results. Her Trileptal level is very much in the therapeutic range. It is unlikely that the Trileptal is causing her weight loss. This is more likely due to her underlying dementia. Otherwise she may be considered for an alternative anticonvulsant medication. It is also possible that her lack of appetite and weight loss may be related to her worsening dementia. Her son and other family members are considering palliative care or hospice for this patient given her poor prognosis. We will give further recommendations pending her studies. She is a very poor historian secondary to her underlying dementia. Will await further assessment from PT/OT for the patient. Her overall prognosis at this time remains very guarded. Her son who is power of water gas operator as well as other family members are considering palliative care or hospice care for this patient. We will follow along with the primary care service for further management of her condition. Her overall prognosis continues to remain very guarded.
[2018-01-06] MEDS: SODIUM CHLORIDE 0.45% 1,000 ML IV SCH (01:22)
[2018-01-06 07:33] VITALS: BP 152/77; PULSE 62; RESP 16
[2018-01-06 08:36] LABS: Anisocytosis Slight; Basophils % (A) 0 %; Eosinophils # (A) 0.4 k/uL (0-0.7); Eosinophils % (A) 7 %; HCT 28.7 % (34.0-46.0); HGB 8.8 gm/dL (11.4-16.0); Hypochromasia Moderate; Lymphocytes # (A) 1.7 k/uL (1.0-4.8); Lymphocytes % (A) 30 %; MCH 26.3 pg (25.0-35.0); MCHC 30.7 g/dL (31.0-37.0); MCV 85.6 fL (80.0-100.0); Mean Platelet Volume 7.8; Monocytes # (A) 0.3 k/uL (0-1.0); Monocytes % (A) 6 %; Neutrophils # (A) 3.1 k/uL (1.3-7.7); Neutrophils % (A) 55 %; Platelet Count 197 k/uL (150-450); RBC 3.35 m/uL (3.80-5.40); RDW 16.5 % (11.5-15.5); WBC 5.6 k/uL (3.8-10.6)
[2018-01-06 08:53] LABS: Calcium 8.7 mg/dL (8.4-10.2); Potassium 4.2 mmol/L (3.5-5.1)
[2018-01-06] MEDS: OXcarbazepine 300 MG TAB PO SCH (09:14)
[2018-01-06] MEDS: SERTRALINE 100 MG TAB PO SCH (09:17)
[2018-01-06] MEDS: CALCIUM CARB-VIT D 500MG-200UN 1 EACH TAB PO SCH (09:30)
[2018-01-06] MEDS: PANTOPRAZOLE 40 MG TABLET PO SCH (09:30)
[2018-01-06] MEDS: DOCUSATE 100 MG CAP PO SCH (09:30)
[2018-01-06] MEDS: HEPARIN SODIUM,PORCINE 5,000 UNIT/ML 1 ML VIAL SQ SCH (09:31)
--- NOTE | 2018-01-06 10:55 | P.DS ---
Providers Date of admission: 01/01/18 16:14 Attending physician: Case Lima Consults: 01/01/18 16:25 Consult Physician Routine Consulting Provider: Ann Gandhi Consult Reason/Comments: sz Do you want consulting provider notified?: Yes Primary care physician: Emmanuelle Dhaliwal [facility] Course: 87-year-old woman with advanced dementia is admitted with worsening mental status changes and possible seizures. Patient is on prophylaxis for seizures. Neurology is following the patient. I'm unable to get any kind of history from the patient although patient appears clinically stable unable to swallow because of which will obtain speech therapy -swallow evaluation. Patient's hyponatremia improved patient will be switched to D5 half-normal saline 01/04/2018 No overnight events 01/05/2018 Dosing and overnight events I had extensive discussion with the son regarding her CODE STATUS patient is DO NOT RESUSCITATE now after discussion with the her son who is a medical power of food counter worker did also discuss with him regarding the options of PEG tube placement which is not appropriate and futile care and discuss that the most appropriate care for her is palliative care and hospice. Patient's son will think about those options patient remains confused alert oriented times almost 0 with advanced dementia 01/06/2018 Patient is failing bleeding welts PCP a valid the patient did modify the diet and the family wanted to take him home, son is not yet ready for any palliative care or hospice. Although patient is DO NOT RESUSCITATE. Regarding antiseizure medications, neurology is recommending to continue Trileptal at the same dose although son believes Trileptal is making her symptoms worse highly the dietitian whether to continue are not to son.. Patient is definitely high risk for readmission because of her advanced dementia and extremely poor functionality her clinical condition can worse pretty quickly. Family is declining homecare PHYSICAL EXAMINATION: GENERAL: The patient is alert and oriented x0, not in any acute distress. Thin built HEENT: Pupils are round and equally reacting to light. EOMI. No scleral icterus. No conjunctival pallor. Normocephalic, atraumatic. No pharyngeal erythema. No thyromegaly. CARDIOVASCULAR: S1 and S2 present. No murmurs, rubs, or gallops. PULMONARY: Chest is clear to auscultation, no wheezing or crackles. ABDOMEN: Soft, nontender, nondistended, normoactive bowel sounds. No palpable organomegaly. MUSCULOSKELETAL: No joint swelling or deformity. EXTREMITIES: No cyanosis, clubbing, or pedal edema. NEUROLOGICAL: Unable to evaluate, moving all 4 limbs SKIN: No rashes. Assessment and Plan Plan: Metabolic encephalopathy secondary to dehydration and hypernatremia which improved -Seizure disorder with recent seizures.ns -Dysphagia: Due to advancing dementia speech therapy evaluated the patient. Improved now -Advanced dementia etiology is not clear may be vascular are also was dementia. Patient is DO NOT RESUSCITATE at this point of time. The more appropriate care for her is palliative care, comfort care and hospice -Hypertension -Hyperlipidemia -Depression. Patient Condition at Discharge: Stable Plan - Discharge Summary Discharge Rx Participant: Yes New Discharge Prescriptions: Continue Multivitamins, Thera [Multivitamin (formulary)] 2 tab PO DAILY Cranberry Fruit Extract [Cranberry] 500 mg PO DAILY Sertraline [Zoloft] 150 mg PO QAM [place]-3 Fatty Acids/Fish Oil [Fish Oil 1,000 mg Softgel] 1 cap PO BID Docusate [Colace] 100 mg PO QAM Aspirin 81 mg PO HS amLODIPine BESYLATE [Norvasc] 5 mg PO HS Folic Acid 1 mg PO QAM Thiamine [Vitamin B-1] 100 mg PO QAM Iron 27mg 27 mg PO DAILY Melatonin 10 mg PO HS Calcium Carb/Vitamin D3/Vit K1 [Citracal Soft Chew] 1 tab PO BID OXcarbazepine [Trileptal] 300 mg PO BID #60 tab Discharge Medication List Cranberry Fruit Extract [Cranberry] 500 mg PO DAILY 07/15/17 [History] Multivitamins, Thera [Multivitamin (formulary)] 2 tab PO DAILY 07/15/17 [History ] Sertraline [Zoloft] 150 mg PO QAM 07/15/17 [History] Aspirin 81 mg PO HS 11/08/17 [History] Docusate [Colace] 100 mg PO QAM 11/08/17 [History] [place]-3 Fatty Acids/Fish Oil [Fish Oil 1,000 mg Softgel] 1 cap PO BID 11/08/17 [ History] Folic Acid 1 mg PO QAM 11/19/17 [History] Thiamine [Vitamin B-1] 100 mg PO QAM 11/19/17 [History] amLODIPine BESYLATE [Norvasc] 5 mg PO HS 11/19/17 [History] Iron 27mg 27 mg PO DAILY 12/09/17 [History] Melatonin 10 mg PO HS 12/09/17 [History] Calcium Carb/Vitamin D3/Vit K1 [Citracal Soft Chew] 1 tab PO BID 12/21/17 [ History] OXcarbazepine [Trileptal] 300 mg PO BID #60 tab 12/26/17 [Rx] Follow up Appointment(s)/Referral(s): Emmanuelle Dhaliwal MD [Primary Care Provider] - 3 Days Activity/Diet/Wound Care/Special Instructions: Finger foods with supervision Discharge Disposition: HOME SELF-CARE
[2018-01-06] MEDS: FERROUS SULFATE 325 MG TAB PO SCH (11:12)
[2018-01-06] MEDS: FOLIC ACID 1 MG TAB PO SCH (11:12)
[2018-01-06] MEDS: MULTIVITAMINS, THERA 1 EACH TAB PO SCH (11:12)
[2018-01-06] MEDS: THIAMINE 100 MG TAB PO SCH (11:12)
== END 2018-01-06 14:00 | disposition home or self-care (01) | DRG 640 ==
LOC: EC 12:25 → 5MS5E 16:14
PROVIDERS: ADMIT Hospitalist; ATTEND Hospitalist
DX: E87.1 Hypo-osmolality and hyponatremia (principal); G93.41 Metabolic encephalopathy; E86.0 Dehydration; I12.9 Hypertensive chronic kidney disease with stage 1 through stage 4 chronic kidney disease, or unspecified chronic kidney disease; N18.3 Chronic kidney disease, stage 3 (moderate); K59.00 Constipation, unspecified; G40.909 Epilepsy, unspecified, not intractable, without status epilepticus; Z66 Do not resuscitate; E78.5 Hyperlipidemia, unspecified; F32.9 Major depressive disorder, single episode, unspecified; E87.0 Hyperosmolality and hypernatremia; R62.7 Adult failure to thrive; I45.4 Nonspecific intraventricular block; R00.1 Bradycardia, unspecified; M10.9 Gout, unspecified; F01.50 Vascular dementia, unspecified severity, without behavioral disturbance, psychotic disturbance, mood disturbance, and anxiety; R63.4 Abnormal weight loss; R13.10 Dysphagia, unspecified; Z87.891 Personal history of nicotine dependence; Z79.82 Long term (current) use of aspirin; Z86.718 Personal history of other venous thrombosis and embolism; Z79.899 Other long term (current) drug therapy; Z87.440 Personal history of urinary (tract) infections
CPT/HCPCS: 36415; 51701; 70450; 71046; 74018; 74176; 80048; 80053; 80183; 81003; 82550; 82553; 83735; 84484; 85025; 85610; 85730; 93005; 94760; 95819; 96361; 96374; 99285